=== PATIENT | female | born 1980 | race Caucasian/White ===

== ENCOUNTER 2021-12-23 08:12 | Outpatient (CLI) | payer OTHER, SELFPAY ==
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
--- OUTSIDE RECORDS SUMMARY | 2021-12-23 08:40 | XMS_ITS | Encounter Summary ---
:[address] [facility] Address [address] [place] [address] Care Team Providers Name Role Phone Oscar Laughlin M.D. Primary Care Provider [phone] Reason for Referral Specialty Diagnoses / Procedures Referred By Contact Refer red To Contact Oscar Laughlin M.D. [facility] Region [address] [place] [address] Referral ID Status Reason Start Date Expiration Date Visits Requ ested Visits Authorized Encounter Details Date Type Department Care Team Description 12/02/[address] [facility] [address] [place], [place] [phone] (Wo rk) Social History Tobacco Use Types Packs/Day Years Used Date Smoking Tobacco: Never Smokeless Tobacco: Never Alcohol Use Standard Drinks/Week Comments Yes 0 [...] or relatives? How often do you attend yazidism or More than 4 times per year 07/29/2020 spiritism services? Do you belong to any clubs or Yes 07/29/2020 organizations such as yazidism groups, unions, fraternal or athletic groups, or [...] place to sleep or slept in a halfway (including now)? Education Answer Date Recorded What is the highest level of school Master's degree (e.g., M A, MS, 03/11/2020 you have completed or the highest Fabio, MEd, HOTEL RECEPTIONIST, ELICIA) degree you have received? Sex Assigned at Date Recorded Female 04/27/2017 8:11 AM VP CLIENT SERVICES documented as of this encounter Plan of Treatment Scheduled Referrals Name Type Priority Associated Order Schedule Diagnoses Covid immunization Outpatient Referral Routine Ex pected: office visit 12/02/2021 Immuno/Booster (Approximate) , Expires: 12/02/2022 documented as of this encounter Visit Diagnoses Not on filedocumented in this encounter Additional Health Concerns Assessment Noted Time PHQ-9 Depression Total Score: 7 04/12/2020 10:38 AM CS T documented as of this encounter Care Teams Truck Mechanic Apprentice Relationship Specialty Start Date End Date Oscar Laughlin M.D. PCP - General 08/10/[address] [address] documented as of this encounter
--- OUTSIDE RECORDS SUMMARY | 2021-12-23 08:40 | XMS_ITS | Encounter Summary ---
:1980 Author Organization [facility] Address [address] [place] [address] Care Team Providers Name Role Phone Oscar Laughlin M.D. Primary Care Provider [phone] Reason for Referral Outpatient (Routine) - Authorized Specialty Diagnoses / Procedures Referred By Contact Refer red To Contact Diagnoses Screening Mammogram Breast Cancer Oscar Laughlin M.D. [facility] Region Procedures BI Breast Screening Bilateral with Tomosynthesis [address] [place] [address] Referral ID Status Reason Start Date Expiration Date Visits V isits Requested Authorized [id number] Authorized 08/02/2021 08/02/2022 1 1 Outpatient (Routine) - Authorized Specialty Diagnoses / Procedures Referred By Contact Refer red To Contact Oscar Laughlin M.D. [facility] Region [address] [place] [address] Referral ID Status Reason Start Date Expiration Date Visits V isits Requested Authorized [id number] Authorized 08/02/2021 08/02/2022 1 1 Encounter Details Date Type Department Care Team Description 08/02/2021 Orders Only [facility] SEMN PCP [facility] [address], Fernando Granados M.D. Screening Mammogram Breast Cancer [address] [place] [address] Social History Tobacco Use Types Packs/Day Years [...] or relatives? How often do you attend religion or More than 4 times per year 07/29/2020 mu-ism services? Do you belong to any clubs or Yes 07/29/2020 organizations such as religion groups, unions, fraternal or athletic groups, or [...] place to sleep or slept in a assisted (including now)? Education Answer Date Recorded What is the highest level of school Master's degree (e.g., M A, MS, 03/11/2020 you have completed or the highest Fabio, MEd, GASOLINE DRAGLINE OPERATOR, ELICIA) degree you have received? Sex Assigned at Date Recorded Female 04/27/2017 8:11 AM GUARD DRIVER documented as of this encounter Plan of Treatment Scheduled Orders Name Type Priority Associated Order Schedule Diagnoses Lipid Panel Lab Routine Screening Lipid Expected: 08/16/2021, Expires: 01/29/2022 BI Breast Screening Imaging RAD - Routine (most Screening Mamm ogram Expected: Bilateral with inpatients and all Breast Cancer 2021, Tomosynthesis outpatients) Expires: 01/29/2022 Scheduled Referrals Name Type Priority Associated Diagnoses Order S oleg Primary Care nurse Outpatient Referral Routine Ex pected: visit (clinic) - 08/16/2021, [facility] Region; Expires: BP check; BP check 2 only (BANQUET MANAGER) documented as of this encounter Visit Diagnoses Diagnosis Screening Lipid Screening Mammogram Breast Cancer documented in this encounter Additional Health Concerns Assessment Noted Time PHQ-9 Depression Total Score: 7 04/12/2020 10:38 AM CS T documented as of this encounter Care Teams Wind Science And Planning Relationship Specialty Start Date End Date Oscar Laughlin M.D. PCP - General 08/10/[address] [id number] documented as of this encounter
--- OUTSIDE RECORDS SUMMARY | 2021-12-23 08:40 | XMS_ITS | Encounter Summary ---
:1980 Author Organization [facility] Address [address] [place] [address] Care Team Providers Name Role Phone Oscar Laughlin M.D. Primary Care Provider Reason for Visit Reason Comments Med Refill Encounter Details Date Type Department Care Team Description 03/24/2021 Refill Department of Family Medicine, Nabeel Connor M.D. Med Refill [facility], in [place], [place] [address] [address] [facility] [place] [address] [facility] [phone] Social History Tobacco Use Types Packs/Day Years [...] or relatives? How often do you attend religious or More than 4 times per year 07/29/2020 christianity services? Do you belong to any clubs or Yes 07/29/2020 organizations such as religious groups, unions, fraternal or athletic groups, or [...] minutes do you engage in exercise at is 40 min 07/29/2020 level? Stress Answer [...] level of school Master's degree (e.g., M Alissa, MS, 03/11/2020 you have completed or the highest Fabio, MEd, FUSION OPERATOR, ELICIA) degree you have received? Sex Assigned at Date Recorded Female 04/27/2017 8:11 AM STORE SPECIALIST documented as of this encounter Miscellaneous Notes Telephone Encounter - Nabeel Newby RMickeyN. - 03/24/2021 1:05 PM CST Patient notified. E SPECIALIST documented in this encounter Plan of Treatment Not on filedocumented as of this encounter Visit Diagnoses Not on filedocumented in this encounter Additional Health Concerns Assessment Noted Time PHQ-9 Depression Total Score: 7 04/12/2020 10:38 AM CS T documented as of this encounter Care Teams Taxicab Starter Relationship Specialty Start Date End Date Oscar Laughlin M.D. PCP - General 08/10/16 [address] [place] [address] documented as of this encounter
--- OUTSIDE RECORDS SUMMARY | 2021-12-23 08:41 | XMS_ITS | Encounter Summary ---
:1980 Author Organization [facility] Address [address] [place] [address] Care Team Providers Name Role Phone Oscar Laughlin M.D. Primary Care Provider [phone] Reason for Referral Specialty Diagnoses / Procedures Referred By Contact Refer red To Contact Tung Mancera M.D. [facility] Region [address] [place] [address] Referral ID Status Reason Start Date Expiration Date Visits Requ ested Visits Authorized Encounter Details Date Type Department Care Team Description 05/13/2020 Orders Only [facility] SEMN PCP [facility] [address] M.D. [address] [place], [place] [phone] (Wo rk) Social History Tobacco Use Types [...] or relatives? How often do you attend hinduism or More than 4 times per year 07/29/2020 adventist services? Do you belong to any clubs or Yes 07/29/2020 organizations such as hinduism groups, unions, fraternal or athletic groups, or [...] place to sleep or slept in a fdc (including now)? Education Answer Date Recorded What is the highest level of school Master's degree (e.g., M A, MS, 03/11/2020 you have completed or the highest Fabio, MEd, SPINNING MACHINE OPERATOR, ELICIA) degree you have received? Sex Assigned at Date Recorded Female 04/27/2017 8:11 AM BUSHEL WORKER documented as of this encounter Plan of Treatment Scheduled Referrals Name Type Priority Associated Order Schedule Diagnoses Covid immunization Outpatient Referral Routine Ex pected: office visit Initial 021 (Approximate), Expires: 05/13/2021 documented as of this encounter Visit Diagnoses Not on filedocumented in this encounter Additional Health Concerns Assessment Noted Time PHQ-9 Depression Total Score: 7 04/12/2020 10:38 AM CS T documented as of this encounter Care Teams Supervisor Carbon Electrodes Relationship Specialty Start Date End Date Oscar Laughlin M.D. PCP - General 08/10/[address], [place] [address] documented as of this encounter
--- OUTSIDE RECORDS SUMMARY | 2021-12-23 08:41 | XMS_ITS | Encounter Summary ---
:1980 Author Organization [facility] Address [address] [place] [address] Care Team Providers Name Role Phone Oscar Laughlin M.D. Primary Care Provider [phone] Encounter Details Date Type Department Care Team Description 02/02/2020 Orders Only [facility] SEMN PCP [facility] MNT Pablo Laughlin M.D. [address] [place], [place] [phone] (Wo rk) Social History [...] or relatives? How often do you attend christianity or More than 4 times per year 07/29/2020 christian services? Do you belong to any clubs or Yes 07/29/2020 organizations such as christianity groups, unions, fraternal or athletic groups, or [...] place to sleep or slept in a [facility] (including now)? Sex Assigned at Date Recorded Female 04/27/2017 8:11 AM SALESPERSON HOUSEHOLD APPLIANCES documented as of this encounter Plan of Treatment Not on filedocumented as of this encounter Visit Diagnoses Not on filedocumented in this encounter Care Teams Retirement Plan Counselor Relationship Specialty Start Date End Date Oscar Laughlin M.D. PCP - General 08/10/[address] [phone] documented as of this encounter
--- OUTSIDE RECORDS SUMMARY | 2021-12-23 08:41 | XMS_ITS | Encounter Summary ---
:1980 Author Organization [facility] Address [address] [place] [address] Care Team Providers Name Role Phone Oscar Laughlin M.D. Primary Care Provider [phone] Reason for Visit Reason Comments Skin Problem cyst on upper mid back. Sks that popped up after pregnancies. Outpatient (Routine) - Closed Specialty Diagnoses / Procedures Referred By Contact Refer red To Contact Dermatology Diagnoses Cyst Sebaceous Keratosis Seborrheic Evaristo Ledbetter N, GARAGE LABORER, [facility] C.N.P., D.N.P. [address] [place] [address] Referral ID Status Reason Start Date Expiration Date Visits Requ ested Visits Authorized [id number] Closed 05/02/2018 05/02/2019 1 1 Encounter Details Date Type Department Care Team Description 05/21/2018 Comprehensive Visit Department of Aura Porter Keratos is Seborrheic Inflamed (Primary Dx); Dermatology in [facility], Cyst Sebaceou s; [place], [place] C.N.P., Administrative Encounter No Exam [address] [facility] [place], [place] [address] [phone] [place] [address] Social History Tobacco Use Types Packs/Day Years [...] or relatives? How often do you attend sabianism or More than 4 times per year 07/29/2020 scientologist services? Do you belong to any clubs or Yes 07/29/2020 organizations such as sabianism groups, unions, fraternal or athletic groups, or [...] place to sleep or slept in a skilled nursing (including now)? Sex Assigned at Date Recorded Female 04/27/2017 8:11 AM QUALITY ASSURANCE ANALYST documented as of this encounter Progress Notes Aura Porter, RADHA, C.N.P., M.S.N. - 05/21/2018 1:00 PM CDT SUBJECTIVE CHIEF COMPLAINT / REASON FOR VISIT Skin Problem (cyst on upper mid back. Sks that popped up after pregnancies.). HISTORY OF PRESENT ILLNESS Saniya Sauceda is a 38 y.o. female who presents for evaluation of a cyst on her mid upper back and an irritated seborrheic keratoses on her left lateral back that rubs on her bra. She denies any personal or family his skin cancers and is otherwise in her routine state of health. Per nursing notes: Chief Complaint (Reason for visit):Cyst on upper mid back, has had for awhile. Also, patient has SK's on upper back since pregnancies How long has lesion(s) been present, any symptoms (pain, bleeding, or itching)? : no pain or itching Was patient referred, self referred, or a returning derm patient? : referred by Evaristo Ledbetter Personal or family history of skin cancer or other skin condition? : no Any other skin concerns today? : no The following portions of the patient's history were reviewed and updated as appropriate: allergies,current medications, medical history, social history and surgical history. REVIEW OF SYSTEMS Constitutional, integumentary, and allergic/immunologic review of systems is negative except as otherwise remarked above or below. OBJECTIVE PHYSICAL EXAM General: Well-appearing female in no acute distress. Well groomed and dressed and answers appropriately to questions. Skin: I have examined the back, on the mid upper back there is a 10 mm subcutaneous nodule with a punctum consistent with an epidermal cyst. On the left lateral back there is a brown hyperkeratotic stuck on appearing waxy 14-16 mm papule with mild erythema consistent with an inflamed seborrheic keratosis. ASSESSMENT / PLAN #1 Cyst Sebaceous We discussed treatment options and patient was agreeable to removal of this benign lesion. The risksand benefits of the procedure were discussed, and the patient consented to this procedure. PROCEDURAL PAUSE Risks, benefits, alternatives of procedure and necessity of other healthcare team members involved in procedure were discussed. All questions answered. Before procedure, pause conducted and patient identity, procedure, site, position, special equipment/requirements were verified. PROCEDURE DETAILS Punch removal. LOCATION: Mid upper back Using 1% lidocaine with epinephrine for local anesthesia, a 12 mm punch was obtained from the mid upper back. The specimen was examined and appear to be consistent with an epidermal cyst, the cyst was removed entirely including the cyst wall. The site closed with a bottom layer of 4-0 Vicryl and a toplayer of 4-0 nylon sutures. The skin sutures need to be removed in 10-14 days. Dressing was applied,and wound care instructions were explained. #2 Inflamed Keratosis Seborrheic We discussed treatment options and patient was agreeable to destruction of this benign lesion. The risks, benefits, and alternatives of the procedure were discussed and patient consented to the procedure. The area was cleansed with alcohol prep and numbed using 1% lidocaine with epinephrine. The area was prepped and draped in the usual clean fashion. The area was destroyed with electrodesiccation. Minimal bleeding. Patient tolerated procedure well and post care instructions were provided. Patient will follow up if lesion fails to resolve. PATIENT EDUCATION Ready to learn, no apparent learning barriers were identified; learning preferences include listening. Explained diagnosis and treatment plan; patient expressed understanding of the content. documented in this encounter Plan of Treatment Scheduled Orders Name Type Priority Associated Diagnoses Order S chedule DAXA Suture removal Dermatology Routine Cyst Sebaceou s Expected: 06/03/2018 Keratosis Seborrheic (Approx imate), Inflamed Expires: 05/21/2021 Administrative Encounter No Exam documented as of this encounter Visit Diagnoses Diagnosis Keratosis Seborrheic Inflamed - Primary Cyst Sebaceous Administrative Encounter No Exam documented in this encounter Care Teams Filtration Plant Operator Relationship Specialty Start Date End Date Oscar Laughlin M.D. PCP - General 08/10/[address] [address] documented as of this encounter
--- OUTSIDE RECORDS SUMMARY | 2021-12-23 08:41 | XMS_ITS | Encounter Summary ---
:1980 Author Organization [facility] Address [address] [place] [address] Care Team Providers Name Role Phone Oscar Laughlin M.D. Primary Care Provider [phone] Reason for Visit Appointment Request (Routine) - Closed Specialty Diagnoses / Procedures Referred By Contact Refer red To Contact Family Medicine Referral ID Status Reason Start Date Expiration Date Visits Requ ested Visits Authorized [id number] Closed 12/22/2019 12/21/2020 1 1 Encounter Details Date Type Department Care Team Description 12/29/2019 Immunization [facility] [place], [place] [address] [place] [address] [facility] [phone] Social History Tobacco Use Types Packs/Day Years [...] or relatives? How often do you attend oriental orthodox or More than 4 times per year 07/29/2020 muslim services? Do you belong to any clubs or Yes 07/29/2020 organizations such as oriental orthodox groups, unions, fraternal or athletic groups, or [...] place to sleep or slept in a senior living (including now)? 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 PCP - General 08/10/[address] [address] documented as of this encounter
--- OUTSIDE RECORDS SUMMARY | 2021-12-23 08:41 | XMS_ITS | Encounter Summary ---
:1980 Author Organization [facility] Address [address] [place] [address] Care Team Providers Name Role Phone Oscar Laughlin M.D. Primary Care Provider [phone] Reason for Visit Outpatient (Routine) - Closed Specialty Diagnoses / Procedures Referred By Contact Refer red To Contact Dermatology Diagnoses Lesion Skin Leg Swetha Vázquez, [facility] [address] [place] [address] Referral ID Status Reason Start Date Expiration Date Visits V isits Requested Authorized [id number] Closed Specialty 07/29/2020 07/29/2021 1 1 Services Required Encounter Details Date Type Department Care Team Description 09/06/2020 Comprehensive Visit Department of Aura Porter, Dermato fibroma Dermatology in [facility] C.[place]ad [place], [place] M.S.N. [address] [place] [address] [place], [place] [phone] [address] Social History Tobacco Use Types Packs/Day [...] or relatives? How often do you attend anabaptist or More than 4 times per year 07/29/2020 confucianist services? Do you belong to any clubs or Yes 07/29/2020 organizations such as anabaptist groups, unions, fraternal or athletic groups, or [...] have completed or the highest Fabio, MEd, CHINESE HERBALIST, ELICIA) degree you have received? 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 - 09/06/2020 11:00 AM CDT SUBJECTIVE CHIEF COMPLAINT / REASON FOR VISIT Lesion on leg HISTORY OF PRESENT ILLNESS Saniya Sauceda is a 40 y.o. female who presents for evaluation of a lesion on her right coker that has been present for many years but seems to be enlarging. She reports that she it occasionally catches it while shaving and it becomes traumatized. Per nursing notes: Chief Complaint (Reason for visit): check lesion R coker How long has lesion(s) been present, any symptoms (pain, bleeding, or itching)? : present x years; denies itch, bleed or pain; has enlarged Was patient referred, self referred, or a returning derm patient? : referral Personal or family history of skin cancer or other skin condition? : no personal or family hx of sk cancer Any other skin concerns today? : no The following portions of the patient's history were reviewed and updated as appropriate: allergies,current medications, medical history and social history. REVIEW OF SYSTEMS Constitutional, integumentary, and allergic/immunologic review of systems is negative except as otherwise remarked above or below. OBJECTIVE PHYSICAL EXAM General: Well-appearing female in no acute distress. Well groomed and dressed and answers appropriately to questions. Skin: I have examined the right lower leg, on the right coker there is a 8 mm scar-like firm papule consistent with dermatofibroma. ASSESSMENT / PLAN #1 Dermatofibroma, irritated We explained the potential diagnosis and recommended that we obtain a biopsy. The risks and benefitsof the procedure were discussed, and the patient consented to this procedure. PROCEDURE DETAILS Shave removal. LOCATION: Right coker The lesion was marked with a surgical pen and confirmed with the patient. The area was prepped and draped in the usual clean fashion. A procedural pause was completed. The lesion was anesthetized with 1% lidocaine. The lesion was removed by shave technique, including 1 mm of clinically normal, uninvolved surrounding skin. Hemostasis was well controlled with aluminum chloride and confirmed. Estimated blood loss: Minimal. Complications: None. Wound dressing applied, care instructions explained. Biopsyresults and any further recommendations will be communicated to the patient. Patient given pamphlet [id number]. PATIENT EDUCATION Ready to learn, no apparent learning barriers were identified; learning preferences include listening. Explained diagnosis and treatment plan; patient expressed understanding of the content. This note represents shared documentation between the assisting nurse and the encounter provider. The content has been reviewed and edited as needed by the provider. documented in this encounter Plan of Treatment Not on filedocumented as of this encounter Procedures Procedure Name Priority Date/Time Associated Diagnosis Comme nts DERMATOPATHOLOGY Routine 09/06/2020 11:18 Dermatofibroma Resul ts for this CONSULT AM CDT procedure are i n the results section. documented in this encounter Results Dermatopathology Consult (09/06/2020 11:18 AM CDT) Component Value Ref Test Analysis Performed At [facility] gist Range Method Time Signature 09/10/2020 [facility] 10:58 AM CDT Participated in Charli Grossman 09/10/2020 [facility] the Interpretation Italia Blackwood, 10:58 AM D.OMickey-Patholog CDT y Fellow Report Devan Shah 09/10/2020 [facility] electronically Zeb Mendoza 10:58 AM signed by CDT Gross Description: Received in formalin labeled with the patient's name, 09/10/2020 [facility] medical record number, and right coker is a 1.2 x 1.0 x 10:58 AM 0.1 cm contreras skin shave biopsy. ??Centrally located and CDT contiguous with the skin surface is a 0.6 x 0.5 cm pale contreras-white, slightly raised lesion. ??The specimen is serially sectioned and submitted entirely in cassette A1. Grossed by ABDOULAYE Interpetation FINAL DIAGNOSIS 09/10/2020 [facility] A. ??DermPath Consult Wet Tissue; Right coker, Skin shave 10:58 AM biopsy: ??Dermatofibroma, involving biopsy border CDT Specimen Anatomical Collection Method Collection Time Receive d Time (Source) Location / / Volume Laterality Tissue 09/06/2020 11:18 09/07/2020 9:05 AM CDT AM CDT Narrative This result has an attachment that is no t available. Miranda Sol APRNNAnisa, M.S.N. LAB PATH DERM ORDERABL ES Performing Organization Address City/State/ZIP Code Phon e Number [facility] - [address] [place], [place] [address] [place] [address] [facility] [address] documented in this encounter Visit Diagnoses Diagnosis Dermatofibroma documented in this encounter Additional Health Concerns Assessment Noted Time PHQ-9 Depression Total Score: 7 04/12/2020 10:38 AM CS T documented as of this encounter Care Teams Sales Representative Girls' Apparel Relationship Specialty Start Date End Date Oscar Laughlin M.D. PCP - General 08/10/[address] [place] [address] documented as of this encounter
--- OUTSIDE RECORDS SUMMARY | 2021-12-23 08:41 | XMS_ITS | Encounter Summary ---
:1980 Author Organization [facility] Address [address] [place] [address] Care Team Providers Name Role Phone Oscar Laughlin M.D. Primary Care Provider [phone] Reason for Visit Reason Comments Med Refill Encounter Details Date Type Department Care Team Description 03/12/2020 Refill Department of [facility] Tejal Laughlin M.D. Med Refill Medicine, [facility], [address] [place] [address] [place] [address] [facility] [phone] Social History Tobacco Use Types Packs/Day Years [...] or relatives? How often do you attend anabaptism or More than 4 times per year 07/29/2020 bahai services? Do you belong to any clubs or Yes 07/29/2020 organizations such as anabaptism groups, unions, fraternal or athletic groups, or [...] have completed or the highest Fabio, MEd, INVESTIGATIVE SHOPPER, ELICIA) degree you have received? 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 Pharmacy Communication-change requested Provider: Evarisot Ledbetter Medication: Bupropion XL Strength: 150 mg Frequency: Take one tablet by mouth every morning for 14 days, then two tablets by mouth every morning Pharmacy: [facility] Comment: NTEGRATOR OPERATOR documented in this encounter Plan of Treatment Not on filedocumented as of this encounter Visit Diagnoses Not on filedocumented in this encounter Additional Health Concerns Assessment Noted Time PHQ-9 Depression Total Score: 14 03/12/2020 7:59 AM CS T documented as of this encounter Care Teams Direct Support Worker Relationship Specialty Start Date End Date Oscar Laughlin M.D. PCP - General 08/10/[address] [place] [address] documented as of this encounter
--- OUTSIDE RECORDS SUMMARY | 2021-12-23 08:41 | XMS_ITS | Encounter Summary ---
:1980 Author Organization [facility] Address [address] [place] [address] Care Team Providers Name Role Phone Oscar Laughlin M.D. Primary Care Provider [phone] Reason for Visit Reason Comments Nurse Visit [facility] for [facility] BP check today. Outpatient (Routine) - Closed Specialty Diagnoses / Procedures Referred By Contact Refer red To Contact Family Medicine Diagnoses Elevated Blood Pressure Evaristo Ledbetter [facility] RADHA, C.N.P., D.N.P. [address] [place] [address] Referral ID Status Reason Start Date Expiration Date Visits Requ ested Visits Authorized [id number] Closed 05/02/2018 05/02/2019 1 1 Encounter Details Date Type Department Care Team Description 05/17/2018 Nurse Only Department of Family Keven Ledbetter APRN, C.N.P., D.N.P. [address] [place] [address] Nurse Visit (Patient is Medicine, Sun Harley, RMaria Del Carmen [address] [place] [address] here in the [facility], in [place], for her BP check [place] today.) [address] [place] [address] Social History Tobacco Use Types Packs/Day Years [...] or relatives? How often do you attend yarsanism or More than 4 times per year 07/29/2020 worship services? Do you belong to any clubs or Yes 07/29/2020 organizations such as yarsanism groups, unions, fraternal or athletic groups, or [...] place to sleep or slept in a custodial (including now)? 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 - 05/17/2018 11:00 AM CDT S [facility] checked. B Patient denies symptoms today. A Last on 05/02 BP was 154/94 p 80. Today 05/17 BP is 148/93 p 65, 134/83 p 67, 139/91 p 68. All were taken today with the electronic BP machine 5 min apart R Please contact the patient with any further information or follow up regarding the blood pressure,or medication(s). documented in this encounter Plan of Treatment Not on filedocumented as of this encounter Visit Diagnoses Diagnosis Elevated Blood Pressure documented in this encounter Care Teams Cut Order Hand Relationship Specialty Start Date End Date Oscar Laughlin M.D. PCP - General 08/10/[address] [address] documented as of this encounter
--- OUTSIDE RECORDS SUMMARY | 2021-12-23 08:41 | XMS_ITS | Encounter Summary ---
:1980 Author Organization [facility] Address [address] [place] [address] Care Team Providers Name Role Phone Oscar Laughlin M.D. Primary Care Provider [phone] Encounter Details Date Type Department Care Team Description 02/01/2021 Orders Only [facility] Pablo Laughlin M.D. [address] [place], [place] [address] (Wo rk) Social History [...] or relatives? How often do you attend amish or More than 4 times per year 07/29/2020 buddhist services? Do you belong to any clubs or Yes 07/29/2020 organizations such as amish groups, unions, fraternal or athletic groups, or [...] place to sleep or slept in a retirement (including now)? Education Answer Date Recorded What is the highest level of school Master's degree (e.g., M Alissa, MS, 03/11/2020 you have completed or the highest Fabio, MEd, TRANSFERRER, ELICIA) degree you have received? Sex Assigned at Date Recorded Female 04/27/2017 8:11 AM AUTHORIZER documented as of this encounter Plan of Treatment Not on filedocumented as of this encounter Visit Diagnoses Not on filedocumented in this encounter Additional Health Concerns Assessment Noted Time PHQ-9 Depression Total Score: 7 04/12/2020 10:38 AM CS T documented as of this encounter Care Teams Center Medical Specialist Relationship Specialty Start Date End Date Oscar Laughlin M.D. PCP - General 08/10/[address] [address] documented as of this encounter
--- OUTSIDE RECORDS SUMMARY | 2021-12-23 08:41 | XMS_ITS | Encounter Summary ---
:1980 Author Organization [facility] Address [address] [place] [address] Care Team Providers Name Role Phone Oscar Laughlin M.D. Primary Care Provider [phone] Reason for Referral Outpatient (Routine) - Closed Specialty Diagnoses / Procedures Referred By Contact Refer red To Contact Diagnoses Screening Mammogram Breast Cancer [facility]. [facility] [place] [facility] Procedures BI Breast Screening Bilateral with Tomosynthesis [address] [place] [address] Referral ID Status Reason Start Date Expiration Date Visits Requ ested Visits Authorized [id number] Closed 07/20/2020 07/20/2021 1 1 Reason for Visit Outpatient (Routine) - Closed Specialty Diagnoses / Procedures Referred By Contact Refer red To Contact Diagnoses Screening Mammogram Breast Cancer [facility]aughlin [facility].D. [facility] [place] [facility] Procedures BI Breast Screening Bilateral with Tomosynthesis [address] [place] [phone] Referral ID Status Reason Start Date Expiration Date Visits Requ ested Visits Authorized [id number] Closed 07/20/2020 07/20/2021 1 1 Encounter Details Date Type Department Care Team Description 07/23/2020 Hospital Encounter Department of Oscar Laughlin Mammogram Radiology marleny Hernandez M.D. Breast Cancer [place], [place] [address] [place] [id number] Social History Tobacco Use Types Packs/Day Years [...] More than 4 times per year 07/29/2020 jain services? Do you belong to any clubs [...] slept in a senior living (including now)? Education Answer Date Recorded What is the highest level of school Master's degree (e.g., M A, MS, 03/11/2020 you have completed or the highest Fabio, MEd, APRON TRIMMER, ELICIA) degree you have received? 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 hydrOXYzine (ATARAX) 25 Take 1 tablet (25 mg 30 tablet 2 12/28/2020 mg tablet total) by mouth at bedtime as needed (anxiety/insomnia). documented as of this encounter Plan of Treatment Not on filedocumented as of this encounter Procedures Procedure Name Priority Date/Time Associated Comments Diagnosis BI BREAST SCREENING RAD - Routine 07/23/2020 10:35 Screening Res ults for BILATERAL WITH (most inpatients AM CDT Mammogram Breast this procedure TOMOSYNTHESIS and all Cancer are in the outpatients) results section. documented in this encounter Results BI Breast Screening Bilateral with Tomosynthesis (07/23/2020 10:35 AM CDT) Anatomical Region Laterality Modality Breast, Breast Imaging RST LOS, Breast Imaging ARZ LOS, [place] Bilateral Mammography Imaging FLA LOS Specimen (Source) Anatomical Collection Method Collection Time Re ceived Time Location / / Volume Laterality 07/23/2020 4:48 PM CDT Impressions 07/23/2020 4:49 PM CDT Negative. RECOMMENDATION: ??Annual Screening Mammo gram Annual screening mammogram. ASSESSMENT: ??BI-RADS: 1: Negative. Narrative 07/23/2020 4:49 PM CDT EXAM: ??BI BREAST SCREENING BILATERAL WITH TOMOSYNTHESIS Current study was evaluated with a NowForceu OATSystems Aided Detection (CAD) system. INDICATION: ??Screening mammogram. COMPARISON: ??None, this is a baseline s creening exam. DENSITY: ??c. The breast(s) are heteroge neously dense, which may obscure small masses. FINDINGS: ??No mammographic findings of malignancy. Procedure Note Rolan Toribio M.D. - 07/23/2020Formatt ing of this note might be different from the original. EXAM: BI BREAST SCREENING BILATERAL WITH TOMOSYNTHESIS Current study was evaluated with a NowForceu OATSystems Aided Detection (CAD) system. INDICATION: Screening mammogram. COMPARISON: None, this is a baseline scr eening exam. DENSITY: c. The breast(s) are heterogene ously dense, which may obscure small masses. FINDINGS: No mammographic findings of ma lignancy. IMPRESSION: Negative. RECOMMENDATION: Annual Screening Mammogr am Annual screening mammogram. ASSESSMENT: BI-RADS: 1: Negative. Oscar Laughlin M.D. IMG BI PROCEDURES documented in this encounter Visit Diagnoses Diagnosis Screening Mammogram Breast Cancer documented in this encounter Additional Health Concerns Assessment Noted Time PHQ-9 Depression Total Score: 7 04/12/2020 10:38 AM CS T documented as of this encounter Care Teams Bow Maker Custom Relationship Specialty Start Date End Date Oscar Laughlin M.D. PCP - General 08/10/[address] [address] documented as of this encounter
--- OUTSIDE RECORDS SUMMARY | 2021-12-23 08:41 | XMS_ITS | Encounter Summary ---
:1980 Author Organization [facility] Address [address] [place] [address] Care Team Providers Name Role Phone Oscar Laughlin M.D. Primary Care Provider Reason for Visit Reason Comments Pre-op Exam Tumnatalie castrejon and breast life a [facility] with Dr. Omar Armijo Appointment Request (Routine) - Closed Specialty Diagnoses / Procedures Referred By Contact Refer red To Contact Family Medicine Referral ID Status Reason Start Date Expiration Date Visits Requ ested Visits Authorized [id number] Closed 10/02/2019 10/01/2020 1 1 Encounter Details Date Type Department Care Team Description 10/16/2019 Office Visit Department of Family Nae Andrews Preo perative Exam (Primary Dx); MedicineBud P.A.-C. [facility], in [place] [address] [place], [place] [address] [address] [place], [place] [phone] (Work) [phone] Social History Tobacco Use Types Packs/Day Years [...] or relatives? How often do you attend episcopalian or More than 4 times per year 07/29/2020 tenriism services? Do you belong to any clubs or Yes 07/29/2020 organizations such as episcopalian groups, unions, fraternal or athletic groups, or [...] or slept in a fdc (including now)? 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 - 10/16/2019 8:00 AM CDT No aspirin containing products 7 days (09/14) prior to surgery. No ibuprofen use 24hrs before surgery Flu vaccine this fall. Lifestyle modifications for BP management Modification Approx SBP reduction range Weight loss 1 mmHg/1kg (2.2lbs) weight loss DASH diet eating plan: Dietary pattern is high in vegetables, fruits, low-fat dairy products, whole grains, poultry, fish, and nuts and low in sweets, sugar-sweetened beverages, and red meats 8-14 mmHg Dietary sodium reduction <2.3g of sodium/day 2-8 mmHg Sufficient potassium 4-5 mmHg Physical activity 3-4 sessions moderate-intensity aerobic exercise lasting approx. 40 minutes 4-9 mmHg Moderate alcohol consumption <1 drink per day (females) <2 drinks per day (males) 2-4 mmHg documented in this encounter Progress Notes Nae Andrews P.A.-C. - 10/16/2019 8:00 AM CDT FAMILY MEDICINE PREOPERATIVE EXAM: Proposed surgery date: 10/23/2019. Surgeon: Dr. Omar Armijo. Proposed surgery: Tummy tuck and breast left. Location: [facility]. HISTORY OF PRESENT ILLNESS Saniya Sauceda is a pleasant 39 y.o. female who presents to the clinic today for preoperative anesthetic medical exam for the above-mentioned procedure. She states she is feeling well and has no complaints at this time. SYSTEMS REVIEW Constitutional: Negative for fever. Respiratory: Negative for dyspnea. Cardiovascular: Negative for chest pain, pressure or tightness and rapid or fluttering heart beat. Gastrointestinal: Negative for constipation, diarrhea, nausea and vomiting. Hematologic: Negative for bruises or bleeds easily. Neurological: Negative for seizures. Psychiatric/Behavioral: Negative for snores loudly. The following portions of the patient's history were reviewed and updated as appropriate: allergies,current medications, medical history, social history, surgical history and problem list. Allergies Allergen Reactions ??? Amoxicillin Rash No current outpatient medications on file. VITAL SIGNS BP (!) 140/92 (BP Location: Right arm, Patient Position: Sitting, Cuff Size: Regular) Pulse 72 Temp 36.3 ??C (Temporal) Wt 78.3 kg BMI 30.21 kg/m?? PHYSICAL EXAMINATION GENERAL: Well-nourished, well-developed 39 y.o. femlae in no apparent distress. Awake, alert, age appropriate. HEENT: Head is normocephalic, atraumatic. Pupils round and reactive bilaterally. EOM's intact. Conjunctiva and sclera are clear. TM's are normal bilaterally. Oropharynx pink and moist, tonsils enlargedbilaterally but without exudate or erythema. Mallampati II. CARDIOVASCULAR: Regular rate and rhythm without murmurs. LUNGS: Clear to auscultation bilaterally with no adventitious sounds ABDOMEN: Bowel sounds present in all quadrants. Soft, non-tender with no palpable organomegaly. SKIN: Warm, pink, and dry. No rashes or lesions NEUROLOGIC: Alert and oriented x 3. Bilateral patellar and Achilles tendon DTRs 2+/4+. Strength and tone normal in upper and lower extremities. LABS: 10/16/2019 08:48 10/16/2019 08:31 Hemoglobin 13.6 Hematocrit 40.2 Erythrocytes 4.40 MCV 91.4 RBC Distrib Width 12.2 Platelet Count 297 White Blood Cell Count 6.3 Neutrophils 3.91 Lymphocytes 1.56 Monocytes 0.64 Eosinophils 0.15 Basophils 0.04 Surgical risk factors: 1. Cardiac: None. 2. Pulmonary: None. 3. Diabetes: None. 4. Obstructive sleep apnea: None. 5. Anesthesia reactions, bleeding or clotting disorders: None. 6. Infection/Immunosuppression: None. 7. GERD: None. 8. Mallampati Class: 2. 9. ASA Class: 1. IMPRESSION/REPORT/PLAN #1 Preoperative Exam - This patient is medically optimized for the above-mentioned procedure. - She is capable of achieving greater than 4 METS without cardiopulmonary symptoms. - Advised no aspirin-containing products 7 days prior to procedure. - CBC and COVID test indicated at this time. - Follow-up as needed. #2 Elevated Blood Pressure -Lifestyle modifications for blood pressure management provided. -Patient should follow up with her PCP after surgery. All questions have been answered and those present are in agreement with this plan. Nae Andrews P.A.-C. documented in this encounter Plan of Treatment Not on filedocumented as of this encounter Results CBC with Differential, Blood (10/16/2019 8:31 AM CDT) P athologist Signature Hemoglobin 13.6 11.6 - 10/16/2019 OWAT 15.0 g/dL 8:44 AM CDT Hematocrit 40.2 35.5 - 10/16/2019 [place] 44.9 % 8:44 AM CDT Erythrocytes 4.40 3.92 - 10/16/2019 [place] 5.13 8:44 AM CDT x10(12)/L MCV 91.4 78.2 - 10/16/2019 [place] 97.9 fL 8:44 AM CDT RBC Distrib Width 12.2 12.2 - 10/16/2019 [place] 16.1 % 8:44 AM CDT Platelet Count 297 157 - 371 10/16/2019 [place] x10(9)/L 8:44 AM CDT Leukocytes 6.3 3.4 - 9.6 10/16/2019 [place] x10(9)/L 8:44 AM CDT Neutrophils 3.91 1.56 - 10/16/2019 OWAT 6.45 8:44 AM CDT x10(9)/L Lymphocytes 1.56 0.95 - 10/16/2019 OWAT 3.07 8:44 AM CDT x10(9)/L Monocytes 0.64 0.26 - 10/16/2019 OWAT 0.81 8:44 AM CDT x10(9)/L Eosinophils 0.15 0.03 - 10/16/2019 OWAT 0.48 8:44 AM CDT x10(9)/L Basophils 0.04 0.01 - 10/16/2019 OWAT 0.08 8:44 AM CDT x10(9)/L Specimen Anatomical Collection Method Collection Time Receive d Time (Source) Location / / Volume Laterality Blood (Blood, 10/16/2019 8:31 AM 10/16/19 8:38 Venous) CDT AM CDT Nae Andrews P.A.-C. LAB BLOOD ADD-ON Performing Organization Address City/State/ZIP Code Phon e Number [facility]- [address] [place] [address] [facility] [place] [address] System in [place] [address] [facility] documented in this encounter Visit Diagnoses Diagnosis Preoperative Exam - Primary Elevated Blood Pressure documented in this encounter Care Teams Record Pressman Relationship Specialty Start Date End Date Oscar Laughlin M.D. PCP - General 08/10/162199 [facility] [place] [id number] documented as of this encounter
--- OUTSIDE RECORDS SUMMARY | 2021-12-23 08:41 | XMS_ITS | Encounter Summary ---
:1980 Author Organization [facility] Address [address] [place] [address] Care Team Providers Name Role Phone Oscar Laughlin M.D. Primary Care Provider [phone] Reason for Visit Reason Comments COVID Inquiry Encounter Details Date Type Department Care Team Description 07/20/2020 Clinical Communication Department of Oscar Laughlin Family MedicineMary M.D. [facility], in [address] [place], [place] [address] [address] [place], [place] [phone] [address] (Work) [phone] Social History Tobacco Use Types Packs/Day Years [...] or relatives? How often do you attend alevism or More than 4 times per year 07/29/2020 gnosticist services? Do you belong to any clubs or Yes 07/29/2020 organizations such as alevism groups, unions, fraternal or athletic groups, or [...] place to sleep or slept in a snf (including now)? Education Answer Date Recorded What is the highest level of school Master's degree (e.g., M A, MS, 03/11/2020 you have completed or the highest Fabio, MEd, SHANK CARRIER, ELICIA) degree you have received? 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 documented as of this encounter Miscellaneous Notes Telephone Encounter - Lora Simmons - 07/20/2020 12:48 PM CDT What is the purpose of the call?: Standard Appointment Process Standard Appointment Process Have you tested positive for COVID-19 in the last 20 days OR do you have a pending COVID-19 test because you had symptoms?: No, neither apply What region is the appointment being requested?: Less than 14 days [place] In the past 14 days are any of the following symptoms new to you and not related to an existing health condition?: No symptoms noted In the past 14 days have you had close contact* with a person who has a LABORATORY CONFIRMED case ofCOVID-19?: No exposure noted, follow appt process (End Screening) Testing Recommendation Endpoint Is testing recommended? : Not recommended to test Plan: Endpoint recommendation: Followed regional [facility] *Reminder if sending patient for testing in [facility] or [facility], route encounter to the correct testing pool. documented in this encounter Plan of Treatment Not on filedocumented as of this encounter Visit Diagnoses Not on filedocumented in this encounter Additional Health Concerns Assessment Noted Time PHQ-9 Depression Total Score: 7 04/12/2020 10:38 AM CS T documented as of this encounter Care Teams Laminating Press Operator Relationship Specialty Start Date End Date Oscar Laughlin M.D. PCP - General 08/10/162199 [place] [phone] documented as of this encounter
--- OUTSIDE RECORDS SUMMARY | 2021-12-23 08:41 | XMS_ITS | Encounter Summary ---
:1980 Author Organization [facility] Address [address] [place] [address] Care Team Providers Name Role Phone Oscar Laughlin M.D. Primary Care Provider [phone] Reason for Visit Reason Comments Med Refill Encounter Details Date Type Department Care Team Description 12/27/2020 Refill Department of Family Medicine, Evaristo Ledbetter APRN, Med Refill [facility], in [place], [facility] [place] [address] [place] [address] [place] [address] [phone] Social History Tobacco Use Types Packs/Day Years [...] More than 4 times per year 07/29/2020 sabianist services? Do you belong to any clubs [...] place to sleep or slept in a intermediate (including now)? Education Answer Date Recorded What is the highest level of school Master's degree (e.g., M A, MS, 03/11/2020 you have completed or the highest Fabio, MEd, SILICA SPRAY MIXER, ELICIA) degree you have received? 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 PCP - General 08/10/[address] [phone] documented as of this encounter
--- OUTSIDE RECORDS SUMMARY | 2021-12-23 08:41 | XMS_ITS | Encounter Summary ---
:1980 Author Organization [facility] Address [address] [place] [address] Care Team Providers Name Role Phone Oscar Laughlin M.D. Primary Care Provider [phone] Reason for Visit Reason Comments Med Refill Encounter Details Date Type Department Care Team Description 05/22/2020 Refill Department of Family Medicine, Evaristo Ledbetter APRN, Med Refill [facility], in [place], [facility] [place] [address] [place] [address] [place] [address] [phone] Social History Tobacco Use Types Packs/Day Years [...] or relatives? How often do you attend jainism or More than 4 times per year 07/29/2020 amish services? Do you belong to any clubs or Yes 07/29/2020 organizations such as jainism groups, unions, fraternal or athletic groups, or [...] place to sleep or slept in a longterm (including now)? Education Answer Date Recorded What is the highest level of school Master's degree (e.g., M A, MS, 03/11/2020 you have completed or the highest Fabio, MEd, NURSING AGENCY MANAGER, ELICIA) degree you have received? 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 PCP - General 08/10/[address] [phone] documented as of this encounter
--- OUTSIDE RECORDS SUMMARY | 2021-12-23 08:41 | XMS_ITS | Encounter Summary ---
:1980 Author Organization [facility] Address [address] [place] [address] Care Team Providers Name Role Phone Oscar Laughlin M.D. Primary Care Provider [phone] Reason for Referral Outpatient (Routine) - Closed Specialty Diagnoses / Procedures Referred By Contact Refer red To Contact Dermatology Diagnoses Lesion Skin Leg Swetha Vázquez, [facility] P.[facility].-C. [address] [place] [address] Referral ID Status Reason Start Date Expiration Date Visits V isits Requested Authorized [id number] Closed Specialty 07/29/2020 07/29/2021 1 1 Services Required Reason for Visit Reason Comments Annual Exam Appointment Request (Routine) - Closed Specialty Diagnoses / Procedures Referred By Contact Refer red To Contact Family Medicine Referral ID Status Reason Start Date Expiration Date Visits Requ ested Visits Authorized [id number] Closed 07/20/2020 07/20/2021 1 1 Encounter Details Date Type Department Care Team Description 07/29/2020 Comprehensive Visit Department of High Megan Vázquez Human Papillomavirus Deoxyribonucleic Acid Test Positive Cervix (Primary Dx); Family MedicineSwetha, Hypertaustin n Essential Primary; [facility], P.A.-C. Lesion Skin Leg in [place], [address] [place], [place] [address] [address] [place], [place] [phone] [address] (Work) [phone] Social History Tobacco Use Types Packs/Day Years [...] or relatives? How often do you attend quaker or More than 4 times per year 07/29/2020 pentecostalism services? Do you belong to any clubs or Yes 07/29/2020 organizations such as quaker groups, unions, fraternal or athletic groups, or [...] or slept in a custodial (including now)? Education Answer Date Recorded What is the highest level of school Master's degree (e.g., M A, MS, 03/11/2020 you have completed or the highest Fabio, MEd, RN CARE TRANSITION, ELICIA) degree you have received? 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 - 07/29/2020 1:30 PM CDT SUBJECTIVE CHIEF COMPLAINT/REASON FOR VISIT Saniya Sauceda is a 40 y.o. female who presents for evaluation for annual well woman exam. HISTORY OF PRESENT ILLNESS Saniya Sauceda is a 40 y.o. female here today for her well woman annual exam with PAP follow up after colposcopy biopsy in 2019. Saniya has no concerns today, except for high blood pressure. She has a history of hypertension and has had blood pressure in the 130-150 systolic range in the past. Today the BP average was 149/90. She does not smoke and exercises regularly, her diet is good, although she can do better. She would like to avoid taking medication. Her mood and anxiety are better with the medication and she is doing therapy. REVIEW OF SYSTEMS General: No unintentional weight loss, no recent fevers, no profound fatigue. EENT: No difficulty swallowing, no mouth sores, no enlarged glands. Pulmonary: No difficulty breathing, no cough. Cardiac: No chest pain or shortness of breath.. Gastrointestinal: no changes in bowel movements Genitourinary: No burning or pain with urination. No new urinary frequency. No urinary incontinence.No changes in vaginal discharge. Skin: No skin rashes or lesions. MEDICAL HISTORY Patient Active Problem List Diagnosis ??? Gestational Hypertension Personal History Not ??? Vasectomy Status ??? Depression Major One Episode Moderate (HCC) ??? Insomnia SURGICAL HISTORY Past Surgical History: Procedure Laterality Date ??? MASTOPEXY ??? THERAPEUTIC 2004 CURRENT MEDICATIONS Current Outpatient Medications: ??? buPROPion XL (WELLBUTRIN XL) 300 mg 24 hr tablet, TAKE 1 TABLET BY MOUTH EVERY DAY IN THE MORNING, Disp: 90 tablet, Rfl: 3 ??? hydrOXYzine (ATARAX) 25 mg tablet, Take 1 tablet (25 mg total) by mouth at bedtime as needed (anxiety/insomnia)., Disp: 30 tablet, Rfl: 2 ??? buPROPion XL (WELLBUTRIN XL) 150 mg 24 hr tablet, Take 1 tablet (150 mg total) by mouth every morning for 14 days., Disp: 14 tablet, Rfl: 0 ALLERGIES/CONTRAINDICATIONS Allergies Allergen Reactions ??? Amoxicillin Rash OBJECTIVE VITAL SIGNS BP (!) 143/100 (BP Location: Right arm, Patient Position: Sitting, Cuff Size: Regular) Pulse 79 Ht 160 cm Wt 78.2 kg BMI 30.55 kg/m?? PHYSICAL EXAMINATION General: Patient is alert and oriented, in no acute distress. Capable of full communication without difficulty. Patient is polite and cooperative, appropriately dressed and with good hygiene. HEENT: Normocephalic, atraumatic. Oropharynx without lesion, pink and moist. Pharynx rises symmetrically, without exudate or erythema. Dentition grossly intact. Neck: Supple. Thyroid not enlarged. No lymphadenopathy. Heart: Regular rate and rhythm. No murmurs, gallops, or rubs noted. No carotid bruits. Lungs: Clear to auscultation bilaterally. No wheezes or crackles. No accessory muscles of respiration noted. Abdomen: Active bowel sounds in all quadrants. Soft, nondistended. Non tender to palpation. Negativefor hepatosplenomegaly or masses, without rebound tenderness or guarding. Squires's negative. Skin: No rashes, lesions, or ecchymoses. No jaundice or pallor. ASSESSMENT / PLAN #1 High Risk Human Papillomavirus Deoxyribonucleic Acid Test Positive Cervix - ThinPrep w/HPV Co-Test Screen #2 Hypertension Essential Primary - Family Medicine office visit (clinic); follow up home blood pressure monitor. Future; Expected date: 08/12/2020 - Blood pressure home monitor and record #3 Lesion Skin Leg - Dermatology - General consult (clinic); Future; Expected date: 07/29/2020 Other orders - HPV with Genotyping, PCR, ThinPrep Saniya is a pleasant 40 year old, with a history of hypertension and POLY 1 cervical with HPV +. A thin prep with cotesting for HPV was obtained. Her blood pressure was high today as well, but she would prefer not to start medication but work on her diet, following a DASH diet and continue to exercise. She will check her blood pressure daily at home and record the numbers. Will follow up for blood pressure check in 2 weeks, at which time we might start her in blood pressure medication. Swetha Vázquez PA-C documented in this encounter Plan of Treatment Scheduled Referrals Name Type Priority Associated Order Schedule Diagnoses Dermatology - General Outpatient Referral Routine Lesion Skin Leg Expected: consult (clinic) 07/29/2020 (Approximate), Expires: 07/30/2023 documented as of this encounter Procedures Procedure Name Priority Date/Time Associated Diagnosis Comme nts THINPREP W/HPV Routine 07/29/2020 2:32 High Risk Human Results for this CO-TEST SCREEN PM CDT Papillomavirus procedure a re in Deoxyribonucleic Acid the re sults Test Positive Cervix section . HPV WITH Routine 07/29/2020 2:31 Results for this GENOTYPING, PCR, PM CDT procedure a re in THINPREP the results section. documented in this encounter Results (ABNORMAL) ThinPrep w/HPV Co-Test Screen (07/29/2020 2:32 PM CDT) Component Value Ref Test Analysis Performed At [facility] Range Method Time Signature (A) 08/09/2020 [facility] 12:35 PM CDT Report Olvin Mota MD 08/09/2020 [facility] electronically 12:35 PM signed by CDT I verify that I have examined all relevant slides/materials for the specimen(s) and rendered or confirmed the diagnosis. (A) Gross Description Received 08/09/2020 [facility] specimen in a 12:35 PM ThinPrep vial. CDT (A) Pap Test Source Cervical/Endoce 08/09/2020 [facility] rvical (A) 12:35 PM CDT Clinical History POLY 1, HPV HR 08/09/2020 [facility] (A) 12:35 PM CDT Menstrual LMP 07/18/2020 08/09/2020 [facility] Status(LMP, PM, (A) 12:35 PM ) CDT Hormone No (A) 08/09/2020 [facility] Therapy/Contracep 12:35 PM tives CDT Interpretation Cervical/Endocervical ??(ThinPrep): 08/09/2020 [facility] 12:35 PM Satisfactory for Evaluation CDT Epithelial Cell Abnormality Atypical squamous cells of undetermined significance High Risk HPV: ??Negative Negative for High Risk HPV by nucleic acid amplification. The following High Risk HPV types were not detected: 16, 18, 31, 33, 35, 39, 45, 51, 52, 56, 58, 59, 66, and 68. (A) Specimen Anatomical Collection Method Collection Time Receive d Time (Source) Location / / Volume Laterality Varies 07/29/2020 2:32 PM 6:30 (Cervix/Endocerv CDT AM CDT ix) Narrative This result has an attachment that is no t available. Swetha Vázquez P.A.-C. LAB PAP PATHDX ORDERABLES Performing Organization Address City/[facility] Phon e Number [facility]- [facility] [place] [id number] [place] [address] [place] [address] HPV with Genotyping, PCR, ThinPrep (07/29/2020 2:31 PM CDT) P athologist Signature HPV with Negative Negative 07/30/2020 [facility] Genotyping, 1:30 PM CDT ThinPrep, PCR Comment: Negative for high risk HPV by nucleic ac id amplification. ??The following high risk HPV types were not detected: 16, 18, 31, 33, 35, 39, 45, 51, 52, 56, 58, 59, 66, and 68 Specimen Anatomical Collection Method Collection Time Receive d Time (Source) Location / / Volume Laterality Varies 07/29/2020 2:31 PM 6:30 CDT AM CDT Swetha Vázquez P.A.-C. LAB MICROBIOLOGY - GENERAL ORDERABLES Performing Organization Address City/[facility] Phon e Number [facility]- [address] [place] [address] LAB [place], [place] [id number] [place] [address] documented in this encounter Visit Diagnoses Diagnosis High Risk Human Papillomavirus Deoxyribo nucleic Acid Test Positive Cervix - Primary Hypertension Essential Primary Lesion Skin Leg documented in this encounter Additional Health Concerns Assessment Noted Time PHQ-9 Depression Total Score: 7 04/12/2020 10:38 AM CS T documented as of this encounter Care Teams Automobile Body Worker Relationship Specialty Start Date End Date Oscar Laughlin M.D. PCP - General 08/10/162199 [place] [address] documented as of this encounter
--- OUTSIDE RECORDS SUMMARY | 2021-12-23 08:41 | XMS_ITS | Encounter Summary ---
:1980 Author Organization [facility] Address [address] [place] [address] Care Team Providers Name Role Phone Oscar Laughlin M.D. 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 [place] [address] [facility] [place] [phone] Social History Tobacco Use Types Packs/Day [...] More than 4 times per year 07/29/2020 shinto services? Do you belong to any clubs [...] place to sleep or slept in a usp (including now)? 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 ? 07/18/2018 ??5:56 PM Colposcopy Date/Time: 07/18/2018 5:52 PM Performed by: MAGGIE BRONSON Authorized by: EVARISTO LEDBETTER Care team members present: ??Martha neil, PRINCIPAL ELECTRICAL ENGINEER and Kandice Dong NURSE MIDWIFE Student Consent: ??Consent obtained: ??Written ??The benefits, risks and alternatives to the procedure and the potential need for sedation or anesthesia as well as the names, roles, and responsibilities of healthcare team memb ers performing significant interventional tasks were discussed with the patient and/or decision maker.: yes ?The benefits, risks and alternatives to the possible need for blood products were discussed with the patient and/or decision maker.: ??Not addressed [place] protocol: ??All relevant documentation and testin g were reviewed and available. All required blood products, implants, devic es and/or special equipment were made available as applicable. The pre-pr ocedure verification was conducted, the correct site was marked i f required, and the procedural time out was conducted prior to performi ng the procedure and confirmed in a procedural pause.: yes ?? Pre-procedure details: ?? Assessment - reas onably exclude based on: ??PREG criteria (Utilizes a vasectomy contracep tion) ??Procedure purpose: ??Diagnostic ??Indications: ??LSIL ??Appropriate hand hygiene, gown, cap, mask, protective eyewear, sterile gloves, skin preparation, sterile drape, and strict aseptic technique were utilized as applicable for the procedure .: yes ?? Procedure details: ??Procedure: colposcopy of cervix with biopsy ?Acetic Acid applied: yes ?Acetic Acid strength: ??3% ??Iodine (Lugol's) solution applied: ye s ?Under colposcopic examination the tra nsition zone seen in entirety: no ?Endocervical curretage specimen obtai addy: no ?Location of biopsies: cervix ?Number of cervical biopsies: ??2 (4:0 0, 8:00) ??Hemostatis with: ??Silver nitrate and direct pressure ??Findings: ??White epithelium ??Transformation zone visualized: ??Com pletely ??Patient's tolerance of procedure: ??P atient tolerated the procedure well with no immediate complications Post-procedure details: ??Procedure completed successfully: yes ?Complications: no apparent complicati ons ?? Evaristo Ledbetter APRN, C.N.P., D.N.P. 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 PCP - General 08/10/16 [address] [place] [address] documented as of this encounter
--- OUTSIDE RECORDS SUMMARY | 2021-12-23 08:41 | XMS_ITS | Encounter Summary ---
:1980 Author Organization [facility] Address [address] [place] [address] Care Team Providers Name Role Phone Oscar Laughlin M.D. Primary Care Provider [phone] Encounter Details Date Type Department Care Team Description 11/02/2020 Orders Only [facility] PCP [facility] MNT Oscar Laughlin Screening Lipid M.D. [address] [place], [place] [phone] (Wo rk) Social History [...] or relatives? How often do you attend scientologist or More than 4 times per year 07/29/2020 restorationism services? Do you belong to any clubs or Yes 07/29/2020 organizations such as scientologist groups, unions, fraternal or athletic groups, or [...] have completed or the highest Fabio, MEd, CASH PROCESSING SPECIALIST, ELICIA) degree you have received? 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 PCP - General 08/10/[address] [place] [phone] documented as of this encounter
--- OUTSIDE RECORDS SUMMARY | 2021-12-23 08:41 | XMS_ITS | Encounter Summary ---
:1980 Author Organization [facility] Address [address] [place] [address] Care Team Providers Name Role Phone Oscar Laughlin M.D. Primary Care Provider [phone] Encounter Details Date Type Department Care Team Description 04/28/2020 Orders Only [facility] PCP TH Oscar Laughlin, Sc reening Mammogram [facility] [address] [place] [address] (Wo rk) Social History Tobacco Use Types [...] or relatives? How often do you attend hoahaoism or More than 4 times per year 07/29/2020 hoahaoism services? Do you belong to any clubs or Yes 07/29/2020 organizations such as hoahaoism groups, unions, fraternal or athletic groups, or [...] place to sleep or slept in a correction (including now)? Education Answer Date Recorded What is the highest level of school Master's degree (e.g., M Alissa, MS, 03/11/2020 you have completed or the highest Fabio, MEd, SUPERINTENDENT OIL FIELD DRILLING, ELICIA) degree you have received? 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 PCP - General 08/[address] [place] [phone] documented as of this encounter
--- OUTSIDE RECORDS SUMMARY | 2021-12-23 08:41 | XMS_ITS | Encounter Summary ---
:1980 Author Organization [facility] Address [address] [place] [address] Care Team Providers Name Role Phone Oscar Laughlin M.D. Primary Care Provider Reason for Visit Reason Comments Med Refill Encounter Details Date Type Department Care Team Description 04/18/2020 Refill Department of Family Medicine, Evaristo Ledbetter APRN, Med Refill [facility], in [place], C. N.P., D.N.P. [place] [address] [place] [address] [place] [address] [phone] Social History Tobacco Use Types Packs/Day Years [...] or relatives? How often do you attend baptist or More than 4 times per year 07/29/2020 cheondoism services? Do you belong to any clubs or Yes 07/29/2020 organizations such as baptist groups, unions, fraternal or athletic groups, or [...] to sleep or slept in a senior care (including now)? Education Answer Date Recorded What is the highest level of school Master's degree (e.g., M Alissa, MS, 03/11/2020 you have completed or the highest Fabio, MEd, TURBO GENERATOR OILER, ELICIA) degree you have received? 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 PCP - General 08/10/[address], [place] [address] documented as of this encounter
--- OUTSIDE RECORDS SUMMARY | 2021-12-23 08:41 | XMS_ITS | Encounter Summary ---
:1980 Author Organization [facility] Address [address] [place] [address] Care Team Providers Name Role Phone Oscar Laughlin M.D. Primary Care Provider [phone] Reason for Visit Reason Comments Sore Throat Symptoms began Sunday Headache Appointment Request (Routine) - Closed Specialty Diagnoses / Procedures Referred By Contact Refer red To Contact Family Medicine Referral ID Status Reason Start Date Expiration Date Visits Requ ested Visits Authorized [id number] Closed 08/08/2020 08/08/2021 1 1 Encounter Details Date Type Department Care Team Description 08/09/2020 Office Visit Department of Family Saul Hardy Ph aryngitis Streptococcal (Primary Dx); Medicine, Bud Chandler P.A.-C., P .A. [facility], in [facility] [address] [place], [place] [address] [id number] [place], [place] [phone] (Work) [phone] Social History Tobacco Use Types Packs/Day Years [...] or relatives? How often do you attend scientology or More than 4 times per year 07/29/2020 sabianism services? 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 - 08/09/2020 4:30 PM CDT Images from the original note were not included. Patient Education Patient Education Strep Throat (Streptococcal Sore Throat) Definition -- Infection and inflammation of the pharynx by streptococcal bacteria. Strep throat is contagious. One out of 4 family members usually catches it within 2 to 7 days after exposure. It is most common in children. Infection can be present in individuals with no symptoms, but who can still spr ead the germs (carrier state). Frequent signs and symptoms: ?? Rapid onset of throat pain ?? Throat pain that is worse when swallowing ?? Appetite loss ?? Headache ?? Fever ?? General ill feeling ?? Ear pain when swallowing (sometimes) ?? Tender, swollen glands in the neck ?? Bright red tonsils that may have specks of pus Cause -- Streptococcal bacteria. It is spread by [id number] contact via drops of saliva or nasal secretions. Risk increases with: ?? Recent strep infection in the household ?? Smoking ?? Fatigue ?? Cold, wet weather ?? Crowded living conditions ?? Day care center or school Preventive measures -- Avoid contact with infected people. Expected outcome -- Usually curable in 10 to 12 days with antibiotic treatment. Symptoms are usuallybetter in 2 to 3 days of treatment. Possible complications: ?? Ear infection ?? Sinusitis ?? Rheumatic fever ?? Glomerulonephritis (kidney complications) General measures: ?? Diagnostic tests may include laboratory studies, such as a throat culture and blood count. A throat culture is the most accurate way to diagnose a strep throat infection. ?? For adults, or children old enough to gargle, prepare a soothing tea gargle. Double the usual strength of tea, and gargle warm or cold as often as it feels good. ?? Use a cool-mist, ultrasonic humidifier to provide moisture. This relieves the dry, tight feeling in the throat. Clean humidifier daily. ?? Use warm soaks to relieve pain in swollen glands. ?? Isolation techniques are unnecessary. Medication: ?? Penicillin or another antibiotic to take orally or by injection. Finish the complete prescription, even if symptoms subside (helps prevent any complications or recurrence). ?? Non-prescription pain medicine, such as acetaminophen if needed. Activity -- After treatment, resume normal activity as symptoms improve. Children may return to school 24 hours after beginning antibiotics if they are feeling better by then. Diet -- A liquid diet may be necessary while the throat is sore. Drink as many fluids as possible, including milk shakes, soups, teas, carbonated drinks and iced coffee. Any type and amount of solid food is acceptable as long as it can be swallowed without too much pain. Notify our office if -- You or a family member has symptoms of a strep throat or the following occurduring treatment: ?? Temperature is normal for 1 or 2 days, then fever develops. ?? New symptoms appear, such as nausea, vomiting, earache, cough, swollen glands, skin rash, severe headache, nasal drainage or shortness of breath. ?? Joints become red or painful. ?? Dark urine, rash, chest pain or fatigue (may occur up to 3 to 4 weeks later). This material is for your education and information only. This content does not replace medical advice, diagnosis or treatment. New medical research may change this information. If you have questions about a medical condition, always talk with your health care provider. ? 2015 [facility] [employer] ([facility]). All rights reserved. [id number] Sore Throat Care Sore Throat Sore throats are common. Read this material to help understand what causes a sore throat and what you can do to care for it so you feel better. Causes of a sore throat Viral infection Most sore throats are caused by a viral infection (virus). Viral infections include: ?? Cold (sneezing; runny nose; cough; hoarseness; itchy, teary, or red eyes). ?? Influenza (flu). ?? Croup (harsh, barking cough). ?? Mononucleosis (mono). A sore throat caused by a viral infection does not need to be tested or treated with antibiotic medication. Antibiotic medications have no effect on viral infections. Antibiotic medications only help bacterial infections. A sore throat caused by a viral infection gets better on its own with at-home care, usually within 5to 10 days. See ???Sore Throat Care?? for things you can do to help feel better as your sore throatcaused by a virus runs its course. Bacterial infection Less than 30 percent of sore throats are caused by a bacterial infection (bacteria). ???Strep throat?? is an infection caused by the bacteria Streptococcus pyogenes, also known as Group A Streptococcus. Group A Streptococcus is the most common bacteria to cause a sore throat. However, only 20 to 30 percent of children who are 3 to 15 years old have strep as the cause of their sore throat. See ???Test and treatment for a strep throat infection.?? Temporary swelling and redness of the tonsils, called tonsillitis, can happen with either a viral orbacterial throat infection. Important to know Some people have the misconception that every sore throat needs to be tested and treated right away.You are not endangering your health or your child???s health if you do not have a test right away. While it is important to treat a strep throat infection to help prevent rare, but serious complications such as acute rheumatic fever (a disease that affects the heart) or complex infections, treatmentcan wait 7 days after symptoms begin without risk of complications. If you or your child has a sore throat, consider waiting at least 48 hours before calling your health care provider for an appointment. You may find that your sore throat gets better by doing the at-home care suggestions on page 3. Other causes of a sore throat ?? Allergies. Having seasonal allergies or allergies to pet dander, molds, dust and pollen can causea sore throat. It can be made worse by postnasal drip, which can irritate and inflame the throat. ?? Dryness. Dry indoor air can make your throat feel rough and scratchy, especially when you first wake up. Breathing through your mouth -- often because of a stuffy nose -- also can cause a dry, sore throat. ?? Irritants. Smoking, secondhand smoke, household chemicals, and outdoor air pollution can cause ongoing throat irritation and sore throat. Chewing tobacco, drinking alcohol and eating spicy foods also can irritate your throat. ?? Chronic or frequent sinus infections. Drainage from the nose can irritate the throat or spread infection. Clearing your throat often also can cause a sore throat. ?? Throat muscle strain. Yelling at a sporting event, trying to talk to someone in a noisy environment, or talking for long periods without rest can result in a sore throat and hoarseness. ?? Gastroesophageal reflux disease (GERD). GERD is a digestive system disorder in which stomach acidor other stomach contents back up into the esophagus. Along with a sore throat, GERD can cause hoarseness and the sensation of a lump in your throat. ?? An abscess or epiglottitis. An abscess (infected area in the throat) or epiglottitis (the small cartilage ???lid?? that covers the windpipe swells) can cause a sore throat. Both causes can block the airway, which is a medical emergency. Your health care team can determine what further evaluation, testing, and treatment is needed if your sore throat is not caused by a viral or bacterial infection. Sore Throat Care At-home care If you or your child has a sore throat, try the following to help it feel better. ?? Take a pain reliever as needed. Follow product instructions. ? Acetaminophen (Tylenol???, generic acetaminophen) ? Ibuprofen (Advil???, Motrin IB???, generic ibuprofen) ? Naproxen (Aleve???, generic naproxen) ?? Get plenty of sleep and rest your voice. ?? Drink plenty of fluids to keep your throat lubricated and moist to ease swallowing and to preventdehydration. ?? Drink beverages and eat foods that are soothing and soft. Limit or avoid spicy foods or acidic foods such as citrus fruits and orange juice if they irritate your throat. ?? Do not smoke or let anyone smoke around you or your child. ?? Avoid cleaning products, paint fumes and smoke that irritate your throat. ?? Gargle with saltwater several times a day to help relieve throat pain. Mix 1/4 teaspoon (1.4 grams) of table salt in 8 ounces (237 milliliters) of warm water. Gargle the solution and then spit it out. ?? Humidify the air in your home. Use a cool-mist humidifier or vaporizer to add moisture to the air. Clean it daily because bacteria and molds can grow in some humidifiers. Or sit for several minutes in a steamy bathroom. ?? Suck on hard candy or lozenges. Because these are a choking hazard, children 4 years old and younger should not use them. ?? Use saline nasal spray to keep mucous membranes moist. Although a number of alternative treatments are commonly used to treat sore throat, evidence is limited about what works and what does not. Check with your health care provider before using any herbal remedies, as they can interact with prescription medications and may not be safe for children, women and people with certain health conditions. Avoid close contact with people until your symptoms end and wash your hands often to prevent spreading your sore throat to others. Test and treatment for a strep throat infection Your health care provider will determine if a test for strep throat is needed. He or she may: ?? Ask about your symptoms. ?? Take your temperature. ?? Look at your throat and tonsils, and likely your ears and nasal passages. ?? Gently feel your neck to check for swollen glands (enlarged lymph nodes). ?? Listen to your breathing. Most often, a strep throat test is not needed. If a test is needed, your health care provider rubs asterile swab over your tonsils and the back of your throat to get a sample of secretions to be tested for bacterial infection in your throat. It is not painful but it may cause brief gagging. If the strep throat test is negative, you likely have a viral infection and do not need to follow-upfurther. If the test shows or confirms that you have a strep throat infection, your health care provider willlikely prescribe an antibiotic medication to treat the infection and prevent complications. It is important to take all of the medication exactly as instructed by your health care provider or pharmacist to destroy the bacteria. If you do not, the infection could get worse or come back, you could have other complications, and the infection could spread to others. Once you have taken an antibiotic for at least 24 hours, have no fever and feel better, you may return to work, school or daycare. Please note: If you have been around someone who has strep throat but you do not have symptoms, you probably do not need to be tested. A note about antibiotic medication It is important to take an antibiotic medication only when it is needed. Taking an antibiotic when it is not needed can be harmful and may lead to side effects such as diarrhea, rash, nausea and stomach pain. More severe side effects may rarely happen, including life-threatening allergic reactions, kidney toxicity and severe skin reactions. Taking unnecessary antibiotics can lead to antibiotic resistance. This means an antibiotic may not help with future bacterial infections. Common antibiotics cannot kill infections caused by resistant germs. When to Contact Your Health Care Provider Get emergency care right away if you have or your child has: ?? Chest pain. ?? Difficulty breathing. ?? Shortness of breath. Contact your health care provider if you have or your child has a sore throat that is severe, lasts longer than one week, recurs several times, or if you have any of the following along with a sore throat: ?? Difficulty swallowing anything, including saliva. Young children tend to drool. ?? Trouble talking or opening your mouth. ?? A temperature lasting longer than 48 hours. Or a temperature recurs over several days. If your child is younger than three months old and has a temperature, call your child???s richard care provider right away. ?? Symptoms such as joint pain, body aches, headache, earache, rash, sore jaw, nausea or vomiting. ?? White patches or pus on your tonsils or the back of your throat. ?? Sore, swollen lymph nodes (glands) in your neck, or a lump in your neck. ?? Hoarseness lasting more than two weeks. ?? Blood in saliva or phlegm. ?? Symptoms of dehydration (dry, sticky mouth; thirst; decreased urination or fewer wet diapers; fewor no tears when crying; sleepiness or tiredness; muscle weakness; headache; dizziness or lightheadedness). If you or your child is diagnosed with strep throat, contact your health care provider if: ?? You do not feel better or continue to have a temperature after taking the antibiotic for 48 hours. ?? You continue to have a sore throat, temperature, pain or swelling in the joints, shortness of breath or a rash after treatment is finished, even as long as three weeks after the infection. If you have questions or concerns about your sore throat or medication, contact your health care provider. Preventing Infections The germs that cause viral and bacterial infections are contagious. To help prevent spreading infection, follow these tips and teach children to do the same: ?? Wash your hands thoroughly and often, especially after using the toilet, before eating, and aftersneezing or coughing. ?? Use an alcohol-based hand contact lens cutter if washing your hands with soap and water is not possible. ?? Cough or sneeze into a tissue and throw it away. If necessary, cough or sneeze into your arm. ?? Do not share food, drinking glasses, eating utensils, and other personal items. ?? Do not touch public phones or drinking fountains with your mouth. ?? Regularly clean phones, TV remotes and computer keyboards with sanitizing cleanser. When you travel, clean phones and remotes in your hotel room. ?? If you smoke, quit. Smoking increases the likelihood of infections. Talk with your health care provider if you need help quitting. ?? Avoid close contact with people who are sick. ?? Stay indoors as much as possible on high-pollution days. ?? Wear a filtering mask when cleaning to avoid inhaling dust or airborne particles from cleaning products. ?? Throw away your toothbrush and use a new one after starting an antibiotic. Keep in mind that you are more likely to get an infection if you have lowered immunity. Common causes of lowered immunity include stress, fatigue, poor diet, diabetes, treatment with steroids or chemotherapy drugs, and HIV. This material is for your education and information only. This content does not replace medical advice, diagnosis or treatment. New medical research may change this information. If you have questions about a medical condition, always talk with your health care provider. ? 2013 [employer] ([facility]). All rights reserved. [id number] Patient Education Your Blood Pressure Name: Your blood pressure is higher than it should be. Today???s blood pressure reading was / . Blood pressure readings ?? A blood pressure that stays over 130/80 should be thought of as high blood pressure. ?? An ideal blood pressure is less than or equal to 120/80. ?? Talk to your health care provider about treatment to prevent: ? Stroke ? Heart attacks ? Kidney failure ? Other problems ?? Many things can cause high blood pressure. They can include: ? Stress ? Pain ? Illness ? Lack of activity ? Eating too much salt ? Being overweight ?? Because your reading is higher than it should be today, check your blood pressure once a week forthe next month. ?? Check your blood pressure at different times of the day. ?? Let your health care team know the results by recording the numbers. You may check your blood pressure: ? At home ? At a drug store ? At your health care provider ?? Record the numbers in this chart: Date Blood Pressure Numbers Taken at: (H) home, (DS) drug store (C) clinic ?? When you have four blood pressure numbers written in the chart, do one of the following: ? Call your health care provider with the numbers. ? Bring the record to your health care provider. ? Mail the record to your health care provider. ?? If you have any questions or concerns, talk to your health care provider. This material is for your education and information only. This content does not replace medical advice, diagnosis or treatment. New medical research may change this information. If you have questions about a medical condition, always talk with your health care provider. ? 2012 [employer] ([employer]). All rights reserved. [id number] documented in this encounter Progress Notes Saul Hardy P.A.-C., P.A. - 08/09/2020 4:30 PM CDT SUBJECTIVE CHIEF COMPLAINT / REASON FOR VISIT Saniya Sauceda is a 40 y.o. female who presents for evaluation of Sore Throat (Symptoms began Sunday) and Headache. HISTORY OF PRESENT ILLNESS Mildly ill. 4-year-old female accompanied by her insulin presenting clinic today with concerns for sore throat and slight headache. The sore throat has gotten worse since Sunday or over the last 2 days. Did have a tactile fever yesterday. Denies any chills. No earache or chest pain or shortness of breath or coughing. No abdominal pain, nausea, vomiting diarrhea. History positive for strep. Daughterdid have nasal congestion last week but no exposure to strep or COVID. No recent illnesses. Treatment at home with Excedrin. REVIEW OF SYSTEMS All other systems reviewed and are negative. OBJECTIVE PHYSICAL EXAM Vitals and nursing note reviewed. Constitutional General: She is not in acute distress. Appearance: Normal appearance. She is not ill-appearing. HENT Head: Normocephalic and atraumatic. Right Ear: Tympanic membrane, ear canal and external ear normal. Left Ear: Tympanic membrane, ear canal and external ear normal. Nose: Nose normal. Mouth/Throat: Pharynx: Oropharyngeal exudate (Thick) and posterior oropharyngeal erythema present. Comments: 3+ tonsils bilateral Eyes General: No scleral icterus. Conjunctiva/sclera: Conjunctivae normal. Pupils: Pupils are equal, round, and reactive to light. Cardiovascular Rate and Rhythm: Normal rate and regular rhythm. Heart sounds: Normal heart sounds. No murmur heard. No friction rub. No gallop. Pulmonary Effort: Pulmonary effort is normal. Breath sounds: Normal breath sounds. No wheezing, rhonchi or rales. Musculoskeletal Cervical back: Normal range of motion and neck supple. Lymphadenopathy Cervical: Cervical adenopathy ( large tender anterior bilateral) present. Skin General: Skin is warm and dry. Neurological Mental Status: She is alert. Diagnostics Results for orders placed or performed in visit on 08/09/20 Streptococcus Group A, Molecular Detection, PCR, Throat Specimen: Throat; Varies Result Value Ref Range Group A Strep PCR, Throat Positive (A) Negative ASSESSMENT / PLAN #1 Pharyngitis Streptococcal Discussed positive strep test. Will treat with Keflex as she has tolerated this in the past and doeshave an amoxicillin allergy. Did discussed proper use possible side effects. Symptomatic care for strep throat with fluids, Chloraseptic spray/lozenges, ice cubes/popsicles, salt water gargles. Recommend changing toothbrush. Did discussed benefits of hand hygiene, contact precautions, respiratory etiquette, mask wearing, social distancing. Sudden or significant changes call 911 or go to the emergencydepartment. Lack of improvement follow-up primary care provider as needed. #2 Elevated Blood Pressure Discussed concerns regarding high blood pressure. Patient did have elevated blood pressure at last appointment and has had high blood pressures in the meantime. She does have a follow-up scheduled today with primary care provider however canceled due to the new development of sore throat. Did discuss workup and possibly beginning antihypertensive however the patient would like to treat her current illness and tried lifestyle modifications including diet and exercise and continue monitoring blood pressure and follow-up with primary care provider if they remain elevated even after illnesses resolved she has been made aware of red flags including but not limited to, chest pain, shortness of breath, dizziness, lightheadedness, change in vision, logic, thinking, speech and if these present call 911 orgo to emergency department. Otherwise follow-up for any continue blood pressures greater than 140/90with primary care provider. Questions were answered. She voiced understanding agrees this plan. Greater than 21 minutes of time spent [id number] and not [id number] coordinating care and counseling as indicated above. Saul Hardy PA-C documented in this encounter Plan of Treatment Not on filedocumented as of this encounter Procedures Procedure Name Priority Date/Time Associated Diagnosis Comme nts GROUP A STREP PCR, Routine 08/09/2020 4:21 PM Pharyngitis Res ults for this THROAT CDT Streptococcal procedure are in the results section. documented in this encounter Results (ABNORMAL) Streptococcus Group A, Molecular Detection, PCR, Throat (08/09/2020 4:21 PM CDT) [facility] Method Time Signature Group A Strep Positive (A) Negative 08/09/2020 [facility] PCR, Throat 4:48 PM CDT Specimen Anatomical Collection Method Collection Time Receive d Time (Source) Location / / Volume Laterality Varies (Throat) 08/09/2020 4:21 PM 2020 4:26 CDT PM CDT Saul Hardy P.A.-C. [facility] MICROBIOLOGY - [facility]ERAZ ORDERABLES Performing Organization Address City/State/ZIP Code Phon e Number [facility] [address] [place] [address] [facility] [address] System in [place] [address] documented in this encounter Visit Diagnoses Diagnosis Pharyngitis Streptococcal - Primary Elevated Blood Pressure documented in this encounter Additional Health Concerns Assessment Noted Time PHQ-9 Depression Total Score: 7 04/12/2020 10:38 AM CS T documented as of this encounter Care Teams Box Chipper Relationship Specialty Start Date End Date Oscar Laughlin M.D. PCP - General 08/10/162199 [place] [address] documented as of this encounter
--- OUTSIDE RECORDS SUMMARY | 2021-12-23 08:41 | XMS_ITS | Encounter Summary ---
:1980 Author Organization [facility] Address [address] [place] [address] Care Team Providers Name Role Phone Oscar Laughlin M.D. Primary Care Provider [phone] Reason for Visit Reason Comments Follow-up med check Outpatient (Routine) - Closed Specialty Diagnoses / Procedures Referred By Contact Refer red To Contact Video Medicine Diagnoses Depression Major One Episode Moderate (HCC) Evaristo Ledbetter APRN, [facility] C.N.P., D.N.P. [address] [place] [address] Referral ID Status Reason Start Date Expiration Date Visits Requ ested Visits Authorized [id number] Closed 03/12/2020 03/12/2021 1 1 Encounter Details Date Type Department Care Team Description 04/12/2020 Telemedicine Department of [facility] Evaristo Ledbetter ession Major One Medicine, Bud Ayala APRN, C.N.P., Episo de Moderate (HCC) Clinic, in [facility] [address] [place] [address] Social History Tobacco Use Types Packs/Day [...] More than 4 times per year 07/29/2020 zoroastrianism services? Do you belong to any clubs [...] place to sleep or slept in a group home (including now)? Education Answer Date Recorded What is the highest level of school Master's degree (e.g., M A, MS, 03/11/2020 you have completed or the highest Fabio, MEd, CONTAMINATED LAND CONSULTANT, ELICIA) degree you have received? Sex Assigned at Date Recorded Female 04/27/2017 8:11 AM SCIENTIFIC RESEARCH MANAGER documented as of this encounter Progress Notes Evaristo Ledbetter, RADHA, C.N.P., D.N.P. - 04/12/2020 10:30 AM CST CHIEF COMPLAINT / REASON FOR VISIT Saniya Sauceda is a 40 y.o. female who presents for evaluation of Follow-up (med check). SUBJECTIVE HISTORY OF PRESENT ILLNESS Saniya Sauceda is a 40 y.o. female who is seen via video technology for depression follow up. She'snow up to 300 mg of Wellbutrin and has been on that dose for 2 weeks, and was on 150 mg for the two weeks prior to that. She's not noticed much of a change overall, although PHQ-9 scores are actually improved quite noticeably. She still has a tendency to overreact in certain situations that are stressful when typically that wouldn't have been as much of a problem for her. She otherwise is tolerating the medication without significant problems. She has used the hydroxyzine about 2 times per week. Shedoes get some benefit from that and it isn't causing significant drowsiness. REVIEW OF SYSTEMS The pertinent review of systems is negative other than what is listed in the history of present illness. PAST MEDICAL/SURGICAL HISTORY Patient Active Problem List Diagnosis ??? Gestational Hypertension Personal History Not ??? Vasectomy Status ??? Depression Major One Episode Moderate (HCC) ??? Insomnia Past Surgical History: Procedure Laterality Date ??? THERAPEUTIC 2004 MEDICATIONS Current Outpatient Medications Medication Sig ??? buPROPion XL (WELLBUTRIN XL) 300 mg 24 hr tablet Take 1 tablet (300 mg total) by mouth every morning. ??? hydrOXYzine (ATARAX) 25 mg tablet Take 1 tablet (25 mg total) by mouth at bedtime as needed (anxiety/insomnia). File only. ??? buPROPion XL (WELLBUTRIN XL) 150 mg 24 hr tablet Take 1 tablet (150 mg total) by mouth every morning for 14 days. ALLERGIES Allergies Allergen Reactions ??? Amoxicillin Rash OBJECTIVE VITAL SIGNS There were no vitals taken for this visit. PHYSICAL EXAM Constitutional: She is oriented to person, place, and time. She appears well- developed and well-nourished. In no acute distress. Head: Normocephalic and atraumatic. Ears: Hearing normal. Pulmonary: Effort normal. Normal respiratory rate and rhythm. Neurological: She is alert and oriented to person, place, and time. Skin: No pallor or jaundice. Psychiatric: She has a slightly flat affect. Her speech is normal and behavior is normal. Cognition and memory are normal. ASSESSMENT / PLAN ASSESSMENT/PLAN #1 Depression Major One Episode Moderate (HCC) - Video anyplace visit - Video anyplace visit; Future; Expected date: 05/27/2020 Other orders - hydrOXYzine (ATARAX) 25 mg tablet; Take 1 tablet (25 mg total) by mouth at bedtime as needed (anxiety/insomnia). File only., Starting 04/12/2020, Normal Continue Wellbutrin XL 300 mg daily for at least another 6 weeks and then she will follow up with handyround this time for a re-evaluation. She was encouraged to use hydroxyzine more freely if she is getting benefit from that as that medication is not typically addictive like the benzo class. For any serious thoughts about suicide, self harm, or homicide, we have previously discussed that she should call 911 or present to the local ED. Visit was conducted via real-time audio/video technology by Evaristo Ledbetter DNP, RADHA, ACETONE BUTTON PASTER at [facility] to the patient in patient's home. This Video Visit was performed during the Covid-19 emergency when many states had issued [id number] and social distancing orders. Total visit time was 15 minutes. NTIFIC RESEARCH MANAGER documented in this encounter Plan of Treatment Not on filedocumented as of this encounter Visit Diagnoses Diagnosis Depression Major One Episode Moderate (H CC) documented in this encounter Additional Health Concerns Assessment Noted Time PHQ-9 Depression Total Score: 7 04/12/2020 10:38 AM REAL T documented as of this encounter Care Teams Improvement Manager Relationship Specialty Start Date End Date Oscar Laughlin M.D. PCP - General 08/10/16 [address] [place] [address] documented as of this encounter
--- OUTSIDE RECORDS SUMMARY | 2021-12-23 08:41 | XMS_ITS | Encounter Summary ---
:1980 Author Organization [facility] Address [address] [place] [address] Care Team Providers Name Role Phone Oscar Laughlin M.D. Primary Care Provider [phone] Encounter Details Date Type Department Care Team Description 10/16/2019 Hospital Encounter Department of Nae Andrews, Preop erative Exam Laboratory Medicine P.A.-C. in [place] [address] [place], [place] [address] [facility] [address] [place], [place] [phone] [address] (Work) [phone] Social History Tobacco Use Types Packs/Day Years [...] or relatives? How often do you attend rastafari or More than 4 times per year 07/29/2020 pentecostal services? Do you belong to any clubs or Yes 07/29/2020 organizations such as rastafari groups, unions, fraternal or athletic groups, or [...] place to sleep or slept in a prison (including now)? 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 documented in this encounter Results CBC with Differential, Blood [...] Organization Address City/State/ZIP Code Phon e Number [facility]- [address] [place] [address] [place] [address] System in [place] [address] documented in this encounter Visit Diagnoses Diagnosis Preoperative Exam documented in this encounter Care Teams Fusing Line Inspector Relationship Specialty Start Date End Date Oscar Laughlin M.D. PCP - General 08/10/[address] [place] [address] documented as of this encounter
--- OUTSIDE RECORDS SUMMARY | 2021-12-23 08:41 | XMS_ITS | Encounter Summary ---
:1980 Author Organization [facility] Address [address] [place] [address] Care Team Providers Name Role Phone Oscar Laughlin M.D. Primary Care Provider [phone] Encounter Details Date Type Department Care Team Description 06/03/2018 Procedure visit Department of German, Aura, LEYDA N, C.N.P., M.S.N. [address] [place] [address] Cyst Sebaceous; Dermatology in Spencer Cabral, L.P.NMickey Keratosis Seborrheic Inflamed; [place], [place] Administrative Encounter No Exam [address] [place] [address] Social History Tobacco Use Types [...] More than 4 times per year 07/29/2020 anabaptist services? Do you belong to any clubs [...] place to sleep or slept in a nursing home (including now)? Sex Assigned at Date Recorded Female 04/27/2017 8:11 AM LABEL PINKER documented as of this encounter Procedure Notes Spencer Cabral L.P.N. - 06/03/2018 11:15 AM CDTAssociated Order(s): SUTURE REMOVAL Post-Procedure Diagnose(s): Administrative Encounter No Exam Suture Removal Date/Time: 06/03/2018 11:28 AM Performed by: SPENCER CABRAL Authorized by: AURA WHITFIELD Pre-procedure details: Indicaton: scheduled suture removal Location: Trunk Trunk location: Back Procedure details: Wound appearance: Good wound healing Number of sutures removed: 4 Post-procedure details: Procedure completed successfully: yes Post-removal: No dressing applied Comments: Patient had no concerns. documented in this encounter Plan of Treatment Not on filedocumented as of this encounter Procedures Procedure Name Priority Date/Time Associated Diagnosis Comme nts SUTURE REMOVAL Routine 06/03/2018 11:15 AM Administrative Enco unter Results for this CDT No Exam procedure are i n the results section. documented in this encounter Results SUTURE REMOVAL (06/03/2018 11:15 AM CDT) Narrative [facility] - 06/03/2018 11:15 AM CDT Spencer Cabral L.P.N. ? 06/03/2018 11:30 AM Suture Removal Date/Time: 06/03/2018 11:28 AM Performed by: SPENCER CABRAL Authorized by: AURA WHITFIELD Pre-procedure details: ??Indicaton: scheduled suture removal ?Location: ??Trunk ??Trunk location: ??Back Procedure details: ??Wound appearance: ??Good wound healin g ??Number of sutures removed: ??4 Post-procedure details: ??Procedure completed successfully: yes ?Post-removal: ??No dressing applied Comments: ?? Patient had no concerns. Aura Whitfield APRN C.N.P., M.S.N. PROCEDURE/MINOR SURGIC AL ORDERABLES Performing Organization Address City/State/ZIP Code Phon e Number [facility] MM[facility] NA documented in this encounter Visit Diagnoses Diagnosis Cyst Sebaceous Keratosis Seborrheic Inflamed Administrative Encounter No Exam documented in this encounter Care Teams Coater Carbon Paper Relationship Specialty Start Date End Date Oscar Laughlin M.D. PCP - General 08/10/[address] [address] documented as of this encounter
--- OUTSIDE RECORDS SUMMARY | 2021-12-23 08:41 | XMS_ITS | Encounter Summary ---
:1980 Author Organization [facility] Address [address] [place] [address] Care Team Providers Name Role Phone Oscar Laughlin M.D. Primary Care Provider [phone] Encounter Details Date Type Department Care Team Description 09/06/2020 Ancillary Procedure Department of Dermatology Social History Tobacco Use Types Packs/Day Years [...] or relatives? How often do you attend temple or More than 4 times per year 07/29/2020 mandaeism services? Do you belong to any clubs or Yes 07/29/2020 organizations such as temple groups, unions, fraternal or athletic groups, or [...] place to sleep or slept in a long term (including now)? Education Answer Date Recorded What is the highest level of school Master's degree (e.g., M A, MS, 03/11/2020 you have completed or the highest Fabio, MEd, OSCILLOGRAPH TECHNICIAN, ELICIA) degree you have received? Sex Assigned at Date Recorded Female 04/27/2017 8:11 AM WELDER SHIELDED METAL ARC documented as of this encounter Plan of Treatment Not on filedocumented as of this encounter Procedures Procedure Name Priority Date/Time Associated Comments Diagnosis DERMATOLOGY IMAGE Routine 09/06/2020 11:10 Result s for this EXAM AM CDT procedure are i n the results section. documented in this encounter Results Leg right 528a-Dermatology Image Exam (09/06/2020 11:10 AM CDT) Specimen (Source) Anatomical Collection Method Collection Time Re ceived Time Location / / Volume Laterality 09/06/2020 11:08 AM CDT Narrative [facility] - 09/06/2020 11:10 AM CDT This order has been created and auto-finalized to support the import of images acquired without order. The clini greer documentation to support these images can be found on the encounter lauro t produced images. Provider Not In System IMG NON RAD IMAGING PROCEDUR ES Performing Organization Address City/State/ZIP Code Phon e Number [facility] NA documented in this encounter Visit Diagnoses Not on filedocumented in this encounter Additional Health Concerns Assessment Noted Time PHQ-9 Depression Total Score: 7 04/12/2020 10:38 AM CS T documented as of this encounter Care Teams Plaster Mold Maker Relationship Specialty Start Date End Date Oscar Laughlin M.D. PCP - General 08/10/16 [address] [place] [address] documented as of this encounter
--- OUTSIDE RECORDS SUMMARY | 2021-12-23 08:41 | XMS_ITS | Encounter Summary ---
:1980 Author Organization [facility] Address [address] [place] [address] Care Team Providers Name Role Phone Oscar Laughlin M.D. Primary Care Provider [phone] Reason for Referral Outpatient (Routine) - Closed Specialty Diagnoses / Procedures Referred By Contact Refer red To Contact Video Medicine Diagnoses Depression Major One Episode Moderate (HCC) Evaristo Ledbetter APRN, [facility] C.N.P., D.N.P. [address] [place] [address] Referral ID Status Reason Start Date Expiration Date Visits Requ ested Visits Authorized [id number] Closed 03/12/2020 03/12/2021 1 1 TED RADIOLOGY TECHNICIAN Reason for Visit Appointment Request (Routine) - Closed Specialty Diagnoses / Procedures Referred By Contact Refer red To Contact Family Medicine Referral ID Status Reason Start Date Expiration Date Visits Requ ested Visits Authorized [id number] Closed 03/04/2020 03/04/2021 1 1 Encounter Details Date Type Department Care Team Description 03/12/2020 Telemedicine Department of [facility] Evaristo Ledbetter Major One Episode Moderate (HCC) (Primary Dx); Medicine, Bud Ayala APRN, C.N.PMickey, [facility] [address] [place] [phone] Social History Tobacco Use Types Packs/Day Years [...] or relatives? How often do you attend sikh or More than 4 times per year 07/29/2020 yazidism services? Do you belong to any clubs or Yes 07/29/2020 organizations such as sikh groups, unions, fraternal or athletic groups, or [...] have completed or the highest Fabio, MEd, WIRE MESH KNITTER, ELICIA) degree you have received? Sex Assigned at Date Recorded Female 04/27/2017 8:11 AM LIMITED RADIOLOGY TECHNICIAN documented as of this encounter Patient Instructions Patient InstructionsRomEvaristo hurst APRN, C.N.P., D.N.P. - 03/12/2020 8:00 AM CST For your depression and/or anxiety, I recommend treatment with Wellbutrin 1 tablet daily for the first 2 weeks, then 2 tablets daily thereafter. This is a controller medication and does not provide rapid relief of symptoms, which is important to be aware of. Any time we are starting or adjusting a dose of these medications, you may feel a little worse before you feel better. After about week 3 you should start feeling the positive effects of the medication, and by week 6-8 the medication will have reached full effectiveness at that dose. If the medication causes you to feel nauseated, take it with food. If the medication makes you tired, take it at bedtime unless instructed otherwise. I recommend a follow up in about 4 weeks. For any serious thoughts about suicide, self harm, or homicide, you should call 911 or present to the local ED. The following is a list of mental health providers in the area. In general, you do not need a referral to see a counselor. If you are considering counseling I recommend calling right away to get an appointment lined up as soon as possible because it can take a few months to be seen. [facility] [phone] [facility] [phone] [facility] [phone] HANNAH Francis [phone] TED RADIOLOGY TECHNICIAN documented in this encounter Progress Notes Evaristo Ledbetter APRN, C.N.Neha., D.N.P. - 03/12/2020 8:00 AM CST CHIEF COMPLAINT / REASON FOR VISIT Saniya Sauceda is a 40 y.o. female who presents for evaluation of mood concerns. SUBJECTIVE HISTORY OF PRESENT ILLNESS Saniya Sauceda is a 40 y.o. female who is seen via video technology for concerns about her mood andjust not feeling like herself. This has been going on several months, since even before the start ofthe pandemeic, but it seems to have worsened then. 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 She finds less interest in doing her usual things and is having some trouble staying asleep. Her appetite is more or less the same. She was doing counseling this summer but says that didn't necessarily end very well. She is open to that again but is here today to discuss possibly starting some medication for mood. She doesn't note significant anxiety. She has had some fleeting thoughts about and dying but does not have a suicide plan or intent to hurt herself. She has never had problems with her mood before and doesn't have family history of depression or anxiety or other mental illness. REVIEW OF SYSTEMS The pertinent review of systems is negative other than what is listed in the history of present illness. PAST MEDICAL/SURGICAL HISTORY Patient Active Problem List Diagnosis ??? Gestational Hypertension Personal History Not ??? Vasectomy Status Past Surgical History: Procedure Laterality Date ??? THERAPEUTIC 2004 MEDICATIONS No current medications. ALLERGIES Allergies Allergen Reactions ??? Amoxicillin Rash [...] jaundice. Psychiatric: She has a slightly flat mood. Her speech is normal and behavior is normal. Cognition and memory are normal. ASSESSMENT / PLAN ASSESSMENT/PLAN #1 Depression Major One Episode Moderate (HCC) - Video anyplace visit; Future; Expected date: 04/12/2020 #2 Insomnia Other orders - buPROPion XL (WELLBUTRIN XL) 150 mg 24 hr tablet; Multiple Dosages:Starting Sun03/12/2020, Last dose on Sun03/25/2020, THEN Starting Sun03/26/2020, Last dose on Sun03/25/2021Take 1 tablet (150 mg total) by mouth every morning for 14 days, THEN 2 tablets (300 mg total) every morning., Normal - hydrOXYzine (ATARAX) 25 mg tablet; Take 1 tablet (25 mg total) by mouth at bedtime as needed (anxiety/insomnia)., Starting 03/12/2020, Normal We discussed the risks and benefits of starting antidepressant mediation, and I have elected to start Wellbutrin XL 150 mg daily for the first two weeks, then 300 mg daily thereafter. I think this willhave a more favorable side effect profile for her. She has no history of seizures or a seizure disorder. We discussed how to start taking this medication. Additionally, I recommend therapy be used as an adjunct to medication. A specific referral for counseling is not needed and the patient can simply call to schedule with a local mental health professional. We discussed common side effects of antidepressants, including the fact that some people feel worse before they feel better and that it takes upto 6 to 8 weeks for the medication to reach full effect. For suicidal or homicidal thoughts, she should present to the ED or emergency personnel should be notified. We discussed returning for a follow-up visit in 4 weeks, or sooner if concerns arise. We discussed the importance of taking the medication daily. The patient is in agreement with this plan and has no other questions or concerns at this time. For anxiety or insomnia, she was given a prescription for hydroxyzine to use on occasion. Instructednot to rely on this medication regularly for sleep. Visit was conducted via real-time audio/video technology by Evaristo Ledbetter DNP, APRN, RADIO FREQUENCY TECHNICIAN at [facility] to the patient in patient's home. This Video Visit was performed during the [facility]-19 emergency when many states had issued [id number] and social distancing orders. TED RADIOLOGY TECHNICIAN documented in this encounter Plan of Treatment Scheduled Referrals Name Type Priority Associated Diagnoses Order S chedule Video anyplace Outpatient Referral Routine Depression Major On e Expected: visit Episode Moderate 04/12/2020 (HCC) (Approximate), Expires: 03/12/2023 documented as of this encounter Visit Diagnoses Diagnosis Depression Major One Episode Moderate (H CC) - Primary Insomnia documented in this encounter Additional Health Concerns Assessment Noted Time PHQ-9 Depression Total Score: 14 03/12/2020 7:59 AM CS T documented as of this encounter Care Teams Brim Stretcher Relationship Specialty Start Date End Date Oscar Laughlin M.D. PCP - General 08/10/16 [address] [address] documented as of this encounter
--- OUTSIDE RECORDS SUMMARY | 2021-12-23 08:41 | XMS_ITS | Encounter Summary ---
:1980 Author Organization [facility] Address [address] [place] [address] Care Team Providers Name Role Phone Oscar Laughlin M.D. Primary Care Provider [phone] Encounter Details Date Type Department Care Team Description 02/10/2019 Orders Only [facility] Pablo Laughlin M.D. [address] [place], [place] [address] (Wo rk) Social History [...] or relatives? How often do you attend faith or More than 4 times per year 07/29/2020 yarsani services? Do you belong to any clubs or Yes 07/29/2020 organizations such as faith groups, unions, fraternal or athletic groups, or [...] Date Recorded Female 04/27/2017 8:11 AM SECURITY SYSTEMS ADMINISTRATOR documented as of this encounter Plan of Treatment Not on filedocumented as of this encounter Visit Diagnoses Not on filedocumented in this encounter Care Teams Private Duty Aide Relationship Specialty Start Date End Date Oscar Laughlin M.D. PCP - General 08/10/[address] [address] documented as of this encounter
--- OUTSIDE RECORDS SUMMARY | 2021-12-23 08:41 | XMS_ITS | Encounter Summary ---
:1980 Author Organization [facility] Address [address] [place] [address] Care Team Providers Name Role Phone Oscar Laughlin M.D. Primary Care Provider [phone] Reason for Visit Reason Comments Med Refill Encounter Details Date Type Department Care Team Description 04/03/2020 Refill Department of Family Medicine, Evaristo Ledbetter APRN, Med Refill [facility], in [place], C. N.P., D.N.P. [place] [address] [place] [address] [place] [address] [phone] Social History Tobacco Use Types Packs/Day Years [...] or relatives? How often do you attend orthodox or More than 4 times per year 07/29/2020 quaker services? Do you belong to any clubs or Yes 07/29/2020 organizations such as orthodox groups, unions, fraternal or athletic groups, [...] have completed or the highest Fabio, MEd, GIS DEVELOPER, ELICIA) degree you have received? Sex Assigned at Date Recorded Female 04/27/2017 8:11 AM FUNERAL SALES MANAGER documented as of this encounter Plan of Treatment Not on filedocumented as of this encounter Visit Diagnoses Not on filedocumented in this encounter Additional Health Concerns Assessment Noted Time PHQ-9 Depression Total Score: 14 03/12/2020 7:59 AM CS T documented as of this encounter Care Teams Watch Train Inspector Relationship Specialty Start Date End Date Oscar Laughlin M.D. PCP - General 08/10/[address] [address] documented as of this encounter
--- OUTSIDE RECORDS SUMMARY | 2021-12-23 08:41 | XMS_ITS | Encounter Summary ---
:1980 Author Organization [facility] Address [address] [place] [address] Care Team Providers Name Role Phone Oscar Laughlin M.D. Primary Care Provider [phone] Reason for Visit Appointment Request (Routine) - Closed Specialty Diagnoses / Procedures Referred By Contact Refer red To Contact Family Medicine Referral ID Status Reason Start Date Expiration Date Visits Requ ested Visits Authorized [id number] Closed 01/07/2021 01/07/2022 1 1 Encounter Details Date Type Department Care Team Description 01/07/2021 Immunization Department of Family Medicine, [address] [address] Social History Tobacco Use Types Packs/Day Years [...] or relatives? How often do you attend restorationism or More than 4 times per year 07/29/2020 congregational services? Do you belong to any clubs or Yes 07/29/2020 organizations such as restorationism groups, unions, fraternal or athletic groups, or [...] highest level of school Master's degree (e.g., Kelly Maxwell, MS, 03/11/2020 you have completed or the highest Fabio, MEd, FOREST PATROLMAN, ELICIA) degree you have received? 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 PCP - General 08/10/162199 [address] [address] documented as of this encounter
--- OUTSIDE RECORDS SUMMARY | 2021-12-23 08:41 | XMS_ITS | Encounter Summary ---
:1980 Author Organization [facility] Address [address] [place] [address] Care Team Providers Name Role Phone Oscar Laughlin M.D. 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 [address] [place] [address] Social History Tobacco Use Types [...] or relatives? How often do you attend tenriism or More than 4 times per year 07/29/2020 catholic services? Do you belong to any clubs or Yes 07/29/2020 organizations such as tenriism groups, unions, fraternal or athletic groups, or [...] at Date Recorded Female 04/27/2017 8:11 AM MAIL READER documented as of this encounter Last Filed Vital Signs Vital Sign Reading Time Taken Comments Blood Pressure 140/88 07/18/2018 1:22 PM CDT Pulse - - Temperature - - Respiratory Rate - - Oxygen Saturation - - Inhaled Oxygen Concentration - - Weight 73.9 kg (162 lb 14.7 oz) 07/18/2018 1:22 PM CDT Height - - Body Mass Index 28.51 05/02/2018 10:48 AM MAIL READER documented in this encounter Progress Notes Maggie Bronson APRN, C.N.P., M.S.N. - 07/18/2018 1:30 PM CDT CHIEF COMPLAINT/REASON FOR VISIT Saniya Sauceda is a 38 y.o. female who was noted to have a LGSIL Pap test. HPV testing positive forhigh-risk HPV. Negative sixteen 1845 subtypes. Past Pap smear history shows an ASCUS Pap with positive high risk HPV in 2014. Colposcopy at that time showed POLY 1 findings. She is a non smoker. She has consented to colposcopy today. Last menstrual period 06/27/2018. MEDICAL HISTORY Past Medical History: Diagnosis Date ??? Atypical Squamous Cells Undetermined Significance Cervix 01/06/2016 ??? High Risk Human Papillomavirus Deoxyribonucleic Acid Test Positive Cervix 01/06/2016 ??? Hypertension Essential Benign 01/06/2016 Hypertension (HTN) Essential Benign ??? Hypertension NOS 2015 GYNECOLOGICAL HISTORY: G 3 P 2011 . Using vasectomy contraception. She is in a monogamous relationship. VITAL SIGNS BP 140/88 (BP Location: Left arm, Patient Position: Sitting, Cuff Size: Regular) Wt 73.9 kg LMP 06/27/2018 (Exact Date) BMI 28.51 kg/m?? PHYSICAL EXAMINATION Please see procedure note for details. ASSESSMENT/PLAN #1 Colposcopy was performed today for a LGSIL Pap test with positive HPV testing. Colposcopy impression: Likely low-grade disease at 4:00 and 8:00. Patient will be informed of her biopsy results withinthe next 3 to 4 days. Will plan further follow-up based on her results. Post colposcopy instructionswere reviewed with the patient and a copy of instructions were provided for her today. She was givenHPV and abnormal Pap smear information. Questions answered. documented in this encounter Procedure Notes Maggie Bronson APRN, C.N.P., M.S.N. - 07/18/2018 1:30 PM CDTAssociated Order(s): COLPOSCOPY Pre-Procedure Diagnose(s): Neoplasia Cervical Squamous Low Grade Intraepithelial; High Risk Human Papillomavirus Deoxyribonucleic Acid Test Positive Cervix Post-Procedure Diagnose(s): Neoplasia Cervical Squamous Low Grade Intraepithelial; High Risk Human Papillomavirus Deoxyribonucleic Acid Test Positive Cervix Images from the original note were not included. Colposcopy Date/Time: 07/18/2018 5:52 PM Performed by: MAGGIE BRONSON Authorized by: EVARISTO LEDBETTER Care team members present: Martha Chan LPN and Kandice Dong NP Student Consent: Consent obtained: Written The benefits, risks and alternatives to the procedure and the potential need for sedation or anesthesia as well as the names, roles, and responsibilities of healthcare team members performing significant interventional tasks were discussed with the patient and/or decision maker.: yes The benefits, risks and alternatives to the possible need for blood products were discussed with the patient and/or decision maker.: Not addressed [place] protocol: All relevant documentation and testing were reviewed and available. All required blood products, implants, devices and/or special equipment were made available as applicable. The pre-procedure verification was conducted, the correct site was marked if required, and the procedural time out was conducted prior to performing the procedure and confirmed in a procedural pause.: yes Pre-procedure details: Assessment - reasonably exclude based on: PREG criteria (Utilizes a vasectomy contraception) Procedure purpose: Diagnostic Indications: LSIL Appropriate hand hygiene, gown, cap, mask, protective eyewear, sterile gloves, skin preparation, sterile drape, and strict aseptic technique were utilized as applicable for the procedure.: yes Procedure details: Procedure: colposcopy of cervix with biopsy Acetic Acid applied: yes Acetic Acid strength: 3% Iodine (Lugol's) solution applied: yes Under colposcopic examination the transition zone seen in entirety: no Endocervical curretage specimen obtained: no Location of biopsies: cervix Number of cervical biopsies: 2 (4:00, 8:00) Hemostatis with: Silver nitrate and direct pressure Findings: White epithelium Transformation zone visualized: Completely Patient's tolerance of procedure: Patient tolerated the procedure well with no immediate complications Post-procedure details: Procedure completed successfully: yes Complications: no apparent complications documented in this encounter Plan of Treatment Not on filedocumented as of this encounter Procedures Procedure Name Priority Date/Time Associated Diagnosis Comme nts SURGICAL PATHOLOGY Routine 07/18/2018 2:33 Neoplasia Cervical Results for this PM CDT Squamous Low Grade procedure are in Intraepitheliel the results High Risk Human section. Papillomavirus Deoxyribonucleic Acid Test Positive Cervix [place] COLPOSCOPY Routine 07/18/2018 1:30 Neoplasia Cervical Resul ts for this CERVIX W BX PM CDT Squamous Low Grade procedure are in Intraepitheliel the results High Risk Human section. Papillomavirus Deoxyribonucleic Acid Test Positive Cervix documented in this encounter Results Surgical Pathology (07/18/2018 2:33 PM CDT) Component Value Ref Test Analysis Performed Pathologis t Range Method Time At Signature Report Gabby Clemens MD 07/23/2018 [facility] [place] electronically Seen in consultation with: Olvin Mota M.D. 2:42 PM HEALTH [facility] by [facility] 07/23/2018 [facility] 2:42 PM HEALTH CDT SYSTEM- [facility] Specimen Received A. Cervical biopsy, 4 o'clock [facility] B. Cervical biopsy, 8 o'clock 2:42 PM HEALTH CDT SYSTEM- [facility] Clinical History Low grade squamous intraepithelial cervical neopla silvia, 07/23/2018 [facility] positive HPV 2:42 PM HEALTH CDT SYSTEM- [facility] Gross Description A: ??Submitted as cervix 4 o'clock and consist s of contreras white 07/23/2018 [facility] tissues aggregating to 0.7 cm. ESB, A. 2 :42 PM HEALTH B: ??Submitted as cervix 8 o'clock and consists of contreras white CDT SYSTEM- tissues aggregating to 0.8 cm. ESB, B. ?? mpg/nm [facility] Microscopic Controls reviewed; 07/23/2018 [facility] Description results 2:42 PM HEALTH acceptable. CDT SYSTEM- [facility] Interpretation A. Cervix, 4 o'clock, biopsy: Low grade squamous 07/23/2018 [facility] intraepithelial lesion (POLY I / mild squamous dysplasia). 2:42 PM HEALTH B. Cervix, 8 o'clock, biopsy: Low grade squamous CDT SYSTEM- intraepithelial lesion (POLY I / mild squamous dysplasia). [facility] See comment. COMMENT : The cervical biopsy taken at 8 o'clock shows marked koilocytotic change. Mitotic activity is noted; however, sectioning is quite tangential and difficult to orient as to the level of epidermis in which the mitoses occur. A p16 immunostain shows no definitive block-like positivity, and is therefore not supportive of a high grade staining pattern. Specimen Anatomical Collection Method Collection Time Receive d Time (Source) Location / / Volume Laterality Varies 07/18/2018 2:33 PM 9 8:03 CDT AM CDT Narrative This result has an attachment that is no t available. Maggie Bronson APRN C.N.P., M.S.N. LAB SURG PATH ORDERA BLES Performing Organization Address City/State/ZIP Code Phon e Number [facility] [address] [place] [address] LAB [place] COLPOSCOPY CERVIX W BX (07/18/2018 1:30 PM CDT) Narrative [facility] - 07/18/2018 1:30 PM CDT Maggie M, SECONDARY EDUCATION PROFESSOR, C.N.P., M.S.N. ? 07/18/2018 ??5:56 PM Colposcopy Date/Time: 07/18/2018 5:52 PM Performed by: MAGGIE BRONSON Authorized by: EVARISTO LEDBETTER Care team members present: ??Martha neil LPN and Kandice Dong HOUSING RELOCATION Student Consent: ??Consent obtained: ??Written ??The benefits, [...] the patient and/or decision maker.: ??Not addressed [place] protocol: ??All relevant documentation and testin g [...] Cervix documented in this encounter Care Teams Casino Enforcement Agent Relationship Specialty Start Date End Date Oscar Laughlin M.D. PCP - General 08/10/162199 [place] [address] documented as of this encounter
--- OUTSIDE RECORDS SUMMARY | 2021-12-23 08:41 | XMS_ITS | Encounter Summary ---
:1980 Author Organization [facility] Address [address] [place] [address] Care Team Providers Name Role Phone Oscar Laughlin M.D. Primary Care Provider [phone] Reason for Referral Specialty Diagnoses / Procedures Referred By Contact Refer red To Contact [facility] [address] [place] [address] Referral ID Status Reason Start Date Expiration Date Visits Requ ested Visits Authorized Encounter Details Date Type Department Care Team Description 05/20/2020 Immunization Department of [facility] er For COVID-19 Medicine, [facility] Vaccine Immunization [facility], in [facility] (Prim katelyn Dx) [address] [address] Social History Tobacco Use Types Packs/Day [...] have completed or the highest Fabio, MEd, NUTRITION FACULTY MEMBER, ELICIA) degree you have received? 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 documented as of this encounter Plan of Treatment Scheduled Referrals Name Type Priority Associated Diagnoses Order S chedule Covid immunization Outpatient Referral Routine Encounter For E xpected: office visit COVID-19 Vaccine 06/17/2020, Subsequent; 28 days Immunization Expires: 05/21/2023 documented as of this encounter Visit Diagnoses Diagnosis Encounter For COVID-19 Vaccine Immunizat ion - Primary documented in this encounter Additional Health Concerns Assessment Noted Time PHQ-9 Depression Total Score: 7 04/12/2020 10:38 AM CS T documented as of this encounter Care Teams Swager Operator Relationship Specialty Start Date End Date Oscar Laughlin M.D. PCP - General 08/10/16 [address], [place] [address] documented as of this encounter
--- OUTSIDE RECORDS SUMMARY | 2021-12-23 08:41 | XMS_ITS | Encounter Summary ---
:1980 Author Organization [facility] Address [address] [place] [address] Care Team Providers Name Role Phone Oscar Laughlin M.D. Primary Care Provider [phone] Encounter Details Date Type Department Care Team Description 06/21/2020 Immunization Department of [facility] Lexx Lira For COVID-19 Medicine, Steve Mendoza M.D. Vaccine Immunization Building, in [address] [place] [address] [address] [facility] [address] [place], [place] [phone] [address] (Work) [phone] Social History Tobacco Use Types Packs/Day Years [...] More than 4 times per year 07/29/2020 sikhism services? Do you belong to any clubs [...] place to sleep or slept in a chcf (including now)? Education Answer Date Recorded What is the highest level of school Master's degree (e.g., Kelly Maxwell, MS, 03/11/2020 you have completed or the highest Fabio, MEd, DIVISION TRAFFIC SUPERINTENDENT, ELICIA) degree you have received? 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 PCP - General 08/10/16 [address] [place] [address] documented as of this encounter
--- OUTSIDE RECORDS SUMMARY | 2021-12-23 08:41 | XMS_ITS | Encounter Summary ---
:1980 Author Organization [facility] Address [address] [place] [address] Care Team Providers Name Role Phone Oscar Laughlin M.D. Primary Care Provider [phone] Encounter Details Date Type Department Care Team Description 10/20/2019 Hospital Encounter Department of Nae Andrews, Preop erative Exam Laboratory Medicine P.A.-C. in [place] [id number] [facility] [place], [place] [address] [facility] [address] [place], [place] [phone] [address] (Work) [phone] Social History Tobacco Use Types Packs/Day Years [...] or relatives? How often do you attend protestant or More than 4 times per year 07/29/2020 anglican services? Do you belong to any clubs or Yes 07/29/2020 organizations such as protestant groups, unions, fraternal or athletic groups, or [...] or slept in a alf (including now)? 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 documented in this encounter Results SARS Coronavirus-2, PCR (10/21/2019 1:59 PM CDT) [facility] gist Method Time Signature SARS Nasopharynx 10/22/2019 [facility] Coronavirus-2 12:14 AM CDT Source SARS Undetected Undetected 10/22/2019 [facility] Coronavirus-2 12:14 AM CDT , PCR Comment: SARS-CoV-2 RNA absent. This result does not rule out COVID-19 in the patient, as the sensitivity of the test depends o n the timing of the specimen collection and quality of the specimen. Result should be correlated with patient's history and clinical presentat ion. ----ADDITIONAL INFORMATION---- This test was developed and its performa nce characteristics determined by [facility] in a manner co nsistent with CLIA requirements. Independent review by the U.S. Food and Drug Administration is pending. Visit the CDC website: https://www.cdc.gov/coronavirus/ ?? for the most recent guidelines on Padilla virus testing. Fact Sheet for Healthcare Providers: (https://www.[employer].Bahoui/it-mmfil es/ Provider_Fact_Sheet_for_[facility]_COVI D-19.pdf) Fact Sheet for Patients: (https://www.[facility] hospitalJ[facility] Medias.com/it-mmfil es/ Patient_Fact_Sheet_for_COVID-19.pdf) Specimen Anatomical Collection Method Collection Time Receive d Time (Source) Location / / Volume Laterality Varies 10/21/2019 1:59 PM 0 1:59 CDT PM CDT Nae Andrews P.A.-C. LAB MICROBIOLOGY - GENERAL O SIMÓN Performing Organization Address City/State/[facility] Code Phon e Number [facility] - [address] [place], [place] [address] [facility] [place] [address] Laboratories-[facility] [address] documented in this encounter Visit Diagnoses Diagnosis Preoperative Exam documented in this encounter Additional Health Concerns Infection Onset Date Last Indicated Resolved Time COVID19 Pending 10/20/2019 10/20/2019 10/21/2019 6:36 AM CDT documented as of this encounter Care Teams Transcribing Operators Supervisor Relationship Specialty Start Date End Date Oscar Laughlin M.D. PCP - General 08/10/162199 [address] [address] documented as of this encounter
--- OUTSIDE RECORDS SUMMARY | 2021-12-23 08:42 | XMS_ITS | Encounter Summary ---
:1980 Author Organization [facility] Address [address] [place] [address] Care Team Providers Name Role Phone Oscar Laughlin M.D. Primary Care Provider [phone] Encounter Details Date Type Department Care Team Description 05/15/2017 E-Visit [facility] Zahida Alvarez, RE: E -Visit Submission: Services in [facility] a RADHA C.N.PMickey, Sore Throat [address] [facility] [place] [address] Social History Tobacco Use Types Packs/Day Years [...] or relatives? How often do you attend confucianism or More than 4 times per year 07/29/2020 restorationism services? Do you belong to any clubs or Yes 07/29/2020 organizations such as confucianism groups, unions, fraternal or athletic groups, or [...] place to sleep or slept in a penitentiary (including now)? 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 PCP - General 08/10/[address] [phone] documented as of this encounter
--- OUTSIDE RECORDS SUMMARY | 2021-12-23 08:42 | XMS_ITS | Encounter Summary ---
:1980 Author Organization [facility] Address [address] [place] [address] Care Team Providers Name Role Phone Unavailable Primary Care Provider Unavailable Encounter Details Date Type Department Care Team Description 05/26/2016 Hospital Encounter HX NO MAPPING Geraldine Allan M.D. [address] [place], [place] [address] (Wo rk) Social History Tobacco Use Types Packs/Day Years Used Date Smoking Tobacco: Never Alcohol Habits Answer Date Recorded How often [...] or relatives? How often do you attend anglican or More than 4 times per year 07/29/2020 evangelical services? 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 mg tablet documented as of this encounter Miscellaneous Notes Miscellaneous - Conversion, Historical Provider Ser - 05/26/2016 11:59 PM CDT Coding Summary-Paper Based CODING DATE: 06/06/2016 FINAL [facility] STATUS: * Discharged to Home or Self Care PAYOR: Commercial Insurance ADMIT DX: REASON FOR VISIT DX: FINAL DX: PRINCIPAL: Z11.3 Encounter for screening for infections with a predominantly sexual mode of transmission SECONDARY: PROCEDURES DOCTOR NAME DATE NOTE: The code number assigned matches the documented diagnosis and / or procedure in the patient's chart. However, the narrative phrase printed from the coding software may appear abbreviated, or result in slightly different terminology. Coded By: MICHAEL TREVIZO Date Saved: 06/06/2016 02:03 pm Source: [employer] [facility] dooubCHART Document Id: [id number] documented in this encounter Plan of Treatment Not on filedocumented as of this encounter Visit Diagnoses Not on filedocumented in this encounter
--- OUTSIDE RECORDS SUMMARY | 2021-12-23 08:42 | XMS_ITS | Encounter Summary ---
:1980 Author Organization [facility] Address [address] [place] [address] Care Team Providers Name Role Phone Oscar Laughlin M.D. Primary Care Provider [phone] Reason for Referral Outpatient (Routine) - Closed Specialty Diagnoses / Procedures Referred By Contact Refer red To Contact Family Medicine Diagnoses Elevated Blood Pressure Evaristo Ledbetter [facility], C.N.P., D.N.P. [address] [phone] Referral ID Status Reason Start Date Expiration Date Visits Requ ested Visits Authorized [id number] Closed 05/02/2018 05/02/2019 1 1 utpatient (Routine) - Closed Specialty Diagnoses / Procedures Referred By Contact Refer red To Contact Dermatology Diagnoses Cyst Sebaceous Keratosis Seborrheic Evaristo Ledbetter APRN, [facility] C.N.P., D.N.P. [address] [place] [address] Referral ID Status Reason Start Date Expiration Date Visits Requ ested Visits Authorized [id number] Closed 05/02/2018 05/02/2019 1 1 [employer] Reason for Visit Reason Comments Annual Exam Appointment Request (Routine) - Closed Specialty Diagnoses / Procedures Referred By Contact Refer red To Contact Family Medicine Referral ID Status Reason Start Date Expiration Date Visits Requ ested Visits Authorized [id number] Closed 04/04/2018 04/04/2019 1 Encounter Details Date Type Department Care Team Description 05/02/2018 Comprehensive Visit Department of [facility], General Medical Examination Adult (Primary Dx); Medicine, [place] Evaristo N, 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 Cyst Sebaceous; [place] [address] Keratosis Seborrheic; [address] [place] [phone] Social History Tobacco Use [...] More than 4 times per year 07/29/2020 orthodox services? Do you belong to any clubs [...] slept in a group home (including now)? Sex Assigned at Date Recorded Female 04/27/2017 8:11 AM [employer] documented as of this encounter Last Filed Vital Signs Vital Sign Reading Time Taken Comments Blood Pressure 154/94 05/02/2018 12:03 PM [employer] Pulse 80 05/02/2018 12:03 PM [employer] Temperature 36.9 ??C (98.4 ??F) 05/02/2018 10:48 AM [employer] Respiratory Rate 16 05/02/2018 10:48 AM [employer] Oxygen Saturation - - Inhaled Oxygen Concentration - - Weight 75.2 kg (165 lb 12.6 oz) 05/02/2018 10:48 AM [employer] Height 161 cm (5' 3.39) 05/02/2018 10:48 AM [employer] Body Mass Index 29.01 05/02/2018 10:48 AM [employer] documented in this encounter Patient Instructions Patient InstructionsEvaristo Ledbetter APRN, C.N.P., D.N.P. - 05/02/2018 11:00 AM CST Check blood pressure outside of the clinic on several occasions. Bring in those readings in 2-4 weeks and schedule a nurse visit for a BP recheck. Goal BP is under 130/80. If it is elevated persistently above this, we should probably start blood pressure medication at this point. Pap today. If normal and no new sex partners, we can probably safely defer this for 5 years from now. Schedule appt with derm if you'd like the cyst excised or if you want the back moles treated. [employer] documented in this encounter H&P Notes Evaristo Ledbetter APRN, C.N.P., D.N.P. - 05/02/2018 11:00 AM CST CHIEF COMPLAINT / REASON FOR VISIT Saniya Sauceda is a 38 y.o. female who presents for evaluation of Annual Exam. HISTORY OF PRESENT ILLNESS Saniya Sauceda is a 38 y.o. female who is here for her annual exam. She doesn't necessarilyhave concerns today. Saniya's blood pressure is elevated today and has been upon her two most recent visits. She denies any chest pain, vision changes, frequent headaches, swelling in extremities. She does have a family history of hypertension in her mother. When she's checked it outside of the clinic it is typically lower. She does have some life stress right now as well. Saniya did have problems with gestational hypertension at her last in 2014. Saniya is with 2 children. She tries to stay active when she can and eats fairly healthy. Sheahs no concerns about her vision, hearing, or dentition. She remains a nonsmoker and rarely drinks alcohol. REVIEW OF SYSTEMS Answers for HPI/ROS submitted by the patient on 05/02/2018 No general issues: Yes No eye issues: Yes No ENT issues: Yes No heart issues: Yes No respiratory issues: Yes No GI issues: Yes No muscle/bone issues: Yes No skin issues: Yes No neurologic issues: Yes No mental health issues: Yes No blood/lymph issues: Yes No urinary/reproductive issues: Yes PAST MEDICAL/SURGICAL HISTORY Patient Active Problem List Diagnosis ??? Gestational Hypertension Personal History Not ??? Vasectomy Status Past Surgical History: Procedure Laterality Date ??? THERAPEUTIC 2004 FAMILY HISTORY Family History Problem Relation Age of Onset ??? Hypertension Mother ??? Heart attack Grandfather ??? Breast cancer Grandmother ??? Deep vein thrombosis Aunt SOCIAL HISTORY Social History Social History ??? Marital status: Spouse name: N/A ??? Number of children: N/A ??? Years of education: N/A Social History Main Topics ??? Smoking status: Never Smoker ??? Smokeless tobacco: Never Used ??? Alcohol use Yes 1 Glasses of wine per week ??? Drug use: No ??? Sexual activity: Yes Partners: Male control/ protection: Vasectomy Other Topics Concern ??? None Social History Narrative ??? None MEDICATIONS No current outpatient prescriptions on file. ALLERGIES Allergies Allergen Reactions ??? Amoxicillin Rash VITAL SIGNS Vitals: 05/02/18 1048 05/02/18 1203 BP: (!) 156/96 (!) 154/94 Patient Position: Sitting Sitting Pulse: 75 80 Temp: 36.9 ??C Resp: 16 Height: 161 cm Weight: 75.2 kg TempSrc: Oral PHYSICAL EXAM GENERAL: Patient is alert and oriented, in no acute distress. Capable of full communication without difficulty. Patient is polite and cooperative. Appropriately dressed and normal hygiene. HEENT: Normocephalic, atraumatic. Pupils are equal, round and reactive to light. Auditory canals patent, tympanic membranes are pearly montoya with visualization of bony structures. Oropharynx without lesion. Pharynx rises symmetrically without exudate. Dentition grossly intact. NECK: No lymphadenopathy, no thyromegaly. HEART: Regular rate and rhythm. No murmurs, gallops or rubs noted. No S3, No S4. LUNGS: Regular rate and rhythm of respirations. Clear to auscultation bilaterally. No wheezes or crackles. No accessory muscles of respiration noted. BREASTS: Soft breast tissue without predominant mass or nodularity. No nipple discharge. Nipples everted bilaterally. No axillary or supraclavicular adenopathy. ABDOMEN: Nontender to palpation. No hepatosplenomegaly. No mass. Normal bowel sounds in all 4 quadrants. PELVIS: Normal external genitalia. Normal vaginal discharge. Mucosa moist and well rugated. Pap smear is taken by thin-prep technology. Bimanual exam shows no adnexal fullness. No cervical motion tenderness. Anus appears normal. EXTREMITIES: No neurovascular compromise. No cyanosis, clubbing or edema. No abnormal limb length. NEURO: Cranial nerves II through XII are grossly intact. SKIN: Several lesions consistent with seborrheic keratoses on her back. She does have a sebaecous cyst that is not inflamed or erythematous on her upper back. A full head to toe skin exam was not performed today. MENTAL: Affect is normal. Speech is clear and coherent. Thought process is appropriate. Good eye contact. DIAGNOSIS/PLAN #1 General Medical Examination Adult #2 Pap Smear Examination - ThinPrep w/HPV Co-Test Screen - Chlamydia / Gonorrhoeae Amplified RNA #3 Cyst Sebaceous #4 Keratosis Seborrheic #5 Elevated Blood Pressure - Family Medicine nurse visit (clinic); Future; Expected date: 05/02/2018 Other orders - Dermatology - Surgery consult (clinic); Future; Expected date: 05/02/2018 - HPV with Genotyping, PCR, ThinPrep Routine Health Maintenance. Colon cancer screening due at age 50. Mammogram due at age 40. Pap test done today with co-testing, results pending. She did have an ASCUS pap with positive HPV [id number] with negative cotesting in 2015. Fasting blood glucose not indicated at this time. Lipid profile is not indicated at this time. TDaP immunization is current Influenza immunization is current. Blood pressure is again elevated. She has a repeat BP check scheduled on May 17 and if that is above 130/80, I will likely recommend treatment with an antihypertensive. Saniya would like to have the sebaceous cyst excised and I have consulted dermatology for this. She also should have a full skin evaluation, but reassurance was provided that the larger lesions on her back appear benign seborrheic keratoses. I recommend preventative health care measures including healthy diet, exercise, 100% seatbelt use, dental visits every 6 months, annual eye exams, breast self awareness, safe sun exposure, and home safety. She will follow up in one year for annual exam, sooner if concerns arise. documented in this encounter Plan of Treatment Scheduled Referrals Name Type Priority Associated Order Schedule Diagnoses Dermatology - Surgery Outpatient Referral Routine Cyst S ebaceous Expected: consult (clinic) Keratosis 05/02/2018 Seborrheic (Approximate), Expires: 05/02/2021 Family Medicine nurse Outpatient Referral Routine Elevated Blo od Expected: visit (clinic) Pressure 05/02/2018 (Approximate), Expires: 05/02/2021 documented as of this encounter Procedures Procedure Name Priority Date/Time Associated Diagnosis Comme nts THINPREP W/HPV Routine 05/02/2018 12:03 PM Pap Smear Result s for this CO-TEST SCREEN [employer] Examination procedure are in the results section. HPV WITH Routine 05/02/2018 12:03 PM Results for this GENOTYPING, PCR, [employer] procedure a re in THINPREP the results section. CHLAMYDIA/GONORRHOE Routine 05/02/2018 12:03 PM Pap Smear R esults for this AE AMPLIFIED RNA [employer] Examination procedure a re in the results section. documented in this encounter Results (ABNORMAL) HPV with Genotyping, PCR, ThinPrep (05/02/2018 12:03 PM [employer]) [facility] Method Time Signature HPV with Positive (A) Negative 05/06/2018 [facility] Genotyping, 8:19 PM CDT HEALTH ThinPrep, PCR SYSTEM- [facility] Comment: Positive for high risk HPV by nucleic ac id amplification. Positive for one or more of the following high risk types: 16, 18, 31, 33, 35, 39, 45, 51, 52, 56, 58, 59, 66, and 68. See genotyping result. HPV High Risk type Negative Negative 05/06/2018 8:19 PM CD T [facility] 16, PCR SYSTEM- [facility] HPV High Risk type Negative Negative 05/06/2018 8:19 PM CD T [facility] 18/45, PCR [facility]- [facility] Specimen Anatomical Collection Method Collection Time Receive d Time (Source) Location / / Volume Laterality Varies 05/02/2018 12:03 05/03/2018 8:21 PM [employer] AM [employer] Evaristo Ledbetter APRN, C.N.P., D.N.P. LAB MICROBIOLOGY - GENERAL ORDERABLES Performing Organization Address City/State/ZIP Code Phon e Number [facility] [address] [place] [address] LAB Chlamydia / Gonorrhoeae Amplified RNA (05/02/2018 12:03 PM [employer]) [facility] Method Time Signature Source Thin Prep 05/03/2018 [facility] Vial, 2:59 PM [employer] HEALTH Cervix/Endoc SYSTEM- ervix [facility] Chlamydia Negative Negative 05/03/2018 [facility] trachomatis 2:59 PM [employer] HEALTH amplified RNA [facility]- [facility] Comment: ----ADDITIONAL INFORMATION---- This report is intended for use in clini greer monitoring and management of patients. It is not in tended for use in medical-legal applications. Source Thin Prep Vial, 05/03/2018 2:59 [facility] KAREN Cervix/Endocervix PM [employer] [facility] Neisseria Negative Negative 05/03/2018 2:59 [facility] gonorrhoeae PM [employer] HEALTH [facility] Comment: ----ADDITIONAL INFORMATION---- This report is intended for use in clini greer monitoring and management of patients. It is not in tended for use in medical-legal applications. Specimen Anatomical Collection Method Collection Time Receive d Time (Source) Location / / Volume Laterality Varies 05/02/2018 12:03 05/02/2018 7:09 (Cervix/Endocerv PM [employer] PM [employer] ix) Evaristo Ayala Anatoly GARCIA C.N.P., D.N.P. LAB MICROBIOLOGY - GENERAL ORDERABLES Performing Organization Address City/State/ZIP Code Phon e Number [facility] [address] [place] [address] LAB (ABNORMAL) ThinPrep w/HPV Co-Test Screen (05/02/2018 12:03 PM [employer]) Component Value Ref Test Analysis Performed Pathologis t Range Method Time At Signature (A) 05/07/2018 [facility] 10:47 AM Conversion Logic CDT SYSTEM[facility] Report Misa Sams MD 05/07/2018 [facility] electronically I verify that I have examined all relevant slides/ma terials 10:47 AM HEALTH signed by for the specimen(s) and rendered or confirmed the diagnosi s. CDT SYSTEM- (A) [facility] Gross Description Received specimen 05/07/2018 [facility] in a ThinPrep 10:47 AM HEALTH vial. (A) CDT [facility] Pap Test Source Cervical/Endocervi 05/07/2018 [facility] greer (A) 10:47 AM Conversion Logic CDT SYSTEM- [facility] Clinical History history of hpv (A) 05/07/2018 [facility] 10:47 AM Conversion Logic CDT [facility] Menstrual lmp unknown (A) 05/07/2018 [facility] Status(LMP, PM, 10:47 AM HEALTH ) CDT [facility] Hormone None/Not known (A) 05/07/2018 [facility] Therapy/Contracep 10:47 AM HEALTH tives CDT SYSTEM- [facility] Interpretation Cervical/Endocervical ??(ThinPrep): 05/07/2018 [facility] Satisfactory for Evaluation 10:47 AM HE ALTH Epithelial Cell Abnormality CDT SY STEM- Low grade squamous intraepithelial lesion [facility] High Risk HPV Testing results are POSITIVE. CYTOLOGY HPV with Genotyping, PCR ThinPrep: HPV High Risk Type 16, PCR: NEGATIVE HPV High Risk Type 18/45, PCR: NEGATIVE Other High Risk HPV types include: 31, 33, 35, 39, 51, 52, 56, 58, 59, 66, 68 Additional testing performed at [facility], [address] [place] [address]. (A) Specimen Anatomical Collection Method Collection Time Receive d Time (Source) Location / / Volume Laterality Varies 05/02/2018 12:03 05/03/2018 8:21 (Cervix/Endocerv PM [employer] AM [employer] ix) Narrative This result has an attachment that is no t available. Karen Ballesteros APRN.N.P., D.N.P. LAB PAP PATHDX O RDERABLES Performing Organization Address City/State/[place] [address] CYTOLOGY documented in this encounter Visit Diagnoses Diagnosis General Medical Examination Adult - Prim katelyn Pap Smear Examination Cyst Sebaceous Keratosis Seborrheic Elevated Blood Pressure documented in this encounter Care Teams Vet Tech Relationship Specialty Start Date End Date Oscar Laughlin M.D. PCP - General 08/10/16 [address] [place] [phone] documented as of this encounter
--- OUTSIDE RECORDS SUMMARY | 2021-12-23 08:42 | XMS_ITS | Encounter Summary ---
:1980 Author Organization [facility] Address [address] [place] [address] Care Team Providers Name Role Phone Oscar Laughlin M.D. Primary Care Provider [phone] Encounter Details Date Type Department Care Team Description 06/02/2017 [facility], 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 - 06/02/2017 2:07 PM CDT Patient made aware and verbalized understanding. Telephone Encounter - Brandie Zaldivar R.N. - 06/02/2017 12:27 PM CDT Attempted to call the patient back x 5. The call is answered but no one speaks, and then the call isdisconnected. Will try back. Telephone Encounter - Brandie Zaldivar R.N. - 06/02/2017 7:59 AM CDT Patient was provided aftercare instructions. documented in this encounter Plan of Treatment Not on filedocumented as of this encounter Visit Diagnoses Not on filedocumented in this encounter Care Teams Door Repairman Relationship Specialty Start Date End Date Oscar Laughlin M.D. PCP - General 08/10/16 [address], [place] [phone] documented as of this encounter
--- OUTSIDE RECORDS SUMMARY | 2021-12-23 08:42 | XMS_ITS | Encounter Summary ---
:1980 Author Organization [facility] Address [address] [place] [address] Care Team Providers Name Role Phone Unavailable Primary Care Provider Unavailable Encounter Details Date Type Department Care Team Description 05/26/2016 Hospital Encounter HX [facility] Tae Allan M.D. [address] [place] [address] (Wo rk) Social History Tobacco [...] or relatives? How often do you attend judaism or More than 4 times per year 07/29/2020 congregation services? Do you belong to any clubs or Yes 07/29/2020 organizations such as judaism groups, unions, fraternal or athletic groups, or [...] or slept in a correction (including now)? 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 documented as of this encounter Last Filed Vital Signs Vital Sign Reading Time Taken Comments Blood Pressure 136/88 05/26/2016 1:18 PM CDT Pulse 72 05/26/2016 1:18 PM CDT Temperature - - Respiratory Rate - - Oxygen Saturation - - Inhaled Oxygen Concentration - - Weight 85.2 kg (187 lb 13.3 oz) 05/26/2016 1:18 PM CDT Height 161 cm (5' 3.39) 05/26/2016 1:18 PM CDT Body Mass Index 32.87 05/26/2016 1:18 PM CDT documented in this encounter Medications at Time of Discharge Medication Sig Dispensed Refills Start Date End Date lisinopril Take 1 tablet by 0 01/06/2016 05/02/19 18 (for_PRINIVIL,ZESTRIL) 10 mouth daily. mg tablet documented as of this encounter Progress Notes Tae Allan M.D. - 05/26/2016 1:11 PM CDT [id number] Date is service is 05/26/2016. CHIEF COMPLAINT/REASON FOR VISIT Screening for venereal disease. HISTORY OF PRESENT ILLNESS This is a 36-year-old female who comes in today for STD testing. She does not have any specific concerns or questions today. She has been doing well. She has had unprotected intercourse but has been asymptomatic. She would just like to have her STD screening done. She has not had this done in a few years. She denies any changes in her vaginal discharge. She denies any pain or discomfort in the abdominal area or any cramping. No vaginal discharge. No pain or discomfort with urination. No changes in her urinary habits. She has never been treated for a sexually transmitted infections previously. She has not had reports from any partners for any sexually transmitted infections. No nauseousness, vomiting, no urinary changes or symptoms. No fevers, chills, or sweats. Medications and allergies are reviewed and reconciled with the EMR on 05/26/2016 with no changes. SYSTEMS REVIEW She denies any headaches, vision changes, hearing changes. No chest pain, shortness of breath, abdominal pain, nausea, vomiting, diarrhea, constipation. VITAL SIGNS Per EMR today. PHYSICAL EXAMINATION GENERAL: Alert and oriented x3. Appears in no acute distress. HEENT: Pupils equally round and reactive to light and accommodation. Extraocular movements are intact. Fundi examined, appeared normal. Tympanic membranes are clear bilaterally. Oropharynx is free fromerythema or exudate. NECK: Supple. No lymphadenopathy. No thyromegaly. Nontender. CARDIOVASCULAR: Heart is regular rate and rhythm without any murmurs, rubs, or gallops. RESPIRATORY: Lungs clear to auscultation bilaterally. GASTROINTESTINAL: Abdomen is soft, nontender, nondistended. Bowel sounds present in all quadrants. IMPRESSION/REPORT/PLAN Sexually transmitted disease screening. Will get gonorrhea, chlamydia, syphilis, and human immunodeficiency virus testing done today. We will follow up with the patient with results. She will contact us if any other symptoms. Tae Allan M.D./giselle Electronically Signed By: TAE ALLAN MD On: 06/21/2016 06:01 PM Source: [facility] MHSDOLBEYNONRADSYS Document Id: [id number] documented in this encounter Miscellaneous Notes Miscellaneous - Tae Allan M.D. - 05/31/2016 12:51 PM CDT From: TAE ALLAN MD To: SANIYA MCCOLLUM Sent: 05/31/2016 12:51:57 CDT HIV and syphilis tests are both negative. Results: Date Result Name Value Ref Range 05/26/2016 13:49 HIV 1/2 Ab and Ag [facility] Negative (Negative - ) 05/26/2016 13:49 Syphilis IgG Antibody Negative (Negative - ) Source: [facility] POWERCHART Document Id: [id number] Electronically signed by Conversion, [facility] Marketing Technology Specialist [id number] at 08/08/2016 1:43 AM CDT Miscellaneous - Tae Allan M.D. - 05/29/2016 3:13 PM CDT From: TAE ALLAN MD To: SANIYA MCCOLLUM Sent: 05/29/2016 15:13:10 CDT Gonorrhea and chlamydia are negative Source: [facility] Web and RankCHART Document Id: [id number] Electronically signed by Conversion, [facility] Marketing Technology Specialist [id number] at 08/08/2016 1:43 AM CDT Miscellaneous - Perry Nogueira L.P.N. - 05/26/2016 1:18 PM CDT Adult Hide Dropper Intake/History Adult Hide Dropper Intake/History Entered On: 05/26/2016 13:19 CDT Performed On: 05/26/2016 13:18 CDT by PERRY CROWLEY LPN Intake Chief Complaint : STD check: -no symptoms Peripheral Pulse Rate : 72 /min Systolic Blood Pressure : 136 mmHg Diastolic Blood Pressure : 88 mmHg NIBP Mean : 104 mmHg BP Location : Right upper extremity Blood Pressure Cuff Size : Large Height : 161 cm(Converted to: 5 ft 3 inch(es), 63 inch(es)) Actual Weight : 85.2 kg(Converted to: 187 lb 13 oz) Weight Source : Standing scale Dosing Weight Clinic : 85.2 kg Clinic BSA : 1.95 Body Mass Index : 32.87 kg/m2 PERRY CROWLEY LPN - 05/26/2016 13:18 CDT General Info Languages : Georgian Is Patient Female and 13-50 no hysterectomy : No PERRY CROWLEY LPN - 05/26/2016 13:18 CDT Subjective Pain Symptoms : No PERRY CROWLEY LPN - 05/26/2016 13:18 CDT Dependent Habits Exposure to Tobacco Smoke : Other: Never Smoking Status : Never smoker Tobacco 2A : No Tobacco Use/Currently Using : No Tobacco Use/Last 30 Days : No Tobacco Use/Last 12 months : No PERRY CROWLEY LPN - 05/26/2016 13:18 CDT Source: [facility] POWERCHART Document Id: [id number] CDT!27 documented in this encounter Plan of Treatment Not on filedocumented as of this encounter Procedures Procedure Name Priority Date/Time Associated Comments Diagnosis CHLAMYDIA/GONORRHOEAE Routine 05/26/2016 1:56 PM Results for this AMPLIFIED RNA CDT procedure are in the results section. CHLAMYDIA TRACHOMATIS Routine 05/26/2016 1:56 PM Results for this AMPLIFIED RNA CDT procedure are in the results section. HIV-1/-2 AG AND AB Routine 05/26/2016 1:49 PM Res ults for this SCREEN CDT procedure are i n the results section. SYPHILIS IGG AB, S Routine 05/26/2016 1:49 PM Res ults for this CDT procedure are i n the results section. documented in this encounter Results Chlamydia / gonorrhoeae Amplified RNA (05/26/2016 1:56 PM CDT) Component Value Ref Test Analysis Performed At [facility] Method Time Signature HX GC by Nucleic POWERCHART Acid Amplification HXFinal Negative for POWERCHART Neisseria gonorrhea by RNA amplification . HXFinal Reference: POWERCHART Negative HXFinal If you POWERCHART submitted a female urine sample, please note it is a Laboratory Developed Test. Specimen (Source) Anatomical Collection Method Collection Time Re ceived Time Location / / Volume Laterality Urine 05/26/2016 1:56 PM CDT Tae Allan M.D. LAB MICROBIOLOGY - GENERAL O RDERABLES Performing Organization Address City/State/ZIP Code Phon e Number POWERCHART Chlamydia trachomatis Amplified RNA (05/26/2016 1:56 PM CDT) Component Value Ref Test Analysis Performed At [facility] Method Time Signature HXChlamydia by POWERCHART Nucleic Acid Amplification HXFinal Negative for POWERCHART Chlamydia trachomatis by RNA amplification. HXFinal Reference: POWERCHART Negative HXFinal If you POWERCHART submitted a female urine sample, please note it is a Laboratory Developed Test. Specimen (Source) Anatomical Collection Method Collection Time Re ceived Time Location / / Volume Laterality Urine 05/26/2016 1:56 PM CDT Tae Allan M.D. LAB MICROBIOLOGY - GENERAL O RDERABLES Performing Organization Address City/State/ZIP Code Phon e Number POWERCHART HIV-1/-2 Ag and Ab Screen (05/26/2016 1:49 PM CDT) P athologist Signature HIV-1/-2 Negative Negative POWERCHART Antibody Comment: Negative result does not rule out HIV in fection. If acute HIV infection is suspected in a hi gh-risk individual, submit plasma specimen for H IV-1 RNA quantification test (HIVDQ) and/or HIV-2 DNA/RNA test (FHV2Q). Test Performed by: [place] [address] Specimen (Source) Anatomical Collection Method Collection Time Re ceived Time Location / / Volume Laterality Blood 05/26/2016 1:49 PM CDT Tae Allan M.D. LAB MICROBIOLOGY - BLOOD ORD ERAFREDERICK Performing Organization Address [facility] Phon e Number POWERCHART Syphilis IgG Ab (05/26/2016 1:49 PM CDT) P athologist Signature Syphilis IgG Negative Negative POWERCHART Ab, S Comment: Reference Value: Negative Specimen (Source) Anatomical Collection Method Collection Time Re ceived Time Location / / Volume Laterality Blood 05/26/2016 1:49 PM CDT Tae Allan M.D. LAB MICROBIOLOGY - BLOOD ORD ERAFREDERICK Performing Organization Address City/[facility]/ZIP Code Phon e Number POWERCHART documented in this encounter Visit Diagnoses Not on filedocumented in this encounter
--- OUTSIDE RECORDS SUMMARY | 2021-12-23 08:42 | XMS_ITS | Encounter Summary ---
:[address] [facility] Address [address] [place] [address] Care Team Providers Name Role Phone Oscar Laughlin M.D. Primary Care Provider [phone] Encounter Details Date Type Department Care Team Description 01/29/2017 Orders Only Department of Family Oscar Laughlin, Hypertension Essential Medicine, [facility] ([facility] Dx[facility], in [facility] [address] [place], [place] [address] [address] [place], [place] [phone] (Wo rk) [address] [phone] Social History Tobacco Use Types Packs/Day Years [...] or relatives? How often do you attend bahai or More than 4 times per year 07/29/2020 latter-day services? Do you belong to any clubs or Yes 07/29/2020 organizations such as bahai groups, unions, fraternal or athletic groups, or [...] or slept in a chcf (including now)? 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 PCP - General 08/10/[address] [address] documented as of this encounter
--- OUTSIDE RECORDS SUMMARY | 2021-12-23 08:42 | XMS_ITS | Encounter Summary ---
:1980 Author Organization [facility] Address [address] [place] [address] Care Team Providers Name Role Phone Oscar Laughlin M.D. Primary Care Provider [phone] Reason for Visit Reason Comments Med Refill Encounter Details Date Type Department Care Team Description 06/16/2017 Refill Department of [facility] Tejal Laughlin M.D. Med Refill Medicine, [facility], [address] [place] [address] [place] [address] [phone] Social History Tobacco Use Types Packs/Day Years [...] More than 4 times per year 07/29/2020 roman catholic services? 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 Confirmation receipt from pharmacy at 12:10 pm. documented in this encounter Plan of Treatment Not on filedocumented as of this encounter Visit Diagnoses Not on filedocumented in this encounter Care Teams Top Carrier Relationship Specialty Start Date End Date Oscar Laughlin M.D. PCP - General 08/10/[address] [address] documented as of this encounter
--- OUTSIDE RECORDS SUMMARY | 2021-12-23 08:42 | XMS_ITS | Encounter Summary ---
:1980 Author Organization [facility] Address [address] [place] [address] Care Team Providers Name Role Phone Oscar Laughlin M.D. Primary Care Provider [phone] Encounter Details Date Type Department Care Team Description 06/02/2017 Nurse Triage Department of [facility], [place] Simons R.N. Medicine, [facility], in [address] [place], [place] [address] [place] [address] [place] [address] [phone] (work) [phone] Social History Tobacco Use Types Packs/Day Years [...] More than 4 times per year 07/29/2020 latter day services? Do you belong to any clubs [...] or slept in a halfway (including now)? 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 PCP - General 08/10/16 [address] [place] [address] documented as of this encounter
--- OUTSIDE RECORDS SUMMARY | 2021-12-23 08:42 | XMS_ITS | Encounter Summary ---
:1980 Author Organization [facility] Address [address] [place] [address] Care Team Providers Name Role Phone Oscar Laughlin M.D. Primary Care Provider [phone] Encounter Details Date Type Department Care Team Description 12/21/2016 Hospital Encounter HX [facility] Odessa Hamilton M.D. [address] [place] [address] (Wo rk) Social History Tobacco [...] or relatives? How often do you attend mandaeism or More than 4 times per year 07/29/2020 buddhism services? Do you belong to any clubs or Yes 07/29/2020 organizations such as mandaeism groups, unions, fraternal or athletic groups, or [...] place to sleep or slept in a jail (including now)? 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 mg tablet documented as of this encounter Miscellaneous Notes Miscellaneous - Leah Gordon, C.M.A. - 12/21/2016 10:57 AM CDT [facility] Eligibility [facility] Eligibility Entered On: 12/21/2016 10:58 CDT Performed On: 12/21/2016 10:57 CDT by LEAH GORDON [facility] Eligibility Provided [facility] eligibility information : Yes LEAH GORDON CMA - 12/21/2016 10:57 CDT Source: [facility] POWERCHART Document Id: [id number] CDT!3 documented in this encounter Plan of Treatment Not on filedocumented as of this encounter Visit Diagnoses Not on filedocumented in this encounter Care Teams Flight Test Supervisor Relationship Specialty Start Date End Date Oscar Laughlin M.D. PCP - General 08/10/16 [address] [place] [address] documented as of this encounter
--- OUTSIDE RECORDS SUMMARY | 2021-12-23 08:42 | XMS_ITS | Encounter Summary ---
:1980 Author Organization [facility] Address [address] [place] [address] Care Team Providers Name Role Phone Oscar Laughlin M.D. Primary Care Provider [phone] Reason for Visit Reason Comments Female Problem frequency, urgency, dysuria Encounter Details Date Type Department Care Team Description 11/02/2017 Office Visit Urgent Care in [facility], Infection Uri nary Tract (Primary Dx); [place], [place] Aiyana Chicas APRN, Elevated Blood Pressure [address] M.S.N. [place], [place] [address] [facility] [id number] [place], [place] [phone] (Wo rk) Social History Tobacco Use Types [...] More than 4 times per year 07/29/2020 mormon services? 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 female that presents with dysuria over the past couple of days. No flank pain or hematuria. Denies any recent fevers, chills, headache, neck pain, chest pain, shortness of breath, abdominal pain, nausea, vomiting, or diarrhea. Current Outpatient Prescriptions: ??? APRI 0.15-0.03 mg per tablet, Take 1 tablet by mouth once daily., Disp: 84 tablet, Rfl: 4 ??? nitrofurantoin monohydrate (MACROBID) 100 mg capsule, Take 1 capsule (100 mg total) by mouth every 12 (twelve) hours for 7 days., Disp: 14 capsule, Rfl: 0 Allergies Allergen Reactions ??? Amoxicillin Rash SYSTEMS REVIEW Negative except for pertinent positives in HPI PAST MEDICAL/SURGICAL HISTORY See EMR history and procedures. SOCIAL HISTORY Reviewed. No changes. FAMILY HISTORY Reviewed. No changes. Vitals: 11/02/17 1303 BP: (!) 165/95 Pulse: 68 Temp: 36.5 ??C GENERAL: Well appearing adult. No distress. HEENT: Ears: Bilateral TMs and canals without erythema edema or exudate. Positive light reflex bilaterally. No pain over bilateral tragi. Nose: Bilateral nasal turbinates 2+, pink and moist. Mouth/throat: Oropharynx without injection, erythema, edema or exudate. Tongue moist. NECK: Supple. Trachea midline. No lymphadenopathy. CARDIAC: Regular rate and rhythm. Normal S1, S2. No murmurs, rubs, or clicks. LUNGS: Lungs clear without wheezing, rhonchi, or rales. ABDOMEN: Soft. No tenderness on palpation. Normoactive bowel sounds. No CVA tenderness.. DIAGNOSTICS Recent Results (from the past 24 hour(s)) Urinalysis with Microscopic if Indicated Collection Time: 11/02/17 12:34 PM Result Value Source Midstream Clarity Clear Color Yellow Blood Negative Nitrite Negative Leukocyte Esterase Moderate (A) Protein Negative Glucose Negative Ketone Negative Bilirubin Negative pH 7.0 Specific Palmer 1.020 Urobilinogen 1.0 Microscopic Automated Collection Time: 11/02/17 12:34 PM Result Value White Blood Cells 31-40 (A) Red Blood Cells Occ-2 Hyaline Casts 1-3 Squamous Cells Occ-3 Bacteria Present (A) Urine culture pending IMPRESSION/PLAN 1. Urinary tract infection-Macrobid prescribed for infection. Education regarding urinary tract infections and home care discussed. Strongly encouraged an adequate amount of fluids daily, always wipe front to back after using the restroom. Education regarding medications, side effects provided to patient. Strongly encouraged patient to follow up with primary care provider if symptoms persist after treatment. If symptoms worsen over the next 2 to 3 days such as high fever, chills, abdominal pain, nausea, vomiting, diarrhea, flank pain, hematuria, go to emergency room. The patient verbalized good understanding of these instructions. 2. Elevated blood pressure-she has had repeated high blood pressures when coming to clinic. She saidshe may have white coat syndrome. She does take her blood pressure when she is out at [facility] and other places and it has never elevated. It is usually in the 120s over 80s. She does see her PCP annually for wellness exams. We discussed symptoms of high blood pressure and encouraged her to be seen sooner if she has a symptoms. If symptoms become emergent such the worst headache of her life, numbnessor tingling, weakness, chest pain or shortness of breath call 911. She verbalized understanding and agreed to plan of care. This note has been written using fluency direct voice recognition dictation. Typographical errors may occur. For any concerns regarding accuracy or clarification of this note, please contact the author. documented in this encounter Plan of Treatment Not on filedocumented as of this encounter Procedures Procedure Name Priority Date/Time Associated Comments Diagnosis URINALYSIS WITH STAT 11/02/2017 12:34 Infection Urinary Res ults for this MICROSCOPIC IF PM CDT Tract procedure are in INDICATED, U the results section. MICROSCOPIC AUTOMATED STAT 11/02/2017 12:34 Re sults for this PM CDT procedure are i n the results section. BACTERIAL CULTURE, STAT 11/02/2017 12:34 Infection Urinary Results for this AEROBIC + SUSC, URINE PM CDT Tract proced ure are in the results section. documented in this encounter Results (ABNORMAL) Bacterial Culture, Aerobic + Susc, Urine (11/02/2017 12:34 PM CDT) [facility] Method Time Signature Bacterial ESCHERICHIA COLI 11/04/2017 [facility] Culture, >100,000 cfu/mL 9:12 AM CDT HEALTH Aerobic, (A) SYSTEM- Urine [place] [facility] Specimen Anatomical Collection Method Collection Time Receive d Time (Source) Location / / Volume Laterality Urine (Urine, 11/02/2017 12:34 11/02/2017 Midstream) PM CDT 11:55 PM CDT Comment: Specimen Source Site: Urine Organism Antibiotic Method Susceptibility Escherichia coli Ampicillin SUSCEPTIBILITY, >=32 mcg/mL: Re sistant JULES (MCG/ML) Escherichia coli Ampicillin + Sulbactam SUSCEPTIBILITY, >=32 mcg /mL: Resistant JULES (MCG/ML) Escherichia coli Piperacillin + Tazobactam SUSCEPTIBILITY, <=4 m cg/mL: Susceptible JULES (MCG/ML) Escherichia coli Cefazolin SUSCEPTIBILITY, <=4 mcg/mL: Jania ceptible JULES (MCG/ML) Escherichia coli Ceftazidime SUSCEPTIBILITY, <=1 mcg/mL: Jania ceptible JULES (MCG/ML) Escherichia coli Ceftriaxone SUSCEPTIBILITY, <=1 mcg/mL: Jania ceptible JULES (MCG/ML) Escherichia coli Cefepime SUSCEPTIBILITY, <=1 mcg/mL: Jania ceptible JULES (MCG/ML) Escherichia coli Aztreonam SUSCEPTIBILITY, <=1 mcg/mL: Jania ceptible JULES (MCG/ML) Escherichia coli Ertapenem SUSCEPTIBILITY, <=0.5 mcg/mL: JULES (MCG/ML) Susceptible Escherichia coli Meropenem SUSCEPTIBILITY, <=0.25 mcg/mL: JULES (MCG/ML) Susceptible Escherichia coli Gentamicin SUSCEPTIBILITY, <=1 mcg/mL: Jania ceptible JULES (MCG/ML) Escherichia coli Tobramycin SUSCEPTIBILITY, <=1 mcg/mL: Jania ceptible JULES (MCG/ML) Escherichia coli Levofloxacin SUSCEPTIBILITY, 1 mcg/mL: Susce ptible JULES (MCG/ML) Escherichia coli Nitrofurantoin SUSCEPTIBILITY, <=16 mcg/mL: Dodd sceptible JULES (MCG/ML) Escherichia coli Trimethoprim + SUSCEPTIBILITY, >=320 mcg/mL: R esistant Sulfamethoxazole JULES (MCG/ML) Aiyana Thacker APRN, C.N.P., M.S.N. LAB MICROB IOLOGY - GENERAL ORDERABLES Performing Organization Address City/State/[facility] Code Phon e Number [address] [id number] LAB (ABNORMAL) Microscopic Automated (11/02/2017 12:34 PM CDT) Analysis Performed At Patho logist Time Signature White Blood 31-40 (A) /hpf 11/02/2017 [facility] Cells 12:47 PM CDT [facility] [place] [facility] Comment: ----REFERENCE VALUE---- Males: 0-3 Females: 0-10 Unknown: 0-10 Red Blood Cells Occ-2 0 - 2 /hpf 11/02/2017 12:[address] [facility] CDT SYSTEM- [place] [facility] Hyaline Casts 1-3 /lpf 11/02/2017 12:47 PM [facility] CDT [facility]- [place] [facility] Squamous Cells Occ-3 /hpf 11/02/2017 12:47 PM [facility] CDT [facility]- [place] [facility] Bacteria Present (A) None Seen 11/02/2017 12:47 PM [facility] [place] [facility] Specimen Anatomical Collection Method Collection Time Receive d Time (Source) Location / / Volume Laterality Urine 11/02/2017 12:34 11/02/2017 PM CDT 12:41 PM CDT Aiyana Thacker APRN C.N.P., M.S.N. LAB URINE ORDERABLES Performing Organization Address City/State/ZIP Code Phon e Number [facility] [place] [address] [place] [address] LAB (ABNORMAL) Urinalysis with Microscopic if Indicated (11/02/2017 12:34 PM CDT) athologist Signature Source Midstream 11/02/2017 [facility] 12:47 PM [facility] [place] [facility] Clarity Clear Clear 11/02/2017 [facility] 12:47 PM [facility] [place] [facility] Color Yellow 11/02/2017 [facility] 12:47 PM [facility] [place] [facility] Comment: ----REFERENCE VALUE---- Colorless Yellow Miri Blood Negative Negative 11/02/2017 12:47 PM [facility] [place] [facility] Nitrite Negative Negative 11/02/2017 12:47 PM [facility] [place] [facility] Leukocyte Esterase Moderate (A) Negative 11/02/2017 12:[address] [facility] [place] [facility] Protein Negative mg/dL 11/02/2017 12:47 PM [facility] [place] [facility] Comment: ----REFERENCE VALUE---- Negative Trace Glucose Negative Negative mg/dL 11/02/2017 12:[address] [facility] [place] [facility] Ketone Negative Negative mg/dL 11/02/2017 12:[address] [facility] [place] [facility] Bilirubin Negative Negative 11/02/2017 12:47 PM [facility] [place] [facility] pH 7.0 5.0 - 8.0 11/02/2017 12:47 PM [facility] [place] [facility] Specific Palmer 1.020 1.001 - 1.035 11/02/2017 12:[address] [facility] [place] [facility] Urobilinogen 1.0 0.2 - 1.0 11/02/2017 12:47 PM [facility] [place] [facility] Specimen Anatomical Collection Method Collection Time Receive d Time (Source) Location / / Volume Laterality Urine (Urine, 11/02/2017 12:34 11/02/2017 [place]) PM CDT 12:41 PM CDT Aiyana Thacker APRN, C.N.P., M.S.N. LAB URINE ORDERABLES Performing Organization Address City/State/ZIP Code Phon e Number [facility] [address] [place] [id number] LAB documented in this encounter Visit Diagnoses Diagnosis Infection Urinary Tract - Primary Elevated Blood Pressure documented in this encounter Care Teams Pick Remover Relationship Specialty Start Date End Date Oscar Laughlin M.D. PCP - General 08/10/162199 [address] [phone] documented as of this encounter
--- OUTSIDE RECORDS SUMMARY | 2021-12-23 08:42 | XMS_ITS | Encounter Summary ---
:1980 Author Organization [facility] Address [address] [place] [address] Care Team Providers Name Role Phone Unavailable Primary Care Provider Unavailable Encounter Details Date Type Department Care Team Description 07/17/2016 Hospital Encounter HX [facility] Matt Hugo, U[facility]ENTCAR P.A.-C. [address] , [address] [id number] (Wo rk) Social History Tobacco Use Types [...] or relatives? How often do you attend holiness or More than 4 times per year 07/29/2020 oriental orthodox services? Do you belong to any clubs or Yes 07/29/2020 organizations such as holiness groups, unions, fraternal or athletic groups, or [...] place to sleep or slept in a fpc (including now)? 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 Last Filed Vital Signs Vital Sign Reading Time Taken Comments Blood Pressure 162/108 07/17/2016 7:17 PM CDT Pulse 77 07/17/2016 7:17 PM CDT Temperature - - Respiratory Rate 16 07/17/2016 7:17 PM CDT Oxygen Saturation - - Inhaled Oxygen Concentration - - Weight 84.1 kg (185 lb 6.5 oz) 07/17/2016 7:17 PM CDT Height 161 cm (5' 3.39) 07/17/2016 7:17 PM CDT Body Mass Index 32.44 07/17/2016 7:17 PM CDT documented in this encounter Medications at Time of Discharge Medication Sig Dispensed Refills Start Date End Date lisinopril Take 1 tablet by 0 01/06/2016 05/02/19 18 (for_PRINIVIL,ZESTRIL) 10 mouth daily. mg tablet documented as of this encounter Progress Notes Matt Jiang P.A.-C. - 07/17/2016 6:58 PM CDT [id number] CHIEF COMPLAINT/REASON FOR VISIT Left mattery pink eye. HISTORY OF PRESENT ILLNESS This is a 36-year-old female who has had left mattery and pink eye that started this morning. No fevers. No cough, runny nose. I do note her blood pressure is elevated at 162/108. Patient reports she has not been taking her blood pressure medication that has been prescribed her. She says her blood pressure usually not this high. She denies any headaches or vomiting. No vision changes. No pain in the eye. VITAL SIGNS Temperature 36.9, heart rate 77, respiratory rate 16. PHYSICAL EXAMINATION GENERAL: Alert and oriented x3, no distress. EYES: Left eye: Conjunctiva injected. No ciliary flush. Right eye: Mild injection of the conjunctiva, watery drainage, no mattering. ALLERGIES Amoxicillin. IMPRESSION/REPORT/PLAN 1. Bilateral viral conjunctivitis, left greater than right. Patient does have viral conjunctivitis, left eye is worse than the right eye, but I do see that it is starting to appear in the right eye as well. Discussed avoiding makeup, not wearing contacts. Keep your eyelashes clean. Should resolve in the next 3 to 7 days. 2. High blood pressure. I recommend she follow up with her primary doctor and discuss taking her prescribed blood pressure medication. Matt Jiang P.A.-C./giselle Electronically Signed By: MATT JIANG PA-C On: 07/19/2016 12:08 PM Source: [facility] MHSDOLBEYNONRADSYS Document Id: [id number] documented in this encounter Miscellaneous Notes Miscellaneous - Matt Jiang P.A.-C. - 07/17/2016 7:31 PM CDT Ambulatory Patient Summary [facility] [address] [place] [id number] Visit Information Name: MCCOLLUMSHMUEL EnamoradoZOE BROWN [facility] Number: [id number] Current Date: 07/17/2016 19:31:10 Physicians Attending Provider: MATT JIANG PA-C Primary Care Provider: ИРИНА GREGORY MD SANYIA MCCOLLUM STEPHANIE has been given the following list of follow-up instructions, medication list, and patient education materials: Follow-up Instructions Your Medications Here is a list of your medications. It is important to take your medications as directed. Use a pillbox or chart to help remind you to take your medications. Please let your doctor or nurse know if you have problems taking your medications. Medication/Strength How to Take Indications/Special Instructions/Comments/Notes for Patient Medication Changes/Routing desogestrel-ethinyl estradiol (Desogen 0.15 mg-0.03 mg oral tablet) 1 Tablet(s), Oral, once a day control *lisinopril (lisinopril 10 mg oral tablet) 1 Tablet(s), Oral, once a day High Blood Pressure. Take in morning. * You have let us know that you are not taking this medication as listed. Please talk with your primary care provider or the health care provider who prescribed the medication as soon as possible. Stop Taking the Following Medications: Medication list as of 07-17-16 19:31 Attention: If you have any medications at home that are not on this list, DO NOT take them until youcontact your provider for clarification. Give a copy of your medication list to your primary care provider. Update your medication list any time medications or doses are changed and carry your medication list at all times in case of emergency. Electronically Signed By: MATT JIANG PA-C Signed On:17-JUL-2016 19:31:02 Your Allergies & Intolerances Substance Reaction Symptoms Category Comments amoxicillin Rash Drug Your Problem List Problem Status Onset Comments High Risk HPV DNA Test Positive Cervix Active General Medical Exam Adult (GME) Active Atypical Squamous Cells Undeterm Significance (ASCUS) Cervix Active Gestational Hypertension (HTN) Pers Hx Not Preg Active Hypertension (HTN) Essential Benign Active Vasectomy Status Active 01/06/16 had vasectomy High Risk Medication Active Your Upcoming Appointments Date Time Location Provider No Appointments found Attention: Contact your local Clinic if further appointment detail needed. Consider Using Patient Online Services Patient Online Services is a secure online and Mobile application that lets you: ?? View lab and test results ?? View portions of your medical record including clinical notes, immunizations and discharge summaries ?? Request an appointment or medication refill ?? Review your appointment schedule ?? Send secure messages to your care team Its easy to create an account if you dont have one. Go to [email or web address] and click on Create Your Account. Then, follow the directions to complete the online form. Youll be asked for your [facility] number which you can find at the top of this document. Your Goals/Additional instructions: Source: [facility] POWERCHART Document Id: [id number] Miscellaneous - Matt Jiang P.A.-C. - 07/17/2016 7:31 PM CDT Ambulatory Discharge Medication List [facility] [address] [facility] [place] [id number] Visit Information Name: SANIYA MCCOLLUM [facility] Number: [id number] Current Date: 07/17/2016 19:31:07 Attending Provider: MATT JIANG PA-C Primary Care Provider: ИРИНА GREGORY MD SANIYA MCCOLLUM has been given the following list of medications: Your Medications It is important to take your medications as directed. Use a pill box or chart to help remind you to take your medications. Please let your doctor or nurse know if you have problems taking your medications. Medication/Strength How to Take Indications/Special Instructions/Comments/Notes for Patient Medication Changes/Routing desogestrel-ethinyl estradiol (Desogen 0.15 mg-0.03 mg oral tablet) 1 Tablet(s), Oral, once a day control *lisinopril (lisinopril 10 mg oral tablet) 1 Tablet(s), Oral, once a day High Blood Pressure. Take in morning. * You have let us know that you are not taking this medication as listed. Please talk with your primary care provider or the health care provider who prescribed the medication as soon as possible. Stop Taking the Following Medications: Medication list as of 07-17-16 19:31 Attention: If you have any medications at home that are not on this list, DO NOT take them until youcontact your provider for clarification. Give a copy of your medication list to your primary care provider. Update your medication list any time medications or doses are changed and carry your medication list at all times in case of emergency. Electronically Signed By: MATT JIANG PA-C Signed On:17-JUL-2016 19:31:02 Additional Information: Source: [facility] POWERCHART Document Id: [id number] Miscellaneous - Junito Fonseca L.P.NMickey - 07/17/2016 7:17 PM CDT Adult Learning Services Coordinator Intake/History Adult Learning Services Coordinator Intake/History Entered On: 07/17/2016 19:18 CDT Performed On: 07/17/2016 19:17 CDT by JUNITO FONSECA LPN Intake Chief Complaint : Pt has left mattery and pink eye Onset of Symptoms : x this am Temperature Oral : 36.9 DegC(Converted to: 98.4 DegF) Peripheral Pulse Rate : 77 /min Respiratory Rate : 16 /min Systolic Blood Pressure : 162 mmHg (>HHI) Diastolic Blood Pressure : 108 mmHg (>HHI) NIBP Mean : 126 mmHg BP Location : Right upper extremity Blood Pressure Cuff Size : Regular Height : 161 cm(Converted to: 5 ft 3 inch(es), 63 inch(es)) Actual Weight : 84.1 kg(Converted to: 185 lb 7 oz) Dosing Weight Clinic : 84.1 kg Clinic BSA : 1.94 Body Mass Index : 32.44 kg/m2 JUNITO FONSECA LPN - 07/17/2016 19:17 CDT General Info Information Given By : Patient Preferred Communication Mode : Verbal Languages : Romanian Is Patient Female and 13-50 no hysterectomy : No JUNITO FONSECA LPN - 07/17/2016 19:17 CDT Subjective Pain Symptoms : JUNITO Weir LPN - 07/17/2016 19:17 CDT Dependent Habits Exposure to Tobacco Smoke : Other: Never Smoking Status : Never smoker Tobacco 2A : No Tobacco Use/Currently Using : No Tobacco Use/Last 30 Days : No Tobacco Use/Last 12 months : No JUNITO FONSECA LPN - 07/17/2016 19:17 CDT Source: [employer] Document Id: [id number] CDT!31 documented in this encounter Plan of Treatment Not on filedocumented as of this encounter Visit Diagnoses Not on filedocumented in this encounter
--- OUTSIDE RECORDS SUMMARY | 2021-12-23 08:42 | XMS_ITS | Encounter Summary ---
:1980 Author Organization [facility] Address [address] [place] [address] Care Team Providers Name Role Phone Oscar Laughlin M.D. Primary Care Provider Reason for Visit Reason Comments Annual Exam Encounter Details Date Type Department Care Team Description 05/01/2017 Comprehensive Visit Department of [place], General Medical Examination Adult (Primary Dx); Family Medicine, Evairsto Ayala APRN, Faith lazaroe Contraceptive Oral Pill [facility], in [facility] [place], [place] [address] [place] [id number] Social History Tobacco Use [...] or relatives? How often do you attend uatsdin or More than 4 times per year 07/29/2020 methodist services? Do you belong to any clubs or Yes 07/29/2020 organizations such as uatsdin groups, unions, fraternal or athletic groups, or [...] place to sleep or slept in a [facility]p (including now)? Sex Assigned at Date Recorded Female 04/27/2017 8:11 AM TELEPHONE SURVEYOR documented as of this encounter Last Filed Vital Signs Vital Sign Reading Time Taken Comments Blood Pressure 122/80 05/01/2017 11:51 AM TELEPHONE SURVEYOR Pulse 66 05/01/2017 11:43 AM TELEPHONE SURVEYOR Temperature 36.6 ??C (97.9 ??F) 05/01/2017 11:43 AM TELEPHONE SURVEYOR Respiratory Rate 18 05/01/2017 11:43 AM TELEPHONE SURVEYOR Oxygen Saturation - - Inhaled Oxygen Concentration - - Weight 69.4 kg (153 lb) 05/01/2017 11:43 AM TELEPHONE SURVEYOR Height 162 cm (5' 3.78) 05/01/2017 11:43 AM TELEPHONE SURVEYOR Body Mass Index 26.44 05/01/2017 11:43 AM TELEPHONE SURVEYOR documented in this encounter H&P Notes Evaristo Ledbetter APRN, C.N.P., D.N.P. - 05/01/2017 11:45 AM CST CHIEF COMPLAINT / REASON FOR VISIT Saniya Sauceda is a 37 y.o. female who presents for evaluation of Annual Exam. HISTORY OF PRESENT ILLNESS Saniya is a delightful 37 year old female here for a physical which is required for her health insurance which he carries. She would like me to look at a few spots on her back, but otherwise doesn't have concerns today. Saniya tells me that she's lost about 30 pounds the last few months with increased exercise and attention to diet. She was told she had hypertension, but never took the lisinopril that was prescribed because she wanted to work on lifestyle change first. Her blood pressure is within normal range today. Saniya did have a normal pap with positive HPV testing in September 2014. She underwent colposcopy and had a subsequent negative pap and HPV testing in 2016. She believes she was told to follow up for repeat pap in 3 years. Saniya is with two children. 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 She is a nonsmoker. REVIEW OF SYSTEMS Answers for HPI/ROS submitted by the patient on 04/27/2017 No general issues: Yes No eye issues: Yes No ENT issues: Yes No heart issues: Yes No respiratory issues: Yes No GI issues: Yes No muscle/bone issues: Yes Skin rash: Yes Change in mole or skin spot: Yes No neurologic issues: Yes No mental health issues: Yes No blood/lymph issues: Yes No urinary/reproductive issues: Yes PAST MEDICAL/SURGICAL HISTORY Patient Active Problem List Diagnosis ??? Gestational Hypertension Personal History Not ??? Vasectomy Status Past Surgical History: Procedure Laterality Date ??? THERAPEUTIC 2005 FAMILY HISTORY Family History Problem Relation Age [...] Sexual activity: Yes Partners: Male control/ protection: Pill Other Topics Concern ??? None Social History Narrative ??? None MEDICATIONS Current Outpatient Prescriptions Medication Sig Dispense Refill ??? APRI 0.15-0.03 mg per tablet Take 1 tablet by mouth once daily. 84 tablet 4 No current facility-administered medications for this visit. ALLERGIES Allergies Allergen Reactions ??? Amoxicillin Rash VITAL SIGNS BP 122/80 Pulse 66 Temp 36.6 ??C (Oral) Resp 18 Ht 162 cm Wt 69.4 kg LMP 04/25/2017 (Exact Date) ? No BMI 26.44 kg/m?? PHYSICAL EXAM GENERAL: Patient is alert and oriented, in no acute distress. Capable of full communication without difficulty. Patient is polite and cooperative. Appropriately dressed and normal hygiene. HEENT: Normocephalic, atraumatic. Extraocular movements are intact, pupils are equal, round and reactive to light. Auditory canals patent, tympanic membranes are pearly montoya with visualization of bonystructures. Nasal turbinates are not swollen or erythematous. Oropharynx without lesion. Pharynx rises symmetrically without exudate. Dentition grossly intact. NECK: No palpable lymph nodes, no thyromegaly. HEART: Regular rate and rhythm. No murmurs, gallops or rubs noted. LUNGS: Clear to auscultation bilaterally. No wheeze. No accessory muscles of respiration noted. BREASTS: Soft breast tissue without predominant mass or nodularity. No nipple discharge. Nipples everted bilaterally. No axillary or supraclavicular adenopathy. ABDOMEN: Nontender to palpation. No hepatosplenomegaly. No mass. Normal bowel sounds in all 4 quadrants. PELVIS: Deferred. Due for pap in 2019. EXTREMITIES: No neurovascular compromise. No cyanosis, clubbing or edema. No abnormal limb length. NEURO: Cranial nerves II through XII are grossly intact. SKIN: Dry skin noted on left upper buttock. She does have a follicular cyst on the mid upper back which is healing. Several seborrheic keratoses and brito angiomas. No concerning nevi on the trunk. Afull head to toe skin exam was not performed today. DIAGNOSIS/PLAN #1 General Medical Examination Adult #2 Surveillance Contraceptive Oral Pill Routine Health Maintenance. Colon cancer screening due at age 50. Mammogram due at age 40. Pap test due in the fall of 2019, which is a 3 year recall. If this next pap in 2019 is normal she can go back to 5 year screening intervals. Fasting blood glucose not indicated. Lipid profile not indicated. TDaP immunization current. Influenza immunization current. I recommend preventative health care measures including healthy diet, exercise, 100% seatbelt use, dental visits every 6 months, annual eye exams, breast self awareness, safe sun exposure, and home safety. She will follow up in one year for annual exam, sooner if concerns arise. Saniya was given a refill of her oral contraceptive which she takes to lighten and regulate her menstrual cycles. This has been working well for her and she has no concerns. PHONE SURVEYOR documented in this encounter Plan of Treatment Not on filedocumented as of this encounter Visit Diagnoses Diagnosis General Medical Examination Adult - Prim katelyn Surveillance Contraceptive Oral Pill documented in this encounter Care Teams Operative Supervisor Relationship Specialty Start Date End Date Oscar Laughlin M.D. PCP - General 08/10/[address] [address] documented as of this encounter
--- OUTSIDE RECORDS SUMMARY | 2021-12-23 08:42 | XMS_ITS | Encounter Summary ---
:1980 Author Organization [facility] Address [address] [place] [address] Care Team Providers Name Role Phone Oscar Laughlin M.D. 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 PCP - General 08/10/[address] [address] documented as of this encounter
--- OUTSIDE RECORDS SUMMARY | 2021-12-23 08:42 | XMS_ITS | Encounter Summary ---
:1980 Author Organization [facility] Address [address] [place] [address] Care Team Providers Name Role Phone Oscar Laughlin M.D. Primary Care Provider [phone] Reason for Visit Reason Comments Sore Throat began about 2 days ago Nasal Congestion Generalized Body Aches Encounter Details Date Type Department Care Team Description 05/17/2017 Office Visit Urgent Care in [facility] Pharyngiti s Acute (Primary Dx); Maribel Farrell M.D. Pharyngitis Streptococcal [address] [place] [address] Social History Tobacco Use Types [...] or relatives? How often do you attend druze or More than 4 times per year 07/29/2020 mosque services? Do you belong to any clubs or Yes 07/29/2020 organizations such as druze groups, unions, fraternal or athletic groups, or [...] at Date Recorded Female 04/27/2017 8:11 AM CHANNEL PARTNERS documented as of this encounter Last Filed Vital Signs Vital Sign Reading Time Taken Comments Blood Pressure 170/90 05/17/2017 1:43 PM CDT Pulse 94 05/17/2017 1:43 PM CDT Temperature 36.8 ??C (98.2 ??F) 05/17/2017 1:43 PM CDT Respiratory Rate - - Oxygen Saturation - - Inhaled Oxygen Concentration - - Weight - - Height - - Body Mass Index - - documented in this encounter Progress Notes Brent Mendez M.D. - 05/17/2017 1:45 PM CDT CHIEF COMPLAINT / REASON FOR VISIT Saniya Sauceda is a 37 y.o. female who presents for evaluation of Sore Throat (began about 2 days ago); Nasal Congestion; and Generalized Body Aches. HISTORY OF PRESENT ILLNESS This pleasant 37-year-old female presents with onset over the past 2 days of sore throat, nasal congestion, and an element of myalgia. She has not been aware of any fever and actually feels a bit better today. There has been no cough. No other acute symptomatic concerns are voiced. SYSTEM REVIEW No other current acute HEENT or cardio respiratory positive when I called her her attention her blood pressure elevation which warrants recheck. She needed to leave before we had an opportunity to recheck her blood pressure and therefore I have called her to advise this upon quieting of her illness. MEDICATIONS As per EMR. ALLERGIES Allergies as of 05/17/2017 - Reviewed 05/17/2017 Allergen Reaction Noted ??? Amoxicillin Rash 08/11/2011 VITALS SIGNS BP (!) 170/90 Pulse 94 Temp 36.8 ??C LMP 04/25/2017 (Exact Date) PHYSICAL EXAM General: Mildly ill-appearing female in no acute distress. HEENT: TMs are clear. Nose is mildly congested. Nasopharynx is slightly inflamed. The patient does have large but not huge tonsils. She is well aware of this. Neck with slight sub mandibular adenopathy. Cardiovascular: Regular. Lungs: Clear. IMPRESSION/REPORT/PLAN Pharyngitis Streptococcal DIAGNOSTIC: Rapid strep screen is positive. THERAPEUTIC: Patient has had a rash with amoxicillin the past but she indicates that she has tolerated the cephalosporin class previously. Therefore will employ a cephalexin as per EMR. Otherwise symptomatic care. PATIENT EDUCATION: Reviewed the above. Follow-up as advised and p.r.n. lack of steady and complete clinical quieting. Brent Mendez M.D. documented in this encounter Plan of Treatment Not on filedocumented as of this encounter Procedures Procedure Name Priority Date/Time Associated Diagnosis Comme nts RAPID STREP A STAT 05/17/2017 2:11 PM Pharyngitis Acute Res ults for this SCREEN CDT procedure are i n the results section. documented in this encounter Results (ABNORMAL) Rapid Strep A Screen Throat (05/17/2017 2:11 PM CDT) [facility] Method Time Signature Rapid Strep A Positive (A) Negative 05/17/2017 [facility] Screen 2:27 PM CDT [facility] Specimen Anatomical Collection Method Collection Time Receive d Time (Source) Location / / Volume Laterality Varies (Throat) 05/17/2017 2:11 PM 2017 2:15 CDT PM CDT Brent Mendez M.D. LAB MICROBIOLOGY - GENERAL O RDERABLES Performing Organization Address City/State/ZIP Code Phon e Number [facility] [address] [place] [address] LAB documented in this encounter Visit Diagnoses Diagnosis Pharyngitis Acute - Primary Pharyngitis Streptococcal documented in this encounter Care Teams Miller Wood Flour Relationship Specialty Start Date End Date Oscar Laughlin M.D. PCP - General 08/10/[address] [place] [address] documented as of this encounter
--- OUTSIDE RECORDS SUMMARY | 2021-12-23 08:42 | XMS_ITS | Encounter Summary ---
:1980 Author Organization [facility] Address [address] [place] [address] Care Team Providers Name Role Phone Oscar Laughlin M.D. Primary Care Provider [phone] Encounter Details Date Type Department Care Team Description 11/12/2017 Immunization Department of Pediatric[facility] C[facility] [address] [place] [address] [address] [place] [address] Social History Tobacco Use Types Packs/Day Years [...] or relatives? How often do you attend gnosticism or More than 4 times per year 07/29/2020 anabaptist services? Do you belong to any clubs or Yes 07/29/2020 organizations such as gnosticism groups, unions, fraternal or athletic groups, or [...] place to sleep or slept in a detention (including now)? 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 PCP - General 08/10/[address] [address] documented as of this encounter
--- OUTSIDE RECORDS SUMMARY | 2021-12-23 08:43 | XMS_ITS | Encounter Summary ---
:1980 Author Organization [facility] Address [address] [place] [address] Care Team Providers Name Role Phone Unavailable Primary Care Provider Unavailable Encounter Details Date Type Department Care Team Description 01/07/2016 Hospital Encounter HX [facility] Zahida Laughlin M.D. [address] [place], [place] [phone] (Wo rk) Social History Tobacco Use Types Packs/Day Years Used Date Smoking Tobacco: Never Assessed Alcohol Habits Answer Date Recorded How often [...] at Date Recorded Female 04/27/2017 8:11 AM OENOLOGIST documented as of this encounter Last Filed Vital Signs Vital Sign Reading Time Taken Comments Blood Pressure - - Pulse - - Temperature - - Respiratory Rate - - Oxygen Saturation - - Inhaled Oxygen Concentration - - Weight - - Height 161 cm (5' 3.39) 01/07/2016 9:24 AM OENOLOGIST Body Mass Index - - documented in this encounter Medications at Time of Discharge Medication Sig Dispensed Refills Start Date End Date lisinopril Take 1 tablet by 0 01/06/2016 05/02/19 18 (for_PRINIVIL,ZESTRIL) 10 mouth daily. mg tablet documented as of this encounter Miscellaneous Notes Miscellaneous - Maria Guadalupe Dooley R.N. - 02/01/2016 3:45 PM CST RE: Document Contains Addenda Addendum by ИРИНА LAUGHLIN MD on February 02, 2016 17:55:34 OENOLOGIST From: ИРИНА LAUGHLIN MD To: SANIYA MCCOLLUM Sent: 02/02/2016 17:55:34 OENOLOGIST Subject: FW: Appt on Sunday- update on B/P readings Saniya, Optimally we'd like to see your numbers under 130 and under 80 on a regular basis, but at least under 140 and under 90. I'd recommend taking the medication to at least get it into that optimal range for now, so we are not increasing your risks for strokes and heart attacks. Then, you can work on increasing exercise and working on diet (low carb lifestyle). As weight comes down and exercise increases,we should see your BP start to drop as well. Once it's getting nice and low we could taper off the med to see if the lifestyle changes will keep it down without meds. You could certainly reschedule Sunday's visit for 3 months and then and we could see how things are going at that time. In the meantime, once you start the medication, I'd like you to make a nurse-only visit for blood pressure check in the shot clinic for about a week or two after starting the med. What are your thoughts? Ирина Laughlin MD Addendum by MARIA GUADALUPE DOOLEY RN on February 01, 2016 15:49:10 OENOLOGIST From: MARIA GUADALUPE DOOLEY RN ([facility] Nurse Line) To: ИРИНА LAUGHLIN MD; Sent: 02/01/2016 15:49:10 OENOLOGIST ! Subject: Appt on Sunday- update on B/P readings Dr. Laughlin- I attached your last progess note regarding starting the lisinopril. From: SANIYA MCCOLLUM To: [facility] Nurse Line Sent: 02/01/2016 3:32:25 PM ([facility]-06:00) Central Time ([place] & [place]) Subject: RE: Hi Dr. Laughlin, I know I have my check up scheduled for this Sunday, but I have not started taking the blood pressure medication yet. I felt like I wanted to keeping checking my blood pressure and try to get it down on my own. Here are the results I have gotten since seeing you last: 117/87 on 01/08 123/93 on 01/12 126/91 on 01/23 I know the bottom number is not ideal but the numbers are better. Since I have not taken any of the medication, do you still want me to come in for the appointment? What would you recommend? Thank you, Saniya Mccollum From: ИРИНА LAUGHLIN MD To: SANIYA MCCOLLUM Sent: 01/15/2016 16:10:14 OENOLOGIST Saniya, Your blood chemistries are essentially normal (no worrisome levels). Your glucose (blood sugar) is normal, which means you do not have diabetes. Your creatinine (measure of kidney function) is normal. Your cholesterol looks good. Optimally with the diagnosis of High Blood Pressure, we'll want to tryand get that LDL (bad cholesterol) under 70. Working on decreasing sugars/starches and processed foods can be helpful, as well as getting 10-15 min brisk walking after each meal. I'd like to have you make a nurse-only visit (call to schedule) for rechecking your blood pressure this week. It was still 130/100 when you were here last, so I want to make sure that's coming down toa safer level. Our goal would be to get you under 130 on top and under 80 on the bottom. Ирина Laughlin MD Results: Date Result Name Value Ref Range 01/07/2016 09:44 Sodium Lvl 142 mmol/L (135 - 145) 01/07/2016 09:44 Potassium Lvl 4.8 mmol/L (3.6 - 5.2) 01/07/2016 09:44 Chloride 104 mmol/L (98 - 107) 01/07/2016 09:44 CO2 28 mmol/L (22 - 29) 01/07/2016 09:44 AGAP 10 mmol/L (7 - 15) 01/07/2016 09:44 Glucose Fasting 89 mg/dL (70 - 99) 01/07/2016 09:44 Creatinine 0.80 mg/dL (0.60 - 1.10) 01/07/2016 09:44 EGFR (MDRD) >60 mL/min/1.73m2 (>=60 - ) 01/07/2016 09:44 EGFR (MDRD) >60 mL/min/1.73m2 (>=60 - ) 01/07/2016 09:44 BUN 12 mg/dL (6 - 21) 01/07/2016 09:44 Calcium Lvl 9.3 mg/dL (8.0 - 10.3) 01/07/2016 09:44 Cholesterol 164 mg/dL ( - <=199) 01/07/2016 09:44 Trig 63 mg/dL ( - <=149) 01/07/2016 09:44 HDL 56 mg/dL (>=50 - ) 01/07/2016 09:44 LDL Calculated 95 mg/dL ( - <=129) 01/07/2016 09:44 Chol/HDL Ratio 2.93 01/07/2016 09:44 LDL/HDL 2 [facility] POWERCHART Document Id: [id number] Electronically signed by Conversion, [facility] Outdoor Studies Professor [id number] at 07/23/2016 7:27 AM CDT Miscellaneous - Ирина Laughlin M.D. - 01/15/2016 4:10 PM CST From: ИРИНА LAUGHLIN MD To: MCCOLLUM, SANIYA BROWN Sent: 01/15/2016 16:10:14 OENOLOGIST Saniya, Your blood chemistries are essentially normal (no worrisome levels). Your glucose (blood sugar) is normal, which means you do not have diabetes. Your creatinine (measure of kidney function) is normal. Your cholesterol looks good. Optimally with the diagnosis of High Blood Pressure, we'll want to try and get that LDL (bad cholesterol) under 70. Working on decreasing sugars/starches and processed foods can be helpful, as well as getting 10-15 min brisk walking after each meal. I'd like to have you make a nurse-only visit (call to schedule) for rechecking your blood pressure this week. It was still 130/100 when you were here last, so I want to make sure that's coming down to a safer level. Our goal would be to get you under 130 on top and under 80 on the bottom. Ирина Laughlin MD Results: Date Result Name Value Ref Range 01/07/2016 09:44 Sodium Lvl 142 mmol/L (135 - 145) 01/07/2016 09:44 Potassium Lvl 4.8 mmol/L (3.6 - 5.2) 01/07/2016 09:44 Chloride 104 mmol/L (98 - 107) 01/07/2016 09:44 CO2 28 mmol/L (22 - 29) 01/07/2016 09:44 AGAP 10 mmol/L (7 - 15) 01/07/2016 09:44 Glucose Fasting 89 mg/dL (70 - 99) 01/07/2016 09:44 Creatinine 0.80 mg/dL (0.60 - 1.10) 01/07/2016 09:44 EGFR (MDRD) >60 mL/min/1.73m2 (>=60 - ) 01/07/2016 09:44 EGFR (MDRD) >60 mL/min/1.73m2 (>=60 - ) 01/07/2016 09:44 BUN 12 mg/dL (6 - 21) 01/07/2016 09:44 Calcium Lvl 9.3 mg/dL (8.0 - 10.3) 01/07/2016 09:44 Cholesterol 164 mg/dL ( - <=199) 01/07/2016 09:44 Trig 63 mg/dL ( - <=149) 01/07/2016 09:44 HDL 56 mg/dL (>=50 - ) 01/07/2016 09:44 LDL Calculated 95 mg/dL ( - <=129) 01/07/2016 09:44 Chol/HDL Ratio 2.93 01/07/2016 09:44 LDL/HDL 2 Source: [facility] POWERCHART Document Id: [id number] Electronically signed by Conversion, [facility] Outdoor Studies Professor [id number] at 07/23/2016 7:27 AM CDT documented in this encounter Plan of Treatment Not on filedocumented as of this encounter Procedures Procedure Name Priority Date/Time Associated Diagnosis Comme nts LIPID PANEL, S Routine 01/07/2016 9:44 AM Results for this OENOLOGIST procedure are i n the results section. BASIC METABOLIC Routine 01/07/2016 9:44 AM Result s for this PANEL, S/P OENOLOGIST procedure are i n the results section. documented in this encounter Results Lipid Panel (01/07/2016 9:44 AM OENOLOGIST) P athologist Signature Calculated LDL 95 <=129 MGDL POWERCHART Comment: 2014 National Lipid Association recommen dations for LDL-C in adults ages 18 and up: Desirable <100 mg/dL Above desirable 100-129 mg/dL Borderline high 130-159 mg/dL High 160-189 mg/dL Very High 190 mg/dL 2014 National Lipid Association recommen dations for LDL-C in children ages 2 to 17. Acceptable <110 mg/dL Borderline High 110-129mg/dL High 130 mg/dL LDL-C >190mg/dL: The markedly elevated LDL level is suggestive of a genetic condition such as familial hypercholesterolemia(FH) or familial defective apolipoprotein B-100 (FDB). Molecular genetic t esting for FH and FDB [facility]: FH/ADH Genetic Reflex [place] el (test ADHP). Acquired (non-genetic) causes of markedly increased LDL cholesterol include cholestatic liver disease due to the presence of LpX. If a genetic form of hypercholesterolemia is suspected, family studies including biochemical testing fo r lipids (total cholesterol,triglycerides, LDL cholesterol and HDL cholesterol) are recommended. ??Please contact the laboratory at or the on-line test catalog at [facility] for information about how to order these eligio ts or to speak with a genetic counselor. Further interpretation would require clinical information. Total Cholesterol/HDL Ratio 2.93 PO WERCHART Cholesterol, Total 164 <=199 MGDL POWERCHART Comment: 2014 National Lipid Association recommen dations for Total Cholesterol in adults ages 18 and up: Desirable <200 mg/dL Borderline high 200-239 mg/dL High 240 mg/dL 2014 National Lipid Association recommen dations for Total Cholesterol in children ages 2 to 17. Acceptable <170 mg/dL Borderline High 170-199 mg/dL High 200 mg/dL HX HDL 56 >=50 MGDL POWERCHART Comment: 2014 National Lipid Association recommen dations for HDL-C in adults ages 18 and up: Low <40 mg/dL (Men) Low <50 mg/dL (Women) 2014 National Lipid Association recommen dations for HDL-C in children ages 2 to 17. Low <40 mg/dL Borderline Low 40-45 mg/dL Acceptable >45 mg/dL Triglycerides 63 <=149 MGDL POWERCHART Comment: 2014 National Lipid Association recommen dations for Triglycerides in adults ages 18 and up: Normal <150 mg/dL Borderline High 150-199 mg/dL High 200-499 mg/dL Very High 500 mg/dL 2014 National Lipid Association recommen dations for Triglycerides in children ages 2 to 9. Acceptable <75 mg/dL Borderline High 75-99 mg/dL High 100 mg/dL 2014 National Lipid Association recommen dations for Triglycerides in children ages 10 to 17. Acceptable <90 mg/dL Borderline High 90-129 mg/dL High 130 mg/dL Trigs >400mg/dL: Triglycerides >400 mg/ dL. Calculated LDL cholesterol is not valid. Non-HDL cholesterol may be used for risk assessment when triglycerides are >400mg/dL. HXLDL/HDL 2 POWERCHART Specimen (Source) Anatomical Collection Method Collection Time Re ceived Time Location / / Volume Laterality Blood 01/07/2016 9:44 AM OENOLOGIST Ирина Laughlin M.D. LAB BLOOD ADD-ON Performing Organization Address City/State/ZIP Code Phon e Number POWERCHART BMP (Basic Metabolic Panel) (01/07/2016 9:44 AM OENOLOGIST) P athologist Signature Sodium, S 142 135 - 145 POWERCHART [facility] Potassium, S 4.8 3.6 - 5.2 POWERCHART [facility] Chloride, S 104 98 - 107 POWERCHART [facility] CO2 Total 28 22 - 29 POWERCHART [facility] Glucose, 89 70 - 99 POWERCHART Fasting, S MGDL BUN (Blood Urea 12 6 - 21 POWERCHART Nitrogen), S MGDL Creatinine 0.80 0.60 - POWERCHART 1.10 MGDL Calcium, Total, 9.3 8.0 - 10.3 POWERCHART S MGDL Anion Gap 10 7 - 15 POWERCHART [facility] HXeGFR (MDRD) >60 >=60 POWERCHART [id number] eGFR >60 >=60 POWERCHART Black/ [id number] Stateless Specimen (Source) Anatomical Collection Method Collection Time Re ceived Time Location / / Volume Laterality Blood 01/07/2016 9:44 AM OENOLOGIST Ирина Laughlin M.D. LAB BLOOD ADD-ON Performing Organization Address City/State/ZIP Code Phon e Number POWERCHART documented in this encounter Visit Diagnoses Not on filedocumented in this encounter
--- OUTSIDE RECORDS SUMMARY | 2021-12-23 08:43 | XMS_ITS | Encounter Summary ---
:1980 Author Organization [facility] Address [address] [place] [address] Care Team Providers Name Role Phone Unavailable Primary Care Provider Unavailable Encounter Details Date Type Department Care Team Description 08/17/2014 Hospital Encounter HX [facility] Zahida Laughlin M.D. [address] [place] [phone] (Wo rk) Social History Tobacco [...] or relatives? How often do you attend mu-ism or More than 4 times per year 07/29/2020 gnosticism services? Do you belong to any clubs or Yes 07/29/2020 organizations such as mu-ism groups, unions, fraternal or athletic groups, or [...] place to sleep or slept in a fci (including now)? 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 - 08/17/2014 11:17 AM CDT [id number] CHIEF COMPLAINT/REASON FOR VISIT OB check. HISTORY OF PRESENT ILLNESS Saniya is a 34-year old female 2, para 1 at 38-1/7 weeks estimated gestational age presentingfor care. She has been doing well. The baby has been active. Patient denies any pain, cramping, bleeding, or loss of fluid. She describes that her swelling has been a little worse today and that she had a hard time getting her ring on this morning. Saniya has no other concerns at this time. For the subjective and objective findings, please see the ACOG flow sheet/EMR summary filled out in full and available in the chart for review. VITAL SIGNS HEIGHT: 160 cm. WEIGHT: 100.9 kg. BMI: 39.41 kg/m2. PULSE: 72 /min. SYSTOLIC: 146 mmHg. Recheck: 138 mmHg. DIASTOLIC: 84 mmHg. Recheck: 76 mmHg. PHYSICAL EXAMINATION GENERAL: Well appearing and in no acute distress. ABDOMEN: heart tones were picked up at 130s bpm. NST was reactive today. Bishops score of 3. PELVIS: 1cm, 50%, posterior. Medium consistency and high. DIAGNOSTICS 08/14/2014: CBC: Hgb: L 10.5 g/dL. Hct: L 33.0 %. WBC: H 12.3 x10(9)/L. RBC: L 3.87 x10(12)/L. MCV: 85.3 fL. RDW: 13.8 %. Platelet: 302 x10(9)/L. Neutro Absolute: H 9.56 10(9)/L. Lymph Absolute: 1.56 x10(9)/L. Ida Absolute: H 1.02 x10(9)/L. Eos Absolute: 0.11 x10(9)/L. Baso Absolute: 0.03 x10(9)/L. Chemistry Panel: Creatinine: 0.6 mg/dL. EGFR (MDRD): >60 mL/mi. EGFR : >60 mL/mi. AST: 12 unit/L. ALT: 8 unit/L. IMPRESSION/REPORT/PLAN 1. A 34-year-old female, 2, para 1, at 38-1/7 weeks estimated gestational age. LMP 11/23/2013. [place] 08/30/2014. A+ blood type. The baby is a boy and they plan on naming him Jeffery Will. 2. Gestational hypertension without signs of preeclampsia or severe features. Her blood pressures have been in the 130s to 140s over 80s to 90. No headaches, blurry vision, abdominal pain. Some mild tomoderate swelling of hands and feet. Prior spot urine protein was trace. 24-hour urine protein is ordered today. 08/14/2014 she underwent a U/S EFW, BPP, and weight/JOSSIE. [NST was 2/2. BPP was 8/8.Total of 10. JOSSIE was 18.7] NST was repeated today and was reactive. BPP will be repeated tomorrow. Bishops score of 3, currently, so her cervix is unripe. Since her BPs have generally been borderline HTN and no severe features nor features of preeclampsia, will keep her on modified bedrest and plan ind uction at 39 wks (or earlier if cervix becomes more favorable or if BPs start to elevate above the 140/90 range). She is aware to present immediately to the ER if preeclampsia/HELLP symptoms develop. 3. Discussed labor instructions. All questions were answered. 4. Group B Strep performed on 07/31/14. Results were negative. 5. Follow up on 08/20 with me. A BPP will be performed tomorrow and results called to Dr. Steffen Wilkerson in my absence. This document serves as a record of services personally performed by Dr. Ирина Laughlin. It was created on their behalf by Yvonne Cooper, a trained medical review specialist. The creation of this record is based on the scribe's personal observations and the provider's statements to them. This document has been checked and approved by the attending provider. Ирина Laughlin M.D./ cc: [place] [address] Electronically Signed By: ИРИНА LAUGHLIN MD On: 12/06/2014 01:49 AM Source: [facility] MHSDOLBEYNONRADSYS Document Id: [id number] documented in this encounter Miscellaneous Notes Miscellaneous - Peter Pena L.P.N. - 08/17/2014 11:36 AM CDT Ambulatory Vitals Height Weight Ambulatory Vitals Height Weight Entered On: 08/17/2014 11:37 CDT Performed On: 08/17/2014 11:36 CDT by PETER PENA LPN Vitals/Ht/Wt Systolic Blood Pressure : 138 mmHg Diastolic Blood Pressure : 76 mmHg NIBP Mean : 97 mmHg BP Location : Right upper extremity Blood Pressure Cuff Size : Large Height : 160 cm(Converted to: 5 ft 3 inch(es), 63 inch(es)) PETER PENA LPN - 08/17/2014 11:36 CDT Source: [facility] POWERCHART Document Id: [id number] CDT!8 Miscellaneous - Peter Pena L.P.N. - 08/17/2014 11:33 AM CDT Adult Train Starter Intake/History Adult Train Starter Intake/History Entered On: 08/17/2014 11:35 CDT Performed On: 08/17/2014 11:33 CDT by PETER PENA LPN Intake Chief Complaint : follow up LMP Date : 11-23-2013 Peripheral Pulse Rate : 72 /min Heart Rhythm : Regular Systolic Blood Pressure : 146 mmHg (HI) Diastolic Blood Pressure : 84 mmHg NIBP Mean : 105 mmHg BP Location : Right upper extremity Blood Pressure Cuff Size : Large Height : 160 cm(Converted to: 5 ft 3 inch(es), 63 inch(es)) Actual Weight : 100.9 kg(Converted to: 222 lb 7 oz) Weight Source : Standing scale Dosing Weight Clinic : 100.9 kg Clinic BSA : 2.12 Body Mass Index : 39.41 kg/m2 PETER PENA LPN - 08/17/2014 11:33 CDT General Info Information Given By : Patient Preferred Communication Mode : Verbal Languages : Luxembourger Is Patient Female and 13-50 no hysterectomy : No PETER PENA LPN - 08/17/2014 11:33 CDT Subjective Pain Symptoms : No PETER PENA LPN - 08/17/2014 11:33 CDT Dependent Habits Tobacco Use/Currently Using : No Exposure to Tobacco Smoke : Other: Never Smoking Status : Never smoker PETER PENA LPN - 08/17/2014 11:33 CDT Tobacco Use Grid Other Tobacco Frequency : never PETER PENA LPN - 08/17/2014 11:33 CDT Source: [facility] POWERCHART Document Id: [id number] CDT!31 documented in this encounter Plan of Treatment Not on filedocumented as of this encounter Visit Diagnoses Not on filedocumented in this encounter
--- OUTSIDE RECORDS SUMMARY | 2021-12-23 08:43 | XMS_ITS | Encounter Summary ---
:1980 Author Organization [facility] Address [address] [place] [address] Care Team Providers Name Role Phone Unavailable Primary Care Provider Unavailable Encounter Details Date Type Department Care Team Description 08/18/2014 Hospital Encounter HX [facility] Jonas Cameron M.D. [address] [place], [place] [phone] (Wo rk) Social History [...] or relatives? How often do you attend adventist or More than 4 times per year 07/29/2020 methodist services? Do you belong to any clubs or Yes 07/29/2020 organizations such as adventist groups, unions, fraternal or athletic groups, or [...] slept in a long term (including now)? 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 documented in this encounter Results US Biophysical Profile w/o Nonstress (08/18/2014 8:11 AM CDT) Anatomical Region Laterality Modality Ultrasound Specimen (Source) Anatomical Collection Method Collection Time Re ceived Time Location / / Volume Laterality 08/18/2014 8:11 AM CDT Addenda Addendum by Provider, Zeb Castañeda 08/18/2014 8:11 AM CDT RAD^^^OW US Biophysical Profile w o Nonstress 08/18/2014 08:11:13 Impressions 08/18/2014 8:38 AM CDT 1. Biophysical profile score of 8 out of 8, which is interpreted as reassuring. 2. Normal cord Doppler study. [facility] in [place] GROUND SYSTEMS ENGINEER Dept. [phone] Narrative 08/18/2014 8:38 AM CDT EXAM: US Biophysical Profile w/o Nonstre ss INDICATION: Maternal HTN COMPARISON: August 14, 2014 REFERRING PHYSICIAN: Dr. Laughlin RIG OPERATOR: Jessy. : 2 ?? PARA: 1 LMP: November 23, 2013 ? [place] by LMP : August 30, 2014 CERVICAL LENGTH: Not well visualized on today's exam ADNEXA: ??Normal PLACENTAL LOCATION: Anterior POSITION: Vertex STOMACH: Normal BLADDER: Normal HEART: Normal S/D RATIO: Normal readings of 2.38, 2.23 , 2.29, and 2.62. No evidence of absent or reversed diastolic flow. HEART RATE: 134 beats per minute. A score of 0 or 2 is given for the follo wing biophysical variables: BREATHING MOVEMENTS: 2 GROSS BODY MOVEMENTS: 2 TONE: 2 QUALITATIVE JOSSIE: 2 Amniotic fluid index (JOSSIE) is 17.0 cm. Procedure Note Jaspreet Haines M.D. / Provider, Reggie butterfield M.D. - 07/05/2016 EXAM: US Biophysical Profile w/o Nonstre ss INDICATION: Maternal HTN COMPARISON: August 14, 2014 REFERRING PHYSICIAN: Dr. Laughlin RIG OPERATOR: Jessy. : 2 PARA: 1 LMP: November 23, 2013 [place] by LMP: August 30, 2014 CERVICAL LENGTH: Not well visualized on today's exam ADNEXA: Normal PLACENTAL LOCATION: Anterior POSITION: Vertex STOMACH: Normal BLADDER: Normal HEART: Normal S/D RATIO: Normal readings of 2.38, 2.23 , 2.29, and 2.62. No evidence of absent or reversed diastolic flow. HEART RATE: 134 beats per minute. A score of 0 or 2 is given for the follo wing biophysical variables: BREATHING MOVEMENTS: 2 GROSS BODY MOVEMENTS: 2 TONE: 2 QUALITATIVE JOSSIE: 2 Amniotic fluid index (JOSSIE) is 17.0 cm. IMPRESSION: 1. Biophysical profile score of 8 out of 8, which is interpreted as reassuring. 2. Normal cord Doppler study. [facility] in [place] GROUND SYSTEMS ENGINEER Dept. [phone] Jessy Nichols R.V.T., CharlyMMickeySMickey IMG OB US PROCEDURE S documented in this encounter Visit Diagnoses Not on filedocumented in this encounter
--- OUTSIDE RECORDS SUMMARY | 2021-12-23 08:43 | XMS_ITS | Encounter Summary ---
:1980 Author Organization [facility] Address [address] [place] [address] Care Team Providers Name Role Phone Unavailable Primary Care Provider Unavailable Encounter Details Date Type Department Care Team Description 06/21/2015 Hospital Encounter HX NO MAPPING Kolby Pacheco P.A.-C. [address] [place], [place] [phone] (Wo rk) Social History [...] or relatives? How often do you attend synagogue or More than 4 times per year 07/29/2020 evangelical services? 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 However, the narrative phrase printed from the coding software may appear abbreviated, or result in slightly different terminology. Coded By: MICHAEL TREVIZO Date Saved: 06/30/2015 02:17 pm [facility] Document Id: [id number] documented in this encounter Plan of Treatment Not on filedocumented as of this encounter Visit Diagnoses Not on filedocumented in this encounter
--- OUTSIDE RECORDS SUMMARY | 2021-12-23 08:43 | XMS_ITS | Encounter Summary ---
:1980 Author Organization [facility] Address [address] [place] [address] Care Team Providers Name Role Phone Unavailable Primary Care Provider Unavailable Encounter Details Date Type Department Care Team Description 08/23/2014 Hospital Encounter HX NO MAPPING Jose Laughlin M.D. [address] [place], [place] [phone] (Wo rk) Social History [...] More than 4 times per year 07/29/2020 uatsdin services? 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
--- OUTSIDE RECORDS SUMMARY | 2021-12-23 08:43 | XMS_ITS | Encounter Summary ---
:1980 Author Organization [facility] Address [address] [place] [address] Care Team Providers Name Role Phone Unavailable Primary Care Provider Unavailable Encounter Details Date Type Department Care Team Description 06/21/2015 Hospital Encounter [facility] Kolby Huizar P.AMickey Bentley. 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 HISTORY OF PRESENT ILLNESS Patient states that she has been symptomatic for the past 2+ weeks. She is also reporting headaches,congestion, watery eyes which just started couple of days ago as well. She denies any nausea, vomiting. She has been slightly fatigued. VITAL SIGNS Per nursing notes. MEDICATIONS Per nursing notes. ALLERGIES Per nursing notes. PHYSICAL EXAMINATION GENERAL: This pleasant 35-year-old female, in no appreciable distress, alert and awake, responds appropriately to auditory and visual stimuli. Per patient record she is breast feeding. LUNGS: Examined. Right lung is clear. Left lung in the base appears to have some mild rales. No wheezes. No rhonchi I could appreciate. HEART: Regular rate and rhythm. ENT: Sinuses do also appear to be tender to pressure and percussion on the right side in the frontaland maxillary region. Mild posterior pharyngeal erythema. Uvula is midline. Slightly enlarged and tender anterior cervical nodes also on the right side. IMPRESSION/REPORT/PLAN 1. Acute sinusitis. 2. Bronchitis versus early pneumonia. PLAN: We covered the patient today with Zithromax. Recommended fluids, rest, Tylenol for discomfort.I did encourage the patient to do pumping and dumping during the new medication administration. I did suggest that she is to follow up with the primary care provider in the next couple days if there isno progressive improvement. She is comfortable with this plan. Tony Godoy Electronically Signed By: KOLBY HUIZAR V PAC On: 06/23/2015 08:07 AM Source: [facility] MHSDOLBEYNONRADSYS Document Id: [id number] documented in this encounter Procedure Notes Nara Chase L.PMickeyNMickey - 06/21/2015 1:27 PM CDT Rapid Strep A Screen POC Rapid Strep A Screen POC Entered On: 06/21/2015 13:28 CDT Performed On: 06/21/2015 13:27 CDT by NARA CHASE LPN Rapid Strep A Screen POC Rapid Strep A Screen POC : Negative Internal Positive QC : Pass Internal Negative QC : Pass NARA CHASE LPN - 06/21/2015 13:27 CDT Source: [facility] POWERCHART Document Id: [id number] CDT!5 documented in this encounter Miscellaneous Notes Miscellaneous - Kolby Huizar - 06/21/2015 2:32 PM CDT Ambulatory Patient Summary [facility] [address] [place], [place] [id number] Visit Information Name: SANIYA MCCOLLUM [facility] Number: [id number] Current Date: 06/21/2015 14:32:38 Physicians Attending Provider: UNKNOWN1, PROVIDER Primary Care Provider: ИРИНА GREGORY MD SANIYA [...] Take Indications/Special Instructions/Comments/Notes for Patient Medication Changes/Routing azithromycin (Azithromycin 5 Day Dose Pack 250 mg oral tablet) 2 tablets on day 1, then 1 tablet on days 2-5, Oral, as directed x 5 day(s) New Routed to [address] [address] *desogestrel-ethinyl estradiol (Desogen 0.15 mg-0.03 mg oral tablet) 1 Tablet(s), Oral, once a day This replaces Alesse. * You have let us know that you are not taking this medication as listed. Please talk with your primary care provider or the health care provider who prescribed the medication as soon as possible. Stop Taking the Following Medications: Medication list as of 06-21-15 14:32 Attention: If you have any medications at home that are not on this list, DO NOT take them until youcontact your provider for clarification. Give a copy of your medication list to your primary care provider. Update your medication list any time medications or doses are changed and carry your medication list at all times in case of emergency. Electronically Signed By: KOLBY HUIZAR Signed On:21-JUN-2015 14:32:31 Your Allergies & Intolerances Substance Reaction Symptoms Category Comments amoxicillin Rash Drug Your Problem List Problem Status Onset Comments No Chronic Problems Active Your Upcoming Appointments Date Time Location [...] if you dont have one. Go to [email or web address] and click on Create Your Account. Then, follow the directions to complete the online form. Youll be asked for your [facility] number which you can find at the top of this document. Your Goals/Additional instructions: Source: [facility] POWERCHART Document Id: [id number] Miscellaneous - Kolby Huizar - 06/21/2015 2:32 PM CDT Ambulatory Discharge Medication List [facility] [address] [place], [place] [phone] Visit Information Name: SANIYA MCCOLLUM [facility] Number: [id number] Visit Date: 06/21/2015 14:32:37 Attending Provider: UNKNOWN1, PROVIDER Primary Care Provider: ИРИНА GREGORY MD SHMUEL MCCOLLUMZOE BROWN has been given the following list of medications: Your Medications It is important to take your medications as directed. Use a pill box or chart to help remind you to take your medications. Please let your doctor or nurse know if you have problems taking your medications. Medication/Strength How to Take Indications/Special Instructions/Comments/Notes for Patient Medication Changes/Routing azithromycin (Azithromycin 5 Day Dose Pack 250 mg oral tablet) 2 tablets on day 1, then 1 tablet on days 2-5, Oral, as directed x 5 day(s) New Routed to [facility] [address] [place], [place] [id number] *desogestrel-ethinyl estradiol (Desogen 0.15 mg-0.03 mg oral tablet) 1 Tablet(s), Oral, once a day This replaces Alesse. * You have let us know that you are not taking this medication as listed. Please talk with your primary care provider or the health care provider who prescribed the medication as soon as possible. Stop Taking the Following Medications: Medication list as of 06-21-15 14:32 Attention: If you have any medications at home that are not on this list, DO NOT take them until youcontact your provider for clarification. Give a copy of your medication list to your primary care provider. Update your medication list any time medications or doses are changed and carry your medication list at all times in case of emergency. Electronically Signed By: KOLBY HUIZAR V PAC Signed On:21-JUN-2015 14:32:31 Additional Information: Source: 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 Intake/History Entered On: 06/21/2015 13:18 CDT Performed On: 06/21/2015 13:14 CDT by NARA CHASE LPN Intake Chief Complaint : congestion, watery eyes, tender around eyes, cough for 2+weeks, S/T, headache, hadflu shot Temperature Oral : 37.4 DegC(Converted to: 99.3 DegF) (HI) Peripheral Pulse Rate : 80 /min Respiratory Rate : 14 /min Heart Rhythm : Regular Systolic Blood Pressure : 130 mmHg Diastolic Blood Pressure : 96 mmHg (>HHI) NIBP Mean : 107 mmHg BP Location : Right upper extremity Blood Pressure Cuff Size : Large Height : 160 cm(Converted to: 5 ft 3 inch(es), 63 inch(es)) Actual Weight : 80.9 kg(Converted to: 178 lb 6 oz) Weight Source : Standing scale Dosing Weight Clinic : 80.9 kg Clinic BSA : 1.9 Body Mass Index : 31.6 kg/m2 NARA CHASE [facility] - 06/21/2015 13:14 CDT General Info Information Given By : Patient Languages : Puerto Rican Is Patient Female and 13-50 no hysterectomy : Yes Status : Patient denies Are you ? : Yes NARA CHASE [facility] - 06/21/2015 13:14 CDT Subjective Pain Symptoms : Yes NARA CHASE [facility] - 06/21/2015 13:14 CDT Pain Scale Pain Scale Verbal 0-10 : Open NARA CHASE [facility] - 06/21/2015 13:14 CDT Pain Pain Assessment Grid Pain 1 Location : Head Laterality : Bilateral Intensity : 5 NARA CHASE LPN - 06/21/2015 13:14 CDT Dependent Habits Exposure to Tobacco Smoke : Other: Never Smoking Status : Never smoker Tobacco 2A : No Tobacco Use/Currently Using : No Tobacco Use/Last 30 Days : No Tobacco Use/Last 12 months : No NARA CHASE LPN - 06/21/2015 13:14 CDT Source: [facility] POWERCHART Document Id: [id number] CDT!41 documented in this encounter Plan of Treatment Not on filedocumented as of this encounter Procedures Procedure Name Priority Date/Time Associated Diagnosis Comme nts RAPID STREP A Routine 06/21/2015 3:54 PM Results for this SCREEN CDT procedure are i n the results section. documented in this encounter Results Rapid Strep A Screen (06/21/2015 3:54 PM CDT) [facility] Method Time Signature HXRapid Strep POWERCHART Confirmation HXPre Negative for POWERCHART Group A Strep by culture. HXFinal Negative for POWERCHART Group A Strep by culture. Specimen (Source) Anatomical Collection Method Collection Time Re ceived Time Location / / Volume Laterality Throat 06/21/2015 3:54 PM CDT Historical Provider LAB MICROBIOLOGY - GENERAL O RDERABLES Performing Organization Address City/State/ZIP Code Phon e Number POWERCHART documented in this encounter Visit Diagnoses Not on filedocumented in this encounter
--- OUTSIDE RECORDS SUMMARY | 2021-12-23 08:43 | XMS_ITS | Encounter Summary ---
:[address] [facility] Address [address] [place] [address] Care Team Providers Name Role Phone Unavailable Primary Care Provider Unavailable Encounter Details Date Type Department Care Team Description 05/26/2016 Hospital Encounter HX [facility] Kwesi Bravo M.D. 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 mg tablet documented as of this encounter Miscellaneous Notes Miscellaneous - Conversion, Historical Provider Ser - 05/26/2016 11:59 PM CDT Coding Summary-Paper Based CODING DATE: 06/09/2016 FINAL [facility] STATUS: * Discharged to Home or Self [...] result in slightly different terminology. Coded By: JAMESON SANDOVAL Date Saved: 06/09/2016 06:03 am Source: [facility] true[x] Media Document Id: [id number] documented in this encounter Plan of Treatment Not on filedocumented as of this encounter Visit Diagnoses Not on filedocumented in this encounter
--- OUTSIDE RECORDS SUMMARY | 2021-12-23 08:43 | XMS_ITS | Encounter Summary ---
:1980 Author Organization [facility] Address [address] [place] [address] Care Team Providers Name Role Phone Unavailable Primary Care Provider Unavailable Encounter Details Date Type Department Care Team Description 08/20/2014 Hospital Encounter HX [facility] Zahida Laughlin M.D. [address] [place] [address] (Wo rk) Social History Tobacco [...] More than 4 times per year 07/29/2020 moravian services? 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 - 08/20/2014 1:16 PM CDT [id number] CHIEF COMPLAINT/REASON FOR VISIT OB check. HISTORY OF PRESENT ILLNESS Saniya is a 34-year old female 2, para 1 at 38-4/7 weeks estimated gestational age presentingfor care. She has been doing well. The baby has been active. Patient denies any pain, bleeding, or loss of fluid. Patient denies headache, blurred vision, and severe abdominal pain. She statesthat she has had some mild cramping. Patient states that the swelling is about the same as it has been; she says that she still cant get her ring on yet. Saniya has no other concerns at this time. For the subjective and objective findings, please see the ACOG flow sheet/EMR summary filled out in full and available in the chart for review. VITAL SIGNS HEIGHT: 160 cm WEIGHT: 100.8 kg PULSE: 120 /min SYSTOLIC: 132 mmHg DIASTOLIC: 80 mmHg PHYSICAL EXAMINATION GENERAL: Well appearing and in no acute distress. ABDOMEN: heart tones were picked up at 130s bpm. Uterus measures 40 cm. PELVIS: IMPRESSION/REPORT/PLAN 1. A 33-year-old white female, 2, para 1, at 38-4/7 weeks estimated gestational age,doing well. LMP 11/23/2013. [place] 08/30/2014. A positive blood type. The baby is a boy plan on naming him Jeffery Will. 2. Discussed labor precautions. All questions were answered. 3. Mole. Near the right armpit 8mm round irregularly shaped fevering colors of contreras and pink slightlyraised with a slight scale 4. Group B Strep preformed today (07/31/14). Results were negative. 5. Pain left calf with erythema. Ordered US venous Doppler lower left extremity. 6. Anemia. Ordered a CBC. 7. Follow up in 1 week or sooner as needed. This document serves as a record of services personally performed by Dr. Ирина Laughlin. It was created on their behalf by Linda Cortez, a trained medical director/head team physician. The creation of this record is based on the scribe's personal observations and the provider's statements to them. This document has been checked and approved by the attending provider. Ирина Laughlin M.D./josette cc: [place] [address] Electronically Signed By: ИРИНА LAUGHLIN MD On: 12/06/2014 01:48 AM Source: [facility] MHSDOLBEYNONRADSYS Document Id: [id number] documented in this encounter Miscellaneous Notes Telephone Encounter - Conversion, Historical Provider Ser - 08/26/2014 8:57 AM CDT *Phone Message Document Contains Addenda Addendum by CATHI GARIBAY on 26 August 2014 11:49:33 CDT Schedule Monitor notified to call patient and help schedule appt From: JOSEP BRADEN ([address] Metal Pattern Maker) To: MARCOS Laughlin Nurse; Sent: 08/26/2014 08:57:37 CDT Subject: *Phone Message Caller is: ( ) Patient ( ) Mother ( ) Father ( ) Spouse ( ) Daughter ( ) Son ( ) Pharmacy ( ) Other: Physician: Patient MRN #: Reason for Call: Message: s patient calling to speak to nurse b calling needing a 7-10 day f/u for BP ck no openings a r call her back at [phone] after 1:00 Advice/Action: Source used: ( ) Verbalizes understanding of instructions ( ) Instructed to call back if symptoms worsen or do not resolve ( ) Refused to see provider ( ) Appointment Scheduled ( ) OK to leave message on voice mail ( ) Patient told to expect return call: ( ) today ( ) tomorrow ( ) next work day ( ) Patient's email ( ) Patient told physician out of office, will call upon return call on ( ) ( ) Patient told physician out of office, routed to other physician ( ) Other ( ) Call back telephone number ( ) Call back cell phone number ( ) Source: [facility] Beeline Document Id: [id number] Miscellaneous - Osmany Cortes, L.P.N. 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 Director Intake/History Entered On: 08/20/2014 13:27 CDT Performed On: 08/20/2014 13:26 CDT by OSMANY CORTES Intake Chief Complaint : visit Peripheral Pulse Rate : 120 /min (HI) Systolic Blood Pressure : 132 mmHg Diastolic Blood Pressure : 80 mmHg NIBP Mean : 97 mmHg BP Location : Right upper extremity Blood Pressure Cuff Size : Large Height : 160 cm(Converted to: 5 ft 3 inch(es), 63 inch(es)) Actual Weight : 100.8 kg(Converted to: 222 lb 4 oz) Weight Source : Standing scale Dosing Weight Clinic : 100.8 kg Clinic BSA : 2.12 Body Mass Index : 39.38 kg/m2 OSMANY CORTES - 08/20/2014 13:26 CDT General Info Information Given By : Patient Preferred Communication Mode : Verbal Languages : Croatian Is Patient Female and 13-50 no hysterectomy : No OSMANY CORTES - 08/20/2014 13:26 CDT Subjective Pain Symptoms : No OSMANY CORTES - 08/20/2014 13:26 CDT Dependent Habits Tobacco Use/Currently Using : No Exposure to Tobacco Smoke : Other: Never Smoking Status : Never smoker OSMANY CORTES - 08/20/2014 13:26 CDT Tobacco Use Grid Other Tobacco Frequency : never OSMANY CORTES - 08/20/2014 13:26 CDT Source: [facility] Beeline Document Id: [id number] CDT!29 documented in this encounter Plan of Treatment Not on filedocumented as of this encounter Visit Diagnoses Not on filedocumented in this encounter
--- OUTSIDE RECORDS SUMMARY | 2021-12-23 08:43 | XMS_ITS | Encounter Summary ---
:1980 Author Organization [facility] Address [address] [place] [address] Care Team Providers Name Role Phone Unavailable Primary Care Provider Unavailable Encounter Details Date Type Department Care Team Description 01/06/2016 Hospital Encounter HX NO MAPPING Jose Laughlin M.D. [address] [place], [place] [phone] (Wo rk) Social History [...] or relatives? How often do you attend zoroastrian or More than 4 times per year 07/29/2020 taoism services? 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 mg tablet documented as of this encounter Miscellaneous Notes Miscellaneous - Conversion, Historical Provider Ser - 01/06/2016 11:59 PM DISPATCHER BUS AND [employer]OLLEY Coding Summary-Paper Based CODING DATE: 01/24/2016 FINAL [facility] STATUS: * Discharged to Home or Self Care PAYOR: Commercial Insurance ADMIT DX: REASON FOR VISIT DX: FINAL DX: PRINCIPAL: Z12.4 Encounter for screening for malignant neoplasm of cervix SECONDARY: Z11.51 Encounter for screening for human papillomavirus (HPV) PROCEDURES DOCTOR NAME DATE NOTE: The code number assigned matches the documented diagnosis and / or procedure in the patient's chart. However, the narrative phrase printed from the coding software may appear abbreviated, or result in slightly different terminology. Coded By: DESTINEE GARZA Date Saved: 01/24/2016 09:04 pm [facility] Document Id: [id number] documented in this encounter Plan of Treatment Not on filedocumented as of this encounter Visit Diagnoses Not on filedocumented in this encounter
--- OUTSIDE RECORDS SUMMARY | 2021-12-23 08:43 | XMS_ITS | Encounter Summary ---
:1980 Author Organization [facility] Address [address] [place] [address] Care Team Providers Name Role Phone Unavailable Primary Care Provider Unavailable Encounter Details Date Type Department Care Team Description 07/31/2014 Hospital Encounter HX [facility] Zahida Hoffmann M.D. [address] [place] [address] (Wo rk) Social History Tobacco [...] or relatives? How often do you attend voodoo or More than 4 times per year 07/29/2020 scientology services? 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 documented in this encounter Results US Lower Extremity Veins Left (07/31/2014 2:09 PM CDT) Anatomical Region Laterality Modality Lower Extremity Left Ultrasound Specimen (Source) Anatomical Collection Method Collection Time Re ceived Time Location / / Volume Laterality 07/31/2014 2:09 PM CDT Addenda Addendum by ProviderGarry M.D. o n 07/31/2014 2:09 PM CDT RAD^^^OW US Venous Doppler Lower Ext Left 07/31/2014 14:09:46 Impressions 07/31/2014 2:36 PM CDT 1. ??Negative for deep venous thrombosis . Narrative 07/31/2014 2:36 PM CDT EXAM: US Venous Doppler Lower Ext Left INDICATION: ; Left lower leg swe lling/redness/pain; R/O DVT AGE: 34 years-old COMPARISON: None. FINDINGS: Negative for deep venous throm bosis of left lower extremity. No popliteal cyst. Procedure Note Geovani Lopes M.D. / ProviderGarry M.D. - 07/05/2016 EXAM: US Venous Doppler Lower Ext Left INDICATION: ; Left lower leg swe lling/redness/pain; R/O DVT AGE: 34 years-old COMPARISON: None. FINDINGS: Negative for deep venous throm bosis of left lower extremity. No popliteal cyst. IMPRESSION: 1. Negative for deep venous thrombosis. Historical Provider IMG US PROCEDURES documented in this encounter Visit Diagnoses Not on filedocumented in this encounter
--- OUTSIDE RECORDS SUMMARY | 2021-12-23 08:43 | XMS_ITS | Encounter Summary ---
:1980 Author Organization [facility] Address [address] [place] [address] Care Team Providers Name Role Phone Unavailable Primary Care Provider Unavailable Encounter Details Date Type Department Care Team Description 07/31/2014 Hospital Encounter HX [facility] Zahida Laughlin M.D. [address] [place] [address] (Wo rk) Social History Tobacco [...] or relatives? How often do you attend lutheran or More than 4 times per year 07/29/2020 alevism services? Do you belong to any clubs or Yes 07/29/2020 organizations such as lutheran groups, unions, fraternal or athletic groups, or [...] or slept in a assisted (including now)? Sex Assigned at Date Recorded Female 04/27/2017 8:11 AM WOUND CARE RN documented as of this encounter Last Filed Vital Signs Vital Sign Reading Time Taken Comments Blood Pressure 120/72 07/31/2014 11:40 AM CDT Pulse 80 07/31/2014 11:40 AM CDT Temperature - - Respiratory Rate 18 07/31/2014 11:40 AM CDT Oxygen Saturation - - Inhaled Oxygen Concentration - - Weight 99.2 kg (218 lb 11.1 oz) 07/31/2014 11:40 AM CDT Height 160 cm (5' 2.99) 07/31/2014 11:40 AM CDT Body Mass Index 38.75 07/31/2014 11:40 AM CDT documented in this encounter Progress Notes Oscar Laughlin M.D. - 07/31/2014 11:30 AM CDT [id number] CHIEF COMPLAINT/REASON FOR VISIT OB check. HISTORY OF PRESENT ILLNESS Saniya is a 34-year old female 2, para 1 at 35-5/7 weeks estimated gestational age presentingfor care. She has been doing well. The baby has been active. Patient denies any pain, cramping, bleeding, or loss of fluid. Patient states that in the last couple weeks she has noticed swelling in her hands and feet. Patient states that for the last couple days she has been having pain in herleft lower leg. Saniya states that it is very tender and throbbing. For the subjective and objective findings, please see the ACOG flow sheet/EMR summary filled out in full and available in the chart for review. VITAL SIGNS HEIGHT: 160 cm WEIGHT: 99.2 kg TEMP: 36.8 DegC PULSE: 80 /min RESP RATE: 18 /min SYSTOLIC: 120 mmHg DIASTOLIC: 72 mmHg FAMILY HISTORY Paternal Aunt that in her mid-60s for a blood clot after knee surgery. PHYSICAL EXAMINATION GENERAL: Well appearing and in no acute distress. ABDOMEN: heart tones were picked up at 150s bpm. Uterus measures 37 cm. PELVIS: closed/ 50/ high IMPRESSION/REPORT/PLAN 1. A 33-year-old white female, 2, para 1, at 35-5/7 weeks estimated gestational age,doing well. LMP 11/23/2013. [place] 08/30/2014. A positive blood type. The baby is a boy plan on naming him Jeffery Solis. 2. Discussed labor precautions. All questions were answered. 3. Mole. Near the right armpit 8mm round irregularly shaped fevering colors of contreras and pink slightlyraised with a slight scale 4. Group B Strep preformed today(07/31/14). 5. Pain left calf with erythema. Ordered US venous Doppler lower left extremity. 6. Follow up in 1 week or sooner as needed. This document serves as a record of services personally performed by Dr. Oscar Laughlin. It was created on their behalf by Linda Cortez, a trained medical records assistant. The creation of this record is based on the scribe's personal observations and the provider's statements to them. This document has been checked and approved by the attending provider. Oscar Laughlin M.D./josette cc: Labor [place] [address] Electronically Signed By: OSCAR LAUGHLIN MD On: 12/06/2014 02:23 AM Source: [facility] [id number] Document Id: [id number] documented in this encounter Miscellaneous Notes Telephone Encounter - Issac Maciel RAnat. - 10/02/2014 12:36 PM CDT FW: FW: 6 week check Document Contains Addenda Addendum by OSMANY CORTES on 02 October 2014 12:40:22 CDT noted/ and appointment confirmed From: ISSAC MACIEL RN ( Nurse Line) To: Family [facility] 1 Nurse; Sent: 10/02/2014 12:36:15 CDT Subject: FW: FW: 6 week check From: SANIYA MCCOLLUM To: [facility] ( Nurse Line) Sent: 10/02/2014 11:40 a.m. CDT Subject: RE: FW: 6 week check Thank you for your message. It has been successfully sent to the appropriate care team. Yes, that should work. Thank you so much! Saniya Addendum by OSCAR LAUGHLIN MD on 01 October 2014 18:03:45 CDT From: OSCAR LAUGHLIN MD To: SANIYA MCCOLLUM Sent: 10/01/2014 18:03:45 CDT Subject: FW: 6 week check Saniya, Sorry for the inconvenience... I will be out of town next week, but I can certainly work you in the following Sunday. I have a slot I can use on Thursday 10/12 at 3:45. Well need 30 minutes since were also repeating your pap, so hopefully that time will work for you too. Ill have them put you in that slot for now so it doesnt get used. Let me know if that will work. Hope you are doing well! Oscar Laughlin MD Addendum by PETER BHATIA LPN on 01 October 2014 09:36:01 CDT From: PETER BHATIA LPN ([facility] 1 Nurse) To: OSCAR LAUGHLIN MD; Sent: 10/01/2014 09:36:01 CDT Subject: FW: 6 week check Please advise From: JULIA CAPPS SRN ( Nurse Line) To: Family [facility] 1 Nurse; Sent: 10/01/2014 09:32:52 CDT Subject: FW: 6 week check From: SANIYA MCCOLLUM To: [facility] ( Nurse Line) Sent: 10/01/2014 08:30 a.m. CDT Subject: RE: 6 week check Thank you for your message. It has been successfully sent to the appropriate care team. Hi Dr. Laughlin, I received a note in the mail telling me my 6 Week check up was canceled since you were going to be out of office. It directed me to call and make a new appt. but they told me youre booked out until end of Oct. I feel like I need this check up to be cleared to go back to work [employer]. Is there any way you could squeeze me in next week or the week after? Thank you! Saniya Sohail From: OSCAR LAUGHLIN MD To: SANIYA MCCOLLUM Sent: 08/06/2014 09:37:39 CDT Saniya, Your group B strep screen was negative. You wont need antibiotics in labor. Oscar Laughlin MD Source: [facility] POWERCHART Document Id: [id number] Telephone Encounter - Issac Maciel RMaria Del Carmen - 10/02/2014 12:35 PM CDT FW: FW: 6 week check Document Contains Addenda Addendum by TASHA ESTES on 05 October 2014 09:06:04 CDT From: TASHA ESTES ([facility] Laughlin Nurse) To: OSCAR LAUGHLIN MD; Sent: 10/05/2014 09:06:04 CDT Subject: FW: FW: 6 week check OK to wait FYI only From: ISSAC MACIEL RN ( Nurse Line) To: [facility] Laughlin Nurse; Sent: 10/02/2014 12:35:50 CDT Subject: FW: FW: 6 week check From: SANIYA MCCOLLUM To: [facility] ( Nurse Line) Sent: 10/02/2014 11:40 a.m. CDT Subject: RE: FW: 6 week check Thank you for your message. It has been successfully sent to the appropriate care team. Yes, that should work. Thank you so much! Saniya Addendum by OSCAR LAUGHLIN MD on 01 October 2014 18:03:45 CDT From: OSCAR LAUGHLIN MD To: SANIYA MCCOLLUM Sent: 10/01/2014 18:03:45 CDT Subject: FW: 6 week check Saniya, Sorry for the inconvenience... I will be out of town next week, but I can certainly work you in the following Sunday. I have a slot I can use on Thursday 10/12 at 3:45. Well need 30 minutes since were also repeating your pap, so hopefully that time will work for you too. Ill have them put you in that slot for now so it doesnt get used. Let me know if that will work. Hope you are doing well! Oscar Laughlin MD Addendum by PETER BHATIA LPN on 01 October 2014 09:36:01 CDT From: PETER BHATIA LPN ([facility] 1 Nurse) To: OSCAR LAUGHLIN MD; Sent: 10/01/2014 09:36:01 CDT Subject: FW: 6 week check Please advise From: JULIA CAPPS ( Nurse Line) To: Family [facility] 1 Nurse; Sent: 10/01/2014 09:32:52 CDT Subject: FW: 6 week check From: SANIYA MCCOLLUM To: [facility] ( Nurse Line) Sent: 10/01/2014 08:30 a.m. CDT Subject: RE: 6 week check Thank you for your message. It has been successfully sent to the appropriate care team. Hi Dr. Laughlin, I received a note in the mail telling me my 6 Week check up was canceled since you were going to be out of office. It directed me to call and make a new appt. but they told me youre booked out until end of Oct. I feel like I need this check up to be cleared to go back to work [employer]. Is there any way you could squeeze me in next week or the week after? Thank you! Saniya Mccollum From: OSCAR LAUGHLIN MD To: SANIYA MCCOLLUM Sent: 08/06/2014 09:37:39 CDT Saniya, Your group B strep screen was negative. You wont need antibiotics in labor. Oscar Laughlin MD Source: [facility] POWERCHART Document Id: [id number] Telephone Encounter - Julia Capps R.N. - 10/01/2014 9:32 AM CDT FW: 6 week check Document Contains Addenda Addendum by OSCAR LAUGHLIN MD on 01 October 2014 18:03:45 CDT From: OSCAR LAUGHLIN MD To: SANIYA MCCOLLUM Sent: 10/01/2014 18:03:45 CDT Subject: FW: 6 week check Saniya Sorry for the inconvenience... I will be out of town next week, but I can certainly work you in the following Sunday. I have a slot I can use on Thursday 10/12 at 3:45. We'll need 30 minutes since we're also repeating your pap, so hopefully that time will work for you too. I'll have them put you in that slot for now so it doesn't get used. Let me know if that will work. Hope you are doing well! Oscar Laughlin MD Addendum by PETER BHATIA LPN on 01 October 2014 09:36:01 CDT From: PETER BHATIA HELP DESK ANALYST ([facility] 1 Nurse) To: OSCAR LAUGHLIN MD; Sent: 10/01/2014 09:36:01 CDT Subject: FW: 6 week check Please advise From: JULIA CAPPS SRN ( Nurse Line) To: Family [facility] 1 Nurse; Sent: 10/01/2014 09:32:52 CDT Subject: FW: 6 week check From: SANIYA MCCOLLUM To: [facility] ( Nurse Line) Sent: 10/01/2014 08:30 a.m. CDT Subject: RE: 6 week check Thank you for your message. It has been successfully sent to the appropriate care team. Hi Dr. Laughlin, I received a note in the mail telling me my 6 Week check up was canceled since you were going to be out of office. It directed me to call and make a new appt. but they told me youre booked out until end of Oct. 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 Is there any way you could squeeze me in next week or the week after? Thank you! Saniya Mccollum From: OSCAR LAUGHLIN MD To: SANIYA MCCOLLUM Sent: 08/06/2014 09:37:39 CDT Saniya, Your group B strep screen was negative. You wont need antibiotics in labor. Oscar Laughlin MD Source: [facility] POWERCHART Document Id: [id number] Miscellaneous - Oscar Laughlin M.D. - 08/06/2014 9:37 AM CDT From: OSCAR LAUGHLIN MD To: SANIYA MCCOLLUM STEPHANIE Sent: 08/06/2014 09:37:39 CDT Saniya, Your group B strep screen was negative. You won't need antibiotics in labor. Oscar Laughlin MD Source: [facility] POWERCHART Document Id: [id number] Osmel - Oscar Laughlin M.D. - 07/31/2014 12:00 PM CDT Ambulatory Discharge Medication List [address] [id number] Visit Information Name: MCCOLLUM SANIYAZOE BROWN [facility] Number: [id number] Visit Date: 07/31/2014 12:00:05 Attending Provider: OSCAR LAUGHLIN MD Primary Care Provider: OSCAR LAUGHLIN MD MCCOLLUM, SANIYA BROWN has been given the following list of medications: Your Medications It is important to take your medications as directed. Use a pill box or chart to help remind you to take your medications. Please let your doctor or nurse know if you have problems taking your medications. Medication/Strength How to Take Indications/Special Instructions/Comments/Notes for Patient Medication Changes/Routing ondansetron (Zofran ODT 4 mg oral tablet, disintegrating) 1 Tablet(s), Oral, every 8 hours as neededfor Nausea Stop Taking the Following Medications: Medication list as of 07-31-14 12:00 Attention: If you have any medications at home that are not on this list, DO NOT take them until youcontact your provider for clarification. Give a copy of your medication list to your primary care provider. Update your medication list any time medications or doses are changed and carry your medication list at all times in case of emergency. Electronically Signed By: OSCAR LAUGHLIN MD Signed On:31-JUL-2014 12:00:04 Additional Information: Source: [facility] POWERCHART Document Id: [id number] Miscellaneous - Oscar Laughlin M.D. - 07/31/2014 12:00 PM CDT Ambulatory Patient Summary [address] [id number] Visit Information Name: SANIYA MCCOLLUM [facility] Number: [id number] Current Date: 07/31/2014 12:00:06 Physicians Attending Provider: OSCAR LAUGHLIN MD Primary Care Provider: OSCAR LAUGHLIN MD SANIYA MCCOLLUM has been given the [...] Take Indications/Special Instructions/Comments/Notes for Patient Medication Changes/Routing ondansetron (Zofran ODT 4 mg oral tablet, disintegrating) 1 Tablet(s), Oral, every 8 hours as neededfor Nausea Stop Taking the Following Medications: Medication list as of 07-31-14 12:00 Attention: If you have any medications at home that are not on this list, DO NOT take them until youcontact your provider for clarification. Give a copy of your medication list to your primary care provider. Update your medication list any time medications or doses are changed and carry your medication list at all times in case of emergency. Electronically Signed By: OSCAR LAUGHLIN MD Signed On:31-JUL-2014 12:00:04 Your Allergies & Intolerances Substance Reaction Symptoms Category Comments amoxicillin Rash Drug Your Problem List Problem Status Onset Comments Active 11/23/2013 Exam Active Your Upcoming Appointments Date Time Location Provider 08/06/2014 11:15 Oscar Mclain MD 08/13/2014 16:00 Oscar Mclain MD 08/20/2014 13:15 Oscar Mclain MD 08/26/2014 13:15 Oscar Mclain MD 09/03/2014 13:15 Oscar Mclain MD Attention: Contact your local Clinic if further appointment detail needed. Your Goals/Additional instructions: Source: [facility] Good4UCHART Document Id: [id number] Miscellaneous - Tasha Estes L.P.N. - 07/31/2014 11:40 AM CDT Adult Control Operator Flow Coat Intake/History Adult Control Operator Flow Coat Intake/History Entered On: 07/31/2014 11:42 CDT Performed On: 07/31/2014 11:40 CDT by TASHA ESTES Intake Chief Complaint : 35 5/7 week OB check Temperature Oral : 36.8 DegC(Converted to: 98.2 DegF) Peripheral Pulse Rate : 80 /min Respiratory Rate : 18 /min Systolic Blood Pressure : 120 mmHg Diastolic Blood Pressure : 72 mmHg NIBP Mean : 88 mmHg Height : 160 cm(Converted to: 5 ft 3 inch(es), 63 inch(es)) Actual Weight : 99.2 kg(Converted to: 218 lb 11 oz) Dosing Weight Clinic : 99.2 kg Clinic BSA : 2.1 Body Mass Index : 38.75 kg/m2 TASHA ESTES - 07/31/2014 11:40 CDT General Info Information Given By : Patient Preferred Communication Mode : Verbal Languages : Egyptian Is Patient Female and 13-50 no hysterectomy : Yes Status : Confirmed positive Are you ? : No TASHA ESTES - 07/31/2014 11:40 CDT Subjective Pain Symptoms : No TASHA ESTES - 07/31/2014 11:40 CDT Dependent Habits Tobacco Use/Currently Using : No Exposure to Tobacco Smoke : Other: Never Smoking Status : Never smoker TASHA ESTES - 07/31/2014 11:40 CDT Tobacco Use Grid Other Tobacco Frequency : never TASHA ESTES - 07/31/2014 11:40 CDT Source: [facility] Good4UCHART Document Id: [id number] CDT!30 documented in this encounter Plan of Treatment Not on filedocumented as of this encounter Procedures Procedure Name Priority Date/Time Associated Diagnosis Comme nts HXSTREP GROUP B BY Routine 07/31/2014 3:39 PM Res ults for this PCR CDT procedure are i n the results section. documented in this encounter Results HXSTREP GROUP B BY PCR (07/31/2014 3:39 PM CDT) [facility] gist Method Time Signature HXStrep Group POWERCHART B by PCR HXFinal Negative for POWERCHART Group B Strep by PCR. Specimen (Source) Anatomical Collection Method Collection Time Re ceived Time Location / / Volume Laterality Vaginal/Rectum 07/31/2014 3:39 PM CDT Oscar Laughlin M.D. LAB HISTORICAL ORDERS Performing Organization Address City/State/ZIP Code Phon e Number POWERCHART documented in this encounter Visit Diagnoses Not on filedocumented in this encounter
--- OUTSIDE RECORDS SUMMARY | 2021-12-23 08:43 | XMS_ITS | Encounter Summary ---
:1980 Author Organization [facility] Address [address] [place] [address] Care Team Providers Name Role Phone Unavailable Primary Care Provider Unavailable Encounter Details Date Type Department Care Team Description 09/03/2014 Hospital Encounter HX [facility] FAMILY[facility]A Zahida Laughlin M.D. [address] [place] [address] (Wo rk) Social History Tobacco [...] or relatives? How often do you attend yarsani or More than 4 times per year 07/29/2020 oriental orthodox services? 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 - 09/03/2014 9:22 AM CDT [id number] CHIEF COMPLAINT/REASON FOR VISIT Blood pressure check HISTORY OF PRESENT ILLNESS Saniya is a 34 year old female who presents to the clinic today for a blood pressure check. Patient states she is doing well. REVIEW OF SYSTEMS Was reviewed and negative except as mentioned above in the HPI. MEDICATIONS Reviewed and updated in the EMR dated 09/03/14. ALLERGIES Reviewed and updated in the EMR dated 09/03/14. PAST MEDICAL/SURGICAL HISTORY Non-contributory for todays visit. FAMILY/SOCIAL HISTORY Non-contributory for todays visit. VITAL SIGNS HEIGHT: 160 cm WEIGHT: 93 kg BMI: 36.33 kg/m2 TEMP: 36.9 DegC PULSE: 72 /min SYSTOLIC: 120 mmHg DIASTOLIC: 84 mmHg PHYSICAL EXAMINATION GENERAL: Well appearing and in no acute distress. HEAD: Normocephalic, atraumatic. Neck without rigidity or masses. EXTREMITIES: No clubbing, cyanosis, or edema. MENTAL: Patient is alert and oriented x3. Does not appear depressed or anxious. Mood is good with appropriate affect. Speech and thought content and pattern are within normal limits. Does not appear lynn delusional. No other psyche problems are noted. SKIN: Normal color. No lesions or rash. Moist mucous membranes. Good skin turgor. Brisk capillary refill. IMPRESSION/REPORT/PLAN 1. Blood pressure. Patients blood pressure was 120/84 today which looks fantastic. This document serves as a record of services personally performed by Dr. Oscar Laughlin. It was created on their behalf by Linda Cortez, a trained medical office asst. The creation of this record is based on the scribe's personal observations and the provider's statements to them. This document has been checked and approved by the attending provider. Oscar Laughlin M.D./josette Electronically Signed By: OSCAR LAUGHLIN MD On: 12/06/2014 01:46 AM Source: [facility] MHSDOLBEYNONRADSYS Document Id: [id number] documented in this encounter Miscellaneous Notes Telephone Encounter - Conversion, Historical Provider Ser - 09/29/2014 1:12 PM CDT *Phone Message Document Contains Addenda Addendum by OSCAR LAUGHLIN MD on 02 October 2014 13:02:04 CDT From: OSCRA LAUGHLIN MD To: [place] [address] Nurse; Sent: 10/02/2014 13:02:04 CDT Subject: RE: *Phone Message This note was sent back to me this morning by Karen. Mazin ANDERSON, I offered an appt at 3:45 on Thursday 10/12 for 30 min and she replied that would work, and has been placed in schedule. This is taken care of. - Oscar Addendum by PETER BHATIA LPN on 02 October 2014 09:17:48 CDT From: PETER BHATIA LPN (MARCOS Laughlin Nurse) To: OSCAR LAUGHLIN MD; Sent: 10/02/2014 09:17:48 CDT Subject: FW: *Phone Message Please advise Addendum by OSMANY CORTES on 29 September 2014 14:09:58 CDT From: OSMANY CORTES ([facility] 1 Nurse) To: MARCOS Laughlin Nurse; Sent: 09/29/2014 14:09:58 CDT Subject: FW: *Phone Message Addendum by OSMANY CORTES on 29 September 2014 14:09:50 CDT patient state she was scheduled to see Dr. Laughlin on 10/09/2014 however she received call stating shewill not be in on that day and was told there is no openings until 11/20/2014/ patient wants to get in sooner / informed patie nt I would send this message to her and have her review and get back to her From: JOSEP BRADEN ([facility] 1 Nurse) To: [facility] 1 Nurse; Sent: 09/29/2014 13:12:18 CDT Subject: *Phone Message Caller is: ( x ) Patient ( ) Mother ( ) Father ( ) Spouse ( ) Daughter ( ) Son ( ) Pharmacy ( ) Other: Physician: margaret Patient MRN #: Reason for Call: Message: s patient calling to speak to nurse b calling regarding her appt. that was cancelled due to being out a wants to only see Dr. Laughlin no opening until 11-20 r call her back at [phone] Advice/Action: Source used: ( ) Verbalizes understanding [...] back cell phone number ( ) Source: [facility] POWERCHART Document Id: [id number] Miscellaneous - Osmany Cortes L.PMickeyNMickey - 09/03/2014 9:30 AM CDT Adult Consulting Services Project Manager Intake/History Adult Consulting Services Project Manager Intake/History Entered On: 09/03/2014 9:33 CDT Performed On: 09/03/2014 9:30 CDT by OSMANY CORTES Intake Chief Complaint : recheck blood pressure Temperature Oral : 36.9 DegC(Converted to: 98.4 DegF) Peripheral Pulse Rate : 72 /min Systolic Blood Pressure : 120 mmHg Diastolic Blood Pressure : 84 mmHg NIBP Mean : 96 mmHg Height : 160 cm(Converted to: 5 ft 3 inch(es), 63 inch(es)) Actual Weight : 93 kg(Converted to: 205 lb 0 oz) Weight Source : Standing scale Dosing Weight Clinic : 93 kg Clinic BSA : 2.03 Body Mass Index : 36.33 kg/m2 OSMANY CORTES - 09/03/2014 9:30 CDT General Info Information Given By : Patient Preferred Communication Mode : Verbal Languages : Lithuanian Is Patient Female and 13-50 no hysterectomy : No OSMANY CORTES - 09/03/2014 9:30 CDT Subjective Pain Symptoms : No OSMANY CORTES - 09/03/2014 9:30 CDT Dependent Habits Tobacco Use/Currently Using : No Exposure to Tobacco Smoke : Other: Never Smoking Status : Never smoker OSMANY CORTES - 09/03/2014 9:30 CDT Tobacco Use Grid Other Tobacco Frequency : never OSMANY CORTES - 09/03/2014 9:30 CDT [facility] Document Id: [id number] CDT!28 documented in this encounter Plan of Treatment Not on filedocumented as of this encounter Visit Diagnoses Not on filedocumented in this encounter
--- OUTSIDE RECORDS SUMMARY | 2021-12-23 08:43 | XMS_ITS | Encounter Summary ---
:1980 Author Organization [facility] Address [address] [place] [address] Care Team Providers Name Role Phone Unavailable Primary Care Provider Unavailable Encounter Details Date Type Department Care Team Description 07/31/2014 Hospital Encounter HX NO MAPPING Jose Laughlin M.D. [address] [place], [place] [address] (Wo rk) Social History [...] or relatives? How often do you attend samaritan or More than 4 times per year 07/29/2020 evangelical services? 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 However, the narrative phrase printed from the coding software may appear abbreviated, or result in slightly different terminology. Coded By: DESTINEE GARZA Date Saved: 08/06/2014 09:58 pm Source: [facility] POWERCHART Document Id: [id number] documented in this encounter Plan of Treatment Not on filedocumented as of this encounter Visit Diagnoses Not on filedocumented in this encounter
--- OUTSIDE RECORDS SUMMARY | 2021-12-23 08:43 | XMS_ITS | Encounter Summary ---
:1980 Author Organization [facility] Address [address] [place] [address] Care Team Providers Name Role Phone Unavailable Primary Care Provider Unavailable Encounter Details Date Type Department Care Team Description 11/12/2014 Hospital Encounter HX [facility] Maggie Hartmann A PRN, C.N.P., M.S.N. Social History Tobacco Use Types Packs/Day Years [...] place to sleep or slept in a residential (including now)? 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 - 11/12/2014 8:49 AM CDT [id number] CHIEF COMPLAINT/REASON FOR VISIT Saniya is a 34-year-old female who presents for colposcopy following on ASCUS Pap test with positive HPV findings on 10/12/2014. She was referred by Dr. Laughlin. She has no previous abnormal Pap smears; however, she reports having had a positive HPV test in the past. She was seen for a 6-week visit on 10/12, and was currently at 10 weeks . She has no complaints of pelvic pain, vaginal discharge or unusual vaginal bleeding. We discussed the current options for evaluation and management of her Pap smear findings including the indication for colposcopy. She wishes to proceed with colposcopy. PAST MEDICAL/SURGICAL HISTORY No changes. Noncontributory. MEDICATIONS Alesse control pills. ALLERGIES Amoxicillin. VITAL SIGNS Blood pressure 116/80. PHYSICAL EXAMINATION During this procedure the universal protocol was utilized. The patient's identity was confirmed by no less than 2 patient identifiers, correct site was verified and marked as applicable, and a final pause was completed. After safe site verification was performed and consent form was signed, this 34-year-old female was placed in the dorsal lithotomy position. The lower genital tract was visualized with the colposcope under low power magnification with a bright light. The cervix was then examined under low power, high power, and with green light filter. The entire squamocolumnar junction was seen andidentified in its entirety. Acetic acid was applied to the upper vagina and cervix in the usual fashion. Areas of white epithelium were noted: 7 o'clock to 4 o'clock, with the nabothian cyst being present at 6 o'clock as well. Biopsies were taken at 6 o'clock and 4 o'clock. She did have some mosaicismfindings at 4 o'clock. Sent for pathology review. No local anesthetic was used for the biopsy. Pressure with a cotton tip swab and silver nitrate were used for hemostasis. IMPRESSION/REPORT/PLAN Abnormal Papanicolaou showing ASCUS Pap smear with positive HPV findings. Adequate colposcopy based on complete visualization of the transformation zone. 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 Post colposcopy instructions reviewed with patient. She will be contacted with her biopsy results within the next 3 to 5 days. Further evaluation or follow up based on her biopsy results. Silverio HuffNAnisa/giselle Electronically Signed By: MAGGIE BRONSON NP On: 11/17/2014 10:51 AM Modified by and Electronically Signed by: MAGGIE BRONSON NP On: 11/17/2014 10:49 AM Source: [facility] MHSDOLBEYNONRADSYS Document Id: [id number] documented in this encounter Miscellaneous Notes Miscellaneous - Erica Johnson L.PMickeyNMickey - 11/17/2014 8:19 AM CDT Pap and HPV test due in 1 year Document Contains Addenda Addendum by OSCAR LAUGHLIN MD on October 28, 2015 17:50:37 CDT Noted. Will perform. 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 - 11/16/2014 5:27 PM CDT Results Notification Document Contains Addenda Addendum by ERICA JOHNSON LPN on 17 November 2014 08:21:17 CDT Reminder placed. From: MAGGIE BRONSON PHYSICIAN OFFICE SPECIALIST To: MARCOS Bronson Nurse; Sent: 11/16/2014 17:27:35 CDT ! Show up: 11/16/2014 17:27:35 CDT Subject: Results Notification Actions: Note to Nurse Reminder Comments: portal message sent. Add to recall list for Pap and HPV testing in 1 year. Results: Date Result Type Result Name 11/13/2014 13:35 Document - DOC Pathology-Surg Path Source: AlertMe Document Id: [id number] Miscellaneous - Maggie Bronson, M.S.N. - 11/16/2014 5:24 PM CDT From: MAGGIE BRONSON NP To: SANIYA MCCOLLUM Sent: 11/16/2014 17:24:59 CDT Good Afternoon Saniya, Your biopsy results returned showing some Mild changes in the cells (POLY 1 like we talked about). I recommend that you follow up in 1 year for a repeat pap and HPV testing as we discussed at the time of your visit. We will add you to our recall list to help you remember when it is time to return. Please let me know if you have any questions or concerns about these results or your follow up. Maggie Ramos APRN, CFNP Source: [facility] POWERCHART Document Id: [id number] Miscellaneous - Maggie Bronson, M.S.N. - 11/12/2014 9:56 AM CDT Ambulatory Patient Summary [facility] [address] [place], [place] [id number] Visit Information Name: SHMUEL MCCOLLUMZOE BROWN [facility] Number: [id number] Current Date: 11/12/2014 09:56:17 Physicians Attending Provider: MAGGIE BRONSON PHYSICIAN OFFICE SPECIALIST Primary Care Provider: OSCAR LAUGHLIN MD HSMUEL MCCOLLUMZOE BROWN has been given the following [...] Take Indications/Special Instructions/Comments/Notes for Patient Medication Changes/Routing levonorgestrel-ethinyl estradiol (Alesse 100 mcg-20 mcg oral tablet) 1 Tablet(s), Oral, once a day Stop Taking the Following Medications: Medication list as of 11-12-14 09:56 Attention: If you have any medications at home that are not on this list, DO NOT take them until youcontact your provider for clarification. Give a copy of your medication list to your primary care provider. Update your medication list any time medications or doses are changed and carry your medication list at all times in case of emergency. Electronically Signed By: MAGGIE BRONSON NP Signed On:12-NOV-2014 09:56:05 Your Allergies & Intolerances Substance Reaction Symptoms Category Comments amoxicillin Rash Drug Your Problem List Problem Status Onset Comments No Chronic Problems Active Your Upcoming Appointments Date Time Location Provider 12/10/2014 10:15 [facility] Oscar Laughlin MD Attention: Contact your local Clinic if [...] if you dont have one. Go to [email or web address] and click on Create Your Account. Then, follow the directions to complete the online form. Youll be asked for your [facility] number which you can find at the top of this document. Your Goals/Additional instructions: Source: [facility] POWERCHART Document Id: [id number] Miscellaneous - Maggie Bronson, M.S.N. - 11/12/2014 9:56 AM CDT Ambulatory Discharge Medication List [facility] [address] [place] [id number] Visit Information Name: CHUN SANIYAZOE BROWN [facility] Number: [id number] Visit Date: 11/12/2014 09:56:16 Attending Provider: MAGGIE BRONSON PA, PHYSICIAN OFFICE SPECIALIST Primary Care Provider: OSCAR LAUGHLIN MD SANIYA [...] Take Indications/Special Instructions/Comments/Notes for Patient Medication Changes/Routing levonorgestrel-ethinyl estradiol (Alesse 100 mcg-20 mcg oral tablet) 1 Tablet(s), Oral, once a day Stop Taking the Following Medications: Medication list as of 11-12-14 09:56 Attention: If you have any medications at home that are not on this list, DO NOT take them until youcontact your provider for clarification. Give a copy of your medication list to your primary care provider. Update your medication list any time medications or doses are changed and carry your medication list at all times in case of emergency. Electronically Signed By: MAGGIE BRONSON PHYSICIAN OFFICE SPECIALIST Signed On:12-NOV-2014 09:56:05 Additional Information: Source: [facility] POWERCHART Document Id: [id number] Miscellaneous - Erica Johnson L.P.N. - 11/12/2014 8:51 AM CDT Adult Superintendent Gas Distribution Intake/History Adult Superintendent Gas Distribution Intake/History Entered On: 11/12/2014 8:54 CDT Performed On: 11/12/2014 8:51 CDT by ERICA JOHNSON LPN Intake Chief Complaint : Colposcopy LMP Date : 10/31/14 Systolic Blood Pressure : 116 mmHg Diastolic Blood Pressure : 80 mmHg NIBP Mean : 92 mmHg BP Location : Left upper extremity Blood Pressure Cuff Size : Large Height : 160 cm(Converted to: 5 ft 3 inch(es), 63 inch(es)) ERICA JOHNSON LPN - 11/12/2014 8:51 CDT General Info Languages : French Is Patient Female and 13-50 no hysterectomy : Yes Status : Patient denies Are you ? : Yes ERICA JOHNSON LPN - 11/12/2014 8:51 CDT Subjective Pain Symptoms : No ERICA JOHNSON LPN - 11/12/2014 8:51 CDT Dependent Habits Tobacco Use/Currently Using : No Exposure to Tobacco Smoke : Other: Never Smoking Status : Never smoker ERICA JOHNSON LPN - 11/12/2014 8:51 CDT Tobacco Use Grid Other Tobacco Frequency : never ERICA JOHNSON LPN - 11/12/2014 8:51 CDT Source: [facility] POWERCHART Document Id: [id number] CDT!24 documented in this encounter Plan of Treatment Not on filedocumented as of this encounter Procedures Procedure Name Priority Date/Time Associated Diagnosis Comme nts SURGICAL PATHOLOGY Routine 11/12/2014 8:04 AM Res ults for this CDT procedure are i n the results section. documented in this encounter Results Pathology Surgical Pathology (11/12/2014 8:04 AM CDT) Specimen (Source) Anatomical Collection Method Collection Time Re ceived Time Location / / Volume Laterality 11/12/2014 8:04 AM CDT Narrative [facility] - 11/13/2014 1:35 PM CDT [facility] in [address] [place] [id number] Patient Name: SANIYA MCCOLLUM Patient ID #: [id number] Collected: 11/12/2014 Address: [facility]/Zip: [address] [place] [id number] Received: Reported: 11/13/2014 11/13/2014 Soc. Sec. #: ?/Age/Sex 1980 (Age: 34) ??F Physician(s): HERIBERTO BRONSON NP Copy To: ? [facility] ??[id number] [address] [facility] [place], ??[place] ??[address] SURGICAL PATHOLOGY REPORT FINAL DIAGNOSIS: A. ??CERVIX, 4 O'CLOCK BIOPSY: --- ACUTE AND CHRONIC CERVICITIS WITH FO TONO ATYPICAL SQUAMOUS METAPLASIA WITH FOCAL NUCLEAR ATYPIA SUG GEST OF BUT NOT DIAGNOSTIC FOR HPV EFFECT. B. 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 [facility]/11/13/2014 ROSA MOTA M.D. Report electronically released. Interpretation by ROSA MOTA M.D. SPECIMEN(S) RECEIVED: 1: A. 4 O'CLOCK CERVIX 2: B. 6 O'CLOCK CERVIX CLINICAL HISTORY: ASCUS WITH POSITIVE HPV GROSS DESCRIPTION: A. Submitted as 4 o'clock cervix is a 0. 2 cm contreras fragment. ESB, one cassette. B. Submitted as 6 o'clock cervix is a 0. 2 cm contreras fragment. ESB, one cassette. ([id number], [id number]) [facility]/11/13/2014 MICROSCOPIC DESCRIPTION: Reviewed by Rosa Mota M.D.; Patholo gist PAP/11/13/2014 Karen White APRN.NEdelmira., M.S.N. LAB SURG PATH ORDERA BLES Performing Organization Address City/State/ZIP Code Phon e Number [facility] documented in this encounter Visit Diagnoses Not on filedocumented in this encounter
--- OUTSIDE RECORDS SUMMARY | 2021-12-23 08:43 | XMS_ITS | Encounter Summary ---
:1980 Author Organization [facility] Address [address] [place] [address] Care Team Providers Name Role Phone Unavailable Primary Care Provider Unavailable Encounter Details Date Type Department Care Team Description 11/12/2014 Hospital Encounter HX NO MAPPING Edwina Jc APRN, C.N.P., M.S.N. Social History Tobacco Use Types [...] or relatives? How often do you attend jain or More than 4 times per year 07/29/2020 worship services? 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 However, the narrative phrase printed from the coding software may appear abbreviated, or result in slightly different terminology. Coded By: MICHAEL TREVIZO Date Saved: 11/23/2014 01:26 pm Source: [facility] POWERCHART Document Id: [id number] documented in this encounter Plan of Treatment Not on filedocumented as of this encounter Visit Diagnoses Not on filedocumented in this encounter
--- OUTSIDE RECORDS SUMMARY | 2021-12-23 08:43 | XMS_ITS | Encounter Summary ---
:1980 Author Organization [facility] Address [address] [place] [address] Care Team Providers Name Role Phone Unavailable Primary Care Provider Unavailable Encounter Details Date Type Department Care Team Description 08/14/2014 Hospital Encounter [facility]X [facility] Zahida Laughlin M.D. [address] [place] [address] (Wo rk) Social History Tobacco [...] More than 4 times per year 07/29/2020 jewish services? 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 - 08/14/2014 11:19 AM CDT [id number] CHIEF COMPLAINT/REASON FOR VISIT OB check. HISTORY OF PRESENT ILLNESS Saniya is a 34-year old female 2, para 1 at 37-5/7 weeks estimated gestational age presentingfor care. She has been doing well. The baby has been active. Patient denies any pain, cramping, bleeding, or loss of fluid. Patient states that she has seemed to be a little lima lately. She describes that her swelling has been about the same as before. Saniya has no other concerns at this time. For the subjective and objective findings, please see the ACOG flow sheet/EMR summary filled out in full and available in the chart for review. VITAL SIGNS HEIGHT: 160 cm. WEIGHT: 99.9 kg. BMI: 39.02 kg/m2. TEMP: 37.4 Deg C. PULSE: 78 /min. RESP RATE: 18 /min. SYSTOLIC: 126 mmHg. Recheck: 136 mmHg. DIASTOLIC: 90 mmHg. Recheck: 94 mmHg. PHYSICAL EXAMINATION GENERAL: Well appearing and in no acute distress. ABDOMEN: heart tones were picked up at 150s bpm. Uterus measures 40-41 cm. PELVIS: she starts these at 36 weeks (you can delete this if the patient is under 36 weeks) DIAGNOSTICS 08/14/2014: CBC: Hgb: L 10.5 g/dL. Hct: L 33.0 %. WBC: H 12.3 x10(9)/L. RBC: L 3.87 x10(12)/L. MCV: 85.3 fL. RDW: 13.8 %. Platelet: 302 x10(9)/L. Neutro Absolute: H 9.56 10(9)/L. Lymph Absolute: 1.56 x10(9)/L. Ogle Absolute: H 1.02 x10(9)/L. Eos Absolute: 0.11 x10(9)/L. Baso Absolute: 0.03 x10(9)/L. Chemistry Panel: Creatinine: 0.6 mg/dL. EGFR (MDRD): >60 mL/mi. EGFR : >60 mL/mi. AST: 12 unit/L. ALT: 8 unit/L. IMPRESSION/REPORT/PLAN 1. A 34-year-old female, 2, para 1, at 37-5/7 weeks estimated gestational age, doingwell. ALT, AST, CBC, Creatinine and Urine dipstick labs are performed today. LMP 11/23/2013. [place] 08/30/2014. A+ blood type. The baby is a boy and they plan on naming him Jeffery Solis. Today she is sentfor a U/S EFW, BPP, and weight/JOSSIE. [NST was 2/2. BPP was 8/8. Total of 10. JOSSIE was 18.7] 2. Discussed labor precautions. All questions were answered. 3. Mole. Near the right armpit 8mm round irregularly shaped fevering colors of contreras and pink slightlyraised with a slight scale 4. Group B Strep preformed (07/31/14). Results were negative. 5. Follow up in 1 week or sooner as needed. This document serves as a record of services personally performed by Dr. Oscar Laughlin. It was created on their behalf by Yvonne Cooper, a trained manager medical writing. The creation of this record is based on the scribe's personal observations and the provider's statements to them. This document has been checked and approved by the attending provider. Oscar Laughlin M.D./rizwan cc: Labor and Delivery [address] [address] Electronically Signed By: OSCAR LAUGHLIN MD On: 12/06/2014 01:49 AM Source: [facility] MHSDOLBEYNONRADSYS Document Id: [id number] documented in this encounter Miscellaneous Notes Miscellaneous - Elva King L.P.NMickey - 08/14/2014 1:22 PM CDT Ambulatory Vitals Height Weight Ambulatory Vitals Height Weight Entered On: 08/14/2014 13:23 CDT Performed On: 08/14/2014 13:22 CDT by ELVA KING Vitals/Ht/Wt Systolic Blood Pressure : 136 mmHg Diastolic Blood Pressure : 82 mmHg NIBP Mean : 100 mmHg Height : 160 cm(Converted to: 5 ft 3 inch(es), 63 inch(es)) ELVA KING - 08/14/2014 13:22 CDT Source: [facility] POWERCHART Document Id: [id number] CDT!6 Miscellaneous - Tasha Estes L.P.N. - 08/14/2014 11:35 AM CDT Adult Gi Asst Intake/History Adult Gi Asst Intake/History Entered On: 08/14/2014 11:41 CDT Performed On: 08/14/2014 11:35 CDT by TASHA ESTES Intake LMP Date : 11-23-2013 TASHA ESTES - 08/14/2014 11:41 CDT Chief Complaint : 37 5/7 week Temperature Oral : 37.4 DegC(Converted to: 99.3 DegF) (HI) Peripheral Pulse Rate : 78 /min Respiratory Rate : 18 /min Systolic Blood Pressure : 126 mmHg Diastolic Blood Pressure : 90 mmHg (HI) NIBP Mean : 102 mmHg Height : 160 cm(Converted to: 5 ft 3 inch(es), 63 inch(es)) Actual Weight : 99.9 kg(Converted to: 220 lb 4 oz) Dosing Weight Clinic : 99.9 kg Clinic BSA : 2.11 Body Mass Index : 39.02 kg/m2 TASHA ESTES - 08/14/2014 11:35 CDT General Info Information Given By : Patient Preferred Communication Mode : Verbal Languages : [place] Is Patient Female and 13-50 no hysterectomy : Yes Status : Confirmed positive Are you ? : No TASHA ESTES - 08/14/2014 11:35 CDT Subjective Pain Symptoms : No TASHA ESTES - 08/14/2014 11:35 CDT Dependent Habits Tobacco Use/Currently Using : No Exposure to Tobacco Smoke : Other: Never Smoking Status : Never smoker TASHA ESTES - 08/14/2014 11:35 CDT Tobacco Use Grid Other Tobacco Frequency : never TASHA ESTES - 08/14/2014 11:35 CDT [facility] Document Id: [id number] CDT!3 documented in this encounter Plan of Treatment Not on filedocumented as of this encounter Procedures Procedure Name Priority Date/Time Associated Comments Diagnosis DIPSTICK, U Routine 08/14/2014 12:20 Results for this PM CDT procedure are i n the results section. AUTOMATED DIFFERENTIAL, Routine 08/14/2014 12:10 Results for this B PM CDT procedure are i n the results section. CBC WITH DIFFERENTIAL, B Routine 08/14/2014 12:10 Results for this PM CDT procedure are i n the results section. ALANINE AMINOTRANSFERASE Routine 08/14/2014 12:10 Results for this (ALT), S/P PM CDT procedure are i n the results section. ASPARTATE Routine 08/14/2014 12:10 Results for this AMINOTRANSFERASE (AST), PM CDT proc edure are in S/P the results section. CREATININE WITH EGFR, Routine 08/14/2014 12:10 Re sults for this S/P PM CDT procedure are i n the results section. documented in this encounter Results (ABNORMAL) Dipstick, Urine (08/14/2014 12:20 PM CDT) [facility] gist Method Time Signature HXUr Color Yellow Colorless POWERCHART Clarity Clear Clear POWERCHART Glucose Negative Negative POWERCHART MGDL HXBILIRUBIN Negative Negative POWERCHART Ketones, QL(U) Negative Negative POWERCHART MGDL Specific >=1.030 (A) POWERCHART [place], POCT, U pH, POCT, Urine 6.0 POWERCHART Protein, Ur, Trace Negative POWERCHART Dip MGDL Urobilinogen 0.2 0.2 MGDL POWERCHART HXNITRITE Negative Negative POWERCHART HXBLOOD Negative Negative POWERCHART Leukocyte Trace (A) Negative POWERCHART Esterase Specimen (Source) Anatomical Collection Method Collection Time Re ceived Time Location / / Volume Laterality Urine, First 08/14/2014 12:20 Voided PM CDT Oscar Laughlin M.D. LAB URINE ORDERABLES Performing Organization Address City/[facility]/ZIP Code Phon e Number POWERCHART (ABNORMAL) Automated Differential (08/14/2014 12:10 PM CDT) [facility] CANDDi Method Time Signature Absolute 9.56 (H) 1.70 - POWERCHART Neutrophils 7.00 109L Lymphocytes 1.56 0.90 - POWERCHART 2.90 X109L Monocytes 1.02 (H) 0.30 - POWERCHART 0.90 X109L Eosinophils 0.11 0.05 - POWERCHART 0.50 X109L Absolute 0.03 0.00 - POWERCHART Basophil 0.30 X109L Specimen Anatomical Collection Method Collection Time Receive d Time (Source) Location / / Volume Laterality Blood 08/14/2014 12:10 08/14/2014 PM CDT 12:10 PM CDT Oscar Laughlin M.D. LAB BLOOD ADD-ON Performing Organization Address City/State/ZIP Code Phon e Number POWERCHART (ABNORMAL) CBC with Differential (08/14/2014 12:10 PM CDT) Analysis Performed At Patho logist Time Signature Leukocytes 12.3 (H) 3.4 - 10.5 POWERCHART X109L Erythrocytes 3.87 (L) 3.90 - POWERCHART 5.03 G0002Z Hemoglobin 10.5 (L) 12.0 - POWERCHART 15.5 GDL Hematocrit 33.0 (L) 34.9 - POWERCHART 44.5 MCV 85.3 82.0 - POWERCHART 98.0 FL HX RDW 13.8 11.9 - POWERCHART 15.5 Platelet Count 302 150 - 450 POWERCHART X109L Specimen (Source) Anatomical Collection Method Collection Time Re ceived Time Location / / Volume Laterality Blood 08/14/2014 12:10 PM CDT Oscar Laughlin M.D. LAB BLOOD ADD-ON Performing Organization Address City/State/ZIP Code Phon e Number POWERCHART AST (Aspartate Aminotransferase) (08/14/2014 12:10 PM CDT) [facility] gist Method Time Signature Aspartate 12 8 - 43 POWERCHART Aminotransferase UNITL (AST), S Specimen (Source) Anatomical Collection Method Collection Time Re ceived Time Location / / Volume Laterality Blood 08/14/2014 12:10 PM CDT Oscar Laughlin M.D. LAB BLOOD ADD-ON Performing Organization Address City/[facility] Code Phon e Number POWERCHART ALT (Alanine Aminotransferase) (08/14/2014 12:10 PM CDT) athologist Signature Alanine 8 7 - 45 POWERCHART Amniotransferas UNITL e, LD Specimen (Source) Anatomical Collection Method Collection Time Re ceived Time Location / / Volume Laterality Blood 08/14/2014 12:10 PM CDT Oscar Laughlin M.D. LAB BLOOD ADD-ON Performing Organization Address [facility] Code Phon e Number POWERCHART Creatinine with eGFR (08/14/2014 12:10 PM CDT) P athologist Signature Creatinine 0.6 0.6 - 1.1 POWERCHART MGDL HXeGFR (MDRD) >60 >=60 POWERCHART [id number] eGFR >60 >=60 POWERCHART Black/ [id number] Spanish Specimen (Source) Anatomical Collection Method Collection Time Re ceived Time Location / / Volume Laterality Blood 08/14/2014 12:10 PM CDT Oscar Laughlin M.D. LAB BLOOD ADD-ON Performing Organization Address City/[facility]/ZIP Code Phon e Number POWERCHART documented in this encounter Visit Diagnoses Not on filedocumented in this encounter
--- OUTSIDE RECORDS SUMMARY | 2021-12-23 08:43 | XMS_ITS | Encounter Summary ---
:1980 Author Organization [facility] Address [address] [place] [address] Care Team Providers Name Role Phone Unavailable Primary Care Provider Unavailable Encounter Details Date Type Department Care Team Description 01/04/2015 Hospital Encounter [facility]X [facility] Kolby Huizar P.AMickey -Karen. 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 documented as of this encounter Last Filed Vital Signs Vital Sign Reading Time Taken Comments Blood Pressure 130/88 01/04/2015 1:39 PM FIELD TECHNICIAN Pulse 78 01/04/2015 1:39 PM FIELD TECHNICIAN Temperature - - Respiratory Rate 20 01/04/2015 1:39 PM FIELD TECHNICIAN Oxygen Saturation - - Inhaled Oxygen Concentration - - Weight 83.7 kg (184 lb 8.4 oz) 01/04/2015 1:39 PM FIELD TECHNICIAN Height 160 cm (5' 2.99) 01/04/2015 1:39 PM FIELD TECHNICIAN Body Mass Index 32.7 01/04/2015 1:39 PM FIELD TECHNICIAN documented in this encounter Progress Kolby Hylton - 01/04/2015 11:42 AM CST [id number] CHIEF COMPLAINT/REASON FOR VISIT Sinus pain. HISTORY OF PRESENT ILLNESS Patient states that for over a week she has had some sinus congestion, headache and sore throat, cough, purulent nasal drainage. She denied any nausea or vomiting. The patient states that she is . She denied any other specific concerns or problems. Vitals, medications, and allergies per nursing notes. PHYSICAL EXAMINATION GENERAL: This is a pleasant 34-year-old female, in no appreciable distress. Alert, awake, responds appropriately to stimuli. HEENT: Moderate maxillary sinus to percussion bilaterally. Pain is a bit worse on the right side. Eyes and ears normal. There is moderate nasal mucosal edema. Some moderate purulent drainage. Mild posterior pharyngeal erythema. Slightly enlarged and tender anterior cervical nodes bilaterally. LUNGS: Clear. IMPRESSION/REPORT/PLAN Acute sinusitis. PLAN: Treat the patient today with Omnicef. Recommended heat to the sinuses, Tylenol, Motrin. I did discuss that patient was encouraged to pump and dump during the antibiotic treatment. All questions answered. Kolby Huizar P.A.-C/giselle Electronically Signed By: KOLBY HUIZAR V PAC On: 01/06/2015 03:17 PM Source: [facility] MHSDOLBEYNONRADSYS Document Id: [id number] D TECHNICIAN documented in this encounter Miscellaneous Notes Miscellaneous - Kolby Huizar - 01/04/2015 2:38 PM CST Ambulatory Patient Summary [facility] [address] [place], [place] [phone] Visit Information Name: SANIYA MCCOLLUM [facility] Number: [id number] Current Date: 01/04/2015 14:38:19 Physicians Attending Provider: UNKNOWN1, PROVIDER Primary Care Provider: ИРИНА GREGORY MD CHUN SANIYA BROWN has been given the following [...] Take Indications/Special Instructions/Comments/Notes for Patient Medication Changes/Routing cefdinir (Omnicef 300 mg oral capsule) 1 cap, Oral, two times a day x 10 day(s) New Routed to [facility] [address] [place], [place] [id number] *desogestrel-ethinyl estradiol (Desogen 0.15 mg-0.03 mg oral tablet) 1 Tablet(s), Oral, once a day This replaces Alesse. * You have let us know that you are not taking this medication as listed. Please talk with your primary care provider or the health care provider who prescribed the medication as soon as possible. Stop Taking the Following Medications: Medication list as of 01-04-15 14:38 Attention: If you have any medications at [...] emergency. Electronically Signed By: KOLBY HUIZAR Signed On:04-JAN-2015 14:36:25 Your Allergies & Intolerances Substance Reaction Symptoms [...] if you dont have one. Go to [email or web address] and click on Create Your Account. Then, follow the directions to complete the online form. Youll be asked for your [facility] number which you can find at the top of this document. Your Goals/Additional instructions: Source: [facility] POWERCHART Document Id: [id number] D TECHNICIAN Miscellaneous - Kolby Huizar - 01/04/2015 2:38 PM CST Ambulatory Discharge Medication List [facility] [address] [place] [phone] Visit Information Name: SANIYA MCCOLLUM [facility] Number: [id number] Visit Date: 01/04/2015 14:38:18 Attending Provider: UNKNOWN1, PROVIDER Primary Care Provider: ИРИНА GREGORY MD SANIYA MCCOLLUMH has been given the following list of medications: Your Medications It is important to take your medications as directed. Use a pill box or chart to help remind you to take your medications. Please let your doctor or nurse know if you have problems taking your medications. Medication/Strength How to Take Indications/Special Instructions/Comments/Notes for Patient Medication Changes/Routing cefdinir (Omnicef 300 mg oral capsule) 1 cap, Oral, two times a day x 10 day(s) New Routed to [address] [address] *desogestrel-ethinyl estradiol (Desogen 0.15 mg-0.03 mg oral tablet) 1 Tablet(s), Oral, once a day This replaces Alesse. * You have let us know that you are not taking this medication as listed. Please talk with your primary care provider or the health care provider who prescribed the medication as soon as possible. Stop Taking the Following Medications: Medication list as of 01-04-15 14:38 Attention: If you have any medications at [...] Signed By: KOLBY HUIZAR V PAC Signed On:04-JAN-2015 14:36:25 Additional Information: Source: [facility] POWERCHART Document Id: [id number] D TECHNICIAN Miscellaneous - Saniya Duarte L.PMickeyN. - 01/04/2015 1:39 PM CST Adult Supervisor Floor Assembly Intake/History Adult Supervisor Floor Assembly Intake/History Entered On: 01/04/2015 13:41 FIELD TECHNICIAN Performed On: 01/04/2015 13:39 FIELD TECHNICIAN by SANIYA DUARTE LPN Intake Chief Complaint : Sinus pain, teeth feel sore, headache, congestion, drainage, and cough. Onset of Symptoms : Symptoms began a week ago Temperature Oral : 36.9 DegC(Converted to: 98.4 DegF) Peripheral Pulse Rate : 78 /min Respiratory Rate : 20 /min Systolic Blood Pressure : 130 mmHg Diastolic Blood Pressure : 88 mmHg NIBP Mean : 102 mmHg BP Location : Right upper extremity Blood Pressure Cuff Size : Large Height : 160 cm(Converted to: 5 ft 3 inch(es), 63 inch(es)) Actual Weight : 83.7 kg(Converted to: 184 lb 8 oz) Dosing Weight Clinic : 83.7 kg Clinic BSA : 1.93 Body Mass Index : 32.7 kg/m2 SANIYA DUARTE LPN - 01/04/2015 13:39 FIELD TECHNICIAN General Info Information Given By : Patient Preferred Communication Mode : Verbal Languages : Citizen Of [place] Is Patient Female and 13-50 no hysterectomy : Yes Status : Patient denies Are you ? : Yes SANIYA DUARTE LPN - 01/04/2015 13:39 FIELD TECHNICIAN Subjective Pain Symptoms : No SANIYA DUARTE LPN - 01/04/2015 13:39 FIELD TECHNICIAN Dependent Habits Tobacco Use/Currently Using : No Exposure to Tobacco Smoke : Other: Never Smoking Status : Never smoker SANIYA DUARTE LPN - 01/04/2015 13:39 FIELD TECHNICIAN Tobacco Use Grid Other Tobacco Frequency : never SANIYA DUARTE LPN - 01/04/2015 13:39 FIELD TECHNICIAN Source: [facility] POWERCHART Document Id: [id number] FIELD TECHNICIAN!33 D TECHNICIAN documented in this encounter Plan of Treatment Not on filedocumented as of this encounter Visit Diagnoses Not on filedocumented in this encounter
--- OUTSIDE RECORDS SUMMARY | 2021-12-23 08:43 | XMS_ITS | Encounter Summary ---
:1980 Author Organization [facility] Address [address] [place] [address] Care Team Providers Name Role Phone Unavailable Primary Care Provider Unavailable Encounter Details Date Type Department Care Team Description 08/06/2014 Hospital Encounter HX [facility] Zahida Laughlin M.D. [address] [place] [address] (Wo rk) Social History Tobacco [...] or relatives? How often do you attend spiritism or More than 4 times per year 07/29/2020 mu-ism services? 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 - 08/06/2014 11:28 AM CDT [id number] CHIEF COMPLAINT/REASON FOR VISIT OB check. HISTORY OF PRESENT ILLNESS Saniya is a 34-year old female 2, para 1 at 36-4/7 weeks estimated gestational age presentingfor care. She has been doing well. The baby has been active. Patient denies any pain, cramping, bleeding, or loss of fluid. Patient states that in the last couple weeks she has noticed swelling in her hands and feet. Patient states that she would like Dr. Laughlin to check out her throat and ears. She states that they have been sore for about the last week. Saniya has no other concerns at this time. For the subjective and objective findings, please see the ACOG flow sheet/EMR summary filled out in full and available in the chart for review. VITAL SIGNS HEIGHT: 160 cm WEIGHT: 98.2 kg 38.36 kg/m2 TEMP: 36.9 DegC PULSE: 86 /min RESP RATE: 18 /min SYSTOLIC: 102 mmHg DIASTOLIC: 78 mmHg PHYSICAL EXAMINATION GENERAL: Well appearing and in no acute distress. ABDOMEN: heart tones were picked up at 150s bpm. Uterus measures 38-39 cm. PELVIS: she starts these at 36 weeks (you can delete this if the patient is under 36 weeks) IMPRESSION/REPORT/PLAN 1. A 33-year-old white female, 2, para 1, at 36-4/7 weeks estimated gestational age,doing well. LMP 11/23/2013. [...] their behalf by Linda Cortez, a trained biomedical field service engineer. The creation of this record is based on the scribe's personal observations and the provider's statements to them. This document has been checked and approved by the attending provider. Ирина Laughlin M.D./josette cc: Labor and Delivery [place] [id number] Electronically Signed By: ИРИНА LAUGHLIN MD On: 12/06/2014 01:51 AM Source: [facility] MHSDOLBEYNONRADSYS Document Id: [id number] documented in this encounter Miscellaneous Notes Miscellaneous - Ирина Laughlin M.D. - 08/06/2014 6:19 PM CDT From: ИРИНА LAUGHLIN MD To: SANIYA MCCOLLUM Sent: 08/06/2014 18:19:42 CDT Saniya, Your hemoglobin is still low. Normal is 12 or higher and yours is 10.3. I'd recommend taking over the counter iron to get that up. Take ferrous sulfate 325mg twice a day. This will help your energy andhelp keep you feeling better for after the delivery. Ирина Laughlin MD Results: Date Result Name Ind Value Ref Range 08/06/2014 12:31 Hgb (L) 10.3 g/dL (12.0 - 15.5) 08/06/2014 12:31 Hct (L) 32.7 % (34.9 - 44.5) 08/06/2014 12:31 WBC (H) 12.1 x10(9)/L (3.4 - 10.5) 08/06/2014 12:31 RBC (L) 3.82 x10(12)/L (3.90 - 5.03) 08/06/2014 12:31 MCV 85.6 fL (82.0 - 98.0) 08/06/2014 12:31 RDW 13.8 % (11.9 - 15.5) 08/06/2014 12:31 Platelet 301 x10(9)/L (150 - 450) 08/06/2014 12:31 Neutro Absolute (H) 9.17 10(9)/L (1.70 - 7.00) 08/06/2014 12:31 Lymph Absolute 1.53 x10(9)/L (0.90 - 2.90) 08/06/2014 12:31 [place] Absolute (H) 1.20 x10(9)/L (0.30 - 0.90) 08/06/2014 12:31 Eos Absolute 0.11 x10(9)/L (0.05 - 0.50) 08/06/2014 12:31 Baso Absolute 0.05 x10(9)/L (0.00 - 0.30) Source: [facility] POWERCHART Document Id: [id number] Electronically signed by Conversion, [facility] Professor Of Mechanical Engineering [id number] at 07/24/2016 2:10 PM CDT Miscellaneous - Cathi Estes L.P.N. - 08/06/2014 11:34 AM CDT Adult Outside Sales Associate Intake/History Adult Outside Sales Associate Intake/History Entered On: 08/06/2014 11:37 CDT Performed On: 08/06/2014 11:34 CDT by CAHTI ESTES Intake LMP Date : 11-23-2013 CATHI ESTES - 08/06/2014 11:38 CDT Chief Complaint : 36 4/7 week OB check Temperature Oral : 36.9 DegC(Converted to: 98.4 DegF) Peripheral Pulse Rate : 86 /min Respiratory Rate : 18 /min Systolic Blood Pressure : 102 mmHg Diastolic Blood Pressure : 78 mmHg NIBP Mean : 86 mmHg BP Location : Right upper extremity Blood Pressure Cuff Size : Large Height : 160 cm(Converted to: 5 ft 3 inch(es), 63 inch(es)) Actual Weight : 98.2 kg(Converted to: 216 lb 8 oz) Dosing Weight Clinic : 98.2 kg Clinic BSA : 2.09 Body Mass Index : 38.36 kg/m2 CATHI ESTES - 08/06/2014 11:34 CDT General Info Information Given By : Patient Preferred Communication Mode : Verbal Languages : Bengali Is Patient Female and 13-50 no hysterectomy : Yes Status : Confirmed positive Are you ? : No CATHI ESTES - 08/06/2014 11:34 CDT Subjective Pain Symptoms : No CATHI ESTES - 08/06/2014 11:34 CDT Dependent Habits Tobacco Use/Currently Using : No Exposure to Tobacco Smoke : Other: Never Smoking Status : Never smoker CATHI ESTES - 08/06/2014 11:34 CDT Tobacco Use Grid Other Tobacco Frequency : never CATHI ESTES - 08/06/2014 11:34 CDT Source: [facility] POWERCHART Document Id: [id number] CDT!3 documented in this encounter Plan of Treatment Not on filedocumented as of this encounter Procedures Procedure Name Priority Date/Time Associated Diagnosis Comme nts AUTOMATED Routine 08/06/2014 12:31 PM Results for this DIFFERENTIAL, B CDT procedure ar e in the results section. CBC WITH Routine 08/06/2014 12:31 PM Results for this DIFFERENTIAL, B CDT procedure ar e in the results section. documented in this encounter Results (ABNORMAL) Automated Differential (08/06/2014 12:31 PM CDT) Patholo gist Method Time Signature Absolute 9.17 (H) 1.70 - POWERCHART Neutrophils 7.00 109L Lymphocytes 1.53 0.90 - POWERCHART 2.90 X109L Monocytes 1.20 (H) 0.30 - POWERCHART 0.90 X109L Eosinophils 0.11 0.05 - POWERCHART 0.50 X109L Absolute 0.05 0.00 - POWERCHART Basophil 0.30 X109L Specimen Anatomical Collection Method Collection Time Receive d Time (Source) Location / / Volume Laterality Blood 08/06/2014 12:31 08/06/2014 PM CDT 12:31 PM CDT Ирина Laughlin M.D. LAB BLOOD ADD-ON Performing Organization Address City/State/ZIP Code Phon e Number POWERCHART (ABNORMAL) CBC with Differential (08/06/2014 12:31 PM CDT) Analysis Performed At Patho logist Time Signature Leukocytes 12.1 (H) 3.4 - 10.5 POWERCHART X109L Erythrocytes 3.82 (L) 3.90 - POWERCHART 5.03 [id number] Hemoglobin 10.3 (L) 12.0 - POWERCHART 15.5 GDL Hematocrit 32.7 (L) 34.9 - POWERCHART 44.5 MCV 85.6 82.0 - POWERCHART 98.0 FL HX RDW 13.8 11.9 - POWERCHART 15.5 Platelet Count 301 150 - 450 POWERCHART X109L Specimen (Source) Anatomical Collection Method Collection Time Re ceived Time Location / / Volume Laterality Blood 08/06/2014 12:31 PM CDT Ирина Laughlin M.D. LAB BLOOD ADD-ON Performing Organization Address City/State/ZIP Code Phon e Number POWERCHART documented in this encounter Visit Diagnoses Not on filedocumented in this encounter
--- OUTSIDE RECORDS SUMMARY | 2021-12-23 08:43 | XMS_ITS | Encounter Summary ---
:1980 Author Organization [facility] Address [address] [place] [address] Care Team Providers Name Role Phone Unavailable Primary Care Provider Unavailable Encounter Details Date Type Department Care Team Description 05/05/2016 Hospital Encounter HX [facility] Kolby Pop P.AMickey Bentley. [address] [place] [address] (Wo rk) Social History Tobacco [...] or relatives? How often do you attend mosque or More than 4 times per year 07/29/2020 faith services? Do you belong to any clubs or Yes 07/29/2020 organizations such as mosque groups, unions, fraternal or athletic groups, or [...] at Date Recorded Female 04/27/2017 8:11 AM SOCIAL SERVICES SPECIALIST documented as of this encounter Last Filed Vital Signs Vital Sign Reading Time Taken Comments Blood Pressure 129/90 05/05/2016 11:07 AM SOCIAL SERVICES SPECIALIST Pulse 72 05/05/2016 11:07 AM SOCIAL SERVICES SPECIALIST Temperature - - Respiratory Rate - - Oxygen Saturation - - Inhaled Oxygen Concentration - - Weight - - Height 161 cm (5' 3.39) 05/05/2016 11:07 AM SOCIAL SERVICES SPECIALIST Body Mass Index - - documented in this encounter Medications at Time of Discharge Medication Sig Dispensed Refills Start Date End Date lisinopril Take 1 tablet by 0 01/06/2016 05/02/19 18 (for_PRINIVIL,ZESTRIL) 10 mouth daily. mg tablet documented as of this encounter Nursing Notes Lydia Worthington, CMickeyMMickeyAMickey - 05/05/2016 10:53 AM CST Nurse Only Documentation Nurse Only Documentation Entered On: 05/05/2016 10:54 SOCIAL SERVICES SPECIALIST Performed On: 05/05/2016 10:53 SOCIAL SERVICES SPECIALIST by LYDIA WORTHINGTON CMA Nurse Only Documentation Nurse Only Visit Documentation : [facility] LYDIA WORTHINGTON [facility] - 05/05/2016 10:53 SOCIAL SERVICES SPECIALIST Vitals/Ht/Wt Systolic Blood Pressure : 132 mmHg Diastolic Blood Pressure : 90 mmHg (HI) NIBP Mean : 104 mmHg BP Location : Right upper extremity Blood Pressure Cuff Size : Large Height : 161 cm(Converted to: 5 ft 3 inch(es), 63 inch(es)) LYDIA WORTHINGTON CMA - 05/05/2016 10:53 SOCIAL SERVICES SPECIALIST [facility] Document Id: [id number] SOCIAL SERVICES SPECIALIST!10 AL SERVICES SPECIALIST documented in this encounter Miscellaneous Notes Miscellaneous - Lydia Worthington C.Elvin - 05/05/2016 11:16 AM CST *General Message/BP check Document Contains Addenda Addendum by OSMANY CORTES LPN on May 05, 2016 13:01:34 SOCIAL SERVICES SPECIALIST From: OSMANY CORTES LPN ([facility] 1 Nurse) To: ИРИНА GREGORY MD; Sent: 05/05/2016 13:01:34 SOCIAL SERVICES SPECIALIST Subject: FW: *General Message/BP check From: LYDIA WORTHINGTON CMA ([facility]/Travel Nurse) To: [place] [id number] Nurse; Sent: 05/05/2016 11:16:17 SOCIAL SERVICES SPECIALIST Subject: *General Message/BP check S Patient presents to [facility] for BP check B Patient states she has not started her BP medication, she really does not want to take a pill every day. A 1st BP: 132/90 2nd BP after resting 7 min: 129/90 P: 72 R Patient informed this information would be relayed to his/her PCP. Please contact the patient directly if you have any further comments, questions, or concerns. Thank You, Lydia/[facility] Document Id: [id number] Miscellaneous - Lydia Worthington C.M.A. - 05/05/2016 11:07 AM CST Ambulatory Vitals Height Weight Ambulatory Vitals Height Weight Entered On: 05/05/2016 11:08 SOCIAL SERVICES SPECIALIST Performed On: 05/05/2016 11:07 SOCIAL SERVICES SPECIALIST by LYDIA WORTHINGTON CMA Vitals/Ht/Wt Peripheral Pulse Rate : 72 /min Systolic Blood Pressure : 129 mmHg Diastolic Blood Pressure : 90 mmHg (HI) NIBP Mean : 103 mmHg BP Location : Right upper extremity Blood Pressure Cuff Size : Large Height : 161 cm(Converted to: 5 ft 3 inch(es), 63 inch(es)) LYDIA WORTHINGTON CMA - 05/05/2016 11:07 SOCIAL SERVICES SPECIALIST [facility] Document Id: [id number] SOCIAL SERVICES SPECIALIST!9 AL SERVICES SPECIALIST documented in this encounter Plan of Treatment Not on filedocumented as of this encounter Visit Diagnoses Not on filedocumented in this encounter
--- OUTSIDE RECORDS SUMMARY | 2021-12-23 08:43 | XMS_ITS | Encounter Summary ---
:1980 Author Organization [facility] Address [address] [place] [address] Care Team Providers Name Role Phone Unavailable Primary Care Provider Unavailable Encounter Details Date Type Department Care Team Description 01/01/2015 Hospital Encounter HX [facility] Zahida Laughlin M.D. [address] [place] [address] (Wo rk) Social History Tobacco [...] or relatives? How often do you attend mormon or More than 4 times per year 07/29/2020 quaker services? Do you belong to any clubs or Yes 07/29/2020 organizations such as mormon groups, unions, fraternal or athletic groups, or [...] at Date Recorded Female 04/27/2017 8:11 AM NUTRIENT MANAGEMENT SPECIALIST documented as of this encounter Last Filed Vital Signs Vital Sign Reading Time Taken Comments Blood Pressure - - Pulse - - Temperature - - Respiratory Rate - - Oxygen Saturation - - Inhaled Oxygen Concentration - - Weight - - Height 160 cm (5' 2.99) 01/01/2015 11:18 AM NUTRIENT MANAGEMENT SPECIALIST Body Mass Index - - documented in this encounter Nursing Notes Perry King L.P.N. - 01/01/2015 12:00 PM CST Nurse Only Documentation Nurse Only Documentation Entered On: 01/01/2015 12:00 NUTRIENT MANAGEMENT SPECIALIST Performed On: 01/01/2015 12:00 NUTRIENT MANAGEMENT SPECIALIST by PERRY KING LPN Nurse Only Documentation Nurse Only Visit Documentation : needed flu shot PERRY KING LPN - 01/01/2015 12:00 NUTRIENT MANAGEMENT SPECIALIST Source: [facility] POWERCHART Document Id: [id number] NUTRIENT MANAGEMENT SPECIALIST!3 IENT MANAGEMENT SPECIALIST documented in this encounter Plan of Treatment Not on filedocumented as of this encounter Visit Diagnoses Not on filedocumented in this encounter
--- OUTSIDE RECORDS SUMMARY | 2021-12-23 08:43 | XMS_ITS | Encounter Summary ---
:1980 Author Organization [facility] Address [address] [place] [address] Care Team Providers Name Role Phone Unavailable Primary Care Provider Unavailable Encounter Details Date Type Department Care Team Description 10/12/2014 Hospital Encounter HX [facility] Zahida Laughlin M.D. [address] [place] [address] (Wo rk) Social History Tobacco [...] or relatives? How often do you attend evangelical or More than 4 times per year 07/29/2020 spiritism services? Do you belong to any clubs or Yes 07/29/2020 organizations such as evangelical groups, unions, fraternal or athletic groups, or [...] place to sleep or slept in a long-term (including now)? 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 - 10/12/2014 3:44 PM CDT [id number] CHIEF COMPLAINT/REASON FOR VISIT Post- HISTORY OF PRESENT ILLNESS Saniya is a 34 year old female who presents to the clinic today for post-. Patient states that she is feeling well, that she does have some days where she feels a little down. She denies feeling like she needs any medication at this time. Saniya states that everything at home is going well and baby is also doing fine. She has no concerns at this time. Patient states that she would like to get on control. She had an IUD in the past and she had no problem with that in the past. REVIEW OF SYSTEMS Was reviewed and negative except as mentioned above in the HPI. MEDICATIONS Reviewed and updated in the EMR dated 10/12/14. ALLERGIES Reviewed and updated in the EMR dated 10/12/14. PAST MEDICAL/SURGICAL HISTORY History of Abnormal pap smear. FAMILY/SOCIAL HISTORY Non-contributory for todays visit. VITAL SIGNS HEIGHT: 160 cm WEIGHT: 87.8 kg BMI: 34.3 kg/m2 TEMP: 36.8 DegC PULSE: 66 /min RESP RATE: 18 /min SYSTOLIC: 110 mmHg DIASTOLIC: 74 mmHg PHYSICAL EXAMINATION GENERAL: Well appearing and in no acute distress. HEART: Regular rate and rhythm with normal S1 and S2. No extra heart sounds noted. No murmurs, rubs,or gallops auscultated. No heaves or thrills palpated. LUNGS: Clear to auscultation bilaterally. No wheezes, rubs, or rales noted. Normal effort with no retractions or use of accessory muscles. Able to speak in full sentences. ABDOMEN: Soft, nontender, nondistended with normal active bowel sounds. No hepatosplenomegaly or masses identified. No bruits auscultated. PELVIS: Speculum exam shows normal appearing vaginal mucosa and cervix with no abnormal discharge. Pap smear (cervical smear and ECC) was obtained and results are pending. Bimanual exam revealed no cervical motion tenderness. Uterus was normal size and midline with no masses noted. Adnexa were nontender and nonpalpable bilaterally. GENITALIA: Normal appearing external genitalia, urethra, and glands. No discharge or lesions. EXTREMITIES: No clubbing, cyanosis, or edema. SPINE: No scoliosis noted. No CVA tenderness. No muscle spasm or bony tenderness noted. MENTAL: Patient is alert and oriented x3. Does not appear depressed or anxious. Mood is good with appropriate affect. Speech and thought content and pattern are within normal limits. Denies suicidal orhomicidal ideations. Does not appear SKIN: Normal color. No lesions or rash. Moist mucous membranes. Good skin turgor. Brisk capillary refill. IMPRESSION/REPORT/PLAN 1. Care. Essentially negative post- scale. Patient states that she is doing well, she does have some days were she feels a bit down but she denies thinking she needs any medication forthis. I recommended daily vitamin D supplementation of 2000 intl units in the summer and 5000 intl units from December to April. Patient is agreeable. Pap smear was performed today, with results pending. 2. Contraceptive management. Patient had the Mirena IUD in the past and had no problems with the IUD, she would like to have the IUD placed again. However, we do not recommend having an IUD placed until 3 months after the due to the uterus healing. We discussed the control pill or the Depo shot at this time. Patient would like to use the pill short term until she can have the IUD placed. I ordered Alesse 1 tab daily. I also ordered a follow up in 2 months for Mirena IUD placement. This document serves as a record of services personally performed by Dr. Oscar Laughlin. It was created on their behalf by Linda Cortez, a trained medical office scheduler. The creation of this record is based on the scribe's personal observations and the provider's statements to them. This document has been checked and approved by the attending provider. Oscar Laughlin M.D./josette Electronically Signed By: OSCAR LAUGHLIN MD On: 12/06/2014 01:50 AM Source: [facility] MHSDOLBEYNONRADSYS Document Id: [id number] documented in this encounter Miscellaneous Notes Miscellaneous - Oscar Laughlin M.D. - 10/23/2014 3:27 PM CDT From: OSCAR LAUGHLIN MD To: SHMUEL MCCOLLUMZOE BROWN Sent: 10/23/2014 15:27:34 CDT Saniya, Your pap showed a mild abnormality (ASCUS) and positive High Risk HPV, so I would recommend you havea colposcopy with [facility]OO[facility]. You can call to schedule this. Oscar Laughlin MD Source: [facility] POWERCHART Document Id: [id number] Electronically signed by Obed [facility] Emergency Medical Services Coordinator [id number] at 07/24/2016 2:05 AM CDT Miscellaneous - Oscar Laughlin M.D. - 10/12/2014 4:23 PM CDT Ambulatory Patient Summary [facility] [address] [place] [id number] Visit Information Name: SANIYA MCCOLLUM [facility] Number: [id number] Current Date: 10/12/2014 16:23:55 Physicians Attending Provider: OSCAR LAUGHLIN MD Primary Care Provider: OSCAR LAUGHLIN MD CHUN SANIYA BROWN has been given [...] tablet) 1 Tablet(s), Oral, once a day New Routed to [address] [address] Stop Taking the Following Medications: ondansetron (Zofran ODT 4 mg oral tablet, disintegrating) Medication list as of 10-12-14 16:23 Attention: If you have any medications at [...] Electronically Signed By: OSCAR LAUGHLIN MD Signed On:12-OCT-2014 16:23:53 Your Allergies & Intolerances Substance Reaction Symptoms [...] if you dont have one. Go to [email or web address] and click on Create Your Account. Then, follow the directions to complete the online form. Youll be asked for your [facility] number which you can find at the top of this document. Your Goals/Additional instructions: Source: [facility] POWERCHART Document Id: [id number] Osmel - Oscar Laughlin M.D. - 10/12/2014 4:23 PM CDT Ambulatory Discharge Medication List [facility] [address] [place], [place] [phone] Visit Information Name: SANIYA MCCOLLUM [facility] Number: [id number] Visit Date: 10/12/2014 16:23:54 Attending Provider: OSCAR LAUGHLIN MD Primary Care [...] tablet) 1 Tablet(s), Oral, once a day [facility] [address] [place] [address] Stop Taking the Following Medications: ondansetron (Zofran ODT 4 mg oral tablet, disintegrating) Medication list as of 10-12-14 16:23 Attention: If you have any medications at [...] Electronically Signed By: OSCAR LAUGHLIN MD Signed On:12-OCT-2014 16:23:53 Additional Information: Source: [facility] POWERCHART Document Id: [id number] Osmel - Tasha Estes L.P.N. - 10/12/2014 3:51 PM CDT Adult Golf Ball Molder Intake/History Adult Golf Ball Molder Intake/History Entered On: 10/12/2014 15:54 CDT Performed On: 10/12/2014 15:51 CDT by TASHA ESTES LPN Intake Chief Complaint : pp Temperature Oral : 36.8 DegC(Converted to: 98.2 DegF) Peripheral Pulse Rate : 66 /min Respiratory Rate : 18 /min Systolic Blood Pressure : 110 mmHg Diastolic Blood Pressure : 74 mmHg NIBP Mean : 86 mmHg Height : 160 cm(Converted to: 5 ft 3 inch(es), 63 inch(es)) Actual Weight : 87.8 kg(Converted to: 193 lb 9 oz) Dosing Weight Clinic : 87.8 kg Clinic BSA : 1.98 Body Mass Index : 34.3 kg/m2 TASHA ESTES LPN - 10/12/2014 15:51 CDT General Info Information Given By : Patient Preferred Communication Mode : Verbal Languages : Norwegian Is Patient Female and 13-50 no hysterectomy : Yes Status : Patient denies Are you ? : No TASHA ESTES LPN - 10/12/2014 15:51 CDT Subjective Pain Symptoms : No TASHA ESTES LPN - 10/12/2014 15:51 CDT Dependent Habits Tobacco Use/Currently Using : No Exposure to Tobacco Smoke : Other: Never Smoking Status : Never smoker TASHA ESTES LPN - 10/12/2014 15:51 CDT Tobacco Use Grid Other Tobacco Frequency : never TASHA ESTES LPN - 10/12/2014 15:51 CDT Source: [facility] POWERCHART Document Id: [id number] CDT!30 Miscellaneous - Tasha Estes L.P.N. - 10/12/2014 3:49 PM CDT Adult Golf Ball Molder Intake/History Adult Golf Ball Molder Intake/History Entered On: 10/12/2014 15:50 CDT Performed On: 10/12/2014 15:49 CDT by TASHA ESTES LPN Intake Height : 160 cm(Converted to: 5 ft 3 inch(es), 63 inch(es)) TASHA ESTES DELMA - 10/12/2014 15:49 CDT General Info Information Given By : Patient Preferred Communication Mode : Verbal Languages : Norwegian Is Patient Female and 13-50 no hysterectomy : Yes Status : Patient denies Are you ? : No JENNIFERELIZABETHTASHA Chicas DELMA - 10/12/2014 15:49 CDT Subjective Pain Symptoms : No LANIKIRSTENAMANDA NGUYỄN - 10/12/2014 15:49 CDT Dependent Habits Tobacco Use/Currently Using : No Exposure to Tobacco Smoke : Other: Never Smoking Status : Never smoker TASHA ESTES DELMA - 10/12/2014 15:49 CDT Tobacco Use Grid Other Tobacco Frequency : never LANIKIRSTENAMANDA NGUYỄN - 10/12/2014 15:49 CDT Source: [facility] Neul Document Id: [id number] CDT!19 documented in this encounter Plan of Treatment Not on filedocumented as of this encounter Procedures Procedure Name Priority Date/Time Associated Diagnosis Comme nts PATHOLOGY SCOURING TRAIN OPERATOR CHIEF Routine 10/12/2014 12:00 AM Results for this CYTOLOGY CDT procedure are i n the results section. documented in this encounter Results Pathology SCOURING TRAIN OPERATOR CHIEF Cytology (10/12/2014 12:00 AM CDT) Specimen (Source) Anatomical Location Collection Method / Collectio n Time Received Time / Laterality Volume 10/12/2014 Narrative [facility] - 10/23/2014 9:54 AM CDT [facility] [place] [address] [facility] [address] [place], [place] ??[address] Patient Name: SANIYA MCCOLLUM Patient ID #: [id number] Collected: 10/12/2014 Address: [facility]/State/Zip: [address] [place] [id number] Received: Reported: 10/13/2014 10/22/2014 Soc. Sec. #: ?/Age/Sex 1980 (Age: 34) ??F Physician(s): YASMINE LAUGHLIN MD Copy To: ? [facility] ?? [id number] [address] [facility], ??[place] ??[address] CYTOPATHOLOGY SCOURING TRAIN OPERATOR CHIEF REPORT FINAL CYTOLOGIC DIAGNOSIS Pap Smear - ThinPrep: EPITHELIAL CELL ABNORMALITY ATYPICAL SQUAMOUS CELLS OF UNDETERMINED SIGNIFICANCE ENDOCERVICAL CELLS/COMPONENT PRESENT. CONSIDER REPEAT CYTOLOGY, HPV TESTING, A ND/OR COLPOSCOPY CLINICALLY INDICATED. SATISFACTORY SPECIMEN FOR EVALUATION. ??This specimen required a physician interpretation under CLIA 1987 ?? Electronically Signed Out By [facility]/10/22/2014 MALRYN DIA M.D. AM Joe CENTENO(ASCP) The Pap test is a screening procedure an d, as such, is subject to both false positive and false negative results as evidenced by published data. ??It is not a diagnostic test and results should be inter preted in the context of the patient's h istory and other clinical findings. ??Obtaining per iodic Pap tests may help to minimize the consequences of any false negatives that may occur. Procedures/Addenda: HUMAN PAPILLOMA VIRUS TESTING (HPV) ? Date Ordered: ? 10/23/2014 ? Status: ??Signed Out Date Complete: ? 10/23/2014 ? By: ?? Price CT(ASCP) Date Reported: ? 10/23/2014 INTERPRETATION: Test: Aptima High Risk HPV Result: POSITIVE FOR HIGH RISK HPV Specimen Description: ThinPrep? ?? Pap Test PreservCyt Solution HPV by Emergency Medical Services Coordinator-Mediated Amplificat ion (TMA) for E6/E7 viral messenger RNA (mRNA) is an in-vitro diagnostic test for the detection of 14 high-risk Human Papillomavirus (HPV) types (16, 18, 31, 33, 35, 39, 45, 51, 52, 56, 58, 59, 66, and 68) in cervical specimen. Intended for co-testi ng or reflex testing of ASC-US Pap smears. Interpretation for patients with ASC-US cytology: Low but increased likelihood that underlying high-grade POLY will be detected with colposcopy. Medical literature suggests that progression to high grade disease is possible. Interpretation for patients with NILM cy tology who are over 30 years old: Low likelihood of underlying high-grade POLY; HPV infection may be transient, resolving or persistent. SPECIMEN(S) RECEIVED: Pap Smear - ThinPrep CLINICAL HISTORY: Date of Last PAP: 02/26/2013 Date of Last Menstrual Period: POST- Menstrual History: Post- Hormonal History: No hormonal therapy Other Clinical Conditions: HPV TYPING REQUESTED Oscar Laughlin M.D. LAB PAP COPATH ORDERABLES Performing Organization Address City/State/ZIP Code Phon e Number [facility] documented in this encounter Visit Diagnoses Not on filedocumented in this encounter
--- OUTSIDE RECORDS SUMMARY | 2021-12-23 08:43 | XMS_ITS | Encounter Summary ---
:1980 Author Organization [facility] Address [address] [place] [address] Care Team Providers Name Role Phone Unavailable Primary Care Provider Unavailable Encounter Details Date Type Department Care Team Description 10/12/2014 Hospital Encounter HX NO MAPPING Jose Laughlin M.D. [address] [place], [place] [phone] (Wo rk) Social History [...] More than 4 times per year 07/29/2020 mandaen services? 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 documented as of this encounter Miscellaneous Notes Miscellaneous - Conversion, Historical Provider Ser - 10/12/2014 11:59 PM CDT Coding Summary-Paper Based CODING DATE: 10/26/2014 FINAL [facility] STATUS: * Discharged to Home or Self Care PAYOR: Commercial Insurance ADMIT DX: REASON FOR VISIT DX: FINAL DX: PRINCIPAL: V76.2 Screening for Malignant Neoplasms of the Cervix SECONDARY: 795.01 Papanicolaou Smear of Cervix with Atypical Squamous Cells of Undetermined Significance (ASC-US) 795.05 Cervical High Risk Human Papillomavirus (HPV) DNA Test Positive PROCEDURES DOCTOR NAME DATE NOTE: The code number assigned matches the documented diagnosis and / or procedure in the patient's chart. However, the narrative phrase printed from the coding software may appear abbreviated, or result in slightly different terminology. Coded By: DESTINEE GARZA Date Saved: 10/26/2014 12:45 pm [facility] POWERCHART Document Id: [id number] documented in this encounter Plan of Treatment Not on filedocumented as of this encounter Visit Diagnoses Not on filedocumented in this encounter
--- OUTSIDE RECORDS SUMMARY | 2021-12-23 08:43 | XMS_ITS | Encounter Summary ---
:1980 Author Organization [facility] Address [address] [place] [address] Care Team Providers Name Role Phone Unavailable Primary Care Provider Unavailable Encounter Details Date Type Department Care Team Description 08/19/2014 Hospital Encounter HX [facility] Zahida Laughlin M.D. [address] [place], [place] [phone] (Wo rk) Social History [...] or relatives? How often do you attend nondenominational or More than 4 times per year 07/29/2020 catholic services? 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 PROTEIN, TOTAL, 24 Routine 08/19/2014 2:50 PM Res ults for this HR, U CDT procedure are i n the results section. documented in this encounter Results Urine Volume (08/19/2014 2:50 PM CDT) P athologist Signature Urine Volume 650 ML POWERCHART Collection 24 HR POWERCHART Duration Specimen Anatomical Collection Method Collection Time Receive d Time (Source) Location / / Volume Laterality Urine 08/19/2014 2:50 PM 5 2:50 CDT PM CDT Oscar Laughlin M.D. LAB URINE ORDERABLES Performing Organization Address City/State/ZIP Code Phon e Number POWERCHART Protein, Total, 24 Hour, Urine (08/19/2014 2:50 PM CDT) P athologist Signature Predicted 24 Hr 78 <=102 POWERCHART Protein MG24HR Protein, U 12.0 POWERCHART Specimen (Source) Anatomical Collection Method Collection Time Re ceived Time Location / / Volume Laterality Urine 08/19/2014 2:50 PM CDT Oscar Laughlin M.D. LAB URINE ORDERABLES Performing Organization Address City/State/ZIP Code Phon e Number POWERCHART documented in this encounter Visit Diagnoses Not on filedocumented in this encounter
--- OUTSIDE RECORDS SUMMARY | 2021-12-23 08:43 | XMS_ITS | Encounter Summary ---
:1980 Author Organization [facility] Address [address] [place] [address] Care Team Providers Name Role Phone Unavailable Primary Care Provider Unavailable Encounter Details Date Type Department Care Team Description 08/14/2014 Hospital Encounter HX [facility] Jonas Cameron M.D. [address] [place], [place] [phone] (Wo rk) Social History [...] or relatives? How often do you attend rastafarian or More than 4 times per year 07/29/2020 christian services? 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 documented in this encounter Results US Biophysical Profile w/o Nonstress (08/14/2014 1:39 PM CDT) Anatomical Region Laterality Modality Ultrasound Specimen (Source) Anatomical Collection Method Collection Time Re ceived Time Location / / Volume Laterality 08/14/2014 1:39 PM CDT Addenda Addendum by Provider, Zeb Castañeda 08/14/2014 1:39 PM CDT RAD^^^OW US Biophysical Profile w o Nonstress 08/14/2014 13:39:31 Impressions 08/14/2014 2:13 PM CDT 1. Biophysical profile score of 8 out of 8, which is interpreted as reassuring. 2. Estimated weight of 6 pounds 9 ounces is appropriate for gestational age. [facility] [place] M[employer]ER AND BLENDER Dept. [phone] Narrative 08/14/2014 2:13 PM CDT EXAM: US Biophysical Profile w/o Nonstre ss INDICATION: GDM, BPP, Growth COMPARISON: July 31, 2014 REFERRING PHYSICIAN: Dr. Laughlin RESTAURANT SERVER: Marlene. : 2 ?? PARA: 1 LMP: November 23, 2013 ? [place] by LMP : August 30, 2014 GESTATIONAL AGE: 37 weeks and 5 days. CERVICAL LENGTH: Not well visualized on today's exam ADNEXA: ??Normal PLACENTAL LOCATION: Anterior POSITION: Vertex STOMACH: Normal BLADDER: Normal HEART: Normal S/D RATIO: N/A HEART RATE: 132 beats per minute. A score of 0 or 2 is given for the follo wing biophysical variables: BREATHING MOVEMENTS: 2 GROSS BODY MOVEMENTS: 2 TONE: 2 QUALITATIVE JOSSIE: 2 Amniotic fluid index (JOSSIE) is 18.7 cm. An estimated weight was calculated at 2975 grams, which equates to the 49 percentile of growth. Procedure Note Jaspreet Haines M.D. / Provider, Reggie butterfield M.D. - 07/05/2016 EXAM: US Biophysical Profile w/o Nonstre ss INDICATION: GDM, BPP, Growth COMPARISON: July 31, 2014 REFERRING PHYSICIAN: Dr. Laughlin RESTAURANT SERVER: Marlene. : 2 PARA: 1 LMP: November 23, 2013 [place] by LMP: August 30, 2014 GESTATIONAL AGE: 37 weeks and 5 days. CERVICAL LENGTH: Not well visualized on today's exam ADNEXA: Normal PLACENTAL LOCATION: Anterior POSITION: Vertex STOMACH: Normal BLADDER: Normal HEART: Normal S/D RATIO: N/A HEART RATE: 132 beats per minute. A score of 0 or 2 is given for the follo wing biophysical variables: BREATHING MOVEMENTS: 2 GROSS BODY MOVEMENTS: 2 TONE: 2 QUALITATIVE JOSSIE: 2 Amniotic fluid index (JOSSIE) is 18.7 cm. An estimated weight was calculated at 2975 grams, which equates to the 49 percentile of growth. IMPRESSION: 1. Biophysical profile score of 8 out of 8, which is interpreted as reassuring. 2. Estimated weight of 6 pounds 9 ounces is appropriate for gestational age. [facility] [place] M[employer]ER AND BLENDER Dept. [phone] Marlene Nichols R.V.T., RKeiraMMickeyS. IMG OB US PROCEDUR ES documented in this encounter Visit Diagnoses Not on filedocumented in this encounter
--- OUTSIDE RECORDS SUMMARY | 2021-12-23 08:43 | XMS_ITS | Encounter Summary ---
:1980 Author Organization [facility] Address [address] [place] [address] Care Team Providers Name Role Phone Unavailable Primary Care Provider Unavailable Encounter Details Date Type Department Care Team Description 12/10/2014 Hospital Encounter HX [facility] Zahida Laughlin M.D. [address] [place] [address] (Wo rk) Social History Tobacco [...] or relatives? How often do you attend cheondoism or More than 4 times per year 07/29/2020 congregation services? Do you belong to any clubs or Yes 07/29/2020 organizations such as cheondoism groups, unions, fraternal or athletic groups, or [...] or slept in a snf (including now)? 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 - 12/10/2014 10:10 AM CDT [id number] CHIEF COMPLAINT/REASON FOR VISIT Contraceptive Management; IUD Placement. HISTORY OF PRESENT ILLNESS Saniya is a 34-year-old female who presents to the clinic today for an IUD placement. Patient states that she is feeling well overall and that everything at home is going well with baby also doing well.Saniya would like to get on control. She has had an IUD in the past and she had no problem withthat in the past. She would like to have this placed today. There are no further concerns at this time. REVIEW OF SYSTEMS Please see HPI for pertinent positives, otherwise rest of ROS negative MEDICATIONS Reviewed and updated per EMR dated 12/10/2014. ALLERGIES Amoxicillin. PAST MEDICAL/SURGICAL HISTORY History of Abnormal pap smear. FAMILY/SOCIAL HISTORY Non-contributory for todays visit. VITAL SIGNS HEIGHT: 160 cm. WEIGHT: 84.9 kg. BMI: 33.16 kg/m2. PULSE: 64 /min. RESP RATE: 20 /min. SYSTOLIC: 122 mmHg. DIASTOLIC: 72 mmHg. PHYSICAL EXAMINATION GENERAL: Well appearing and in no acute distress. PELVIS: Speculum exam shows normal appearing vaginal mucosa and cervix with no abnormal discharge. Pap smear (cervical smear and ECC) was obtained and results are pending. Bimanual exam revealed no cervical motion tenderness. Uterus was normal size and midline with no masses noted. Adnexa were nontender and nonpalpable bilaterally. GENITALIA: Normal appearing external genitalia, urethra, and glands. No discharge or lesions. MENTAL: Patient is alert and oriented x3. Does not appear depressed or anxious. Mood is good with appropriate affect. Speech and thought content and pattern are within normal limits. Denies suicidal orhomicidal ideations. Does not appear. SKIN: Normal color. No lesions or rash. Moist mucous membranes. Good skin turgor. Brisk capillary refill. PROCEDURE Name: IUD placement. Consent: Verbal and written from patient. Indication: Contraception. Performed by: Dr. Ирина Laughlin. Notes: Procedure was explained. Risk, benefits, and alternatives identified. Questions were answeredand patient consented to the procedure verbally and in written form. Prepped the area. Sounded the uterus multiple times at various angles and was only able to measure 5cm of depth. We discussed that this does not meet the minimum depth requirements for placement and therefore did not place a Mirena. Comments: Procedure was not performed as above. We discussed other options. She would like to pursuevasectomy with her . Meanwhile she will continue oral contraption. IMPRESSION/REPORT/PLAN 1. Contraceptive management. Prepped the area. Sounded the uterus multiple times at various angles and was only able to measure 5cm of depth. We discussed that this does not meet the minimum depth requirements for placement and therefore did not place a Mirena. We discussed other options. She would like to pursue vasectomy with her . Meanwhile she will continue oral contraption and notes that she was having break through bleeding on Alesse control. Since she had no decrease in breast milk supply, we will change her to regular dose contraceptive Desogen. She will notify me if she notes any decrease in her milk supply. This document serves as a record of services personally performed by Dr. Ирина Laughlin. It was created on their behalf by Yvonne Cooper, a trained director global medical affairs. The creation of this record is based on the scribe's personal observations and the provider's statements to them. This document has been checked and approved by the attending provider. Ирина Laughlin M.D./rizwan Electronically Signed By: ИРИНА LAUGHLIN MD On: 12/28/2014 03:20 PM Source: [facility] [email or web address] Document Id: [id number] VERY LEAD documented in this encounter Miscellaneous Notes Miscellaneous - Ирина Laughlin M.D. - 12/10/2014 11:03 AM CDT Ambulatory Patient Summary [facility] [address] [place], [place] [id number] Visit Information Name: MCCOLLUMSHMUEL EnamoradoZOE BROWN [facility] Number: [id number] Current Date: 12/10/2014 11:03:38 Physicians Attending Provider: ИРИНА LAUGHLIN MD Primary Care Provider: ИРИНА LAUGHLIN MD CHUN SANIYA BROWN has been [...] Take Indications/Special Instructions/Comments/Notes for Patient Medication Changes/Routing *levonorgestrel-ethinyl estradiol (Alesse 100 mcg-20 mcg oral tablet) 1 Tablet(s), Oral, once a day * You have let us know that you are not taking this medication as listed. Please talk with your primary care provider or the health care provider who prescribed the medication as soon as possible. Stop Taking the Following Medications: Medication list as of 12-10-14 11:03 Attention: If you have any medications at home that are not on this list, DO NOT take them until youcontact your provider for clarification. Give a copy of your medication list to your primary care provider. Update your medication list any time medications or doses are changed and carry your medication list at all times in case of emergency. Electronically Signed By: ИРИНА LAUGHLIN MD Signed On:10-DEC-2014 11:03:35 Your Allergies & Intolerances Substance Reaction Symptoms [...] if you dont have one. Go to [email or web address] and click on Create Your Account. Then, follow the directions to complete the online form. Youll be asked for your [facility] number which you can find at the top of this document. Your Goals/Additional instructions: Source: [facility] [employer] Document Id: [id number] Miscellaneous - Ирина Laughlin M.D. - 12/10/2014 11:03 AM CDT Ambulatory Discharge Medication List [address] [phone] Visit Information Name: SANIYA MCCOLLUM STEPHANIE [facility] Number: [id number] Visit Date: 12/10/2014 11:03:37 Attending Provider: ИРИНА LAUGHLIN MD Primary Care Provider: ИРИНА LAUGHLIN MD SHMUEL MCCOLLUMZOE BROWN has been given the following list of medications: Your Medications It is important to take your medications as directed. Use a pill box or chart to help remind you to take your medications. Please let your doctor or nurse know if you have problems taking your medications. Medication/Strength How to Take Indications/Special Instructions/Comments/Notes for Patient Medication Changes/Routing *levonorgestrel-ethinyl estradiol (Alesse 100 mcg-20 mcg oral tablet) 1 Tablet(s), Oral, once a day * You have let us know that you are not taking this medication as listed. Please talk with your primary care provider or the health care provider who prescribed the medication as soon as possible. Stop Taking the Following Medications: Medication list as of 12-10-14 11:03 Attention: If you have any medications at home that are not on this list, DO NOT take them until youcontact your provider for clarification. Give a copy of your medication list to your primary care provider. Update your medication list any time medications or doses are changed and carry your medication list at all times in case of emergency. Electronically Signed By: ИРИНА LAUGHLIN MD Signed On:10-DEC-2014 11:03:35 Additional Information: Source: [facility] POWERCHART Document Id: [id number] Miscellaneous - Perry King L.P.N. 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 Intake/History Entered On: 12/10/2014 10:23 CDT Performed On: 12/10/2014 10:20 CDT by PERRY KING LPN Intake Chief Complaint : IUD placement: -no .9 Peripheral Pulse Rate : 64 /min Respiratory Rate : 20 /min Systolic Blood Pressure : 122 mmHg Diastolic Blood Pressure : 72 mmHg NIBP Mean : 89 mmHg Height : 160 cm(Converted to: 5 ft 3 inch(es), 63 inch(es)) Actual Weight : 84.9 kg(Converted to: 187 lb 3 oz) Weight Source : Standing scale Dosing Weight Clinic : 84.9 kg Clinic BSA : 1.94 Body Mass Index : 33.16 kg/m2 PERRY KING LPN - 12/10/2014 10:20 CDT General Info Information Given By : Patient Languages : Croatian Is Patient Female and 13-50 no hysterectomy : Yes Status : Patient denies Are you ? : Yes PERRY KING LPN - 12/10/2014 10:20 CDT Subjective Pain Symptoms : No PERRY KING LPN - 12/10/2014 10:20 CDT Dependent Habits Tobacco Use/Currently Using : No Exposure to Tobacco Smoke : Other: Never Smoking Status : Never smoker PERRY KING LPN - 12/10/2014 10:20 CDT Tobacco Use Grid Other Tobacco Frequency : never PERRY KING LPN - 12/10/2014 10:20 CDT [facility] Document Id: [id number] CDT!29 documented in this encounter Plan of Treatment Not on filedocumented as of this encounter Visit Diagnoses Not on filedocumented in this encounter
--- OUTSIDE RECORDS SUMMARY | 2021-12-23 08:43 | XMS_ITS | Encounter Summary ---
:1980 Author Organization [facility] Address [address] [place] [address] Care Team Providers Name Role Phone Unavailable Primary Care Provider Unavailable Encounter Details Date Type Department Care Team Description 01/06/2016 Hospital Encounter HX [facility] Zahida Laughlin M.D. [address] [place] [address] (Wo rk) Social History Tobacco [...] or relatives? How often do you attend caodaism or More than 4 times per year 07/29/2020 episcopal services? Do you belong to any clubs or Yes 07/29/2020 organizations such as caodaism groups, unions, fraternal or athletic groups, or [...] at Date Recorded Female 04/27/2017 8:11 AM INTELLIGENCE INTERN documented as of this encounter Last Filed Vital Signs Vital Sign Reading Time Taken Comments Blood Pressure 130/100 01/06/2016 10:29 AM INTELLIGENCE INTERN Pulse 60 01/06/2016 10:26 AM INTELLIGENCE INTERN Temperature - - Respiratory Rate - - Oxygen Saturation - - Inhaled Oxygen Concentration - - Weight 84 kg (185 lb 3 oz) 01/06/2016 10:26 AM INTELLIGENCE INTERN Height 161 cm (5' 3.39) 01/06/2016 10:29 AM INTELLIGENCE INTERN Body Mass Index 32.41 01/06/2016 10:26 AM INTELLIGENCE INTERN documented in this encounter Medications at Time of Discharge Medication Sig Dispensed Refills Start Date End Date lisinopril Take 1 tablet by 0 01/06/2016 05/02/19 18 (for_PRINIVIL,ZESTRIL) 10 mouth daily. mg tablet documented as of this encounter H&P Notes Oscar Laughlin M.D. - 01/06/2016 9:46 AM CST [id number] CHIEF COMPLAINT/REASON FOR VISIT Annual physical. HISTORY OF PRESENT ILLNESS Saniya is a 35-year-old female presenting today for her annual physical. Saniya does have a history ofelevated blood pressure and was having to be induced early with her deliveries because of this. She does have history blood pressure in the clinic today and she states that she does not check this outside of the clinic. She has not had any visual changes or any regular headaches. The patient reports that she does have a headache today. There are no further concerns at this time. REVIEW OF SYSTEMS Please see HPI for pertinent positives and negative, otherwise full remainder of ROS negative. MEDICATIONS Vitamin D3 [id number] IU daily (recommended today). Lisinopril 10 mg 1 tab by mouth daily (prescribed today). ALLERGIES Amoxicillin causes a rash. PAST MEDICAL/SURGICAL HISTORY 1. History of abnormal pap smears, with most recent pap smear 09/2014 with positive HPV, status post colposcopy. This is repeated today. 2. 3, para 2-0-1-2, with 2 vaginal deliveries in 2010 and 2014 with no complications and 1 elective at 6 weeks in 2004. She was induced for gestational hypertension at 39 weeks. 3. Contraception through who is status post vasectomy. 4. No hospitalizations outside of childbirth. PREVENTATIVE SERVICES Lipid panel: she will return for this. Pap smear with positive HPV: 09/2014, this is updated today 01/06/2016. Tetanus booster: 06/15/2014. Influenza: completed for this cycle. SOCIAL HISTORY Tobacco use: none, never smoker. Saniya is to her , Joey. They have two children, Mack and Katie. They live in [place]. 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 She is a lifelong nonsmoker. She has 1-2 alcohol beverages in a month. FAMILY HISTORY Mother with hypertension. Grandmother with breast cancer diagnosed at 85, otherwise no history of any other cancers. No history of bleeding or clotting disorders. Aunt did have a provoked PE following surgery, who passed from this. Grandfather with SD in his 70s. No strokes in the family. No adverse reactions to anesthesia. VITAL SIGNS HEIGHT: 161 cm. WEIGHT: 84 kg. BMI: 32.41 kg/m2. TEMP: 37.3 Deg C. PULSE: 60 /min. SYSTOLIC: 142 mmHg, 130 mmHg. DIASTOLIC: 100 mmHg, 100 mmHg. PHYSICAL EXAMINATION GENERAL: Well appearing and in no acute distress. HEAD: Normocephalic, atraumatic. Neck without rigidity or masses. EYES: PERRL bilaterally. No eyelid swelling or mattering. Conjunctivae and sclerae clear bilaterallywithout injection or icterus. ENT: TMs clear bilaterally. Nares clear bilaterally. Frontal and maxillary sinuses nontender. Oropharynx clear with no erythema, edema, pus, or petechiae. Airway patent. LYMPH NODES: No lymphadenopathy in the neck or supraclavicular region. THYROID: No thyromegaly or palpable nodules. BREASTS: Examination deferred per guidelines advising against screening breast exam in asymptomatic patients. PERIPHERAL VESSELS: No JVD. Upper and lower extremity distal pulses intact and equal globally. HEART: Regular rate and rhythm with normal [...] cervix with no abnormal discharge. Pap smear with high risk HPV was obtained and results are pending. EXTREMITIES: No clubbing, cyanosis, or edema. SPINE: No scoliosis noted. No CVA tenderness. No muscle spasm or bony tenderness noted. JOINTS: No muscle atrophy or fasciculations noted. Full range of motion about all joints is noted. No bony tenderness or joint effusions noted. GAIT: Gait and balance normal. MENTAL: Patient is alert and oriented x3. Does not appear depressed or anxious. Mood is good with appropriate affect. Speech and thought content and pattern are within normal limits. NEURO: Alert and oriented x3. Cranial nerves intact. DTRs 2+ and equal globally. Strength 5+ and equal globally. EOMI with no nystagmus. SKIN: Normal color. No worrisome lesions or rash noted on exposed skin. Moist mucous membranes. Goodskin turgor. Brisk capillary refill. IMPRESSION/REPORT/PLAN 1. Preventive health exam at age 25. Pap smear in 09/2014 was positive for HPV and ASCUS, so this is repeated today. Lipid panel will be obtained this week or early next when patient is able to return fasting. Immunizations are reviewed and are up to date. Mammograms start at age 40. Colonoscopy startsat age 50. We discussed healthy diet, regular exercise, 100% seatbelt use, and no smoking. She will follow-up in one year for her next physical examination. 2. Essential benign hypertension, new diagnosis, in patient with history of gestational hypertension, currently uncontrolled. She will return for a BMP when she is fasting in the next few days. We willstart her on lisinopril 10 mg daily. Discussed potential side effects of this medication. I would like her to check her blood pressure twice a week for a couple of weeks. Discussed that she can do thisat a pharmacy or return to shot clinic to have this checked and she should bring these readings in at her follow up appointment. She will return in 2-3 weeks for a recheck and will repeat labs at this time. Also discussed that if she has significant lifestyle modifications and her blood pressure lowers, we may be able to wean the medication. 3. Personal history of ASCUS pap smear with positive HPV, status post colposcopy. Pap smear with high risk HPV is obtained today and I will inform her of the results when available. This document serves as a record of services personally performed by Dr. Oscar Laughlin. It was created on their behalf by Inna Jennings, a trained medical secretary. The creation of this record is based on the scribe's personal observations and the provider's statements to them. This document has been checked and approved by the attending provider. Oscar Laughlin M.D./oneil Electronically Signed By: OSCAR LAUGHLIN MD On: 01/11/2016 12:23 PM Source: [facility] MHSDOLBEYNONRADSYS Document Id: [id number] LLIGENCE INTERN documented in this encounter Miscellaneous Notes Telephone Encounter - Masha Villa - 08/09/2016 11:58 AM CDT STD testing request Document Contains Addenda Addendum by ASIM SIMMONS CMA on August 09, 2016 12:02:52 CDT From: ASIM SIMMONS CMA ([facility] 1 Nurse) To: OSCAR LAUGHLIN MD; Sent: 08/09/2016 12:02:52 CDT Subject: FW: STD testing request From: MASHA VILLA ( Nurse Line) To: [facility] 1 Nurse; Sent: 08/09/2016 11:58:52 CDT Subject: STD testing request From: SANIYA MCCOLLUM To: Nurse Line Sent: 08/09/2016 10:03:15 AM ([facility]-06:00) Central Time ([place] & [place]) Subject: RE: Frederick Laughlin, I called the clinic to see if I could schedule lab work to do some routine std testing. They told Essie needed to have it ordered through you. Are you able to do that? I don't have any concerns, no symptoms and have been practicing safe sex, I just like to be tested regularly for peace of mind. Thank you very much, Saniya Mccollum From: OSCAR LAUGHLIN MD To: SANIYA MCCOLLUM Sent: 02/18/2016 17:32:27 INTELLIGENCE INTERN Saniya, Your pap smear was normal and the HPV screen was negative. You will only need a pap smear every 5 years (unless we've previously discussed doing these more frequently because of other risk factors). Oscar Laughlin MD Source: [facility] POWERCHART Document Id: [id number] Telephone Encounter - Elva Nogueira L.P.N. - 05/24/2016 2:24 PM CDT FW: request- second request since 05/11/16 Document Contains Addenda Addendum by OSCAR LAUGHLIN MD on May 24, 2016 17:54:56 CDT From: OSCAR LAUGHLIN MD To: SANIYA MCCOLLUM Sent: 05/24/2016 17:54:56 CDT ! Subject: FW: request- second request since 05/11/16 Saniya, Yes, I've sent the Desogen to [facility] for [facility]. Oscar Laughlin MD Addendum by OSCAR LAUGHLIN MD on May 24, 2016 17:53:16 CDT Submitted: Order:desogestrel-ethinyl estradiol (Desogen 0.15 mg-0.03 mg oral tablet) 1 tab(s) PO Daily control Qty: 84 tab(s) Refills: 4 Substitutions Allowed [id number] Signed by OSCAR LAUGHLIN MD 05/24/2016 17:52:07 From: ELVA CROWLEY LPN ( [facility] Nurse) To: OSCAR LAUGHLIN MD; Sent: 05/24/2016 14:24:05 CDT ! Subject: FW: request- second request since 05/11/16 Dr. Laughlin, She would like the Desogen but I was unable to see any control on her active or completed med list to propose to you. She [facility]. From: SANIYA MCCOLLUM To: [facility] Med 1 Nurse Sent: 05/24/2016 1:44:30 PM ([facility]-06:00) Central Time ([place] & [place]) Subject: RE: request- second request since 05/11/16 Let's go with desogen, please. [facility] Thank you! Saniya Addendum by ELVA CROWLEY LPN on May 24, 2016 13:11:45 CDT From: ELVA CROWLEY LPN ([facility] Med 1 Nurse) To: SANIYA MCCOLLUM Sent: 05/24/2016 13:11:45 CDT Subject: RE: request- second request since 05/11/16 Saniya, you have been on both Aleese and Desogen. Desogen was the most recent control with havelisted. Please let us know which you would like filled or if there is a different once you wanted totry. We will get this filled for you as soon as we know which you would like! sorry for the delay. -Elva NGUYỄN Addendum by OSCAR LAUGHLIN MD on May 24, 2016 12:03:08 CDT From: OSCAR LAUGHLIN MD To: [facility] Med 1 Nurse; Sent: 05/24/2016 12:03:08 CDT ! Subject: RE: request- second request since 05/11/16 Please call to find out which one she wants. Previously she had been on Alesse and then changed to Desogen. So Desogen was the last one she was on. If that's what she wants again, please propose it from her completed medication list. If she wants something different let me know. Send to me with red exclamation point (urgent). Addendum by ELVA CROWLEY LPN on May 24, 2016 10:45:23 CDT From: ELVA CROWLEY LPN ( [facility] 1 Nurse) To: OSCAR LAUGHLIN MD; Sent: 05/24/2016 10:45:23 CDT ! Subject: request- second request since 05/11/16 Addendum by ROSA MEZA on May 24, 2016 10:17:54 CDT From: ROSA MEZA ( [facility] 1 Nurse) To: [facility] Med 1 Nurse; Sent: 05/24/2016 10:17:54 CDT Subject: FW: - -Truman patient called back - wondering the status of the control RX - wants call back at [phone] Addendum by FRANCISCO ALEGRIA LPN on May 11, 2016 11:42:30 CDT From: FRANCISCO ALEGRIA LPN ( [facility] 1 Nurse) To: OSCAR LAUGHLIN MD; Sent: 05/11/2016 11:42:30 CDT Subject: FW: Addendum by WILBERT ROSA RN on May 11, 2016 11:28:30 CDT From: WILBERT ROSA RN ( Nurse Line) To: [facility] Med 1 Nurse; Sent: 05/11/2016 11:28:30 CDT Subject: FW: From: SHMUEL MCCOLLUMILY STEPHANIE To: OW Nurse Line Sent: 05/11/2016 11:04:08 AM ([facility]-06:00) Central Time ([place] & [place]) Subject: RE: Jovani Laughlin, I was in last Sunday and got my blood pressure taken. It was 129/80. Are you able to prescribe a control pill for me? Thank you, Saniya Chun From: OSCAR LAUGHLIN MD To: SANIYA MCCOLLUM Sent: 02/18/2016 17:32:27 INTELLIGENCE INTERN Saniya, Your pap smear was normal and the HPV screen was negative. You will only need a pap smear every 5 years (unless we've previously discussed doing these more frequently because of other risk factors). Oscar Laughlin MD Source: [facility] POWERCHART Document Id: [id number] Electronically signed by Obed, [facility] Diesel Maintenance Electrician [id number] at 07/23/2016 7:27 AM CDT Telephone Encounter - Elva Nogueira L.P.N. - 05/24/2016 2:18 PM CDT RE: request- second request since 05/11/16 Document Contains Addenda From: ELVA CROWLEY LPN ( [facility] 1 Nurse) To: SANIYA MCCOLLUM Sent: 05/24/2016 14:18:28 CDT Subject: RE: request- second request since 05/11/16 Yes it will! From: SANIYA MCCOLLUM To: [facility] 1 Nurse Sent: 05/24/2016 1:44:30 PM ([facility]-06:00) Central Time ([place] & [place]) Subject: RE: request- second request since 05/11/16 Let's go with desogen, please. [facility] Thank you! Saniya Addendum by ELVA CROWLEY LPN on May 24, 2016 13:11:45 CDT From: ELVA CROWLEY LPN ( [facility] 1 Nurse) To: SANIYA MCCOLLUM Sent: 05/24/2016 13:11:45 CDT Subject: RE: request- second request since 05/11/16 Saniya, you have been on both Aleese and Desogen. Desogen was the most recent control with havelisted. Please let us know which you would like filled or if there is a different once you wanted totry. We will get this filled for you as soon as we know which you would like! sorry for the delay. -Elva NGUYỄN Addendum by OSCAR LAUGHLIN MD on May 24, 2016 12:03:08 CDT From: OSCAR LAUGHLIN MD To: [facility] Med 1 Nurse; Sent: 05/24/2016 12:03:08 CDT ! Subject: RE: request- second request since 05/11/16 Please call to find out which one she wants. Previously she had been on Alesse and then changed to Desogen. So Desogen was the last one she was on. If that's what she wants again, please propose it from her completed medication list. If she wants something different let me know. Send to me with red exclamation point (urgent). Addendum by ELVA CROWLEY LPN on May 24, 2016 10:45:23 CDT From: ELVA CROWLEY LPN ( [facility] 1 Nurse) To: OSCAR LAUGHLIN MD; Sent: 05/24/2016 10:45:23 CDT ! Subject: request- second request since 05/11/16 Addendum by ROSA MEZA on May 24, 2016 10:17:54 CDT From: ROSA MEZA ( [facility] 1 Nurse) To: [facility] Med 1 Nurse; Sent: 05/24/2016 10:17:54 CDT Subject: FW: - -Laughlin patient called back - wondering the status of the control RX - wants call back at [phone] Addendum by FRANCISCO ALEGRIA LPN on May 11, 2016 11:42:30 CDT From: FRANCISCO ALEGRIA LPN ([facility] Med 1 Nurse) To: OSCAR LAUGHLIN MD; Sent: 05/11/2016 11:42:30 CDT Subject: FW: Addendum by WILBERT ROSA RN on May 11, 2016 11:28:30 CDT From: WILBERT ROSA RN ( Nurse Line) To: [facility] 1 Nurse; Sent: 05/11/2016 11:28:30 CDT Subject: FW: From: SANIYA MCCOLLUM To: Nurse Line Sent: 05/11/2016 11:04:08 AM ([facility]-06:00) Central Time ([place] & [place]) Subject: RE: Jovani Laughlin, I was in last Sunday and got my blood pressure taken. It was 129/80. Are you able to prescribe a control pill for me? Thank you, Saniya Mccollum From: OSCAR LAUGHLIN MD To: SANIYA MCCOLLUM Sent: 02/18/2016 17:32:27 LIGIA Kothari, Your pap smear was normal and the HPV screen was negative. You will only need a pap smear every 5 years (unless we've previously discussed doing these more frequently because of other risk factors). Oscar Laughlin MD Source: [facility] POWERCHART Document Id: [id number] Telephone Encounter - Wilbert Rosa, R.N. - 05/11/2016 11:28 AM CDT RE: Document Contains Addenda Addendum by ELVA CROWLEY LPN on May 24, 2016 13:11:45 CDT From: ELVA CROWLEY LPN ( [facility] 1 Nurse) To: CHUN SANIYA BROWN Sent: 05/24/2016 13:11:45 CDT Subject: RE: BC request- second request since 05/11/16 Saniya, you have been on both Aleese and Desogen. Desogen was the most recent control with havelisted. Please let us know which you would like filled or if there is a different once you wanted totry. We will get this filled for you as soon as we know which you would like! sorry for the delay. -Elva NGUYỄN Addendum by OSCAR LAUGHLIN MD on May 24, 2016 12:03:08 CDT From: OSCAR LAUGHLIN MD To: [facility] 1 Nurse; Sent: 05/24/2016 12:03:08 CDT ! Subject: RE: BC request- second request since 05/11/16 Please call to find out which one she wants. Previously she had been on Alesse and then changed to Desogen. So Desogen was the last one she was on. If that's what she wants again, please propose it from her completed medication list. If she wants something different let me know. Send to me with red exclamation point (urgent). Addendum by ELVA CROWLEY LPN on May 24, 2016 10:45:23 CDT From: ELVA CROWLEY LPN ( [facility] 1 Nurse) To: OSCAR LAUGHLIN MD; Sent: 05/24/2016 10:45:23 CDT ! Subject: BC request- second request since 05/11/16 Addendum by ROSA MEZA on May 24, 2016 10:17:54 CDT From: ROSA MEZA ( Family [facility] 1 Nurse) To: [facility] Med 1 Nurse; Sent: 05/24/2016 10:17:54 CDT Subject: FW: - -Truman patient called back - wondering the status of the control RX - wants call back at [phone] Addendum by FRANCISCO ALEGRIA LPN on May 11, 2016 11:42:30 CDT From: FRANCISCO ALEGRIA LPN ( [facility] 1 Nurse) To: OSCAR LAUGHLIN MD; Sent: 05/11/2016 11:42:30 CDT Subject: FW: Addendum by WILBERT ROSA RN on May 11, 2016 11:28:30 CDT From: WILBERT ROSA RN ( Nurse Line) To: [facility] 1 Nurse; Sent: 05/11/2016 11:28:30 CDT Subject: FW: From: SANIYA MCCOLLUM To: Nurse Line Sent: 05/11/2016 11:04:08 AM ([facility]-06:00) Central Time ([place] & [place]) Subject: RE: Jovani Laughlin, I was in last Sunday and got my blood pressure taken. It was 129/80. Are you able to prescribe a control pill for me? Thank you, Saniya Mccollum From: OSCAR LAUGHLIN MD To: SANIYA MCCOLLUM Sent: 02/18/2016 17:32:27 LIGIA Kothari, Your pap smear was normal and the HPV screen was negative. You will only need a pap smear every 5 years (unless we've previously discussed doing these more frequently because of other risk factors). Oscar Laughlin MD Source: [facility] POWERCHART Document Id: [id number] Telephone Encounter - Sabrina Palacios, R.N. - 04/26/2016 12:45 PM CST RE: Document Contains Addenda Addendum by CHAO DHILLON LPN on April 26, 2016 14:47:59 INTELLIGENCE INTERN From: CHAO DHILLON LPN ( [facility] 1 Nurse) To: OSCAR LAUGHLIN MD; Sent: 04/26/2016 14:47:59 INTELLIGENCE INTERN Subject: FW: Addendum by SABRINA PALACIOS RN on April 26, 2016 12:45:51 INTELLIGENCE INTERN From: SABRINA PALACIOS RN ( Nurse Line) To: Family [facility] 1 Nurse; Sent: 04/26/2016 12:45:51 INTELLIGENCE INTERN Subject: FW: From: SANIYA MCCOLLUM To: Nurse Line Sent: 04/26/2016 11:53:46 AM ([facility]-06:00) Central Time ([place] & [place]) Subject: RE: Hi Dr. Laughlin, I was wondering if you might be able to write me a prescription for control pills without me having to make an appointment? I haven't been on any form of contraceptive since we were not successful in inserting an IUD. Thank you! Saniya Mccollum From: OSCAR LAUGHLIN MD To: SANIYA MCCOLLUM Sent: 02/18/2016 17:32:27 INTELLIGENCE INTERN Saniya, Your pap smear was normal and the HPV screen was negative. You will only need a pap smear every 5 years (unless we've previously discussed doing these more frequently because of other risk factors). Oscar Laughlin MD Source: [facility] POWERCHART Document Id: [id number] Electronically signed by Obed, [facility] Diesel Maintenance Electrician [id number] at 07/23/2016 7:26 AM CDT Miscellaneous - Oscar Laughlin M.D. - 02/18/2016 5:32 PM CST From: OSCAR LAUGHLIN MD To: SHMUEL MCCOLLUMZOE BROWN Sent: 02/18/2016 17:32:27 INTELLIGENCE INTERN Saniya, Your pap smear was normal and the HPV screen was negative. You will only need a pap smear every 5 years (unless we've previously discussed doing these more frequently because of other risk factors). Oscar Laughlin MD Source: [facility] Document Id: [id number] Electronically signed by Conversion, [facility] Diesel Maintenance Electrician [id number] at 07/23/2016 7:26 AM CDT [place] - Oscar Laughlin M.D. 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 Source: [employer] Document Id: [id number] Electronically signed by Conversion, [employer] Diesel Maintenance Electrician [id number] at 07/23/2016 7:26 AM CDT Bridgetcelljose - Oscar Laughlin M.D. - 01/06/2016 11:35 AM CST Ambulatory Discharge Medication List [facility] [address] [place] [address] [id number] Visit Information Name: SANIYA MCCOLLUM [facility] Number: [id number] Current Date: 01/06/2016 11:35:34 Attending Provider: OSCAR LAUGHLIN MD Primary Care Provider: OSCAR LAUGHLIN MD SHMUEL MCCOLLUMILY STEPHANIE has been given the following list of medications: Your Medications It is important to take your medications as directed. Use a pill box or chart to help remind you to take your medications. Please let your doctor or nurse know if you have problems taking your medications. Medication/Strength How to Take Indications/Special Instructions/Comments/Notes for Patient Medication Changes/Routing lisinopril (lisinopril 10 mg oral tablet) 1 Tablet(s), Oral, once a day High Blood Pressure. Take inmorning. New Routed to [address] [address] Stop Taking the Following Medications: desogestrel-ethinyl estradiol (Desogen 0.15 mg-0.03 mg oral tablet) Medication list as of 01-06-16 11:35 Attention: If you have any medications at [...] Electronically Signed By: OSCAR LAUGHLIN MD Signed On:06-JAN-2016 11:35:31 Additional Information: Source: [facility] POWERCHART Document Id: [id number] LLIGENCE INTERN Miscellaneous - Oscar Laughlin M.D. - 01/06/2016 11:35 AM CST Ambulatory Patient Summary [facility] [address] [place] [address] [id number] Visit Information Name: MCCOLLUMSHMUEL EnamoradoZOE BROWN [facility] Number: [id number] Current Date: 01/06/2016 11:35:35 Physicians Attending Provider: OSCAR LAUGHLIN MD Primary Care Provider: OSCAR LAUGHLIN MD MCCOLLUMSHMUELSANIYAZOE BROWN has been given the following list [...] Take Indications/Special Instructions/Comments/Notes for Patient Medication Changes/Routing lisinopril (lisinopril 10 mg oral tablet) 1 Tablet(s), Oral, once a day High Blood Pressure. Take inmorning. [facility] [address] [place] [id number] Stop Taking the Following Medications: desogestrel-ethinyl estradiol (Desogen 0.15 mg-0.03 mg oral tablet) Medication list as of 01-06-16 11:35 Attention: If you have any medications at [...] Electronically Signed By: OSCAR LAUGHLIN MD Signed On:06-JAN-2016 11:35:31 Your Allergies & Intolerances Substance Reaction Symptoms Category Comments amoxicillin Rash Drug Your Problem List Problem Status Onset Comments High Risk HPV DNA Test Positive Cervix Active General Medical Exam Adult (GME) Active Atypical Squamous Cells Undeterm Significance (ASCUS) Cervix Active Gestational Hypertension (HTN) Pers Hx Not Preg Active Hypertension (HTN) Essential Benign Active Your Upcoming Appointments Date Time Location [...] have one. Go to [email or web address] and click on Create Your Account. Then, follow the directions to complete the online form. Youll be asked for your [facility] number which you can find at the top of this document. Your Goals/Additional instructions: Source: [facility] POWERCHART Document Id: [id number] LLIGENCE INTERN Miscellaneous - Alivia Reese L.P.N. - 01/06/2016 10:29 AM CST Ambulatory Vitals Height Weight Ambulatory Vitals Height Weight Entered On: 01/06/2016 10:31 INTELLIGENCE INTERN Performed On: 01/06/2016 10:29 INTELLIGENCE INTERN by ALIVIA REESE LPN Vitals/Ht/Wt Systolic Blood Pressure : 130 mmHg Diastolic Blood Pressure : 100 mmHg (>HHI) NIBP Mean : 110 mmHg BP Location : Right upper extremity Blood Pressure Cuff Size : Regular Height : 161 cm(Converted to: 5 ft 3 inch(es), 63 inch(es)) ALIVIA REESE LPN - 01/06/2016 10:29 INTELLIGENCE INTERN [facility] Document Id: [id number] INTELLIGENCE INTERN!8 LLIGENCE INTERN Miscellaneous - Alivia Reese L.P.N. - 01/06/2016 10:26 AM CST Adult Records Management Engineer Intake/History Adult Records Management Engineer Intake/History Entered On: 01/06/2016 10:29 INTELLIGENCE INTERN Performed On: 01/06/2016 10:26 INTELLIGENCE INTERN by ALIVIA REESE LPN Intake Chief Complaint : Annual physical Temperature Core : 37.3 DegC(Converted to: 99.1 DegF) Peripheral Pulse Rate : 60 /min Heart Rhythm : Regular Systolic Blood Pressure : 142 mmHg (HI) Diastolic Blood Pressure : 100 mmHg (>HHI) NIBP Mean : 114 mmHg BP Location : Right upper extremity Blood Pressure Cuff Size : Regular Height : 161 cm(Converted to: 5 ft 3 inch(es), 63 inch(es)) Actual Weight : 84.0 kg(Converted to: 185 lb 3 oz) Weight Source : Standing scale Dosing Weight Clinic : 84 kg Clinic BSA : 1.94 Body Mass Index : 32.41 kg/m2 ALIVIA REESE LPN - 01/06/2016 10:26 INTELLIGENCE INTERN General Info Information Given By : Patient Languages : Georgian Is Patient Female and 13-50 no hysterectomy : Yes Status : Patient denies Are you ? : No ALIVIA REESE LPN - 01/06/2016 10:26 INTELLIGENCE INTERN Subjective Pain Symptoms : No ALIVIA REESE LPN - 01/06/2016 10:26 INTELLIGENCE INTERN Dependent Habits Exposure to Tobacco Smoke : Other: Never Smoking Status : Never smoker Tobacco 2A : No Tobacco Use/Currently Using : No Tobacco Use/Last 30 Days : No Tobacco Use/Last 12 months : No Alcohol Use : Yes ALIVIA REESE LPN - 01/06/2016 10:26 INTELLIGENCE INTERN Source: [facility] POWERCHART Document Id: [id number] INTELLIGENCE INTERN!33 LLIGENCE INTERN Miscellaneous - Alivia Reese L.P.NMickey - 01/06/2016 10:24 AM CST Health Assessment Health Assessment Entered On: 01/06/2016 10:26 INTELLIGENCE INTERN Performed On: 01/06/2016 10:24 INTELLIGENCE INTERN by ALIVIA REESE LPN Health Assessment Complete Health Assessment Complete or Modified : Annual Health Assessment Annual Health Assessment Completed : Yes ALIVIA REESE LPN - 01/06/2016 10:24 INTELLIGENCE INTERN Nutrition Nutrition Risk Factors by History Adult : None ALIVIA REESE LPN - 01/06/2016 10:24 INTELLIGENCE INTERN Functional Current Daily Living Assistance : None ALIVIA REESE LPN - 01/06/2016 10:24 INTELLIGENCE INTERN Dependent Habits Exposure to Tobacco Smoke : Other: Never Smoking Status : Never smoker Tobacco 2A : No Tobacco Use/Currently Using : No Tobacco Use/Last 30 Days : No Tobacco Use/Last 12 months : No Alcohol Use : Yes ALIVIA REESE LPN - 01/06/2016 10:24 INTELLIGENCE INTERN AUDIT Tool How Often Do You Have A Drink : Monthly or less How Many Drinks in a Day When Drinking : 1 or 2 Six or More Drinks On One Occassion : Never Audit Phase 1 Score : 1 ALIVIA REESE LPN 01/06/2016 10:24 INTELLIGENCE INTERN Psychosocial Domestic Abuse Concerns : None Behavioral Health Screen/Safety Assmt : No Holiness Preference : No qualifying data available. ALIVIA REESE LPN - 01/06/2016 10:24 INTELLIGENCE INTERN Advance Directive Advanced Directives : No Advance Directive Additional Information : No ALIVIA REESE LPN 01/06/2016 10:24 INTELLIGENCE INTERN Educ Needs Learning Style Preference Adult Grid Patient : Verbal explanation Family : None ALIVIA REESE LPN - 01/06/2016 10:24 INTELLIGENCE INTERN Source: [facility] POWERCHART Document Id: [id number] INTELLIGENCE INTERN!32 LLIGENCE INTERN documented in this encounter Plan of Treatment Not on filedocumented as of this encounter Procedures Procedure Name Priority Date/Time Associated Diagnosis Comme nts PATHOLOGY WHEEL INSTALLER Routine 01/06/2016 12:00 AM Results for this CYTOLOGY INTELLIGENCE INTERN procedure are i n the results section. documented in this encounter Results Pathology WHEEL INSTALLER Cytology (01/06/2016 12:00 AM INTELLIGENCE INTERN) Specimen (Source) Anatomical Location Collection Method / Collectio n Time Received Time / Laterality Volume 01/06/2016 Narrative [facility] - 01/18/2016 2:07 PM INTELLIGENCE INTERN [facility] in [address] [place] [address] ??[phone] Patient Name: SANIYA MCCOLLUM Patient ID #: [id number] Collected: 01/06/2016 Address: [facility]/Zip: [address] [place] [address] ??[phone] Received: Reported: 01/07/2016 01/18/2016 Soc. Sec. #: ?/Age/Sex 1980 (Age: 35) ??F Physician(s): YASMINE LAUGHLIN MD Copy To: ? [facility] ?? [id number] [phone] [facility], ??[place] ??[id number] CYTOPATHOLOGY WHEEL INSTALLER REPORT FINAL CYTOLOGIC DIAGNOSIS Pap Smear - ThinPrep with HPV: NEGATIVE FOR INTRAEPITHELIAL LESION OR MALIGNANCY HISTORY OF ABNORMAL CYTOLOGY NOTED. ENDOCERVICAL CELLS/COMPONENT PRESENT. SATISFACTORY SPECIMEN FOR EVALUATION. THIS CASE WAS REVIEWED IN CONSULTATION [facility] DR[facility] ROSA ESPITIA. ??This specimen required a physician interpretation under CLIA 1987 ?? Electronically Signed Out By mpg/01/18/2016 MD ASHLEY BECKFORD(ASCP) The Pap test is a screening procedure [...] that may occur. Procedures/Addenda: HUMAN PAPILLOMA VIRUS ADDENDUM ? Satinder e Ordered: ? 01/07/2016 ? Status: ??Signed Out Date Complete: ? 01/18/2016 ? By : ??RC Price CT(ASCP) Date Reported: ? 01/18/2016 INTERPRETATION: Test: Aptima High Risk HPV Result: NEGATIVE FOR HIGH RISK HPV Specimen Description: ThinPrep? ?? Pap Test PreservCyt Solution HPV by Diesel Maintenance Electrician-Mediated Amplificat ion (TMA) for E6/E7 viral messenger RNA (mRNA) is an in-vitro diagnostic test for the detection of 14 high-risk Human Papillomavirus (HPV) types (16, 18, 31, 33, 35, 39, 45, 51, 52, 56, 58, 59, 66, and 68) in cervical specimen. Intended for co-testi ng or reflex testing of ASC-US Pap smears. Interpretation for patients with ASC-US cytology: Low likelihood of underlying high-grade CIN2-3 or cancer; results are not intended to prevent women from proceeding to colposcopy. Interpretation for patients with NILM cy tology who are over 30 years old: Very low likelihood of underlying high-grade POLY or cancer; results do not preclude future HPV infection or cytologic abnormalities with underlying CIN2-3 or cancer. SPECIMEN(S) RECEIVED: Pap Smear - ThinPrep with HPV CLINICAL HISTORY: Date of Last PAP: 10/12/2014 Date of Last Menstrual Period: 01/01 Hormonal History: No hormonal therapy Other Clinical Conditions: HPV TYPING REQUESTED Oscar Laughlin M.D. LAB PAP COPATH ORDERABLES Performing Organization Address City/State/ZIP Code Phon e Number [facility] documented in this encounter Visit Diagnoses Not on filedocumented in this encounter
--- OUTSIDE RECORDS SUMMARY | 2021-12-23 08:44 | XMS_ITS | Encounter Summary ---
:1980 Author Organization [facility] Address [address] [place] [address] Care Team Providers Name Role Phone Unavailable Primary Care Provider Unavailable Encounter Details Date Type Department Care Team Description 03/31/2012 Hospital Encounter [facility] Reece Lira M.D. 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 - 03/31/2012 4:40 PM CST [id number] CHIEF COMPLAINT / REASON FOR VISIT Sinus congestion and pressure, as well as cough. 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 She herself has been ill now for 2 weeks and has had a low-grade temperature, as well as pressure in her teeth, particularly when she bends forwards. Medications and allergies per EMR. SYSTEMS REVIEW CONSTITUTIONAL: Low-grade fever. She has had warm and cold feelings. EYES: No discharge, blurring or erythema. ENT: Nasal fullness with colored discharge. Pressure in the sinuses and teeth. No ear pain or drainage, except minimally on the right. No sore throat. RESPIRATORY: Cough without dyspnea or wheeze. VITALS SIGNS Per EMR. PHYSICAL EXAM Cooperative, pleasant and alert. No acute distress. Head and neck are normal in contour. NECK: Supple. LYMPHATIC: No preauricular, cervical, supraclavicular or axillary adenopathy. EYES: Bright and well hydrated without discharge. ENT: Nasal passages are erythematous. She has sinus tenderness and a hyponasal voice. Both ears are clear. Canals and pinnae are normal. Pharynx adequately hydrated with no hyperemia or exudate. LUNGS: Clear. IMPRESSION / REPORT / PLAN Sinusitis. RECOMMEND: Zithromax Z-Dany. Adjunctive measures discussed. Nabeel Lira M.D./parrish Electronically Signed By: NABEEL LIRA MD On: 04/02/2012 11:15 AM Source: [facility] MHSDOLBEYNONRADSYS Document Id: [id number] NE ENGINE MECHANIC documented in this encounter Miscellaneous Notes Miscellaneous - Conversion, Historical Provider Ser - 03/31/2012 4:59 PM MARINE ENGINE MECHANIC Adult Land Examiner Intake/History Adult Land Examiner Intake/History Entered On: 03/31/2012 17:03 MARINE ENGINE MECHANIC Performed On: 03/31/2012 16:59 MARINE ENGINE MECHANIC by PETR OAKLEY Intake Chief Complaint : Sinus congestion, headache, was seen 03/27/12 was told it was viral but it is not getting any better Onset of Symptoms : 03/22/12 Temperature Oral : 36.7C(Converted to: 98.1DegF) Peripheral Pulse Rate : 66/min Respiratory Rate : 15/min Systolic Blood Pressure : 126mmHg Diastolic Blood Pressure : 88mmHg NIBP Mean : 101mmHg BP Location : Right upper extremity Blood Pressure Cuff Size : Regular Actual Weight : 79.5kg(Converted to: 175lb 4oz) Weight Source : Standing scale Dosing Weight Clinic : 79.50kg PETR OAKLEY - 03/31/2012 16:59 MARINE ENGINE MECHANIC General Info Information Given By : Patient Preferred Communication Mode : Verbal Languages : Faroese PETR OAKLEY 03/31/2012 16:59 MARINE ENGINE MECHANIC Subjective Pain Symptoms : Yes PETR OAKLEY 03/31/2012 16:59 MARINE ENGINE MECHANIC Pain Pain Assessment Grid Pain 1 Location : Head Laterality : Bilateral PETR OAKLEY 03/31/2012 16:59 MARINE ENGINE MECHANIC Dependent Habits Tobacco Use/Currently Using : No Smoking Status : Never smoker PETR OAKLEY 03/31/2012 16:59 MARINE ENGINE MECHANIC Tobacco Use Grid Other Tobacco Frequency : never PETR OAKLEY 03/31/2012 16:59 MARINE ENGINE MECHANIC Allergy Allergies (Active) amoxicillin Estimated Onset Date: Unspecified ; Reactions: Rash ; Created By: PRISCILLA WHITAKER; Reaction Status: Active ; Category: Drug ; Substance: amoxicillin ; Type: Allergy ; Updated By:PRISCILLA WHITAKER; Reviewed Date: 03/31/2012 16:57 MARINE ENGINE MECHANIC Source: [facility] Splyst Document Id: [id number] documented in this encounter Plan of Treatment Not on filedocumented as of this encounter Visit Diagnoses Not on filedocumented in this encounter
--- OUTSIDE RECORDS SUMMARY | 2021-12-23 08:44 | XMS_ITS | Encounter Summary ---
:1980 Author Organization [facility] Address [address] [place] [address] Care Team Providers Name Role Phone Unavailable Primary Care Provider Unavailable Encounter Details Date Type Department Care Team Description 06/15/2014 Hospital Encounter [facility]X [facility] Zahida Laughlin M.D. 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 - 06/15/2014 11:21 AM CDT [id number] CHIEF COMPLAINT/REASON FOR VISIT OB check. HISTORY OF PRESENT ILLNESS Saniya is a 34-year old female 2, para 1 at 29-1/7 weeks estimated gestational age presentingfor care. She does have some swelling in her ankles in the evenings when she has been on her feet all day. This does go down overnight. Otherwise she has been doing well. The baby has been active. Patient denies any pain, cramping, bleeding, or loss of fluid. For the subjective and objective findings, please see the ACOG flow sheet/EMR summary filled out in full and available in the chart for review. VITAL SIGNS HEIGHT: 160 cm WEIGHT: 95.8 kg BMI: 37.42 kg/m2 TEMP: 36.6 DegC PULSE: 98 /min RESP RATE: 20 /min SYSTOLIC: 130 mmHg DIASTOLIC: 80 mmHg PHYSICAL EXAMINATION GENERAL: Well appearing and in no acute distress. ABDOMEN: heart tones were picked up at 150s bpm. Uterus measures 30 cm. Vertex position per Leopolds. IMPRESSION/REPORT/PLAN 1. A 33-year-old white female, 2, para 1, at 29-1/7 weeks estimated gestational age,doing well. LMP 11/23/2013. [place] 08/30/2014. A positive blood type. The baby is a boy. 2. Discussed labor precautions. All questions were answered. 3. Tdap was updated today. 4. Follow up in 2 weeks or sooner as needed. This document serves as a record of services personally performed by Dr. Oscar Laughlin. It was created on their behalf by Trista Bronson, a trained certified medical assistant. The creation of this record is based on the scribe's personal observations and the provider's statements to them. This document has been checked and approved by the attending provider. Oscar Laughlin M.D./juan cc: Labor and Delivery Electronically Signed By: OSCAR LAUGHLIN MD On: 06/16/2014 09:16 AM Source: [facility] MHSDOLBEYNONRADSYS Document Id: [id number] documented in this encounter Miscellaneous Notes Miscellaneous - Oscar Laughlin M.D. - 06/15/2014 11:59 AM CDT Ambulatory Patient Summary [address] [id number] Visit Information Name: SANIYA MCCOLLUM STEPHANIE [facility] Number: [id number] Current Date: 06/15/2014 11:59:43 Physicians Attending Provider: OSCAR LAUGHLIN MD Primary Care Provider: OSCAR LAUGHLIN MD SHMUEL MCCOLLUMZOE BROWN has been [...] the Following Medications: Medication list as of 06-15-14 11:59 Attention: If you have any medications at [...] Electronically Signed By: OSCAR LAUGHLIN MD Signed On:15-JUN-2014 11:59:25 Your Allergies & Intolerances Substance Reaction Symptoms Category Comments amoxicillin Rash Drug Your Problem List Problem Status Onset Comments Active 11/23/2013 Exam Active Your Upcoming Appointments Date Time Location Provider 06/26/2014 11:15 Oscar Mclain MD 07/10/2014 11:15 Oscar Mclain MD 07/24/2014 11:15 Oscar Mclain MD 08/06/2014 11:15 Oscar Mclain MD Attention: Contact your local Clinic if further appointment detail needed. Your Goals/Additional instructions: Source: [facility] POWERCHART Document Id: [id number] Miscellaneous - Oscar Laughlin M.D. - 06/15/2014 11:59 AM CDT Ambulatory Discharge Medication List [address] [id number] Visit Information Name: SANIYA MCCOLLUM STEPHANIE [facility] Number: [id number] Visit Date: 06/15/2014 11:59:42 Attending Provider: OSCAR LAUGHLIN MD Primary Care [...] the Following Medications: Medication list as of 06-15-14 11:59 Attention: If you have any medications at [...] Electronically Signed By: OSCAR LAUGHLIN MD Signed On:15-JUN-2014 11:59:25 Additional Information: Source: [facility] POWERCHART Document Id: [id number] Miscellaneous - Maura Bhatia, L.P.N. - 06/15/2014 11:30 AM CDT Adult Engineering Administrator Intake/History Adult Engineering Administrator Intake/History Entered On: 06/15/2014 11:34 CDT Performed On: 06/15/2014 11:30 CDT by MAURA BHATIA LPN Intake Chief Complaint : Pre hugh/OB appt LMP Date : 11-23-2013 Temperature Oral : 36.6 DegC(Converted to: 97.9 DegF) Peripheral Pulse Rate : 98 /min Respiratory Rate : 20 /min Heart Rhythm : Regular Systolic Blood Pressure : 130 mmHg Diastolic Blood Pressure : 80 mmHg NIBP Mean : 97 mmHg BP Location : Right upper extremity Blood Pressure Cuff Size : Large Height : 160 cm(Converted to: 5 ft 3 inch(es), 63 inch(es)) Actual Weight : 95.8 kg(Converted to: 211 lb 3 oz) Weight Source : Standing scale Dosing Weight Clinic : 95.8 kg Clinic BSA : 2.06 Body Mass Index : 37.42 kg/m2 MAURA BHATIA LPN - 06/15/2014 11:30 CDT General Info Information Given By : Patient Preferred Communication Mode : Verbal Languages : Bengali Is Patient Female and 13-50 no hysterectomy : No MAURA BHATIA LPN - 06/15/2014 11:30 CDT Subjective Pain Symptoms : No MAURA BHATIA [facility] - 06/15/2014 11:30 CDT Dependent Habits Tobacco Use/Currently Using : No Exposure to Tobacco Smoke : Other: Never Smoking Status : Never smoker MAURA BHATIA [facility] - 06/15/2014 11:30 CDT Tobacco Use Grid Other Tobacco Frequency : never MAURA BHATIA [facility] - 06/15/2014 11:30 CDT ID Screen Travel Within Last 21 Days : No Contact with someone with Ebola : No MAURA BHATIA [facility] 06/15/2014 11:30 CDT Source: [employer] Document Id: [id number] CDT!36 documented in this encounter Plan of Treatment Not on filedocumented as of this encounter Visit Diagnoses Not on filedocumented in this encounter
--- OUTSIDE RECORDS SUMMARY | 2021-12-23 08:44 | XMS_ITS | Encounter Summary ---
:1980 Author Organization [facility] Address [address] [place] [address] Care Team Providers Name Role Phone Unavailable Primary Care Provider Unavailable Encounter Details Date Type Department Care Team Description 11/15/2012 Hospital Encounter [facility]X [facility] Modesto Corona M.D. 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 - 11/15/2012 2:37 PM CDT [id number] The patient complains of a sore throat and body aches. It has been going on just for about a day hoa half. She has not had a cough. No postnasal drainage. She denies any sinus congestion. No allergies. She has had strep in the past and it feels a little like that. She also has a history of tonsillarhypertrophy. She denies any snoring, but her is a deep sleeper. On exam today, ears are clear bilaterally. No sinus tenderness. Tonsils are mildly erythematous, butcertainly hypertrophied, which is baseline for her. Minimal exudate. Rapid strep is negative. No adenopathy in the neck. Lungs are clear. IMPRESSION / REPORT / PLAN 1. Upper respiratory infection, probably viral. 2. Tonsillar hypertrophy with history of same. Recommend, at this point, symptomatic care. I did suggest she consider discussing the possibility ofsleep study with her primary, as she could have some subtle sleep apnea with those enlarged tonsils.We will contact her with her final strep results, but I did send a prescription in since it is the weekend and if this seems to not improve, she can get that filled. Corey Corona M.D./lori Electronically Signed By: COREY CORONA MD On: 11/19/2012 12:15 PM Source: [facility] MHSDOLBEYNONRADSYS Document Id: [id number] documented in this encounter Procedure Notes Conversion, Historical Provider Ser - 11/15/2012 3:03 PM CDT Rapid Strep A Screen POC Rapid Strep A Screen POC Entered On: 11/15/2012 15:03 CDT Performed On: 11/15/2012 15:03 CDT by ROBY DAVEY Rapid Strep A Screen POC Rapid Strep A Screen POC : Negative Internal QC : Pass ROBY DAVEY - 11/15/2012 15:03 CDT Source: [facility] [employer] Document Id: [id number] CDT!4 documented in this encounter Miscellaneous Notes Miscellaneous - Conversion, Historical Provider Ser - 11/15/2012 2:49 PM CDT Adult Internal Medicine Veterinary Technician Intake/History Adult Internal Medicine Veterinary Technician Intake/History Entered On: 11/15/2012 14:53 CDT Performed On: 11/15/2012 14:49 CDT by ROBY DAVEY Intake Chief Complaint : Sore throat, body aches Onset of Symptoms : x 2 days Temperature Oral : 37.1 DegC(Converted to: 98.8 DegF) Peripheral Pulse Rate : 68 /min Respiratory Rate : 20 /min Systolic Blood Pressure : 124 mmHg Diastolic Blood Pressure : 84 mmHg NIBP Mean : 97 mmHg BP Location : Right upper extremity Blood Pressure Cuff Size : Regular Actual Weight : 79.1 kg(Converted to: 174 lb 6 oz) Dosing Weight Clinic : 79.1 kg ROBY DAVEY - 11/15/2012 14:49 CDT General Info Information Given By : Patient Preferred Communication Mode : Verbal Languages : French ROBY DAVEY - 11/15/2012 14:49 CDT Subjective Pain Symptoms : Yes ROBY DAVEY - 11/15/2012 14:49 CDT Pain Pain Assessment Grid Pain 1 Location : Throat ROBY DAVEY - 11/15/2012 14:49 CDT Dependent Habits Tobacco Use/Currently Using : No Smoking Status : Never smoker ROBY DAVEY - 11/15/2012 14:49 CDT Tobacco Use Grid Other Tobacco Frequency : never ROBY DAVEY - 11/15/2012 14:49 CDT Source: [facility] POWERCHART Document Id: [id number] CDT!30 documented in this encounter Plan of Treatment Not on filedocumented as of this encounter Procedures Procedure Name Priority Date/Time Associated Diagnosis Comme nts RAPID STREP A Routine 11/15/2012 4:41 PM Results for this SCREEN CDT procedure are i n the results section. documented in this encounter Results Rapid Strep A Screen (11/15/2012 4:41 PM CDT) [facility] gist Method Time Signature HXRapid Strep POWERCHART Confirmation HXFinal Negative for POWERCHART Group A Strep by culture. Specimen (Source) Anatomical Collection Method Collection Time Re ceived Time Location / / Volume Laterality Throat 11/15/2012 4:41 PM CDT Historical Provider LAB MICROBIOLOGY - GENERAL O RDERABLES Performing Organization Address City/State/ZIP Code Phon e Number POWERCHART documented in this encounter Visit Diagnoses Not on filedocumented in this encounter
--- OUTSIDE RECORDS SUMMARY | 2021-12-23 08:44 | XMS_ITS | Encounter Summary ---
:1980 Author Organization [facility] Address [address] [place] [address] Care Team Providers Name Role Phone Unavailable Primary Care Provider Unavailable Encounter Details Date Type Department Care Team Description 05/27/2014 Hospital Encounter [facility] Zahida Laughlin M.D. [address] [place], [place] [phone] (Wo rk) Social History [...] or relatives? How often do you attend restoration or More than 4 times per year 07/29/2020 oriental orthodox services? 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 - 06/05/2014 6:16 PM CDT From: ИРИНА LAUGHLIN MD To: SANIYA SAUCEDA Sent: 06/05/2014 18:16:37 CDT Saniya, Your 1 hour glucose test was normal... you do not have diabetes of . Your hemoglobin is somewhat low, which is called anemia. This is common in because your body has to produce more blood. This can make you tired. I'd recommend getting some over the counter iron, called ferrous sulfate 325mg and take 1 tab daily (if you can tolerate it). You can also try to increase high iron foods like spinach, red beans, red meats, etc. Ирина Laughlin MD Results: Date Result Name Ind Value Ref Range 05/27/2014 14:24 Glucose 1 Hr OB 90 mg/dL (70 - 139) 05/27/2014 14:24 Hgb (L) 10.5 g/dL (12.0 - 15.5) Source: [facility] POWERCHART Document Id: [id number] documented in this encounter Plan of Treatment Not on filedocumented as of this encounter Procedures Procedure Name Priority Date/Time Associated Comments Diagnosis GLUCOSE, GESTATIONAL Routine 05/27/2014 2:24 PM R esults for this 1HR, S CDT procedure are i n the results section. HEMOGLOBIN, B Routine 05/27/2014 2:24 PM Results for this CDT procedure are i n the results section. documented in this encounter Results (ABNORMAL) Hemoglobin (05/27/2014 2:24 PM CDT) P athologist Signature Hemoglobin 10.5 (L) 12.0 - 15.5 POWERCHART GDL Specimen (Source) Anatomical Collection Method Collection Time Re ceived Time Location / / Volume Laterality Blood 05/27/2014 2:24 PM CDT Ирина Laughlin M.D. LAB BLOOD ADD-ON Performing Organization Address City/State/ZIP Code Phon e Number POWERCHART Glucose, Gestational 1HR (05/27/2014 2:24 PM CDT) P athologist Signature HXGlucose 1 Hr 90 70 - 139 POWERCHART OB MGDL Specimen (Source) Anatomical Collection Method Collection Time Re ceived Time Location / / Volume Laterality Blood 05/27/2014 2:24 PM CDT Ирина Laughlin M.D. LAB BLOOD ADD-ON Performing Organization Address City/State/ZIP Code Phon e Number POWERCHART documented in this encounter Visit Diagnoses Not on filedocumented in this encounter
--- OUTSIDE RECORDS SUMMARY | 2021-12-23 08:44 | XMS_ITS | Encounter Summary ---
:1980 Author Organization [facility] Address [address] [place] [address] Care Team Providers Name Role Phone Unavailable Primary Care Provider Unavailable Encounter Details Date Type Department Care Team Description 04/16/2014 Hospital Encounter [facility] Conrado Kilgore M.D. [address] [place], [place] [address] (Wo rk) Social History Tobacco Use Types [...] or relatives? How often do you attend latter day or More than 4 times per year 07/29/2020 zoroastrianism services? Do you belong to any clubs or Yes 07/29/2020 organizations such as latter day groups, unions, fraternal or athletic groups, or [...] at Date Recorded Female 04/27/2017 8:11 AM ENVELOPE PRESS OPERATOR documented as of this encounter Last Filed Vital Signs Vital Sign Reading Time Taken Comments Blood Pressure 102/78 04/16/2014 2:23 PM ENVELOPE PRESS OPERATOR Pulse - - Temperature - - Respiratory Rate - - Oxygen Saturation - - Inhaled Oxygen Concentration - - Weight 89.7 kg (197 lb 12 oz) 04/16/2014 2:23 PM ENVELOPE PRESS OPERATOR Height 160 cm (5' 2.99) 04/16/2014 2:19 PM ENVELOPE PRESS OPERATOR Body Mass Index 35.04 04/16/2014 2:19 PM ENVELOPE PRESS OPERATOR documented in this encounter Progress Notes Jeff Kilgore M.D. - 04/16/2014 2:18 PM CST [id number] CHIEF COMPLAINT/REASON FOR VISIT care. On review, this patient presents for care. On review, she is about 20+ weeks now along in her . On review of the record, estimated date of confinement is on 08/30. Had recently reassuring ultrasound. Regular patient of Dr. Oscar Laughlin who is out of clinic today due to illness. On review, she has no ongoing concerns. PHYSICAL EXAMINATION She is felt to be consistent with dates today with heart tones in the 130s. IMPRESSION/REPORT/PLAN care, I think she is doing well. Blood pressure is reassuring. PLAN: She is advised to follow up with Dr. Oscar Laughlin in 4 weeks for continued routine prenatalcare. Follow up as needed if there is any other concern that develops in the meantime which we discussed specifically. Jeff Kilgore M.D./giselle Electronically Signed By: JEFF KILGORE MD On: 04/17/2014 09:20 AM Source: [facility] MHSDOLBEYNONRADSYS Document Id: [id number] LOPE PRESS OPERATOR documented in this encounter Miscellaneous Notes Miscellaneous - Yulisa Carmichael L.PMickeyN. - 04/16/2014 2:23 PM CST Adult Coordinator Volunteer Services Intake/History Adult Coordinator Volunteer Services Intake/History Entered On: 04/16/2014 14:25 ENVELOPE PRESS OPERATOR Performed On: 04/16/2014 14:23 ENVELOPE PRESS OPERATOR by YULISA CARMICHAEL Intake Chief Complaint : OB Systolic Blood Pressure : 102 mmHg Diastolic Blood Pressure : 78 mmHg NIBP Mean : 86 mmHg BP Location : Right upper extremity Blood Pressure Cuff Size : Large Actual Weight : 89.7 kg(Converted to: 197 lb 12 oz) Weight Source : Standing scale Dosing Weight Clinic : 89.7 kg YULISA CARMICHAEL - 04/16/2014 14:23 ENVELOPE PRESS OPERATOR General Info Information Given By : Patient Preferred Communication Mode : Verbal Languages : Turkmen Is Patient Female and 13-50 no hysterectomy : No YULISA CARMICHAEL - 04/16/2014 14:23 ENVELOPE PRESS OPERATOR Subjective Pain Symptoms : No YULISA CARMICHAEL - 04/16/2014 14:23 ENVELOPE PRESS OPERATOR Dependent Habits Tobacco Use/Currently Using : No Smoking Status : Never smoker YULISA CARMICHAEL - 04/16/2014 14:23 ENVELOPE PRESS OPERATOR Tobacco Use Grid Other Tobacco Frequency : never YULISA CARMICHAEL - 04/16/2014 14:23 ENVELOPE PRESS OPERATOR ID Screen Travel Within Last 21 Days : No YULISA CARMICHAEL - 04/16/2014 14:23 ENVELOPE PRESS OPERATOR Source: [facility] POWERCHART Document Id: [id number] ENVELOPE PRESS OPERATOR!26 LOPE PRESS OPERATOR documented in this encounter Plan of Treatment Not on filedocumented as of this encounter Visit Diagnoses Not on filedocumented in this encounter
--- OUTSIDE RECORDS SUMMARY | 2021-12-23 08:44 | XMS_ITS | Encounter Summary ---
:1980 Author Organization [facility] Address [address] [place] [address] Care Team Providers Name Role Phone Unavailable Primary Care Provider Unavailable Encounter Details Date Type Department Care Team Description 04/08/2004 Hospital Encounter [facility] Jasmin Dominguez M.D. [address] [place], [place] [address] (Wo rk) Social History Tobacco Use Types [...] More than 4 times per year 07/29/2020 baptism services? Do you belong to any clubs [...] at Date Recorded Female 04/27/2017 8:11 AM CONCESSION MANAGER documented as of this encounter Plan of Treatment Not on filedocumented as of this encounter Visit Diagnoses Not on filedocumented in this encounter
--- OUTSIDE RECORDS SUMMARY | 2021-12-23 08:44 | XMS_ITS | Encounter Summary ---
:1980 Author Organization [facility] Address [address] [place] [address] Care Team Providers Name Role Phone Unavailable Primary Care Provider Unavailable Encounter Details Date Type Department Care Team Description 10/18/2003 Hospital Encounter [facility]RG[facility] Provider, Al david Social History Tobacco Use Types Packs/Day Years [...] place to sleep or slept in a care home (including now)? 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
--- OUTSIDE RECORDS SUMMARY | 2021-12-23 08:44 | XMS_ITS | Encounter Summary ---
:1980 Author Organization [facility] Address [address] [place] [address] Care Team Providers Name Role Phone Unavailable Primary Care Provider Unavailable Encounter Details Date Type Department Care Team Description 04/08/2014 Hospital Encounter [facility] Scott Vo M.D. Social History Tobacco Use Types Packs/Day Years [...] More than 4 times per year 07/29/2020 synagogue services? Do you belong to any clubs [...] at Date Recorded Female 04/27/2017 8:11 AM SPINNING FRAME TENDER documented as of this encounter Last Filed Vital Signs Vital Sign Reading Time Taken Comments Blood Pressure - - Pulse - - Temperature - - Respiratory Rate - - Oxygen Saturation - - Inhaled Oxygen Concentration - - Weight - - Height 160 cm (5' 2.99) 04/08/2014 10:47 AM SPINNING FRAME TENDER Body Mass Index - - documented in this encounter Miscellaneous Notes Miscellaneous - Ирина Laughlin M.D. - 04/10/2014 12:51 PM CST From: ИРИНА LAUGHLIN MD To: SANIYA MCCOLLUM STEPHANIE Sent: 04/10/2014 12:51:58 SPINNING FRAME TENDER Saniya, Your ultrasound was all normal. The baby looks good. Your due date remains the same. Let me know if you have any questions. Have a great weekend and Happy Forrester's Day! Ирина Laughlin MD Source: [facility] POWERCHART Document Id: [id number] Electronically signed by Conversion, [facility] Manager Tax [id number] at 07/23/2016 8:05 PM CDT documented in this encounter Plan of Treatment Not on filedocumented as of this encounter Procedures Procedure Name Priority Date/Time Associated Diagnosis Comme nts US OB GREATER THAN Routine 04/08/2014 11:05 AM Re sults for this 14 WEEKS SPINNING FRAME TENDER procedure are i n the results section. documented in this encounter Results US OB Greater than 14 weeks (04/08/2014 11:05 AM SPINNING FRAME TENDER) Anatomical Region Laterality Modality Ultrasound Specimen (Source) Anatomical Collection Method Collection Time Re ceived Time Location / / Volume Laterality 04/08/2014 11:05 AM SPINNING FRAME TENDER Addenda Addendum by Provider, Zeb Castañeda 04/08/2014 11:05 AM SPINNING FRAME TENDER RAD^^^OW US OB Greater than 14 weeks 04/08/2014 11:05:14 Impressions 04/08/2014 4:40 PM SPINNING FRAME TENDER 1. Viable with ROOSEVELT of 2014 , consistent with prior dates. 2. anatomic survey appears normal, gender is male. In general, it is reasonable to use the sonographically derived ROOSEVELT if it differs from that calculated using the last menstrual period (LMP) by more than seven days in the fir st trimester and by more than 10 days in the second trimester. In the third trimester, a three-week discrepancy between LMP dating and ultra sound dating is allowed before changing ROOSEVELT. No anomalies were detected by chacorta gonzalez's survey. Results shared with the patient were done with a n understanding of the limitations of ultrasound for detection of aneuploidy, as well as congenital heart defects. [facility] in [place] CELL EFFICIENCY SUPERVISOR Dept. [phone] Narrative 04/08/2014 4:40 PM SPINNING FRAME TENDER EXAM: US OB Greater than 14 weeks INDICATION: Survey REFERRING PHYSICIAN: ИРИНА LAUGHLIN PATENT PROSECUTION ATTORNEY: Marlene Ambrosio RDMS. : 2 ?? PARA: 1 LMP: 11/23/2013 ? ROOSEVELT by LMP: 5 ?EGA by LMP: 19 weeks 3 days NUMBER: One ??CHORIONICITY: N/A PRESENTATION: Variable/transverse UTERUS: Visually normal. CERVIX: 5.1 cm PLACENTA: Anterior with no evidence of p lacenta previa nor abruption. ADNEXA: Visually normal, no adnexal mass es detected. AMNIOTIC FLUID INDEX: Appropriate and no rmal for gestational age at 11.3 cm. BIOMETRY GA(BPD): ??4.57 cm consistent with 19 we eks 5 days GA(HC): ??17.8 cm consistent with 20 wee ks 1 day GA(AC): ??15.2 cm consistent with 20 wee ks 2 days GA(FL): ??3.28 cm consistent with 20 wee ks 1 day GA(HL): ??3.25 cm consistent with 21 wee ks 0 days Based on the above, the average ultrasou nd age is 20 weeks and 0 days. See 'Impression' below for ultrasound ca lculation of Estimated Date of Delivery (ROOSEVELT). The estimated weight of 344 grams is equivalent to the 59 percentile of growth. The following anatomic features we re well visualized and appear normal today: SPINE (longitudinal and transverse): Nor mal CEREBELLUM: Normal CISTERNA MAGNA: Normal NUCHAL FOLD: Normal LATERAL VENTRICLES: Normal CHOROID PLEXUS: Normal FOUR CHAMBER HEART: Normal HEART RATE: 143 beats per minute CARDIAC AXIS: Normal RIGHT AND LEFT OUTFLOW TRACTS: Normal ANTERIOR ABDOMINAL WALL: Normal DIAPHRAGM: Normal CORD INSERTION: Normal THREE VESSEL CORD: Normal STOMACH: Normal BLADDER: Normal KIDNEYS: Normal EXTREMITIES (arms and legs): Normal HANDS AND FEET: Normal ORBITS: Normal PROFILE: Normal NOSE AND LIPS: Normal CORD INSERTION AT PLACENTA: Normal Procedure Note Scott Horvath M.D. / Provider, Reggie butterfield M.D. - 07/05/2016 EXAM: US OB Greater than 14 weeks INDICATION: Survey REFERRING PHYSICIAN: ИРИНА LAUGHLIN PATENT PROSECUTION ATTORNEY: Marlene Ambrosio RDMS. : 2 PARA: 1 LMP: 11/23/2013 ROOSEVELT by LMP: 08/30/2014 EGA by LMP: 19 weeks 3 days NUMBER: One CHORIONICITY: N/A PRESENTATION: Variable/transverse UTERUS: Visually normal. CERVIX: 5.1 cm PLACENTA: Anterior with no evidence of p lacenta previa nor abruption. ADNEXA: Visually normal, no adnexal mass es detected. AMNIOTIC FLUID INDEX: Appropriate and no rmal for gestational age at 11.3 cm. BIOMETRY GA(BPD): 4.57 cm consistent with 19 week s 5 days GA(HC): 17.8 cm consistent with 20 weeks 1 day GA(AC): 15.2 cm consistent with 20 weeks 2 days GA(FL): 3.28 cm consistent with 20 weeks 1 day GA(HL): 3.25 cm consistent with 21 weeks 0 days Based on the above, the average ultrasou nd age is 20 weeks and 0 days. See 'Impression' below for ultrasound ca lculation of Estimated Date of Delivery (ROOSEVELT). The estimated weight of 344 grams is equivalent to the 59 percentile of growth. The following anatomic features we re well visualized and appear normal today: SPINE (longitudinal and transverse): Nor mal CEREBELLUM: Normal CISTERNA MAGNA: Normal NUCHAL FOLD: Normal LATERAL VENTRICLES: Normal CHOROID PLEXUS: Normal FOUR CHAMBER HEART: Normal HEART RATE: 143 beats per minute CARDIAC AXIS: Normal RIGHT AND LEFT OUTFLOW TRACTS: Normal ANTERIOR ABDOMINAL WALL: Normal DIAPHRAGM: Normal CORD INSERTION: Normal THREE VESSEL CORD: Normal STOMACH: Normal BLADDER: Normal KIDNEYS: Normal EXTREMITIES (arms and legs): Normal HANDS AND FEET: Normal ORBITS: Normal PROFILE: Normal NOSE AND LIPS: Normal CORD INSERTION AT PLACENTA: Normal IMPRESSION: 1. Viable with ROOSEVELT of 2014 , consistent with prior dates. 2. anatomic survey appears normal, gender is male. In general, it is reasonable to use the sonographically derived ROOSEVELT if it differs from that calculated using the last menstrual period (LMP) by more than seven days in the fir st trimester and by more than 10 days in the second trimester. In the third trimester, a three-week discrepancy between LMP dating and ultra sound dating is allowed before changing ROOSEVELT. No anomalies were detected by chacorta gonzalez's survey. Results shared with the patient were done with a n understanding of the limitations of ultrasound for detection of aneuploidy, as well as congenital heart defects. [facility] in [place] CELL EFFICIENCY SUPERVISOR Dept. [phone] Marlene Nichols R.V.T., RJordanS. IMG OB US PROCEDUR ES documented in this encounter Visit Diagnoses Not on filedocumented in this encounter
--- OUTSIDE RECORDS SUMMARY | 2021-12-23 08:44 | XMS_ITS | Encounter Summary ---
:1980 Author Organization [facility] Address [address] [place] [address] Care Team Providers Name Role Phone Unavailable Primary Care Provider Unavailable Encounter Details Date Type Department Care Team Description 06/26/2014 Hospital Encounter [facility] Zahida Laughlin M.D. [address] [place] [address] (Wo rk) Social History Tobacco [...] many times do you More than three aslhey es a week 07/29/2020 talk on the phone with family, friends, or neighbors? How often do you get together with friends More than three t imes a week 07/29/2020 or relatives? How often do you attend worship or More than 4 times per year 07/29/2020 synagogue services? Do you belong to any clubs or Yes 07/29/2020 organizations such as worship groups, unions, fraternal or athletic groups, or [...] or slept in a retirement (including now)? Sex Assigned at Date Recorded Female 04/27/2017 8:11 AM CLERGY MEMBER documented as of this encounter Last Filed Vital Signs Vital Sign Reading Time Taken Comments Blood Pressure 122/70 06/26/2014 11:28 AM CDT Pulse 88 06/26/2014 11:28 AM CDT Temperature - - Respiratory Rate 20 06/26/2014 11:28 AM CDT Oxygen Saturation - - Inhaled Oxygen Concentration - - Weight 96.3 kg (212 lb 4.9 oz) 06/26/2014 11:28 AM CDT Height 160 cm (5' 2.99) 06/26/2014 11:28 AM CDT Body Mass Index 37.62 06/26/2014 11:28 AM CDT documented in this encounter Progress Notes Ирина Laughlin M.D. - 06/26/2014 11:19 AM CDT [id number] CHIEF COMPLAINT/REASON FOR VISIT OB check. HISTORY OF PRESENT ILLNESS Saniya is a 34-year old female 2, para 1 at 30-5/7 weeks estimated gestational age presentingfor care. She has been doing well. The baby has been active. Patient denies any pain, cramping, bleeding, swelling, or loss of fluid. For the subjective and objective findings, please see the ACOG flow sheet/EMR summary filled out in full and available in the chart for review. VITAL SIGNS HEIGHT: 160 cm WEIGHT: 96.3 kg BMI: 37.62 kg/m2 TEMP: 37.0 DegC PULSE: 88 /min RESP RATE: 20 /min SYSTOLIC: 122 mmHg DIASTOLIC: 70 mmHg PHYSICAL EXAMINATION GENERAL: Well appearing and in no acute distress. ABDOMEN: heart tones were picked up at 140s -150s bpm. Uterus measures 31 cm. Vertex position per Leyi. IMPRESSION/REPORT/PLAN 1. A 33-year-old white female, 2, para 1, at 30-5/7 weeks estimated gestational age,doing well. LMP 11/23/2013. ROOSEVELT 08/30/2014. A positive blood type. The baby is a boy. 2. Discussed labor precautions. All questions were answered. 3. Follow up in 2 weeks or sooner as needed. This document serves as a record of services personally performed by Dr. Ирина Laughlin. It was created on their behalf by Trista Bronson, a trained diagnostic medical sonographer. The creation of this record is based on the scribe's personal observations and the provider's statements to them. This document has been checked and approved by the attending provider. Ирина Laughlin M.D./juan cc: Labor and Delivery Electronically Signed By: ИРИНА LAUGHLIN MD On: 12/06/2014 02:27 AM Source: [facility] MHSDOLBEYNONRADSYS Document Id: [id number] documented in this encounter Miscellaneous Notes Miscellaneous - Ирина Laughlin M.D. - 06/26/2014 11:56 AM CDT Ambulatory Patient Summary [facility] [address] [place] [id number] Visit Information Name: SANIYA MCCOLLUM [facility] Number: [id number] Current Date: 06/26/2014 11:56:51 Physicians Attending Provider: ИРИНА LAUGHLIN MD Primary Care Provider: ИРИНА LAUGHLIN MD SANIYA MCCOLLUM has been given [...] the Following Medications: Medication list as of 06-26-14 11:56 Attention: If you have any medications at [...] Electronically Signed By: ИРИНА LAUGHLIN MD Signed On:26-JUN-2014 11:56:48 Your Allergies & Intolerances Substance Reaction Symptoms Category Comments amoxicillin Rash Drug Your Problem List Problem Status Onset Comments Active 11/23/2013 Exam Active Your Upcoming Appointments Date Time Location Provider 07/10/2014 11:15 Ирина Mclain MD 07/24/2014 11:15 Ирина Mclain MD 08/06/2014 11:15 Ирина Mclain MD Attention: Contact your local Clinic if further appointment detail needed. Your Goals/Additional instructions: Source: [facility] POWERCHART Document Id: [id number] Miscellaneous - Ирина Laughlin M.D. - 06/26/2014 11:56 AM CDT Ambulatory Discharge Medication List [address] [id number] Visit Information Name: MCCOLLUMSANIYA Enamorado STEPHANIE [facility] Number: [id number] Visit Date: 06/26/2014 11:56:50 Attending Provider: ИРИНА LAUGHLIN MD Primary Care [...] the Following Medications: Medication list as of 06-26-14 11:56 Attention: If you have any medications at [...] Electronically Signed By: ИРИНА LAUGHLIN MD Signed On:26-JUN-2014 11:56:48 Additional Information: Source: [facility] POWERCHART Document Id: [id number] Miscellaneous - Blade Lee - 06/26/2014 11:28 AM CDT Adult Log Handler Intake/History Adult Log Handler Intake/History Entered On: 06/26/2014 11:31 CDT Performed On: 06/26/2014 11:28 CDT by BLADE LEE Intake Chief Complaint : OB 30 5/7 weeks LMP Date : 11-23-2013 Temperature Oral : 37.0 DegC(Converted to: 98.6 DegF) Peripheral Pulse Rate : 88 /min Respiratory Rate : 20 /min Heart Rhythm : Regular Systolic Blood Pressure : 122 mmHg Diastolic Blood Pressure : 70 mmHg NIBP Mean : 87 mmHg BP Location : Right upper extremity Blood Pressure Cuff Size : Large Height : 160 cm(Converted to: 5 ft 3 inch(es), 63 inch(es)) Actual Weight : 96.3 kg(Converted to: 212 lb 5 oz) Weight Source : Standing scale Dosing Weight Clinic : 96.3 kg Clinic BSA : 2.07 Body Mass Index : 37.62 kg/m2 BLADE LEE - 06/26/2014 11:28 CDT General Info Information Given By : Patient Languages : Kosovan Is Patient Female and 13-50 no hysterectomy : No BLADE LEE - 06/26/2014 11:28 CDT Subjective Pain Symptoms : No BLADE LEE - 06/26/2014 11:28 CDT Dependent Habits Tobacco Use/Currently Using : No Exposure to Tobacco Smoke : Other: Never Smoking Status : Never smoker BLADE LEE - 06/26/2014 11:28 CDT Tobacco Use Grid Other Tobacco Frequency : never BLADE LEE - 06/26/2014 11:28 CDT ID Screen Travel Within Last 21 Days : No Contact with someone with Ebola : No BLADE LEE - 06/26/2014 11:28 CDT Source: [facility] POWERCHART Document Id: [id number] CDT!35 documented in this encounter Plan of Treatment Not on filedocumented as of this encounter Visit Diagnoses Not on filedocumented in this encounter
--- OUTSIDE RECORDS SUMMARY | 2021-12-23 08:44 | XMS_ITS | Encounter Summary ---
:1980 Author Organization [facility] Address [address] [place] [address] Care Team Providers Name Role Phone Unavailable Primary Care Provider Unavailable Encounter Details Date Type Department Care Team Description 03/27/2012 Hospital Encounter [facility] Kolby Huizar P.AMickey -Karen. [address] [place] [address] (Wo rk) Social History Tobacco [...] or relatives? How often do you attend jewish or More than 4 times per year 07/29/2020 islam services? Do you belong to any clubs or Yes 07/29/2020 organizations such as jewish groups, unions, fraternal or athletic groups, or [...] or slept in a intermediate (including now)? Sex Assigned at Date Recorded Female 04/27/2017 8:11 AM OFFICE AUDITOR documented as of this encounter Last Filed Vital Signs Vital Sign Reading Time Taken Comments Blood Pressure 130/84 03/27/2012 9:39 AM OFFICE AUDITOR Pulse 78 03/27/2012 9:39 AM OFFICE AUDITOR Temperature - - Respiratory Rate 18 03/27/2012 9:39 AM OFFICE AUDITOR Oxygen Saturation - - Inhaled Oxygen Concentration - - Weight 79.2 kg (174 lb 9.7 oz) 03/27/2012 9:39 AM OFFICE AUDITOR Height - - Body Mass Index - - documented in this encounter Progress Notes Kolby Huizar - 03/27/2012 9:12 AM CST [id number] CHIEF COMPLAINT / REASON FOR VISIT Sore throat. HISTORY OF PRESENT ILLNESS Patient states she has had sore throat in the past couple of days. She feels like she is losing her voice. She denied any chills or sweats; denied any nausea or vomiting; denied any specific concerns or problems. Please refer to EMR for vitals, medications, and allergies. PHYSICAL EXAM GENERAL: This pleasant 32-year-old female in no appreciable distress. She is alert and awake and responds appropriately to auditory and visual stimuli. LUNGS: Clear to auscultation. No wheezes, rales, or rhonchi. HEENT: There is some mild posterior pharyngeal cobblestoning and some mild erythema. There is no petechiae. Slightly enlarged, nontender anterior cervical nodes. No posterior cervical lymphadenopathy. Sinuses are nontender. Eyes and ears are normal. Rapid strep is negative. IMPRESSION / REPORT / PLAN Unspecified laryngitis/sore throat, likely viral. PLAN: We are going to treat the patient symptomatically with Tylenol, ibuprofen, salt water gargles,lozenges, cold foods, soft foods. Did recommend followup with primary care provider in the next 4 or5 days if she continues to have her symptoms. We did answer all of their questions, and she is comfortable with this plan for now. Kolby Huizar P.A.-C/tae Electronically Signed By: KOLBY HUIZAR On: 03/29/2012 10:20 AM Source: [facility] MHSDOLBEYNONRADSYS Document Id: [id number] CE AUDITOR documented in this encounter Procedure Notes Saniya Duarte L.P.NMickey - 03/27/2012 9:49 AM CST Rapid Strep A Screen POC Rapid Strep A Screen POC Entered On: 03/27/2012 9:52 OFFICE AUDITOR Performed On: 03/27/2012 9:49 OFFICE AUDITOR by SANIYA DUARTE Rapid Strep A Screen POC Rapid Strep A Screen POC : Negative Internal QC : Pass SANIYA DUARTE - 03/27/2012 9:49 OFFICE AUDITOR Source: [facility] POWERCHART Document Id: [id number] CE AUDITOR documented in this encounter Miscellaneous Notes Miscellaneous - Kolby Huizar - 03/27/2012 2:28 PM CST Ambulatory Patient Summary [address] [id number] Visit Information Name: SANIYA MCCOLLUM [facility] Number: [id number] Current Date: 03/27/2012 14:28:06 Physicians Attending Provider: KOLBY HUIZAR Primary Care Provider: PCP, UNASSIGNED Your Medications Here is a list of your medications. It is important to take your medications as directed. Use a pillbox or chart to help remind you to take your medications. Please let your doctor or nurse know if you have problems taking your medications. Medication/Strength Dose Route Frequency Indications/Special Instructions/Comments No Medications found Attention: If you have any medications at home that are not on this list, DO NOT take them until youcontact your provider for clarification. Your Allergies & Intolerances Substance Reaction Symptoms Category Comments amoxicillin Rash Drug Your Problem List Problem Status Onset Comments No Problems found Your Upcoming Appointments Date Time Location Reason Provider No Appointments found Your Goals/Additional instructions: Source: [facility] Adtrade Document Id: [id number] CE AUDITOR Osmel - Kolby Huizar - 03/27/2012 2:28 PM CST Ambulatory Depart Summary [facility] [address] [place] [address] Visit Information Name: SANIYA MCCOLLUM [facility] Number: [id number] Visit Date: 03/27/2012 14:28:06 Attending Provider: KOLBY HUIZAR Primary Care Provider: PCP, UNASSIGNED SHMUEL MCCOLLUMZOE BROWN has been given the following list of medications: Your Medications It is important to take your medications as directed. Use a pill box or chart to help remind you to take your medications. Please let your doctor or nurse know if you have problems taking your medications. Medication/Strength Dose Route Frequency Indications/Special Instructions/Comments No Medications found Attention: If you have any medications at home that are not on this list, DO NOT take them until youcontact your provider for clarification. Additional Information: Source: [facility] Mom TrustedCHART Document Id: [id number] CE AUDITOR Osmel - Saniya Duarte L.PMickeyNMickey - 03/27/2012 9:39 AM CST Adult Couture Alterations Dressmaker Intake/History Adult Couture Alterations Dressmaker Intake/History Entered On: 03/27/2012 9:41 OFFICE AUDITOR Performed On: 03/27/2012 9:39 OFFICE AUDITOR by SANIYA DUARTE Intake Chief Complaint : Sore throat, losing voice Onset of Symptoms : Symptoms began on Sunday Temperature Oral : 37.0C(Converted to: 98.6DegF) Peripheral Pulse Rate : 78/min Respiratory Rate : 18/min Systolic Blood Pressure : 130mmHg Diastolic Blood Pressure : 84mmHg NIBP Mean : 99mmHg BP Location : Right upper extremity Blood Pressure Cuff Size : Regular Actual Weight : 79.2kg(Converted to: 174lb 10oz) Dosing Weight Clinic : 79.20kg SANIYA DUARTE 03/27/2012 9:39 OFFICE AUDITOR Subjective Pain Symptoms : No SANIYA DUARTE 03/27/2012 9:39 OFFICE AUDITOR Dependent Habits Tobacco Use/Currently Using : No Smoking Status : Unknown if ever smoke SANIYA DUARTE 03/27/2012 9:39 OFFICE AUDITOR Tobacco Use Grid Other Tobacco Frequency : never SANIYA DUARTE 03/27/2012 9:39 OFFICE AUDITOR Allergy Allergies (Active) amoxicillin Estimated Onset Date: Unspecified ; Reactions: Rash ; Created By: PRISCILLA WHITAKER; Reaction Status: Active ; Category: Drug ; Substance: amoxicillin ; Type: Allergy ; Updated By:PRISCILLA WHITAKER; Reviewed Date: 03/27/2012 9:39 OFFICE AUDITOR Source: [facility] POWERCHART Document Id: [id number] CE AUDITOR documented in this encounter Plan of Treatment Not on filedocumented as of this encounter Procedures Procedure Name Priority Date/Time Associated Diagnosis Comme nts RAPID STREP A Routine 03/27/2012 11:12 AM Results for this SCREEN OFFICE AUDITOR procedure are i n the results section. documented in this encounter Results Rapid Strep A Screen (03/27/2012 11:12 AM OFFICE AUDITOR) [facility] gist Method Time Signature HXRapid Strep POWERCHART Confirmation HXFinal Negative for POWERCHART Group A Strep by culture. Specimen (Source) Anatomical Collection Method Collection Time Re ceived Time Location / / Volume Laterality Throat 03/27/2012 11:12 AM OFFICE AUDITOR Kolby Huizar P.A.-C. LAB MICROBIOLOGY - GENERA L ORDERABLES Performing Organization Address City/State/ZIP Code Phon e Number POWERCHART documented in this encounter Visit Diagnoses Not on filedocumented in this encounter
--- OUTSIDE RECORDS SUMMARY | 2021-12-23 08:44 | XMS_ITS | Encounter Summary ---
:1980 Author Organization [facility] Address [address] [place] [address] Care Team Providers Name Role Phone Unavailable Primary Care Provider Unavailable Encounter Details Date Type Department Care Team Description 02/13/2014 Hospital Encounter HX [facility] Jonas Cameron M.D. [address] [place], [place] [address] (Wo rk) Social History [...] More than 4 times per year 07/29/2020 caodaism services? Do you belong to any clubs [...] at Date Recorded Female 04/27/2017 8:11 AM EPILEPSY PHYSICIAN documented as of this encounter Last Filed Vital Signs Vital Sign Reading Time Taken Comments Blood Pressure - - Pulse - - Temperature - - Respiratory Rate - - Oxygen Saturation - - Inhaled Oxygen Concentration - - Weight - - Height 160 cm (5' 2.99) 02/13/2014 10:56 AM EPILEPSY PHYSICIAN Body Mass Index - - documented in this encounter Miscellaneous Notes Miscellaneous - Oscar Laughlin M.D. - 02/17/2014 1:08 AM CST From: OSCAR LAUGHLIN MD To: SANIYA MCCOLLUM Sent: 02/17/2014 01:08:11 EPILEPSY PHYSICIAN Saniya, Your screening test was negative for Down's syndrome as well as Trisomy 18. If you'd like to check for spina bifida, we can draw an AFP test between 16-21 wks. Oscar Laughlin MD Results: Date Result Name Value 02/13/2014 11:43 Calc Age at ROOSEVELT-Mays 34 02/13/2014 11:43 Maternal Wgt1-Mays 180 02/13/2014 11:43 Maternal Wgt2-Mays 82 kg 02/13/2014 11:43 Insulin Diab-Mays None 02/13/2014 11:43 Black Race-Mays non-Black 02/13/2014 11:43 IVF-Mays No 02/13/2014 11:43 Scan Date-Mays 02/13/2014 02/13/2014 11:43 CRL Tg 1-Mays 64 mm 02/13/2014 11:43 CRL Tg 2-Mays na mm 02/13/2014 11:43 Chorions-Mays Unknown 02/13/2014 11:43 GA on [facility] U/S-Mays 12,5 02/13/2014 11:43 NT-Mays See Comment 02/13/2014 11:43 BERNARDINO-A-Mays See Comment 02/13/2014 11:43 THCG-Mays See Comment 02/13/2014 11:43 Down Syn Risk-Mays 1/21,000 02/13/2014 11:43 Down Syn Mat Age-Mays 260 02/13/2014 11:43 Trisomy 18 Risk-Mays < 1/100 02/13/2014 11:43 First Tri Interp-Mays See Comment 02/13/2014 11:43 [facility] 02/13/2014 11:43 First Tri Rec F/u-Mays None. Source: [facility] POWERCHART Document Id: [id number] Electronically signed by Conversion, [facility] Hematology Nurse Educator [id number] at 07/25/2016 4:19 PM CDT documented in this encounter Plan of Treatment Not on filedocumented as of this encounter Procedures Procedure Name Priority Date/Time Associated Comments Diagnosis FIRST TRIMESTER Routine 02/13/2014 11:43 Results for this MATERNAL SCRN, S AM EPILEPSY PHYSICIAN procedure a re in the results section. US NUCHAL FOLD Routine 02/13/2014 11:09 Res ults for this TRANSLUCENCY SCREEN AM EPILEPSY PHYSICIAN procedur e are in the results section. documented in this encounter Results First Trimester Maternal Screen (02/13/2014 11:43 AM EPILEPSY PHYSICIAN) [facility] gist Method Time Signature HXCALC AGE AT 34 POWERCHART ROOSEVELT Maternal Weight 180 POWERCHART Maternal Weight 82 KG POWERCHART Insulin None POWERCHART Dependent Diabetes HXBlack non-Black POWERCHART Race-Mays IVF No POWERCHART Scan Date 02/13/2014 POWERCHART CRL 64 MM POWERCHART CRL Twin na MM POWERCHART Number of Unknown POWERCHART chorions GA on , POWERCHART Collection by U/S Scan NT See Comment POWERCHART Comment: RESULT: 1.04 MoM ( 1.5 mm ) BERNARDINO-A See Comment POWERCHART Comment: RESULT: 1.89 MoM ( 1387 ng/mL ) THCG See Comment POWERCHART Comment: RESULT: 0.68 MoM ( 62.2 IU/mL ) Recalculated Maternal Serum Screen POWERCHART Down syndrome maternal age risk POWERCHART Trisomy 18 Screen Risk Estimate < 1/100 POWERCHART Interpretation See Comment POWERCHART Comment: Screen negative for Down syndrome. The r isk for trisomy 18 is less than 1%. For neural tube risk as sessment, collect specimen between 15,0 and 22,6 (weeks,da ys) and order AFP Single Marker Screen ([facility] Comment Initial testing POWERCHART HXFirst Tri Rec F/u-Mays None. POWER CHART Comment: ADDITIONAL INFORMATIO N This screening provides an estimation of risk, not a diagnosis. Incorrect information may sig nificantly alter results. Risks are adjusted for IVF, donor eggs a nd frozen embryos. In twin pregnancies with a demise, results may be unreliable. Results are not available fo r pregnancies with triplets and higher-order multiples. Results are positive when the risk for D own syndrome equals or exceeds 1 in 230, or when the risk fo r trisomy 18 equals or exceeds 1 in 100. Family history affects risk. If there is a family history of a neural tube defect, chromosome abno rmality, or other inherited condition, consider the option of a genetic consultation. For further information, please contact the maternal screening laboratory at . Test Performed by: [place] [address] Civil Engineering Director: Kelly Mejia Specimen (Source) Anatomical Collection Method Collection Time Re ceived Time Location / / Volume Laterality Blood 02/13/2014 11:43 AM EPILEPSY PHYSICIAN Oscar Laughlin M.D. LAB BLOOD ADD-ON Performing Organization Address City/State/ZIP Code Phon e Number POWERCHART US Nuchal Fold Translucency Screen (02/13/2014 11:09 AM EPILEPSY PHYSICIAN) Anatomical Region Laterality Modality Ultrasound Specimen (Source) Anatomical Collection Method Collection Time Re ceived Time Location / / Volume Laterality 02/13/2014 11:09 AM EPILEPSY PHYSICIAN Addenda Addendum by Provider, Zeb Castañeda 02/13/2014 11:09 AM EPILEPSY PHYSICIAN RAD^^^OW US Nuchal Fold Translucency Screen 02/13/2014 11:09:58 Impressions 02/13/2014 11:26 AM EPILEPSY PHYSICIAN 1. Single Viable Intrauterine with AGA of 11 weeks and 5 days, consistent with menstrual dates gi ving an US ROOSEVELT of August 30, 2014. 2. Single Viable Intrauterine with nuchal translucency measurements noted above. A detailed ris k analysis report will follow which incorporates this report with mate rnal serum data. [facility] in [place] MANAGER INVENTORY MANAGEMENT Dept. [phone] Narrative 02/13/2014 11:26 AM EPILEPSY PHYSICIAN EXAM: US Nuchal Fold Translucency Screen INDICATION: NT Screening/Dates REFERRING PHYSICIAN: Dr. Laughlin INVESTMENT PROFESSIONAL: Jessy Nichols RDMS. COMPARISON: None : 2 ?? PARA: 1 LMP: November 23, 2013 ? [place] by LMP : August 30, 2014 NUMBER: One ??CHORIONICITY: N/A NUCHAL TRANSLUCENCY MEASUREMENT #1: 1.2 mm NUCHAL TRANSLUCENCY MEASUREMENT #2: 1.5 mm NUCHAL TRANSLUCENCY MEASUREMENT #3: 1.3 mm [place] Rump Length: 64.1 mm HEART RATE: 164 beats per minute. Procedure Note Jaspreet Haines M.D. / Provider, Reggie butterfield M.D. - 07/08/2016 EXAM: US Nuchal Fold Translucency Screen INDICATION: NT Screening/Dates REFERRING PHYSICIAN: Dr. Laughlin INVESTMENT PROFESSIONAL: Jessy Nichols RDMS. COMPARISON: None : 2 PARA: 1 LMP: November 23, 2013 [place] by LMP: August 30, 2014 NUMBER: One CHORIONICITY: N/A NUCHAL TRANSLUCENCY MEASUREMENT #1: 1.2 mm NUCHAL TRANSLUCENCY MEASUREMENT #2: 1.5 mm NUCHAL TRANSLUCENCY MEASUREMENT #3: 1.3 mm [place] Rump Length: 64.1 mm HEART RATE: 164 beats per minute. IMPRESSION: 1. Single Viable Intrauterine with AGA of 11 weeks and 5 days, consistent with menstrual dates gi ving an US ROOSEVELT of August 30, 2014. 2. Single Viable Intrauterine with nuchal translucency measurements noted above. A detailed ris k analysis report will follow which incorporates this report with mate rnal serum data. [facility] in [place] MANAGER INVENTORY MANAGEMENT Dept. [phone] Jessy Nichols R.V.T., CharlyMMickeySMickey IMG OB US PROCEDURE S documented in this encounter Visit Diagnoses Not on filedocumented in this encounter
--- OUTSIDE RECORDS SUMMARY | 2021-12-23 08:44 | XMS_ITS | Encounter Summary ---
:1980 Author Organization [facility] Address [address] [place] [address] Care Team Providers Name Role Phone Unavailable Primary Care Provider Unavailable Encounter Details Date Type Department Care Team Description 07/24/2014 Hospital Encounter HX [facility]ILY[facility] Zahida Laughlin M.D. 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 - 07/24/2014 11:23 AM CDT [id number] CHIEF COMPLAINT/REASON FOR VISIT OB check. HISTORY OF PRESENT ILLNESS Saniya is a 34-year old female 2, para 1 at 34-5/7 weeks estimated gestational age presentingfor care. She has been doing well. The baby has been active. Patient denies any pain, cramping, bleeding, or loss of fluid. Patient states that in the last couple weeks she has noticed swelling in her hands and feet. For the subjective and objective findings, please see the ACOG flow sheet/EMR summary filled out in full and available in the chart for review. VITAL SIGNS HEIGHT: 160 cm WEIGHT: 99.7 kg TEMP: 37.0 DegC BMI: 38.95 kg/m2 PULSE: 78 /min RESP RATE: 18 /min SYSTOLIC: 120 mmHg DIASTOLIC: 80 mmHg . PHYSICAL EXAMINATION GENERAL: Well appearing and in no acute distress. ABDOMEN: heart tones were picked up at 140s bpm. Uterus measures 35-36 cm. SKIN: Mole near the right armpit 8mm round irregularly shaped fevering colors of contreras and pink slightly raised with a slight scale IMPRESSION/REPORT/PLAN 1. A 33-year-old white female, 2, para 1, at 34-5/7 weeks estimated gestational age,doing well. LMP 11/23/2013. [place] 08/30/2014. A positive blood type. The baby is a boy plan on naming him Jeffery Solis. 2. Discussed labor precautions. All questions were answered. 3. Mole. Near the right armpit 8mm round irregularly shaped fevering colors of contreras and pink slightlyraised with a slight scale 4. Follow up in 1 weeks or sooner as needed. This document serves as a record of services personally performed by Dr. Ирина Laughlin. It was created on their behalf by Linda Cortez, a trained medical recruiter. The creation of this record is based on the scribe's personal observations and the provider's statements to them. This document has been checked and approved by the attending provider. Ирина Laughlin M.D./josette cc: Labor and Delivery Electronically Signed By: ИРИНА LAUGHLIN MD On: 12/06/2014 02:22 AM Source: [facility] MHSDOLBEYNONRADSYS Document Id: [id number] documented in this encounter Miscellaneous Notes Miscellaneous - Ирина Laughlin M.D. - 07/24/2014 12:05 PM CDT Ambulatory Patient Summary [address] [id number] Visit Information Name: CHUN SANIYA BROWN [facility] Number: [id number] Current Date: 07/24/2014 12:05:33 Physicians Attending Provider: ИРИНА LAUGHLIN MD Primary [...] the Following Medications: Medication list as of 07-24-14 12:05 Attention: If you have any medications at [...] Electronically Signed By: ИРИНА LAUGHLIN MD Signed On:24-JUL-2014 12:05:30 Your Allergies & Intolerances Substance Reaction Symptoms Category Comments amoxicillin Rash Drug Your Problem List Problem Status Onset Comments Active 11/23/2013 Exam Active Your Upcoming Appointments Date Time Location Provider 08/06/2014 11:15 Ирина Mclain MD 08/13/2014 16:00 Ирина Mclain MD 08/20/2014 13:15 Ирина Mclain MD 08/26/2014 13:15 Ирина Mclain MD 09/03/2014 13:15 Ирина Mclain MD Attention: Contact your local Clinic if further appointment detail needed. Your Goals/Additional instructions: Source: [facility] POWERCHART Document Id: [id number] Miscellaneous - Ирина Laughlin M.D. - 07/24/2014 12:05 PM CDT Ambulatory Discharge Medication List [facility] [address] [place], [place] [id number] Visit Information Name: SANIYA MCCOLLUM [facility] Number: [id number] Visit Date: 07/24/2014 12:05:32 Attending Provider: ИРИНА LAUGHLIN MD Primary Care [...] the Following Medications: Medication list as of 07-24-14 12:05 Attention: If you have any medications at [...] Electronically Signed By: ИРИНА LAUGHLIN MD Signed On:24-JUL-2014 12:05:30 Additional Information: Source: [facility] POWERCHART Document Id: [id number] Miscellaneous - Cathi Estes L.P.N. - 07/24/2014 11:42 AM CDT Adult Breeder Service Technician Intake/History Adult Breeder Service Technician Intake/History Entered On: 07/24/2014 11:46 CDT Performed On: 07/24/2014 11:42 CDT by CATHI ESTES Intake Chief Complaint : 34 5/7 week OB check LMP Date : 11-23-2014 Temperature Oral : 37.0 DegC(Converted to: 98.6 DegF) Peripheral Pulse Rate : 78 /min Respiratory Rate : 18 /min Systolic Blood Pressure : 120 mmHg Diastolic Blood Pressure : 80 mmHg NIBP Mean : 93 mmHg Height : 160 cm(Converted to: 5 ft 3 inch(es), 63 inch(es)) Actual Weight : 99.7 kg(Converted to: 219 lb 13 oz) Dosing Weight Clinic : 99.7 kg Clinic BSA : 2.11 Body Mass Index : 38.95 kg/m2 CATHI ESTES - 07/24/2014 11:42 CDT General Info Information Given By : Patient Preferred Communication Mode : Verbal Languages : American Is Patient Female and 13-50 no hysterectomy : Yes Status : Confirmed positive Are you ? : No CATHI SETES - 07/24/2014 11:42 CDT Subjective Pain Symptoms : No CATHI ESTES - 07/24/2014 11:42 CDT Dependent Habits Tobacco Use/Currently Using : No Exposure to Tobacco Smoke : Other: Never Smoking Status : Never smoker CATHI ESTES - 07/24/2014 11:42 CDT Tobacco Use Grid Other Tobacco Frequency : never CATHI ESTES - 07/24/2014 11:42 CDT ID Screen Travel Within Last 21 Days : No Contact with someone with Ebola : No CATHI ESTES - 07/24/2014 11:42 CDT [facility] Document Id: [id number]!34 documented in this encounter Plan of Treatment Not on filedocumented as of this encounter Visit Diagnoses Not on filedocumented in this encounter
--- OUTSIDE RECORDS SUMMARY | 2021-12-23 08:44 | XMS_ITS | Encounter Summary ---
:1980 Author Organization [facility] Address [address] [place] [address] Care Team Providers Name Role Phone Unavailable Primary Care Provider Unavailable Encounter Details Date Type Department Care Team Description 05/15/2014 Hospital Encounter [facility]X [facility] Zahida Laughlin M.D. [address] [place] [address] (Wo rk) Social History Tobacco [...] More than 4 times per year 07/29/2020 rastafarian services? 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 - 05/15/2014 2:01 PM CDT [id number] CHIEF COMPLAINT/REASON FOR VISIT OB check. HISTORY OF PRESENT ILLNESS Saniya is a 34-year old female 2, para 1 at 24-5/7 weeks estimated gestational age presentingfor care. She continues to have nausea regularly, and she is still taking 1 tab of Zofran daily. She states that her nausea is improved by eating small, frequent meals. Saniya states that she has had some lower extremity edema, as well as some swelling in her hands. She denies headaches or vision changes. She stands for quite a few hours at her job, which she feels is contributing to her edema. She also feels as if she may have had some mild Hillman-Bhakta contractions. movement has been good. For the subjective and objective findings, please see the ACOG flow sheet/EMR summary filled out in full and available in the chart for review. VITAL SIGNS. WEIGHT: 92.8 kg. TEMP: 36.9 deg C. PULSE: 88/min. SYSTOLIC: Initial is134 mmHg, repeat is 128 mmHg. DIASTOLIC: Initial is 80 mmHg, repeat is 74 mmHg. PHYSICAL EXAMINATION GENERAL: Well appearing and in no acute distress. ABDOMEN: Nontender. Gravid. Fundal height measures 28 cm. heart tones were picked up at 130s with accelerations to 140s. IMPRESSION/REPORT/PLAN 1. A 33-year-old white female, 2, para 1, at 15-5/7 weeks estimated gestational age,doing well. LMP 11/23/2013. [place] 08/30/2014. A positive blood type. 2. Size greater than dates. Fundus currently measures approximately 3 weeks ahead of patients gestational age by LMP. I reviewed patients anatomy scan from 04/08/2014, and measurements taken at that time are consistent with gestational age. EFW at that time measured consistent with 59th percentile. Patient will return to the clinic in 2 weeks for recheck. If patient continues to measure ahead ofdates, may consider another ultrasound for further evaluation. 3. Hyperemesis gravidarum, well-managed with Zofran. Patient is currently taking this once daily. She will also continue eat small meals as needed for management. 4. Bilateral lower extremity edema. This does improve with rest. Patient denies headaches or vision changes today. Her initial systolic pressure was borderline today, but repeat blood pressure was within normal limits. I will continue to monitor symptoms expectantly. 5. Patient will have OB-50 and hemoglobin check done prior to her routine OB visit in 4 weeks. Theseare ordered today. 6. Follow up in 2 weeks or sooner as needed. This document serves as a record of services personally performed by Dr. Ирина Laughlin. It was created on their behalf by Noemy Contreras, a trained medical consultant. The creation of this record is based on the scribe's personal observations and the provider's statements to them. This document has been checked and approved by the attending provider. Ирина Laughlin M.D./cristel cc: Labor and Delivery Electronically Signed By: ИРИНА LAUGHLIN MD On: 12/06/2014 02:27 AM Source: [facility] MHSDOLBEYNONRADSYS Document Id: [id number] documented in this encounter Miscellaneous Notes Miscellaneous - Ирина Laughlin M.D. - 05/15/2014 2:41 PM CDT Ambulatory Patient Summary [facility] [address] [place] [id number] Visit Information Name: SANIYA MCCOLLUM [facility] Number: [id number] Current Date: 05/15/2014 14:41:30 Physicians Attending Provider: ИРИНА LAUGHLIN MD Primary [...] the Following Medications: Medication list as of 05-15-14 14:41 Attention: If you have any medications at [...] Electronically Signed By: ИРИНА LAUGHLIN MD Signed On:15-MAY-2014 14:28:37 Your Allergies & Intolerances Substance Reaction Symptoms Category Comments amoxicillin Rash Drug Your Problem List Problem Status Onset Comments Active 11/23/2013 Exam Active Your Upcoming Appointments Date Time Location Provider No Appointments found Attention: Contact your local Clinic if further appointment detail needed. Your Goals/Additional instructions: Source: [facility] POWERCHART Document Id: [id number] Miscellaneous - Ирина Laughlin M.D. - 05/15/2014 2:41 PM CDT Ambulatory Discharge Medication List [facility] [address] [place], [place] [phone] Visit Information Name: SANIYA MCCOLLUM [facility] Number: [id number] Visit Date: 05/15/2014 14:41:29 Attending Provider: ИРИНА LAUGHLIN MD Primary Care [...] the Following Medications: Medication list as of 05-15-14 14:41 Attention: If you have any medications at [...] Electronically Signed By: ИРИНА LAUGHLIN MD Signed On:15-MAY-2014 14:28:37 Additional Information: Source: [facility] POWERCHART Document Id: [id number] Miscellaneous - Ирина Laughlin M.D. - 05/15/2014 2:40 PM CDT Ambulatory Vitals Height Weight Ambulatory Vitals Height Weight Entered On: 05/15/2014 14:40 CDT Performed On: 05/15/2014 14:40 CDT by ИРИНА LAUGHLIN MD Vitals/Ht/Wt Systolic Blood Pressure : 128 mmHg Diastolic Blood Pressure : 74 mmHg NIBP Mean : 92 mmHg Height : 160 cm(Converted to: 5 ft 3 inch(es), 63 inch(es)) ИРИНА LAUGHLIN MD - 05/15/2014 14:40 CDT Source: [employer] Document Id: [id number] CDT!6 Miscellaneous - Blade Lee - 05/15/2014 2:08 PM CDT Adult Medical Practice Manager Intake/History Adult Medical Practice Manager Intake/History Entered On: 05/15/2014 14:11 CDT Performed On: 05/15/2014 14:08 CDT by BLADE LEE Intake Chief Complaint : OB check 24 5/7 weeks LMP Date : 11-23-2013 Temperature Oral : 36.9 DegC(Converted to: 98.4 DegF) Peripheral Pulse Rate : 88 /min Heart Rhythm : Regular Systolic Blood Pressure : 134 mmHg Diastolic Blood Pressure : 80 mmHg NIBP Mean : 98 mmHg BP Location : Right upper extremity Blood Pressure Cuff Size : Large Height : 160 cm(Converted to: 5 ft 3 inch(es), 63 inch(es)) Actual Weight : 92.8 kg(Converted to: 204 lb 9 oz) Weight Source : Standing scale Dosing Weight Clinic : 92.8 kg Clinic BSA : 2.03 Body Mass Index : 36.25 kg/m2 BLADE LEE - 05/15/2014 14:08 CDT General Info Information Given By : Patient Languages : Belarusian Is Patient Female and 13-50 no hysterectomy : No BLADE LEE - 05/15/2014 14:08 CDT Subjective Pain Symptoms : No BLADE LEE - 05/15/2014 14:08 CDT Dependent Habits Tobacco Use/Currently Using : No Smoking Status : Never smoker BLADE LEE - 05/15/2014 14:08 CDT Tobacco Use Grid Other Tobacco Frequency : never BLADE LEE - 05/15/2014 14:08 CDT ID Screen Travel Within Last 21 Days : No Contact with someone with Ebola : No BLADE LEE - 05/15/2014 14:08 CDT Source: [employer] Document Id: [id number] CDT!33 documented in this encounter Plan of Treatment Not on filedocumented as of this encounter Visit Diagnoses Not on filedocumented in this encounter
--- OUTSIDE RECORDS SUMMARY | 2021-12-23 08:44 | XMS_ITS | Encounter Summary ---
:1980 Author Organization [facility] Address [address] [place] [address] Care Team Providers Name Role Phone Unavailable Primary Care Provider Unavailable Encounter Details Date Type Department Care Team Description 03/13/2014 Hospital Encounter HX [facility] Zahida Laughlin M.D. [address] [place] [address] (Wo rk) Social History Tobacco [...] More than 4 times per year 07/29/2020 samaritan services? 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 documented as of this encounter Last Filed Vital Signs Vital Sign Reading Time Taken Comments Blood Pressure 118/78 03/13/2014 3:08 PM CUPOLA MELTING SUPERVISOR Pulse 72 03/13/2014 3:08 PM CUPOLA MELTING SUPERVISOR Temperature - - Respiratory Rate 18 03/13/2014 3:08 PM CUPOLA MELTING SUPERVISOR Oxygen Saturation - - Inhaled Oxygen Concentration - - Weight 85.2 kg (187 lb 13.3 oz) 03/13/2014 3:08 PM CUPOLA MELTING SUPERVISOR Height 160 cm (5' 2.99) 03/13/2014 3:08 PM CUPOLA MELTING SUPERVISOR Body Mass Index 33.28 03/13/2014 3:08 PM CUPOLA MELTING SUPERVISOR documented in this encounter Progress Notes Ирина Laughlin M.D. - 03/13/2014 3:02 PM CST [id number] CHIEF COMPLAINT/REASON FOR VISIT OB check. HISTORY OF PRESENT ILLNESS Saniya is a 33-year old female 2, para 1 at 15-5/7 weeks estimated gestational age presentingfor care. Patient continues to have a lot of nausea and vomiting despite the use of Zofran.She is otherwise doing well. She denies any pain, cramping, bleeding, swelling, or loss of fluid. For the subjective and objective findings, please see the ACOG flow sheet/EMR summary filled out in full and available in the chart for review. VITAL SIGNS HEIGHT: 160 cm WEIGHT: 85.2 kg BMI: 33.28 kg/m2 TEMP: 36.6 DegC PULSE: 72 /min RESP RATE: 18 /min SYSTOLIC: 118 mmHg DIASTOLIC: 78 mmHg PHYSICAL EXAMINATION GENERAL: Well appearing and in no acute distress. ABDOMEN: heart tones were picked up at 150s bpm. IMPRESSION/REPORT/PLAN 1. A 33-year-old white female, 2, para 1, at 15-5/7 weeks estimated gestational age,doing well. LMP 11/23/2013. [place] 08/30/2014. A positive blood type. 2. Hyperemesis gravidarum, improved with Zofran but not optimally controlled. Recommended additionalsupportive measures. Follow up as needed. 3. Patient has elected to proceed with AFP screening so we will plan for this next time. 4. Follow up in 4 weeks or sooner as needed. This document serves as a record of services personally performed by Dr. Ирина Laughlin. It was created on their behalf by Trista Bronson, a trained medical assistant secretary. The creation of this record is based on the scribe's personal observations and the provider's statements to them. This document has been checked and approved by the attending provider. Ирина Laughlin M.D./juan cc: Labor and Delivery Electronically Signed By: ИРИНА LAUGHLIN MD On: 03/13/2014 05:37 PM Source: [facility] MHSDOLBEYNONRADSYS Document Id: [id number] LA MELTING SUPERVISOR documented in this encounter Miscellaneous Notes Miscellaneous - Ирина Laughlin M.D. - 03/13/2014 3:33 PM CST Ambulatory Patient Summary [address] [id number] Visit Information Name: SANIYA MCCOLLUM [facility] Number: [id number] Current Date: 03/13/2014 15:33:15 Physicians Attending Provider: ИРИНА LAUGHLIN MD Primary Care Provider: PCP, UNASSIGNED - OW SANIYA MCCOLLUM has been given the following [...] the Following Medications: Medication list as of 03-13-14 15:33 Attention: If you have any medications at [...] Electronically Signed By: ИРИНА LAUGHLIN MD Signed On:13-MAR-2014 15:33:12 Your Allergies & Intolerances Substance Reaction Symptoms Category Comments amoxicillin Rash Drug Your Problem List Problem Status Onset Comments Active 11/23/2013 Exam Active Your Upcoming Appointments Date Time Location Provider No Appointments found Attention: Contact your local Clinic if further appointment detail needed. Your Goals/Additional instructions: Source: [facility] POWERCHART Document Id: [id number] LA MELTING SUPERVISOR Miscellaneous - Ирина Laughlin M.D. - 03/13/2014 3:33 PM CST Ambulatory Discharge Medication List [facility] [address] [place] [id number] Visit Information Name: SANIYA MCCOLLUM STEPHANIE [facility] Number: [id number] Visit Date: 03/13/2014 15:33:14 Attending Provider: ИРИНА LAUGHLIN MD Primary Care Provider: PCP, UNASSIGNED - SANIYA ALCAZAR has been given the following list of [...] the Following Medications: Medication list as of 03-13-14 15:33 Attention: If you have any medications at [...] Electronically Signed By: ИРИНА LAUGHLIN MD Signed On:13-MAR-2014 15:33:12 Additional Information: Source: [facility] POWERCHART Document Id: [id number] LA MELTING SUPERVISOR Miscellaneous - Cathi Estes L.P.N. - 03/13/2014 3:08 PM CST Adult Embosser Operator Intake/History Adult Embosser Operator Intake/History Entered On: 03/13/2014 15:12 CUPOLA MELTING SUPERVISOR Performed On: 03/13/2014 15:08 CUPOLA MELTING SUPERVISOR by CATHI ESTES Intake LMP Date : 11-23-2013 CATHI ESTES - 03/13/2014 15:12 CUPOLA MELTING SUPERVISOR Chief Complaint : 15 5/ week OB check Temperature Oral : 36.6 DegC(Converted to: 97.9 DegF) Peripheral Pulse Rate : 72 /min Respiratory Rate : 18 /min Systolic Blood Pressure : 118 mmHg Diastolic Blood Pressure : 78 mmHg NIBP Mean : 91 mmHg BP Location : Right upper extremity Blood Pressure Cuff Size : Large Height : 160 cm(Converted to: 5 ft 3 inch(es), 63 inch(es)) Actual Weight : 85.2 kg(Converted to: 187 lb 13 oz) Dosing Weight Clinic : 85.2 kg Clinic BSA : 1.95 Body Mass Index : 33.28 kg/m2 CATHI ESTES - 03/13/2014 15:08 CUPOLA MELTING SUPERVISOR General Info Information Given By : Patient Preferred Communication Mode : Verbal Languages : Occitan Is Patient Female and 13-50 no hysterectomy : Yes Status : Confirmed positive Are you ? : No CATHI ESTES - 03/13/2014 15:08 CUPOLA MELTING SUPERVISOR Subjective Pain Symptoms : No CATHI ESTES - 03/13/2014 15:08 CUPOLA MELTING SUPERVISOR Dependent Habits Tobacco Use/Currently Using : No Smoking Status : Never smoker CATHI ESTES - 03/13/2014 15:08 CUPOLA MELTING SUPERVISOR Tobacco Use Grid Other Tobacco Frequency : never CATHI ESTES - 03/13/2014 15:08 CUPOLA MELTING SUPERVISOR ID Screen Travel Within Last 21 Days : No CATHI ESTES - 03/13/2014 15:08 CUPOLA MELTING SUPERVISOR Source: [facility] POWERCHART Document Id: [id number] CUPOLA MELTING SUPERVISOR!3 LA MELTING SUPERVISOR documented in this encounter Plan of Treatment Not on filedocumented as of this encounter Visit Diagnoses Not on filedocumented in this encounter
--- OUTSIDE RECORDS SUMMARY | 2021-12-23 08:44 | XMS_ITS | Encounter Summary ---
:1980 Author Organization [facility] Address [address] [place] [address] Care Team Providers Name Role Phone Unavailable Primary Care Provider Unavailable Encounter Details Date Type Department Care Team Description 09/14/2004 Hospital Encounter HX [facility] Jasmin Dominguez M.D. 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
--- OUTSIDE RECORDS SUMMARY | 2021-12-23 08:44 | XMS_ITS | Encounter Summary ---
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 - 06/05/2014 8:54 AM CDT From: ИРИНА LAUGHLIN MD To: SANIYA MCCOLLUM Sent: 06/05/2014 08:54:35 CDT Saniya, I'm sorry for the delay in getting you these results... I've been out ill for several days. Your ultrasound shows normal growth of the baby and a normal amount of fluid. This is all good news! Have a great weekend, and we'll see you at your next appointment. Ирина Laughlin MD Source: [facility] POWERCHART Document Id: [id number] Electronically signed by Obed [facility] Laundry Machine Operator [id number] at 07/23/2016 2:42 PM CDT documented in this encounter Plan of Treatment Not on filedocumented as of this encounter Procedures Procedure Name Priority Date/Time Associated Diagnosis Comme nts US OB FOLLOW UP OR Routine 05/28/2014 11:06 AM Re sults for this REPEAT CDT procedure are i n the results section. documented in this encounter Results US OB Follow Up or Repeat (05/28/2014 11:06 AM CDT) Anatomical Region Laterality Modality Ultrasound Specimen (Source) Anatomical Collection Method Collection Time Re ceived Time Location / / Volume Laterality 05/28/2014 11:06 AM CDT Addenda Addendum by Provider, Zeb Castañeda 05/28/2014 11:06 AM CDT RAD^^^OW US OB Follow Up or Repeat 05/28/2014 11:06:46 Impressions 05/28/2014 11:01 AM CDT 1. Limited anatomy survey as above . 2. Estimated weight is consistent with the 73 percentile of growth, which is interpreted as appropri ate and normal interval growth. [facility] [place] BATTERY CONTAINER INSPECTOR Dept. [phone] Narrative 05/28/2014 11:01 AM CDT EXAM: US OB Follow Up or Repeat INDICATION: S>D COMPARISON: None. REFERRING PHYSICIAN: Dr. Zahida Diaz PRACTICE MANAGER: Jessy Nichols RDMS. : 2 PARA: 1 LMP: 11/23/2013 [place] by LMP: 08/30/2014 GESTATIONAL AGE: 26 weeks and 4 days. PLACENTAL LOCATION: Anterior UTERUS: Normal CERVICAL LENGTH: 5.8 cm cm. ADNEXA: Normal S/D Ratio: N/A POSITION: Cephalic AMNIOTIC FLUID INDEX: 17.6 cm. STOMACH: Normal KIDNEYS: Normal BLADDER: Normal HEART: Normal HEART RATE: 150 beats per minute. BIOMETRY GA(BPD): 6.98 cm consistent with 28 week s 0 days GA(HC): 25.4 cm consistent with 27 weeks 4 days GA(AC): 23.6 cm consistent with 27 weeks 6 days GA(FL): 4.99 cm consistent with 26 weeks 5 days GA(HL): Not measured Multiple measurements of the biparietal diameter, head circumference, abdominal circumference, and femur lengt h reveal an estimated weight of 1088 grams. This can be roughl y equated to an ultrasound calculation of [place] of 08/24/2014. Procedure Note Scott Horvath M.D. / Provider, Reggie butterfield M.D. - 07/05/2016 EXAM: US OB Follow Up or Repeat INDICATION: S>D COMPARISON: None. REFERRING PHYSICIAN: Dr. Zahida Diaz PRACTICE MANAGER: Jessy Nichols RDMS. : 2 PARA: 1 LMP: 11/23/2013 [place] by LMP: 08/30/2014 GESTATIONAL AGE: 26 weeks and 4 days. PLACENTAL LOCATION: Anterior UTERUS: Normal CERVICAL LENGTH: 5.8 cm cm. ADNEXA: Normal S/D Ratio: N/A POSITION: Cephalic AMNIOTIC FLUID INDEX: 17.6 cm. STOMACH: Normal KIDNEYS: Normal BLADDER: Normal HEART: Normal HEART RATE: 150 beats per minute. BIOMETRY GA(BPD): 6.98 cm consistent with 28 week s 0 days GA(HC): 25.4 cm consistent with 27 weeks 4 days GA(AC): 23.6 cm consistent with 27 weeks 6 days GA(FL): 4.99 cm consistent with 26 weeks 5 days GA(HL): Not measured Multiple measurements of the biparietal diameter, head circumference, abdominal circumference, and femur lengt h reveal an estimated weight of 1088 grams. This can be roughl y equated to an ultrasound calculation of [place] of 08/24/2014. IMPRESSION: 1. Limited anatomy survey as above . 2. Estimated weight is consistent with the 73 percentile of growth, which is interpreted as appropri ate and normal interval growth. [facility] [place] BATTERY CONTAINER INSPECTOR Dept. [phone] Jessy Nichols R.V.T., RLd.M.S. IMG OB US PROCEDURE S documented in this encounter Visit Diagnoses Not on filedocumented in this encounter
--- OUTSIDE RECORDS SUMMARY | 2021-12-23 08:44 | XMS_ITS | Encounter Summary ---
:1980 Author Organization [facility] Address [address] [place] [address] Care Team Providers Name Role Phone Unavailable Primary Care Provider Unavailable Encounter Details Date Type Department Care Team Description 01/16/2014 Hospital Encounter HX [facility] Zahida Laughlin M.D. [address] [place] [address] (Wo rk) Social History Tobacco [...] or relatives? How often do you attend yazidi or More than 4 times per year 07/29/2020 spiritism services? Do you belong to any clubs or Yes 07/29/2020 organizations such as yazidi groups, unions, fraternal or athletic groups, or [...] at Date Recorded Female 04/27/2017 8:11 AM PHOTOLITHOGRAPHIC STRIPPER documented as of this encounter Last Filed Vital Signs Vital Sign Reading Time Taken Comments Blood Pressure 102/64 01/16/2014 3:18 PM PHOTOLITHOGRAPHIC STRIPPER Pulse 76 01/16/2014 3:18 PM PHOTOLITHOGRAPHIC STRIPPER Temperature - - Respiratory Rate 20 01/16/2014 3:18 PM PHOTOLITHOGRAPHIC STRIPPER Oxygen Saturation - - Inhaled Oxygen Concentration - - Weight 81.9 kg (180 lb 8.9 oz) 01/16/2014 3:18 PM PHOTOLITHOGRAPHIC STRIPPER Height 160 cm (5' 2.99) 01/16/2014 3:18 PM PHOTOLITHOGRAPHIC STRIPPER Body Mass Index 31.99 01/16/2014 3:18 PM PHOTOLITHOGRAPHIC STRIPPER documented in this encounter H&P Notes Oscar Laughlin M.D. - 01/16/2014 3:12 PM CST [id number] CHIEF COMPLAINT/REASON FOR VISIT Establish OB care. HISTORY OF PRESENT ILLNESS For the subjective and objective findings, please see the ACOG flow sheet filled out in full and available in the chart for review. IMPRESSION/REPORT/PLAN 1. A 33-year-old white female, 2, para 1, at 7 and 5/7 weeks' estimated gestational age. 2. She has been experiencing nausea, for which she is using Zofran. I also discussed use of vitamin B6 and irma root capsules, as well as [place]. 3. Constipation. Did discuss increasing her fluids. Discussed as needed use of MiraLAX as needed. 4. Flu shot given today. 5. She is A-positive blood type, HIV negative, hepatitis B negative, syphilis negative, rubella immune. 6. Prior induction for elevated blood pressure with possible early preeclampsia, although she never did develop proteinuria. She did have vacuum assist after pushing for 3 hours and the baby was in occiput posterior position. Baby was 5 pounds 8 ounces, born at 38 weeks' gestation, and her name is Katie. 7. History of abnormal Pap with positive human papilloma virus in September of 2013. Plan is to rechecka Pap next year. 8. Father of baby is her , Joey. 9. Last menstrual period was 11/23/2013 and due date 08/30/2014. 10. Follow up in 4 weeks or sooner as needed. Oscar Laughlin M.D./giselle Electronically Signed By: OSCAR LAUGHLIN MD On: 02/17/2014 01:16 AM Source: [facility] MHSDOLBEYNONRADSYS Document Id: [id number] OLITHOGRAPHIC STRIPPER documented in this encounter Miscellaneous Notes Telephone Encounter - Conversion, Historical Provider Ser - 01/27/2014 12:56 PM CST *Phone Message / Truman Document Contains Addenda Addendum by CATHI GARIBAY on 28 January 2014 12:35:17 PHOTOLITHOGRAPHIC STRIPPER Patient informed refill has been called to Pharmacy Addendum by ANTONY RICKS on 27 January 2014 13:29:19 PHOTOLITHOGRAPHIC STRIPPER From: ANTONY RICKS (MARCOS DE LA TORREcombine driver [facility]) To: MARCOS Laughlin Nurse; Sent: 01/27/2014 13:29:19 PHOTOLITHOGRAPHIC STRIPPER Subject: refill zofran Addendum by ANTONY RICKS on 27 January 2014 13:29:05 PHOTOLITHOGRAPHIC STRIPPER S. Pt looking for a refill of Zofran. Is out after today. B.. A.proprsal in EMR. Pt would like this CHANTEL on Sun if possible. R. [facility] - owt Pharm Pleae call pt w/ quest. From: ROSA MEZA ([address] Mixer Operator [employer]) To: MARCOS DE LA TORREcombine driver [facility]; Sent: 01/27/2014 12:56:08 PHOTOLITHOGRAPHIC STRIPPER Subject: *Phone Message / Truman Caller is: ( x) Patient ( ) Mother ( ) Father ( ) Spouse ( ) Daughter ( ) Son ( ) Pharmacy ( ) Other: Physician: Patient MRN #: Reason for Call: Message: s: patient called to talk to nurse (knows that Dr Laughlin is out today) b: she went to pharmacy yesterday to get meds and they only gave her 3 pills - pharmacy faxed refillrequest but have not heard anything back a: wants call back r: [phone] Advice/Action: Source used: ( ) Verbalizes understanding [...] back cell phone number ( ) Source: [facility] Document Id: [id number] Miscellaneous - Conversion, Historical Provider Ser - 01/27/2014 11:21 AM PHOTOLITHOGRAPHIC STRIPPER Med Management Document Contains Addenda Addendum by OSCAR LAUGHLIN MD on 28 January 2014 19:05:52 PHOTOLITHOGRAPHIC STRIPPER Not Approved: Order:ondansetron (Zofran ODT 4 mg oral tablet, disintegrating) 1 tab(s) PO q8hr Qty: 30 tab(s) Refills: 0 Substitutions Allowed PRN Nausea Route To Pharmacy - [id number] Duplicate Request Signed by OSCAR LAUGHLIN MD Addendum by OSCAR LAUGHLIN MD on 28 January 2014 19:05:41 PHOTOLITHOGRAPHIC STRIPPER done From: DENISSE SOMMER [facility] To: OSCAR LAUGHLIN MD; Sent: 01/27/2014 11:21:09 PHOTOLITHOGRAPHIC STRIPPER Subject: Med Management On hold pending signature Order:ondansetron (Zofran ODT 4 mg oral tablet, disintegrating) 1 tab(s) PO q8hr Qty: 30 tab(s) Refills: 0 Substitutions Allowed PRN Nausea Route To Pharmacy - [id number] Caller is: ( ) Patient ( ) Mother ( ) Father ( ) Spouse ( ) Daughter ( ) Son ( ) Pharmacy ( ) Other: Provider:truman [facility] Name of Medications Needing Refill:ondansetron 4mg odt Last Refill Date: 01/21/14 Additional Information: Last / Future Appointment:next appt 02/13/14 Disposition: ( ) Send to Pharmacy ( ) Call to Pharmacy ( ) Patient will bean picker Script ( ) Mail Rx to Patient Source: [facility] Document Id: [id number] Miscellaneous - Oscar Laughlin M.D. - 01/16/2014 4:14 PM CST Ambulatory Patient Summary [facility] [address] [place] [id number] Visit Information Name: SANIYA MCCOLLUM [facility] Number: [id number] Current Date: 01/16/2014 16:14:36 Physicians Attending Provider: OSCAR LAUGHLIN MD Primary Care Provider: PCP, UNASSIGNED [...] the Following Medications: Medication list as of 01-16-14 16:14 Attention: If you have any medications at [...] Electronically Signed By: OSCAR LAUGHLIN MD Signed On:16-JAN-2014 16:09:05 Your Allergies & Intolerances Substance Reaction Symptoms Category Comments amoxicillin Rash Drug Your Problem List Problem Status Onset Comments Active 11/23/2013 Exam Active Your Upcoming Appointments Date Time Location Provider No Appointments found Attention: Contact your local Clinic if further appointment detail needed. Your Goals/Additional instructions: Source: [facility] Document Id: [id number] Miscellaneous - Oscar Laughlin M.D. - 01/16/2014 4:14 PM CST Ambulatory Discharge Medication List [facility] [address] [place], [place] [id number] Visit Information Name: SANIYA MCCOLLUM [facility] Number: [id number] Visit Date: 01/16/2014 16:14:35 Attending Provider: OSCAR LAUGHLIN MD Primary Care Provider: PCP, UNASSIGNED - [facility] SANIYA BROWN has been given the [...] the Following Medications: Medication list as of 01-16-14 16:14 Attention: If you have any medications at [...] Electronically Signed By: OSCAR LAUGHLIN MD Signed On:16-JAN-2014 16:09:05 Additional Information: [email or web address] Document Id: [id number] Miscellaneous - Maura Bhatia L.PMickeyNMickey - 01/16/2014 3:18 PM CST Adult Foam Rubber Fabricator Intake/History Adult Foam Rubber Fabricator Intake/History Entered On: 01/16/2014 15:21 PHOTOLITHOGRAPHIC STRIPPER Performed On: 01/16/2014 15:18 PHOTOLITHOGRAPHIC STRIPPER by MAURA BHATIA LPN Intake Chief Complaint : new ob LMP Date : 11-23-2013 Temperature Oral : 36.6 DegC(Converted to: 97.9 DegF) Peripheral Pulse Rate : 76 /min Respiratory Rate : 20 /min Heart Rhythm : Regular Systolic Blood Pressure : 102 mmHg Diastolic Blood Pressure : 64 mmHg NIBP Mean : 77 mmHg BP Location : Right upper extremity Blood Pressure Cuff Size : Large Height : 160 cm(Converted to: 5 ft 3 inch(es), 63 inch(es)) Actual Weight : 81.9 kg(Converted to: 180 lb 9 oz) Weight Source : Standing scale Dosing Weight Clinic : 81.9 kg Clinic BSA : 1.91 Body Mass Index : 31.99 kg/m2 MAURA BHATIA LPN - 01/16/2014 15:18 PHOTOLITHOGRAPHIC STRIPPER General Info Languages : Danish Is Patient Female and 13-50 no hysterectomy : No MAURA BHATIA LPN - 01/16/2014 15:18 PHOTOLITHOGRAPHIC STRIPPER Subjective Pain Symptoms : No MAURA BHATIA LPN - 01/16/2014 15:18 PHOTOLITHOGRAPHIC STRIPPER Dependent Habits Tobacco Use/Currently Using : No Smoking Status : Never smoker MAURA BHATIA LPN - 01/16/2014 15:18 PHOTOLITHOGRAPHIC STRIPPER Tobacco Use Grid Other Tobacco Frequency : never MAURA BHAITA LPN - 01/16/2014 15:18 PHOTOLITHOGRAPHIC STRIPPER ID Screen Travel Within Last 21 Days : No MAURA BHATIA LPN - 01/16/2014 15:18 PHOTOLITHOGRAPHIC STRIPPER Source: [facility] Document Id: [id number] PHOTOLITHOGRAPHIC STRIPPER!32 OLITHOGRAPHIC STRIPPER Miscellaneous - Maura Bhatia L.P.NMickey - 01/16/2014 3:17 PM CST Health Assessment Health Assessment Entered On: 01/16/2014 15:18 PHOTOLITHOGRAPHIC STRIPPER Performed On: 01/16/2014 15:17 PHOTOLITHOGRAPHIC STRIPPER by MAURA BHATIA LPN Health Assessment Complete Health Assessment Complete or Modified : Annual Health Assessment Annual Health Assessment Completed : Yes MAURA BHATIA LPN - 01/16/2014 15:17 PHOTOLITHOGRAPHIC STRIPPER Nutrition Nutrition Risk Factors by History Adult : None MAURA BHATIA LPN - 01/16/2014 15:17 PHOTOLITHOGRAPHIC STRIPPER Functional Current Daily Living Assistance : None MAURA BHATIA [facility] - 01/16/2014 15:17 PHOTOLITHOGRAPHIC STRIPPER Dependent Habits Tobacco Use/Currently Using : No Smoking Status : Never smoker MAURA BHATIA LPN - 01/16/2014 15:17 PHOTOLITHOGRAPHIC STRIPPER Tobacco Use Grid Other Tobacco Frequency : never MAURA BHATIA [facility] - 01/16/2014 15:17 PHOTOLITHOGRAPHIC STRIPPER Psychosocial Domestic Abuse Concerns : None Quaker Preference : No qualifying data available. MAURA BHATIA LPN - 01/16/2014 15:17 PHOTOLITHOGRAPHIC STRIPPER Advance Directive Advanced Directives : No Advance Directive Additional Information : No MAURA BHATIA LPN - 01/16/2014 15:17 PHOTOLITHOGRAPHIC STRIPPER Educ Needs Learning Style Preference Adult Grid Patient : Printed materials Family : None MAURA BHATIA LPN - 01/16/2014 15:17 PHOTOLITHOGRAPHIC STRIPPER Source: [facility] Document Id: [id number] PHOTOLITHOGRAPHIC STRIPPER!24 OLITHOGRAPHIC STRIPPER documented in this encounter Plan of Treatment Not on filedocumented as of this encounter Visit Diagnoses Not on filedocumented in this encounter
--- OUTSIDE RECORDS SUMMARY | 2021-12-23 08:44 | XMS_ITS | Encounter Summary ---
:1980 Author Organization [facility] Address [address] [place] [address] Care Team Providers Name Role Phone Unavailable Primary Care Provider Unavailable Encounter Details Date Type Department Care Team Description 01/15/2014 Hospital Encounter [facility]X [facility] Shahram Silveira M.D. [address] [place], [place] [phone] (Wo rk) Social History [...] More than 4 times per year 07/29/2020 religion services? Do you belong to any clubs [...] at Date Recorded Female 04/27/2017 8:11 AM PROMOTIONS FIRM ACCOUNTS MANAGER documented as of this encounter Last Filed Vital Signs Vital Sign Reading Time Taken Comments Blood Pressure - - Pulse - - Temperature - - Respiratory Rate - - Oxygen Saturation - - Inhaled Oxygen Concentration - - Weight 81.8 kg (180 lb 5.4 oz) 01/15/2014 1:11 PM PROMOTIONS FIRM ACCOUNTS MANAGER Height 160 cm (5' 2.99) 01/15/2014 1:11 PM PROMOTIONS FIRM ACCOUNTS MANAGER Body Mass Index 31.95 01/15/2014 1:11 PM PROMOTIONS FIRM ACCOUNTS MANAGER documented in this encounter Nursing Notes Ed Nielsen R.N. - 01/15/2014 1:11 PM CST Antepartum Exam, Initial Document Has Been Updated Antepartum Exam, Initial Entered On: 01/15/2014 13:20 PROMOTIONS FIRM ACCOUNTS MANAGER Performed On: 01/15/2014 13:11 PROMOTIONS FIRM ACCOUNTS MANAGER by ED NIELSEN Vitals/Ht/Wt LMP Date : 11/23/13 Pain Symptoms : No Actual Weight : 81.8 kg(Converted to: 180 lb 5 oz, 180.338 lb) Height : 160 cm(Converted to: 5 ft 3 inch(es), 63 inch(es)) Body Mass Index : 31.95 kg/m2 OB Provider : OSCAR LAUGHLIN MD, CATHERINE A - 01/15/2014 13:11 PROMOTIONS FIRM ACCOUNTS MANAGER Obstetrical History History (As Of: 01/15/2014 13:20:57 PROMOTIONS FIRM ACCOUNTS MANAGER) - 2, Para Fullterm - 1, Para - , Abortions - , Para Living - 1 Delivery/Outcome Date: 11/10/2010 Gestation Age At : 38 weeks 0 days ; Full Gestation ; Delivery Method: Vaginal, vacuum assist ; Labor Duration: 4 hrs 0 mins ; Gender: Female ; Weight: 5lb 8oz / 2495gm ; Anesthesia: Epidural ; Delivery Hospital: [facility] ; Labor: No ; Complications: Vacuum delivery ; Outcome: Live ; Child Name: Katie ; Comment: Induction-elevated BP possible pre-eclampsi; cervical ripening, Pitocin Add'l Information Prepreg Amount : 0 Preg Amount : 0 Alcohol Prepreg Amount : rare Alcohol Preg Amount : 0 Recreational Drug Prepreg Amount : 0 Recreational Drug Preg Amount : 0 Caffeine Prepreg Amount : 3/day Caffeine Preg Amount : 0 ED NIELSEN - 01/15/2014 13:11 PROMOTIONS FIRM ACCOUNTS MANAGER Histories Most Recent Hospitalizations Ultra Hospitalization #1 Date : 2010 Reason : childbirth ED NIELSEN - 01/15/2014 13:11 PROMOTIONS FIRM ACCOUNTS MANAGER (As Of : 01/15/2014 13:20:57 PROMOTIONS FIRM ACCOUNTS MANAGER) - Past Medical History Name of Problem: ; Onset Date: 02/17/2010 ; Recorder: NIELSENVUE Alissa; Confirmation: Confirmed ; Classification: Medical ; Code: 851056021 ; Last Updated: 01/15/2014 13:15 PROMOTIONS FIRM ACCOUNTS MANAGER ; LifeCycle Date: Unknown 11/10/2010 ; Life Cycle Status: Resolved ; Vocabulary: SNOMED CT ; Resolved Date: Unknown 11/10/2010 ; Resolved Age: 30 years Abnormal Pap Smear Cervix Name of Problem: Abnormal Pap Smear Cervix ; Recorder: GIA ED Alissa; Confirmation: Confirmed ; Classification: Medical ; Code: 795.00 ; Contributor System: Dinos Rule ; Last Updated: 01/15/2014 13:18 PROMOTIONS FIRM ACCOUNTS MANAGER ; Life Cycle Status: Resolved ; Vocabulary: ICD-9-CM ; Comments: 01/15/2014 13:18 - ED NIELSEN positive HPV Family History (As Of: 01/15/2014 13:20:57 PROMOTIONS FIRM ACCOUNTS MANAGER) Mother: Relation: Mother ; Gender: Female ; Nomenclature: Hypertension ; Value: Positive Grandfather: Relation: Grandfather ; Gender: Male ; Nomenclature: Myocardial infarction ; Value: Positive Grandmother: Relation: Grandmother ; Gender: Female ; Nomenclature: CA - Breast cancer ; Value: Positive Anesth/Transfusion Transfusion Acceptable in Emergency : Yes Spiritism/Other Objections to Blood Transfusions : No ED NIELSEN - 01/15/2014 13:11 PROMOTIONS FIRM ACCOUNTS MANAGER ID Screen Travel Within Last 21 Days : No ED NIELSEN - 01/15/2014 13:11 PROMOTIONS FIRM ACCOUNTS MANAGER Dependent Habits Tobacco Use/Currently Using : No Smoking Status : Never smoker NIELSENVUE Alissa - 01/15/2014 13:11 PROMOTIONS FIRM ACCOUNTS MANAGER Tobacco Use Grid Other Tobacco Frequency : never NIELSENVUMiles Maxwell 01/15/2014 13:11 PROMOTIONS FIRM ACCOUNTS MANAGER Psychosocial Domestic Abuse Concerns : Unable to Screen Marital Status : Years of Marriage : Joey Occupation : [employer] Exercise Type : Aerobics Spiritism Preference : No qualifying data available. ED NIELSEN - 01/15/2014 13:11 PROMOTIONS FIRM ACCOUNTS MANAGER Genetic/Infection Screen Infection History : History of Varicella or Immunized for Varicella ED NIELSEN 01/15/2014 13:11 PROMOTIONS FIRM ACCOUNTS MANAGER Ethnic Background Grid : Self, Baby's father ED NIELSEN 01/15/2014 13:11 PROMOTIONS FIRM ACCOUNTS MANAGER Down's Syndrome : Other relative (Comment: Joey's uncle [ED NIELSEN 01/15/2014 13:11 PROMOTIONS FIRM ACCOUNTS MANAGER] ) Recurrent Loss or Stillbirth : Other relative (Comment: Joey's grandma [ED NIELSEN 01/15/2014 13:11 PROMOTIONS FIRM ACCOUNTS MANAGER] ) ED NIELSEN 01/15/2014 13:11 PROMOTIONS FIRM ACCOUNTS MANAGER Antepartum Note Risk Factors, Antepartum Current Preg : Relative BMI greater than 30 Antepartum Note : State having nausea. Denies concerns. ED NIELSEN 01/15/2014 14:13 PROMOTIONS FIRM ACCOUNTS MANAGER Education Individuals Taught : Patient, Spouse Barriers to Learning : None evident Teaching Method : Explanation, Printed materials Referral Made To : Other: declined dietitian ED NIELSEN - 01/15/2014 14:13 PROMOTIONS FIRM ACCOUNTS MANAGER Alcohol : Verbalizes understanding Anxiety/Depression Symptoms : Verbalizes understanding Childbirth Classes : Verbalizes understanding Domestic Violence : Verbalizes understanding Environmental/Work Hazards : Verbalizes understanding Exercise : Verbalizes understanding Expected Course of Care : Verbalizes understanding HIV Testing : Verbalizes understanding Influenza Vaccine : Verbalizes understanding Medication Use : Verbalizes understanding Nutrition Counseling : Verbalizes understanding Recreational Drugs : Verbalizes understanding Risk Factors Identified : Verbalizes understanding Routine Tests : Verbalizes understanding Seat Belt Use : Verbalizes understanding Sexual Activity : Verbalizes understanding Tobacco Assessment : Verbalizes understanding Toxoplasmosis Precautions : Verbalizes understanding Travel : Verbalizes understanding Ultrasound : Verbalizes understanding ED NIELSEN 01/15/2014 14:13 PROMOTIONS FIRM ACCOUNTS MANAGER Source: [facility] POWERCHART Document Id: [id number] PROMOTIONS FIRM ACCOUNTS MANAGER!30 OTIONS FIRM ACCOUNTS MANAGER documented in this encounter Miscellaneous Notes Miscellaneous - Oscar Laughlin M.D. - 01/16/2014 7:42 PM CST From: OSCAR LAUGHLIN MD To: MCCOLLUMSANIYA Sent: 01/16/2014 19:42:38 PROMOTIONS FIRM ACCOUNTS MANAGER Saniya, It was so nice to meet you and Katie today! Your blood work is below. A+ blood type. Negative for syphilis, HIV, Hepatitis B. The test to see ifyou are immune to Rubella was inconclusive. What this means is that we can't tell from your antibodylevels if you have full immunity to the rubella virus or not. We will want to revaccinate you after the . (We can't do it during because it's a live vaccine). Let me know if you have any questions. We'll see you next month. Have a great Thanksgiving! Oscar Laughlin MD Results: Date Result Name Value Ref Range 01/15/2014 13:41 Grouping and Rh A Positive (Not applicable - ) 01/15/2014 13:41 Antibody Scrn-Jessup Negative (Negative - ) 01/15/2014 13:41 Syphilis IgG-Jess[place] Negative (Negative - ) 01/15/2014 13:41 [facility] 1[facility]2 [facility] (Negative - ) 01/15/2014 13:41 Rubella IgG-Jessup Equivocal 01/15/2014 13:41 Rubella IgG Ab Index-Jessup 0.9 01/15/2014 13:41 Hep Bs Ag Prntl-Jessup Negative (Negative - ) Source: [facility] POWERCHART Document Id: [id number] Electronically signed by Conversion, [facility] Nursing Home Manager [id number] at 07/25/2016 6:33 AM CDT Miscellaneous - Oscar Laughlin M.D. - 01/15/2014 5:56 PM CST Results Notification Document Contains Addenda Addendum by CATHI GARIBAY on 19 January 2014 18:35:24 PROMOTIONS FIRM ACCOUNTS MANAGER Patient informed From: OSCAR LAUGHLIN MD Sent: 01/15/2014 17:56:50 PROMOTIONS FIRM ACCOUNTS MANAGER ! Show up: 01/15/2014 17:56:50 PROMOTIONS FIRM ACCOUNTS MANAGER Subject: Results Notification Actions: Notify patient of results Reminder Comments: Urine and blood counts normal for , except she needs to drink more water. Results: Date Result Name Ind Value Ref Range 01/15/2014 13:55 UA Color OTHER 01/15/2014 13:55 UA Clarity Clear 01/15/2014 13:55 UA Spec Grav (*) >=1.030 01/15/2014 13:55 UA pH 6.0 01/15/2014 13:55 UA Protein Negative mg/dL 01/15/2014 13:55 UA Glucose Negative mg/dL 01/15/2014 13:55 UA Ketones Negative mg/dL 01/15/2014 13:55 UA Bili Negative 01/15/2014 13:55 UA Urobilinogen 1.0 mg/dL 01/15/2014 13:55 UA Blood Negative 01/15/2014 13:55 UA Nitrite Negative 01/15/2014 13:55 UA Leuk Est Negative 01/15/2014 13:41 Hgb 12.0 g/dL (12.0 - 15.5) 01/15/2014 13:41 Hct 36.6 % (34.9 - 44.5) 01/15/2014 13:41 WBC 8.6 x10(9)/L (3.4 - 10.5) 01/15/2014 13:41 RBC 4.03 x10(12)/L (3.90 - 5.03) 01/15/2014 13:41 MCV 90.8 fL (82.0 - 98.0) 01/15/2014 13:41 RDW 12.3 % (11.9 - 15.5) 01/15/2014 13:41 Platelet 297 x10(9)/L (150 - 450) 01/15/2014 13:41 Neutro Absolute 5.83 10(9)/L (1.70 - 7.00) 01/15/2014 13:41 Lymph Absolute 1.74 x10(9)/L (0.90 - 2.90) 01/15/2014 13:41 [place] Absolute (H) 0.92 x10(9)/L (0.30 - 0.90) 01/15/2014 13:41 Eos Absolute 0.09 x10(9)/L (0.05 - 0.50) 01/15/2014 13:41 Baso Absolute 0.02 x10(9)/L (0.00 - 0.30) Source: [facility] POWERCHART Document Id: [id number] Electronically signed by Conversion, [facility] Nursing Home Manager [id number] at 07/25/2016 6:33 AM CDT documented in this encounter Plan of Treatment Not on filedocumented as of this encounter Procedures Procedure Name Priority Date/Time Associated Diagnosis Comme nts URINALYSIS, ROUTINE Routine 01/15/2014 1:55 PM Re sults for this PROMOTIONS FIRM ACCOUNTS MANAGER procedure are i n the results section. BACTERIAL CULTURE, Routine 01/15/2014 1:55 PM Res ults for this AEROBIC, URINE PROMOTIONS FIRM ACCOUNTS MANAGER procedure are in the results section. ABO GROUPING, B Routine 01/15/2014 1:41 PM Result s for this PROMOTIONS FIRM ACCOUNTS MANAGER procedure are i n the results section. PROFILE II Routine 01/15/2014 1:41 PM Re sults for this WITHOUT CBC, PROMOTIONS FIRM ACCOUNTS MANAGER procedure are i n B/SERUM the results section. HIV-1/-2 AG AND AB Routine 01/15/2014 1:41 PM Res ults for this SCREEN PROMOTIONS FIRM ACCOUNTS MANAGER procedure are i n the results section. AUTOMATED Routine 01/15/2014 1:41 PM Results f or this DIFFERENTIAL, B PROMOTIONS FIRM ACCOUNTS MANAGER procedure ar e in the results section. CBC WITH Routine 01/15/2014 1:41 PM Results f or this DIFFERENTIAL, B PROMOTIONS FIRM ACCOUNTS MANAGER procedure ar e in the results section. ANTIBODY SCREEN, B Routine 01/15/2014 1:41 PM Res ults for this PROMOTIONS FIRM ACCOUNTS MANAGER procedure are i n the results section. documented in this encounter Results (ABNORMAL) Urinalysis, Routine (01/15/2014 1:55 PM PROMOTIONS FIRM ACCOUNTS MANAGER) [facility] gist Method Time Signature Source Clean Void POWERCHART Urine HXUr Color OTHER POWERCHART Clarity Clear POWERCHART Glucose Negative MGDL POWERCHART HXBILIRUBIN Negative POWERCHART Ketones, QL(U) Negative MGDL POWERCHART Specific >=1.030 (A) POWERCHART [place], POCT, U pH, POCT, Urine 6.0 POWERCHART Protein, Ur, Dip Negative MGDL POWERCHART Urobilinogen 1.0 MGDL POWERCHART HXNITRITE Negative POWERCHART HXBLOOD Negative POWERCHART Leukocyte Negative POWERCHART Esterase Specimen (Source) Anatomical Collection Method Collection Time Re ceived Time Location / / Volume Laterality Urine 01/15/2014 1:55 PM PROMOTIONS FIRM ACCOUNTS MANAGER Oscar Laughlin M.D. LAB URINE ORDERABLES Performing Organization Address [facility] Phon e Number POWERCHART Bacterial Culture, Aerobic, Urine (01/15/2014 1:55 PM PROMOTIONS FIRM ACCOUNTS MANAGER) [facility] Method Time Signature Bacterial POWERCHART Culture, Aerobic, Urine HXPre <10,000 POWERCHART cfu/mL Mixed alfonso (multiple species present) HXFinal <10,000 POWERCHART cfu/mL Mixed alfonso (multiple species present) HXFinal No further POWERCHART studies done. Specimen (Source) Anatomical Collection Method Collection Time Re ceived Time Location / / Volume Laterality Urine, Clean 01/15/2014 1:55 PM Catch PROMOTIONS FIRM ACCOUNTS MANAGER Oscar Laughlin M.D. LAB MICROBIOLOGY - GENERAL O RDERABLES Performing Organization Address [facility] Phon e Number POWERCHART Antibody Screen (01/15/2014 1:41 PM PROMOTIONS FIRM ACCOUNTS MANAGER) athologist Signature Antibody Negative POWERCHART Screen Comment: Test Performed by: [place] [id number] Lab oratory Director: Vincenzo Kirkland M.D. Specimen (Source) Anatomical Collection Method Collection Time Re ceived Time Location / / Volume Laterality 01/15/2014 1:41 PM PROMOTIONS FIRM ACCOUNTS MANAGER Oscar Laughlin M.D. LAB BLOOD BANK TEST ORDERABL ES Performing Organization Address [facility] Phon e Number POWERCHART Grouping and Rh-Funk FLIP, see #[id number] (01/15/2014 1:41 PM PROMOTIONS FIRM ACCOUNTS MANAGER) [facility] Method Time Signature HX Grouping A Positive POWERCHART and Rh Specimen (Source) Anatomical Collection Method Collection Time Re ceived Time Location / / Volume Laterality 01/15/2014 1:41 PM PROMOTIONS FIRM ACCOUNTS MANAGER Oscar Laughlin M.D. LAB BLOOD BANK TEST ORDERABL ES Performing Organization Address [facility] Code Phon e Number POWERCHART (ABNORMAL) Automated Differential (01/15/2014 1:41 PM PROMOTIONS FIRM ACCOUNTS MANAGER) [facility] Method Time Signature Absolute 5.83 1.70 - POWERCHART Neutrophils 7.00 109L Lymphocytes 1.74 0.90 - POWERCHART 2.90 X109L Monocytes 0.92 (H) 0.30 - POWERCHART 0.90 X109L Eosinophils 0.09 0.05 - POWERCHART 0.50 X109L Absolute 0.02 0.00 - POWERCHART Basophil 0.30 X109L Specimen Anatomical Collection Method Collection Time Receive d Time (Source) Location / / Volume Laterality Blood 01/15/2014 1:41 PM 4 1:41 PROMOTIONS FIRM ACCOUNTS MANAGER PM PROMOTIONS FIRM ACCOUNTS MANAGER Oscar Laughlin M.D. LAB BLOOD ADD-ON Performing Organization Address City/State/ZIP Code Phon e Number POWERCHART CBC with Differential (01/15/2014 1:41 PM PROMOTIONS FIRM ACCOUNTS MANAGER) athologist Signature Leukocytes 8.6 3.4 - 10.5 POWERCHART X109L Erythrocytes 4.03 3.90 - 5.03 POWERCHART [id number] Hemoglobin 12.0 12.0 - 15.5 POWERCHART GDL Hematocrit 36.6 34.9 - 44.5 POWERCHART MCV 90.8 82.0 - 98.0 POWERCHART FL HX RDW 12.3 11.9 - 15.5 POWERCHART Platelet Count 297 150 - 450 POWERCHART X109L Specimen (Source) Anatomical Collection Method Collection Time Re ceived Time Location / / Volume Laterality Blood 01/15/2014 1:41 PM PROMOTIONS FIRM ACCOUNTS MANAGER Oscar Laughlin M.D. LAB BLOOD ADD-ON Performing Organization Address City/[facility] Phon e Number POWERCHART Profile II without CBC/Serum (01/15/2014 1:41 PM PROMOTIONS FIRM ACCOUNTS MANAGER) athologist Signature HBs Antigen, S Negative Negative POWERCHART Comment: Test Performed by: [address] [id number] [employer]: Kelly Mejia HX Rubella IgG-Jess[place] Equivocal POWERCHART Comment: Recommend follow-up testing in 10-14 day s if clinically indicated. REFERENCE VALUE------ Vaccinated: Positive (>=1.0 AI) Unvaccinated: Negative (<=0.7 AI) Rubella IgG Antibody Index 0.9 POW ERCHART Comment: Test Performed by: [facility] [address] [place] [address] [employer]: Kelly Mejia Syphilis IgG Ab, S Negative Negative POWERCHART Comment: No serologic evidence of exposure to syp hilis. Test Performed by: [facility] [address] [place] [address] [employer] Teachers: Kelly Mejia Specimen (Source) Anatomical Collection Method Collection Time Re ceived Time Location / / Volume Laterality Blood 01/15/2014 1:41 PM PROMOTIONS FIRM ACCOUNTS MANAGER Oscar Laughlin M.D. LAB BLOOD NON ADD-ON Performing Organization Address City/[facility] Code Phon e Number POWERCHART HIV-1/-2 Ag and Ab Screen (01/15/2014 1:41 PM PROMOTIONS FIRM ACCOUNTS MANAGER) P athologist Signature HIV-1/-2 Negative Negative POWERCHART Antibody Comment: Negative result does not rule out HIV in fection. If acute HIV infection is suspected in a hi gh-risk individual, submit plasma specimen for H IV-1 RNA quantification test (HIVQU) and/or HIV-2 DNA/RNA test (FHV2Q). Test Performed by: [facility] [address] [place] [address] Private Tutors [employer] Teachers: Kelly Mejia Specimen (Source) Anatomical Collection Method Collection Time Re ceived Time Location / / Volume Laterality Blood 01/15/2014 1:41 PM PROMOTIONS FIRM ACCOUNTS MANAGER Oscar Laughlin M.D. LAB MICROBIOLOGY - BLOOD ORD ERABLES Performing Organization Address City/State/ZIP Code Phon e Number POWERCHART documented in this encounter Visit Diagnoses Not on filedocumented in this encounter
--- OUTSIDE RECORDS SUMMARY | 2021-12-23 08:44 | XMS_ITS | Encounter Summary ---
:1980 Author Organization [facility] Address [address] [place] [address] Care Team Providers Name Role Phone Unavailable Primary Care Provider Unavailable Encounter Details Date Type Department Care Team Description 08/11/2011 Hospital Encounter HX [facility] FAMILYPRA Ronak Mendez M.D. Social History Tobacco Use Types Packs/Day [...] at Date Recorded Female 04/27/2017 8:11 AM SAMPLE MAKER ORIGINAL documented as of this encounter Last Filed Vital Signs Vital Sign Reading Time Taken Comments Blood Pressure 120/78 08/11/2011 4:34 PM CDT Pulse 72 08/11/2011 4:34 PM CDT Temperature - - Respiratory Rate 16 08/11/2011 4:34 PM CDT Oxygen Saturation - - Inhaled Oxygen Concentration - - Weight 76 kg (167 lb 8.8 oz) 08/11/2011 4:34 PM CDT Height - - Body Mass Index - - documented in this encounter Progress Notes Brent Mendez M.D. - 08/11/2011 12:00 AM CDT [id number] CHIEF COMPLAINT/REASON FOR VISIT Recurrent, chronic dermatitis HISTORY OF PRESENT ILLNESS Patient states that she has had a left distal lower extremity rash challenge intermittently for the past 3 years. She cannot think of any definite exposure to account for this. Patient was seen once by a auto parts counter person but no definitive diagnosis was expressed. She recalls being treated with a steroid cream. SYSTEMS REVIEW No cardiorespiratory positives. CURRENT MEDICATIONS None. ALLERGIES Amoxicillin SOCIAL HISTORY The patient is with 1 child. PHYSICAL EXAM Pleasant female in no acute distress. CARDIOVASCULAR: Regular. LUNGS: Clear. SKIN: Indeed over the distal left lower extremity tib/fib region is a maculopapular erythematous dermatitis of nonspecific appearance without evidence of secondary infection with just a hint of excoriation. No scale is perceived; it does not have the appearance of tinea IMPRESSION/REPORT/PLAN Chronic/recurrent dermatitis, etiology uncertain. DIAGNOSTIC: Formal Dermatology consult advised. THERAPEUTIC: Triamcinolone cream 0.1% to the affected area b.i.d. for up to 2 weeks reviewing long-term topical steroid risks. May take Benadryl p.o. p.r.n. PATIENT ED: Reviewed the above. Follow up as advised. Zeb Brooks Electronically Signed By: BRENT MENDEZ MD On: 08/14/2011 06:49 PM Source: [facility] MHSDOLBEYNJUANS Document Id: [id number] documented in this encounter Miscellaneous Notes Miscellaneous - Brent Mendez M.D. - 08/12/2011 10:49 AM CDT Ambulatory Depart Summary [facility] [address] [place] [id number] Visit Information Name: SANIYA MCCOLLUM Visit Date: 08/12/2011 10:49:22 Attending Provider: BRENT MENDEZ MD Primary Care Provider: BRENT MENDEZ MD SHMUEL MCCOLLUMZOE BROWN has been given the following list of medications: Your Medications It is important to take your medications as directed. Use a pill box or chart to help remind you to take your medications. Please let your doctor or nurse know if you have problems taking your medications. Medication/Strength Dose Route Frequency Indications/Special Instructions/Comments triamcinolone topical (triamcinolone 0.1% topical cream) 1 gunner Topical two times a day for 14 Days Attention: If you have any medications at home that are not on this list, DO NOT take them until youcontact your provider for clarification. Additional Information: Source: [facility] POWERCHART Document Id: [id number] Miscellaneous - Brent Mendez M.D. - 08/12/2011 10:49 AM CDT Ambulatory Patient Summary [facility] [address] [place] [id number] Visit Information Name: MCCOLLUM, SANIYA BROWN Current Date: 08/12/2011 10:49:22 Physicians Attending Provider: BRENT MENDEZ MD Primary Care Provider: BRENT MENDEZ MD Your Medications Here is a list of your medications. It is important to take your medications as directed. Use a pillbox or chart to help remind you to take your medications. Please let your doctor or nurse know if you have problems taking your medications. Medication/Strength Dose Route Frequency Indications/Special Instructions/Comments triamcinolone topical (triamcinolone 0.1% topical cream) 1 gunner Topical two times a day for 14 Days Attention: If you have any medications at home that are not on this list, DO NOT take them until youcontact your provider for clarification. Your Allergies & Intolerances Substance Reaction Symptoms Category Comments amoxicillin Rash Drug Your Problem List Problem Status Onset Comments No Problems found Your Upcoming Appointments Date Time Location Reason Provider No Appointments found Your Goals/Additional instructions: Source: [facility] POWERCHART Document Id: [id number] Miscellaneous - Priscilla Whitaker L.P.N. - 08/11/2011 4:34 PM CDT Adult Data Entry Coordinator Intake/History Adult Data Entry Coordinator Intake/History Entered On: 08/11/2011 16:38 CDT Performed On: 08/11/2011 16:34 CDT by PRISCILLA WHITAKER Intake Chief Complaint : Rash on leg off and on for 3 years. Rash came back 5 months ago. C/o itching. Temperature Oral : 37.1C(Converted to: 98.8DegF) Peripheral Pulse Rate : 72/min Respiratory Rate : 16/min Systolic Blood Pressure : 120mmHg Diastolic Blood Pressure : 78mmHg NIBP Mean : 92mmHg Actual Weight : 76kg(Converted to: 167lb 9oz) Dosing Weight Clinic : 76.00kg PRISCILLA WHITAKER - 08/11/2011 16:34 CDT Subjective Pain Symptoms : No PRISCILLA WHITAKER - 08/11/2011 16:34 CDT Dependent Habits Tobacco Use/Currently Using : No Smoking Status : Never smoker PRISCILLA WHITAKER - 08/11/2011 16:34 CDT Tobacco Use Grid Other Tobacco Frequency : never PRISCILLA WHITAKER - 08/11/2011 16:34 CDT Allergy Allergies (Active) amoxicillin Estimated Onset Date: Unspecified ; Reactions: Rash ; Created By: PRISCILLA WHITAKER; Reaction Status: Active ; Category: Drug ; Substance: amoxicillin ; Type: Allergy ; Updated By:PRISCILLA WHITAKER; Reviewed Date: 08/11/2011 16:31 CDT Source: [facility] S[employer] Document Id: [id number] documented in this encounter Plan of Treatment Not on filedocumented as of this encounter Visit Diagnoses Not on filedocumented in this encounter
--- OUTSIDE RECORDS SUMMARY | 2021-12-23 08:44 | XMS_ITS | Encounter Summary ---
:1980 Author Organization [facility] Address [address] [place] [address] Care Team Providers Name Role Phone Unavailable Primary Care Provider Unavailable Encounter Details Date Type Department Care Team Description 10/19/2003 Hospital Encounter [facility] Jasmin Dominguez M.D. [address] [place], [place] [address] (Wo rk) Social History [...] More than 4 times per year 07/29/2020 jew services? Do you belong to any clubs [...] at Date Recorded Female 04/27/2017 8:11 AM MILL FEEDER documented as of this encounter Plan of Treatment Not on filedocumented as of this encounter Visit Diagnoses Not on filedocumented in this encounter
--- OUTSIDE RECORDS SUMMARY | 2021-12-23 08:44 | XMS_ITS | Encounter Summary ---
:1980 Author Organization [facility] Address [address] [place] [address] Care Team Providers Name Role Phone Unavailable Primary Care Provider Unavailable Encounter Details Date Type Department Care Team Description 02/13/2014 Hospital Encounter [facility] Zahida Laughlin M.D. [address] [place] [address] (Wo rk) Social History Tobacco [...] or relatives? How often do you attend moravian or More than 4 times per year 07/29/2020 jainism services? 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 documented as of this encounter Last Filed Vital Signs Vital Sign Reading Time Taken Comments Blood Pressure 110/70 02/13/2014 4:40 PM METAL ROLLING MILL OPERATOR Pulse 76 02/13/2014 4:40 PM METAL ROLLING MILL OPERATOR Temperature - - Respiratory Rate 18 02/13/2014 4:40 PM METAL ROLLING MILL OPERATOR Oxygen Saturation - - Inhaled Oxygen Concentration - - Weight 82.6 kg (182 lb 1.6 oz) 02/13/2014 4:40 PM METAL ROLLING MILL OPERATOR Height 160 cm (5' 2.99) 02/13/2014 4:40 PM METAL ROLLING MILL OPERATOR Body Mass Index 32.27 02/13/2014 4:40 PM METAL ROLLING MILL OPERATOR documented in this encounter Progress Notes Ирина Laughlin M.D. - 02/13/2014 4:22 PM CST [id number] CHIEF COMPLAINT/REASON FOR VISIT OB check. HISTORY OF PRESENT ILLNESS Saniya is a 33-year old female 2, para 1 at 11-5/7 weeks estimated gestational age presentingfor care. Patient [...] review. VITAL SIGNS HEIGHT: 160 cm WEIGHT: 82.6 kg BMI: 32.27 kg/m2 TEMP: 37.0 DegC PULSE: 76 /min RESP RATE: 18 /min SYSTOLIC: 110 mmHg DIASTOLIC: 70 mmHg PHYSICAL EXAMINATION GENERAL: Well appearing and in no acute distress. ABDOMEN: heart tones were picked up at 160s bpm. IMPRESSION/REPORT/PLAN 1. A 33-year-old white female, 2, para 1, at 11-5/7 weeks estimated gestational age,doing well. LMP 11/23/2013. R[place]ELT 08/30/2014. A positive blood type. 2. Hyperemesis gravidarum, improved with Zofran but not optimally controlled. I recommended that shetry concentrated Cola syrup, as this has been helpful for other women. Follow up as needed. 3. Follow up in 4 weeks or sooner as needed. This document serves as a record of services personally performed by Dr. Ирина Laughlin. It was created on their behalf by Trista Bronson, a trained medical dermatologist. The creation of this record is based on the scribe's personal observations and the provider's statements to them. This document has been checked and approved by the attending provider. Ирина Laughlin M.D./juan cc: Labor and Delivery Electronically Signed By: ИРИНА LAUGHLIN MD On: 02/17/2014 01:20 AM Source: [facility] [email or web address] Document Id: [id number] L ROLLING MILL OPERATOR documented in this encounter Miscellaneous Notes Miscellaneous - Ирина Laughlin M.D. - 02/13/2014 5:22 PM CST Ambulatory Patient Summary [address] [id number] Visit Information Name: SANIYA MCCOLLUM STEPHANIE [facility] Number: [id number] Current Date: 02/13/2014 17:22:00 Physicians Attending Provider: ИРИНА LAUGHLIN MD Primary Care Provider: PCP, UNASSIGNED - SANIYA ALCAZAR STEPHANIE has been given the following list [...] the Following Medications: Medication list as of 02-13-14 17:22 Attention: If you have any medications at [...] Electronically Signed By: ИРИНА LAUGHLIN MD Signed On:13-FEB-2014 17:19:49 Your Allergies & Intolerances Substance Reaction Symptoms Category Comments amoxicillin Rash Drug Your Problem List Problem Status Onset Comments Active 11/23/2013 Exam Active Your Upcoming Appointments Date Time Location Provider No Appointments found Attention: Contact your local Clinic if further appointment detail needed. Your Goals/Additional instructions: Source: [facility] POWERCHART Document Id: [id number] L ROLLING MILL OPERATOR Miscellaneous - Ирина Laughlin M.D. - 02/13/2014 5:21 PM CST Ambulatory Discharge Medication List [facility] [address] [place] [id number] Visit Information Name: MCCOLLUMSANIYA Enamorado STEPHANIE [facility] Number: [id number] Visit Date: 02/13/2014 17:21:59 Attending Provider: ИРИНА LAUGHLIN MD Primary Care [...] the Following Medications: Medication list as of 02-13-14 17:21 Attention: If you have any medications at [...] Electronically Signed By: ИРИНА LAUGHLIN MD Signed On:13-FEB-2014 17:19:49 Additional Information: Source: [facility] [email or web address].comCHART Document Id: [id number] L ROLLING MILL OPERATOR Miscellaneous - Cathi Estes L.P.N. - 02/13/2014 4:40 PM CST Adult Motel Front Desk Attendant Intake/History Adult Motel Front Desk Attendant Intake/History Entered On: 02/13/2014 16:46 METAL ROLLING MILL OPERATOR Performed On: 02/13/2014 16:40 METAL ROLLING MILL OPERATOR by CATHI ESTES Intake LMP Date : 11-23-2013 CATHI ESTES - 02/13/2014 16:47 METAL ROLLING MILL OPERATOR Chief Complaint : 11 07/02 week OB check Temperature Oral : 37.0 DegC(Converted to: 98.6 DegF) Peripheral Pulse Rate : 76 /min Respiratory Rate : 18 /min Systolic Blood Pressure : 110 mmHg Diastolic Blood Pressure : 70 mmHg NIBP Mean : 83 mmHg Height : 160 cm(Converted to: 5 ft 3 inch(es), 63 inch(es)) Actual Weight : 82.6 kg(Converted to: 182 lb 2 oz) Dosing Weight Clinic : 82.6 kg Clinic BSA : 1.92 Body Mass Index : 32.27 kg/m2 CATHI ESTES - 02/13/2014 16:40 METAL ROLLING MILL OPERATOR General Info Information Given By : Patient Preferred Communication Mode : Verbal Languages : Kiswahili Is Patient Female and 13-50 no hysterectomy : Yes Status : Confirmed positive Are you ? : No CATHI ESTES - 02/13/2014 16:40 METAL ROLLING MILL OPERATOR Subjective Pain Symptoms : No CATHI ESTES - 02/13/2014 16:40 METAL ROLLING MILL OPERATOR Dependent Habits Tobacco Use/Currently Using : No Smoking Status : Never smoker CATHI ESTES - 02/13/2014 16:40 METAL ROLLING MILL OPERATOR Tobacco Use Grid Other Tobacco Frequency : never CATHI ESTES - 02/13/2014 16:40 METAL ROLLING MILL OPERATOR ID Screen Travel Within Last 21 Days : No CATHI ESTES 02/13/2014 16:40 METAL ROLLING MILL OPERATOR Source: [facility] POWERCHART Document Id: [id number] METAL ROLLING MILL OPERATOR!3 L ROLLING MILL OPERATOR documented in this encounter Plan of Treatment Not on filedocumented as of this encounter Visit Diagnoses Not on filedocumented in this encounter
--- OUTSIDE RECORDS SUMMARY | 2021-12-23 08:44 | XMS_ITS | Encounter Summary ---
:[address] [facility] Address [address] [place] [address] Care Team Providers Name Role Phone Unavailable Primary Care Provider Unavailable Encounter Details Date Type Department Care Team Description 07/10/2014 Hospital Encounter [facility]X [facility] Zahida Laughlin M.D. 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 - 07/10/2014 11:22 AM CDT [id number] CHIEF COMPLAINT/REASON FOR VISIT OB check. HISTORY OF PRESENT ILLNESS Saniya is a 34-year old female 2, para 1 at 32-5/7 weeks estimated gestational age presentingfor care. She has been doing well. The baby has been active. Patient denies any pain, cramping, bleeding, swelling, or loss of fluid. For the subjective and objective findings, please see the ACOG flow sheet/EMR summary filled out in full and available in the chart for review. VITAL SIGNS HEIGHT: 160 cm WEIGHT: 97.4 kg TEMP: 36.6 DegC PULSE: 76 /min RESP RATE: 20 /min SYSTOLIC: 100 mmHg DIASTOLIC: 62 mmHg PHYSICAL EXAMINATION GENERAL: Well appearing and in no acute distress. ABDOMEN: heart tones were picked up at 140s bpm. Uterus measures 33 cm. IMPRESSION/REPORT/PLAN IMPRESSION/REPORT/PLAN 1. A 33-year-old white female, 2, para 1, at 32-5/7 weeks estimated gestational age,doing well. LMP 11/23/2013. ROOSEVETL 08/30/2014. A positive blood type. The baby is a boy plan on naming him Jeffery Iwll. 2. Discussed labor precautions. All questions were answered. 3. Follow up in 2 weeks or sooner as needed. This document serves as a record of services personally performed by Dr. Oscar Laughlin. It was created on their behalf by Linda Cortez, a trained internist medical doctor md. The creation of this record is based on the scribe's personal observations and the provider's statements to them. This document has been checked and approved by the attending provider Oscar Laughlin M.D./juan cc: Labor and Delivery Electronically Signed By: OSCAR LAUGHLIN MD On: 12/06/2014 02:24 AM Source: [facility] MHSDOLBEYNONRADSYS Document Id: [id number] documented in this encounter Miscellaneous Notes Miscellaneous - Oscar Laughlin M.D. - 07/10/2014 12:08 PM CDT Ambulatory Patient Summary [address] [id number] Visit Information Name: SANIYA MCCOLLUM [facility] Number: [id number] Current Date: 07/10/2014 12:08:20 Physicians Attending Provider: OSCAR LAUGHLIN MD Primary [...] the Following Medications: Medication list as of 07-10-14 12:08 Attention: If you have any medications at [...] Electronically Signed By: OSCAR LAUGHLIN MD Signed On:10-JUL-2014 12:08:11 Your Allergies & Intolerances Substance Reaction Symptoms Category Comments amoxicillin Rash Drug Your Problem List Problem Status Onset Comments Active 11/23/2013 Exam Active Your Upcoming Appointments Date Time Location Provider 07/24/2014 11:15 [facility] Oscar [facility] Attention: Contact your local [facility] if further appointment detail needed. Your Goals/Additional instructions: Source: [facility] POWERCHART Document Id: [id number] Miscellaneous - Oscar Laughlin M.D. - 07/10/2014 12:08 PM CDT Ambulatory Discharge Medication List [address] [id number] Visit Information Name: CHUN SANIYAZOE BROWN [facility] Number: [id number] Visit Date: 07/10/2014 12:08:18 Attending Provider: OSCAR LAUGHLIN MD Primary Care [...] the Following Medications: Medication list as of 07-10-14 12:08 Attention: If you have any medications at [...] Electronically Signed By: OSCAR LAUGHLIN MD Signed On:10-JUL-2014 12:08:11 Additional Information: Source: [facility] POWERCHART Document Id: [id number] Miscellaneous - Tasha Estes L.P.N. - 07/10/2014 11:31 AM CDT Adult Industrial Renderer Intake/History Adult Industrial Renderer Intake/History Entered On: 07/10/2014 11:37 CDT Performed On: 07/10/2014 11:31 CDT by TASHA ESTES Intake LMP Date : 11-23-2013 TASHA ESTES - 07/10/2014 11:37 CDT Chief Complaint : 32 5/7 week OB check Temperature Oral : 36.6 DegC(Converted to: 97.9 DegF) Peripheral Pulse Rate : 76 /min Respiratory Rate : 20 /min Systolic Blood Pressure : 100 mmHg Diastolic Blood Pressure : 62 mmHg NIBP Mean : 75 mmHg BP Location : Right upper extremity Blood Pressure Cuff Size : Large Height : 160 cm(Converted to: 5 ft 3 inch(es), 63 inch(es)) Actual Weight : 97.4 kg(Converted to: 214 lb 12 oz) Dosing Weight Clinic : 97.4 kg Clinic BSA : 2.08 Body Mass Index : 38.05 kg/m2 TASHA ESTES - 07/10/2014 11:31 CDT General Info Information Given By : Patient Preferred Communication Mode : Verbal Languages : Chilean Is Patient Female and 13-50 no hysterectomy : No TASHA ESTES - 07/10/2014 11:31 CDT Subjective Pain Symptoms : No TASHA ESTES - 07/10/2014 11:31 CDT Dependent Habits Tobacco Use/Currently Using : No Exposure to Tobacco Smoke : Other: Never Smoking Status : Never smoker TASHA ESTES - 07/10/2014 11:31 CDT Tobacco Use Grid Other Tobacco Frequency : never TASHA ESTES - 07/10/2014 11:31 CDT ID Screen Travel Within Last 21 Days : No Contact with someone with Ebola : No TASHA ESTES - 07/10/2014 11:31 CDT Source: [facility] sonarDesign Document Id: [id number] CDT!3 documented in this encounter Plan of Treatment Not on filedocumented as of this encounter Visit Diagnoses Not on filedocumented in this encounter
--- OUTSIDE RECORDS SUMMARY | 2021-12-23 08:44 | XMS_ITS | Encounter Summary ---
:1980 Author Organization [facility] Address [address] [place] [address] Care Team Providers Name Role Phone Unavailable Primary Care Provider Unavailable Encounter Details Date Type Department Care Team Description 05/27/2014 Hospital Encounter [facility]X [facility] Zahida Laughlin M.D. [address] [place] [address] (Wo rk) Social History Tobacco [...] or relatives? How often do you attend mandaen or More than 4 times per year 07/29/2020 oriental orthodox services? Do you belong to any clubs or Yes 07/29/2020 organizations such as mandaen groups, unions, fraternal or athletic groups, or [...] at Date Recorded Female 04/27/2017 8:11 AM NUT SIFTER documented as of this encounter Last Filed Vital Signs Vital Sign Reading Time Taken Comments Blood Pressure 110/80 05/27/2014 1:39 PM CDT Pulse 72 05/27/2014 1:39 PM CDT Temperature - - Respiratory Rate 18 05/27/2014 1:39 PM CDT Oxygen Saturation - - Inhaled Oxygen Concentration - - Weight 94.2 kg (207 lb 10.8 oz) 05/27/2014 1:39 PM CDT Height 160 cm (5' 2.99) 05/27/2014 1:39 PM CDT Body Mass Index 36.8 05/27/2014 1:39 PM CDT documented in this encounter Progress Notes Ирина Laughlin M.D. - 05/27/2014 1:21 PM CDT [id number] CHIEF COMPLAINT/REASON FOR VISIT OB check. HISTORY OF PRESENT ILLNESS Saniya is a 34-year old female 2, para 1 at 26-3/7 weeks estimated gestational age presentingfor care. She [...] review. VITAL SIGNS HEIGHT: 160 cm WEIGHT: 94.2 kg BMI: 36.8 kg/m2 TEMP: 37.0 DegC PULSE: 72 /min RESP RATE: 18 /min SYSTOLIC: 110 mmHg DIASTOLIC: 80 mmHg PHYSICAL EXAMINATION GENERAL: Well appearing and in no acute distress. ABDOMEN: heart tones were picked up at 150s bpm. Initially the fundal height felt to be 35-36 cm, however when more firm pressure was used, it felt more to be about 28-29 cm. The abdomen above was still quite protruding. IMPRESSION/REPORT/PLAN 1. A 33-year-old white female, 2, para 1, at 26-3/7 weeks estimated gestational age,doing well. LMP 11/23/2013. R[place]SE[place]ELT 08/30/2014. A positive blood type. 2. Discussed labor precautions. All questions were answered. 3. Size greater than dates. See exam above. Ordered survey ultrasound to evaluate growthand JOSSIE. 4. OB50 and hemoglobin done today. 5. Anemia. She is going to try and take ferrous gluconate with some vitamin C twice daily. If she cannot tolerate that due to her nausea, I would recommend at least trying to increase high iron foods. 6. Follow up in 2 weeks or sooner as needed. This document serves as a record of services personally performed by Dr. Ирина Laughlin. It was created on their behalf by Trista Bronson, a trained medical equipment repair technician. The creation of this record is based on the scribe's personal observations and the provider's statements to them. This document has been checked and approved by the attending provider. Ирина Laughlin M.D./juan cc: Labor and Delivery Electronically Signed By: ИРИНА LAUGHLIN MD On: 06/16/2014 09:22 AM Source: [facility] MHSDOLBEYNONRADSYS Document Id: [id number] documented in this encounter Miscellaneous Notes Miscellaneous - Ирина Laughlin M.D. - 05/27/2014 3:00 PM CDT Ambulatory Patient Summary [facility] [address] [place], [place] [id number] Visit Information Name: SANIYA MCCOLLUM [facility] Number: [id number] Current Date: 05/27/2014 15:00:46 Physicians Attending Provider: ИРИНА LAUGHLIN MD Primary [...] the Following Medications: Medication list as of 05-27-14 15:00 Attention: If you have any medications at [...] Electronically Signed By: ИРИНА LAUGHLIN MD Signed On:27-MAY-2014 14:57:39 Your Allergies & Intolerances Substance Reaction Symptoms Category Comments amoxicillin Rash Drug Your Problem List Problem Status Onset Comments Active 11/23/2013 Exam Active Your Upcoming Appointments Date Time Location Provider 06/15/2014 11:15 Ирина Mclain MD 06/26/2014 11:15 Ирина Mclain MD 07/10/2014 11:15 Ирина Mclain MD 07/24/2014 11:15 Ирина Mclain MD 08/06/2014 11:15 Ирина Mclain MD Attention: Contact your local Clinic if further appointment detail needed. Your Goals/Additional instructions: Source: [facility] POWERCHART Document Id: [id number] Miscellaneous - Ирина Laughlin M.D. - 05/27/2014 3:00 PM CDT Ambulatory Discharge Medication List [facility] [address] [place], [place] [id number] Visit Information Name: SANIYA MCCOLLUM [facility] Number: [id number] Visit Date: 05/27/2014 15:00:44 Attending Provider: ИРИНА LAUGHLIN MD Primary Care [...] the Following Medications: Medication list as of 05-27-14 15:00 Attention: If you have any medications at [...] Electronically Signed By: ИРИНА LAUGHLIN MD Signed On:27-MAY-2014 14:57:39 Additional Information: Source: [facility] POWERCHART Document Id: [id number] Miscellaneous - Cathi Estes L.P.N. - 05/27/2014 1:39 PM CDT Adult Rn Supplemental Intake/History Adult Rn Supplemental Intake/History Entered On: 05/27/2014 13:44 CDT Performed On: 05/27/2014 13:39 CDT by CATHI ESTES Intake Chief Complaint : 26 05/02 OB check LMP Date : 11-23-2013 Temperature Oral : 37.0 DegC(Converted to: 98.6 DegF) Peripheral Pulse Rate : 72 /min Respiratory Rate : 18 /min Systolic Blood Pressure : 110 mmHg Diastolic Blood Pressure : 80 mmHg NIBP Mean : 90 mmHg BP Location : Right upper extremity Blood Pressure Cuff Size : Large Height : 160 cm(Converted to: 5 ft 3 inch(es), 63 inch(es)) Actual Weight : 94.2 kg(Converted to: 207 lb 11 oz) Dosing Weight Clinic : 94.2 kg Clinic BSA : 2.05 Body Mass Index : 36.8 kg/m2 CATHI ESTES - 05/27/2014 13:39 CDT General Info Information Given By : Patient Preferred Communication Mode : Verbal Languages : Swazi Is Patient Female and 13-50 no hysterectomy : No CATHI ESTES - 05/27/2014 13:39 CDT Subjective Pain Symptoms : No CATHI ESTES - 05/27/2014 13:39 CDT Dependent Habits Tobacco Use/Currently Using : No Smoking Status : Never smoker CATHI ESTES - 05/27/2014 13:39 CDT Tobacco Use Grid Other Tobacco Frequency : never CATHI ESTES - 05/27/2014 13:39 CDT ID Screen Travel Within Last 21 Days : No Contact with someone with Ebola : No CATHI ESTES - 05/27/2014 13:39 CDT Source: [facility] POWERCHART Document Id: [id number] CDT!33 documented in this encounter Plan of Treatment Not on filedocumented as of this encounter Visit Diagnoses Not on filedocumented in this encounter
--- OUTSIDE RECORDS SUMMARY | 2021-12-23 08:45 | XMS_ITS | Encounter Summary ---
:1980 Author Organization [facility] Address [address] [place] [address] Care Team Providers Name Role Phone Unavailable Primary Care Provider Unavailable Encounter Details Date Type Department Care Team Description 09/25/2000 Hospital Encounter [facility] Jasmin Dominguez M.D. [address] [place], [place] [address] (Wo rk) Social History [...] or relatives? How often do you attend buddhist or More than 4 times per year 07/29/2020 evangelical services? 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
--- OUTSIDE RECORDS SUMMARY | 2021-12-23 08:45 | XMS_ITS | Encounter Summary ---
:1980 Author Organization [facility] Address [address] [place] [address] Care Team Providers Name Role Phone Unavailable Primary Care Provider Unavailable Encounter Details Date Type Department Care Team Description 05/22/2001 Hospital Encounter [facility]X [facility] Jasmin Dominguez M.D. 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
--- OUTSIDE RECORDS SUMMARY | 2021-12-23 08:45 | XMS_ITS | Encounter Summary ---
:1980 Author Organization [facility] Address [address] [place] [address] Care Team Providers Name Role Phone Unavailable Primary Care Provider Unavailable Encounter Details Date Type Department Care Team Description 09/24/2003 Hospital Encounter [facility]X [facility] Jasmin Dominguez M.D. [address] [place], [place] [address] (Wo rk) Social History [...] More than 4 times per year 07/29/2020 judaism services? 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
--- OUTSIDE RECORDS SUMMARY | 2021-12-23 08:45 | XMS_ITS | Encounter Summary ---
:1980 Author Organization [facility] Address [address] [place] [address] Care Team Providers Name Role Phone Unavailable Primary Care Provider Unavailable Encounter Details Date Type Department Care Team Description 01/24/2001 Hospital Encounter [facility] Jeannie Brown M.D. [address] [place] [address] (Wo rk) Social History Tobacco [...] or relatives? How often do you attend taoism or More than 4 times per year 07/29/2020 episcopal services? Do you belong to any clubs or Yes 07/29/2020 organizations such as taoism groups, unions, fraternal or athletic groups, or [...] at Date Recorded Female 04/27/2017 8:11 AM ATTIC BLOWER documented as of this encounter Plan of Treatment Not on filedocumented as of this encounter Visit Diagnoses Not on filedocumented in this encounter
--- OUTSIDE RECORDS SUMMARY | 2021-12-23 08:45 | XMS_ITS | Encounter Summary ---
:1980 Author Organization [facility] Address [address] [place] [address] Care Team Providers Name Role Phone Unavailable Primary Care Provider Unavailable Encounter Details Date Type Department Care Team Description 10/03/2001 Hospital Encounter [facility]X [facility] Jasmin Dominguez M.D. [address] [place], [place] [address] (Wo rk) Social History [...] or relatives? How often do you attend buddhism or More than 4 times per year 07/29/2020 christian services? Do you belong to any clubs or Yes 07/29/2020 organizations such as buddhism groups, unions, fraternal or athletic groups, or [...] at Date Recorded Female 04/27/2017 8:11 AM TAX ASSISTANT documented as of this encounter Plan of Treatment Not on filedocumented as of this encounter Visit Diagnoses Not on filedocumented in this encounter
--- OUTSIDE RECORDS SUMMARY | 2021-12-23 08:45 | XMS_ITS | Encounter Summary ---
:[address] [facility] Address [address] [place] [address] Care Team Providers Name Role Phone Unavailable Primary Care Provider Unavailable Encounter Details Date Type Department Care Team Description 02/27/2003 Hospital Encounter HX [facility] Jasmin Dominguez M.D. [address] [place], [place] [address] (Wo rk) Social History [...] Date Recorded Female 04/27/2017 8:11 AM SENIOR CONTROLS ENGINEER documented as of this encounter Plan of Treatment Not on filedocumented as of this encounter Visit Diagnoses Not on filedocumented in this encounter
--- OUTSIDE RECORDS SUMMARY | 2021-12-23 08:46 | XMS_ITS | Encounter Summary ---
:1980 Author Organization [facility] Address [address] [place] [address] Care Team Providers Name Role Phone Unavailable Primary Care Provider Unavailable Encounter Details Date Type Department Care Team Description 08/30/2000 Hospital Encounter HX [facility] Jasmin Dominguez M.D. [address] [place], [place] [address] (Wo rk) Social History [...] More than 4 times per year 07/29/2020 druze services? Do you belong to any clubs [...] place to sleep or slept in a [place] [facility] (including now)? Sex Assigned at Date Recorded Female 04/27/2017 8:11 AM JAVA WEB DEVELOPER documented as of this encounter Plan of Treatment Not on filedocumented as of this encounter Visit Diagnoses Not on filedocumented in this encounter
--- OUTSIDE RECORDS SUMMARY | 2021-12-23 08:46 | XMS_ITS | Clinical Summary ---
:1980 Author Organization [facility] [place] [address] Care Team Providers Name Role Phone Oscar Laughlin MD Primary Care Provider Allergies Active Allergy Reactions Severity Noted Date Comments Amoxicillin Rash 08/23/2014 Medications Medication Sig Dispensed Refills Start Date End Date Status ibuprofen (ADVIL; Take 1 tablet by 30 tablet 0 08/26/2014 Active MOTRIN) 600 mg mouth every 6 hours tabletIndications: if needed for Pain. Vaginal delivery Breast Pump - For home use. 1 unit 0 08/26/2014 A ctive PurchaseIndications: Gestation age at Vaginal delivery delivery: 39 weeks. Reason for need: . Length of need: 1 year Active Problems Problem Noted Date Gestational hypertension without significant proteinur ia 08/24/2014 Vaginal delivery 08/24/2014 Immunizations Name Administration Dates Next Due MMR 08/26/2014 Social History Tobacco Use Types Packs/Day Years Used Date Never Smoker Smokeless Tobacco: Never Used Tobacco Cessation: Counseling Given: No Alcohol Use Standard Drinks/Week Comments No 0 (1 standard drink = 0.6 oz pure alcoho l) Sex Assigned at Date Recorded Not on file Obstetrics History Para Term AB IAB SAB Ectopic Multiple Living Live Births 2 2 2 1 1 Date Outcome GA Total Labor/2nd/3rd Weight Sex Delivery Anes PTL Mayte A 1 A5 Name Clin Labor 11/10 Term 38w 2.58 kg F VAGINAL Epidu N Brandi Cl sherice 0d (5 lb VACU ral ng judit e 11 oz) 08/24 Term 39w M SAUCEDA 1d BB(EM ZOE) Delivery Location: [facility] Last Filed Vital Signs Vital Sign Reading Time Taken Comments Blood Pressure 138/98 08/26/2014 8:42 AM CDT Pulse 90 08/26/2014 8:42 AM CDT Temperature 36.9 ??C (98.4 ??F) 08/26/2014 8:42 AM CDT Respiratory Rate 18 08/26/2014 8:42 AM CDT Oxygen Saturation 100% 08/24/2014 5:05 PM CDT Inhaled Oxygen Concentration - - Weight 99.8 kg (220 lb) 08/23/2014 7:58 PM CDT Height 162.6 cm (5' 4) 08/23/2014 7:58 PM CDT Body Mass Index 37.76 08/23/2014 7:58 PM CDT Plan of Treatment Health Maintenance Due Date Last Done Comments COVID-19 vaccine series (#1) 1980 Tdap 1991 Depression screening for age 12+ 1992 BMI (ht and wt on same day) for age 18+ 1998 Hepatitis C screening for age 18-79 1998 Tetanus booster 2000 Pap test for age 21-65 2001 Influenza for age 9-49 10/27/2021 Results Not on filefrom Last 3 Months Advance Directives Latest Code Status on File Code Status Date Activated Date Inactivated Comments Full Code 08/24/2014 6:50 PM 08/26/2014 12:40 PM Full Code 08/24/2014 8:16 AM 08/24/2014 6:50 PM Full Code 08/23/2014 7:41 PM 08/24/2014 8:16 AM Care Teams Logistics Analytics Manager Relationship Specialty Start Date End Date Oscar Laughlin MD PCP - General Family Practice 07/24/14
--- OUTSIDE RECORDS SUMMARY | 2021-12-23 08:46 | XMS_ITS | Encounter Summary ---
:1980 Author Organization [facility] Address [address] [place] [address] Care Team Providers Name Role Phone Unavailable Primary Care Provider Unavailable Encounter Details Date Type Department Care Team Description 03/21/2000 Hospital Encounter HX [facility] Jasmin Dominguez M.D. [address] [place], [place] [address] (Wo rk) Social History [...] or relatives? How often do you attend restorationist or More than 4 times per year 07/29/2020 temple services? Do you belong to any clubs or Yes 07/29/2020 organizations such as restorationist groups, unions, fraternal or athletic groups, or [...] at Date Recorded Female 04/27/2017 8:11 AM FABRIC INSPECTOR documented as of this encounter Plan of Treatment Not on filedocumented as of this encounter Visit Diagnoses Not on filedocumented in this encounter
[2021-12-23 10:26] LABS: Albumin* 4.1 g/dL (3.3-5.0)
[2021-12-23 10:27] LABS: Chloride* 104 mmol/L (96-114); Potassium* 4.3 mmol/L (3.6-5.1); Sodium* 139 mmol/L (135-149)
[2021-12-23 10:29] LABS: Bilirubin Total* 0.7 mg/dL (0.1-1.5); Carbon Dioxide* 27 mmol/L (20-32); Cholesterol* 167 mg/dL (90-199); Creatinine* 0.7 mg/dL (0.5-1.5); Estimated Glomerular Filt Rate 111 ml/min
[2021-12-23 10:30] LABS: Alanine Aminotransferase* 20 U/L (4-35); Alkaline Phosphatase* 61 U/L (40-150); Aspartate Amino Transferase* 22 U/L (12-35); Blood Urea Nitrogen* 13 mg/dL (5-24); Calcium* 8.8 mg/dL (8.4-10.6); Glucose* 83 mg/dL (60-115); HDL Cholesterol* 56 mg/dL (>=50); LDL Cholesterol Calculated 98 mg/dL (<100); Total Protein* 6.6 g/dL (6.0-8.3); Triglycerides* 63 mg/dL (40-149)
== END 2021-12-23 08:13 | disposition home or self-care (01) ==
PROVIDERS: PCP Family Medicine; Visit Provider Family Medicine
DX: Z01.419 Encounter for gynecological examination (general) (routine) without abnormal findings (principal); I10 Essential (primary) hypertension; Z13.6 Encounter for screening for cardiovascular disorders
CPT/HCPCS: 80053; 80061

== ENCOUNTER 2023-03-28 09:20 | Outpatient (CLI) | payer OTHER, SELFPAY ==
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
--- OUTSIDE RECORDS SUMMARY | 2023-03-29 06:35 | XMS_ITS | Encounter Summary ---
Author Name Unknown Organization [facility] Address [address] [place] [address] Care Team Providers Care Feed Management Advisor Name Role Phone Oscar Laughlin M.D. Primary Care Provider [phone] [phone] Reason for Referral * Outpatient (Routine) - Authorized Specialty Diagnoses / Procedures Referred By Contac t Referred To Contact Diagnoses Screening Mammogram Breast Cancer Procedures BI Breast Screening Bilateral with Tomosynthesis Oscar Laughlin M.D. [address], [place] [address] [facility] Referral ID Status Reason Start Date Expiration Date V isits Requested Visits Authorized [id number] Authorized 01/30/2023 01/30/2024 1 1 RAM WRITER Encounter Details Date Type Department Care Team (Late st Contact Info) Description 01/30/2023 Orders Only [facility] P[facility] MNT Oscar Laughlin M.D. [address] [place] [address] Screening Lipid; Screening Mammogram Breast Cancer Social History Tobacco Use Types Packs/Day Years [...] 07/29/2020 How often do you attend chur or jainism services? More than 4 times per year 07/29/2020 Do you belong to any clubs o r organizations such as yazidi groups, unions, fraternal [...] Answer Date Recorded PHQ-2 Score 2 04/12/2020 [facility] ional [facility] - [...] or slept in a halfway (including now)? No 07/29/2020 Depression Answer Date [...] Date Recorded Dental: Regular Dentist Yes 03/03/19 23 Employment Answer Date Recorded Employment status Employed and actively working without restrictions 07/29/2020 Education Answer Date Recorded What is the highest level of school you have completed or the highest degree you have received? Master's degree (e.g., MA, MS, Fabio, MEd, WARD SUPERVISOR, ELICIA) 03/11/2020 Sex and Gender Information Value Date Recorded Sex Assigned at Female 04/27/2017 8:11 AM PROGRAM WRITER Gender Identity Female 04/27/2017 8:11 AM PROGRAM WRITER Sexual Orientation Straight 04/27/2017 8: 11 AM PROGRAM WRITER documented as of this encounter Plan of Treatment Scheduled Orders Name Type Priority Associated Diagnoses Order Schedule Lipid Panel Lab Routine Screening Lipid Expected: 02/13/2023, Expires: 07/29/2023 BI Breast Screening Bilateral with Tomosynthesis Imaging RAD - Routine (most inpatients and all outpatients) Screening Mammogram Breast Cancer Expected: 03/01/2023, Expires: 07/29/2023 documented as of this encounter Visit Diagnoses Diagnosis Screening Lipid Screening Mammogram Breast Cancer documented in this encounter Additional Health Concerns Assessment Noted Time PHQ-9 Depression Total Score: 7 04/12/19 21 10:38 AM PROGRAM WRITER documented as of this encounter Care Teams Feed Management Advisor Relationship Specialty Start Date End Date Oscar Laughlin M.D. [address] [place] [address] PCP - General 08/10/16 documented as of this encounter
--- OUTSIDE RECORDS SUMMARY | 2023-03-29 06:35 | XMS_ITS | Encounter Summary ---
Author Name Unknown Organization [facility] Address [address] [place] [address] Care Team Providers Care Sports Writer Name Role Phone Oscar Laughlin M.D. Primary Care Provider [phone] [phone] Encounter Details Date Type Department Care Team (Late st Contact Info) Description 08/02/2022 Orders Only [facility] PCP HL[facility] MNT Oscar Laughlin M.D. [address] [facility] [place] [address] Social History Tobacco Use Types [...] often do you attend chur ch or church services? More than 4 times per year 07/29/2020 Do you belong to any clubs o r organizations such as restorationist groups, unions, fraternal [...] Answer Date Recorded PHQ-2 Score 2 04/12/2020 [facility] - Occupational Stress Questionnaire Answer Date Recorded [...] or slept in a long-term (including now)? No 07/29/2020 Depression Answer Date [...] Master's degree (e.g., MA, MS, Fabio, MEd, SUPERVISOR WOOD ROOM, ELICIA) 03/11/2020 Sex and Gender Information Value Date Recorded Sex Assigned at Female 04/27/2017 8:11 AM CHEMICAL OPERATIONS SPECIALIST Gender Identity Female 04/27/2017 8:11 AM CHEMICAL OPERATIONS SPECIALIST Sexual Orientation Straight 04/27/2017 8: 11 AM CHEMICAL OPERATIONS SPECIALIST documented as of this encounter Plan of Treatment Not on file documented as of this encounter Visit Diagnoses Not on filedocumented in this encounter Additional Health Concerns Assessment Noted Time PHQ-9 Depression Total Score: 7 04/12/19 21 10:38 AM CHEMICAL OPERATIONS SPECIALIST documented as of this encounter Care Teams Sports Writer Relationship Specialty Start Date End Date Oscar Laughlin M.D. [address] [place] [phone] PCP - General 08/10/16 documented as of this encounter
--- OUTSIDE RECORDS SUMMARY | 2023-03-29 06:35 | XMS_ITS | Encounter Summary ---
Author Name Unknown Organization [facility] Address [address] [place] [address] Care Team Providers Care Director Sales Name Role Phone Oscar Laughlin M.D. Primary Care Provider [phone] [phone] Encounter Details Date Type Department Care Team (Late st Contact Info) Description 01/01/2023 10:20 AM METAL RIVET MACHINE OPERATOR Clinical Support Department of Pediatrics in [place], [place] [address] [place] [address] Leah Gordon, C.M.A. [address] [place] [address] Social History Tobacco Use Types Packs/Day Years [...] How often do you attend chur or jain services? More than 4 times per year 07/29/2020 Do you belong to any clubs o r organizations such as mosque groups, unions, fraternal [...] Answer Date Recorded PHQ-2 Score 2 04/12/2020 [facility] - Occupational Stress Questionnaire Answer [...] or slept in a retirement (including now)? No 07/29/2020 Depression Answer Date [...] Master's degree (e.g., MA, MS, Fabio, MEd, CURRICULUM CONSULTANT, ELICIA) 03/11/2020 Sex and Gender Information Value Date Recorded Sex Assigned at Female 04/27/2017 8:11 AM METAL RIVET MACHINE OPERATOR Gender Identity Female 04/27/2017 8:11 AM METAL RIVET MACHINE OPERATOR Sexual Orientation Straight 04/27/2017 8: 11 AM METAL RIVET MACHINE OPERATOR documented as of this encounter Plan of Treatment Not on file documented as of this encounter Visit Diagnoses Not on filedocumented in this encounter Additional Health Concerns Assessment Noted Time PHQ-9 Depression Total Score: 7 04/12/19 21 10:38 AM METAL RIVET MACHINE OPERATOR documented as of this encounter Care Teams Director Sales Relationship Specialty Start Date End Date Oscar Laughlin M.D. [address] [facility] [place] [address] PCP - General 08/10/16 documented as of this encounter
--- OUTSIDE RECORDS SUMMARY | 2023-03-29 06:35 | XMS_ITS | Referral Summary ---
Author Name Unknown Organization [facility] Address [address] [place] [address] Care Team Providers Care Tumbling Machine Operator Name Role Phone Ocsar Laughlin M.D. Primary Care Provider [phone] [phone] Source Comments Patient records contain information from all sites at [facility]. For routine questions regarding patient records, call [phone] during business hours, M-F 8:00 AM - 5:00 PM Central Time. Record requests for emergency care only can be directed to [phone] at any time.[facility] Encounters Date Type Department Care Team Description 02/15/2023 Refill Department of Family Medicine, [facility], in [place], [place] [address] [phone] Oscar Laughlin M.D. Med Refill 01/30/2023 [facility] M.D. Screening Lipid; Screening Mammogram Breast Cancer 01/01/2023 10:20 AM ANIMAL THERAPIST Clinical Support Department of Pediatrics in [place], [place] [address] [place] [phone] Leah Gordon C.M.A. from Last 3 Months Allergies Active Allergy Reactions Criticality Noted Date Comments Amoxicillin Rash 08/11/2011 Medications Medication Sig Dispensed Refills Start Date End Date Status buPROPion XL (WELLBUTRIN XL) 300 mg 24 hr tablet TAKE 1 TABLET BY MOUTH EVERY DAY IN THE MORNING 90 tablet 3 05/24/2020 Active hydrOXYzine (ATARAX) 25 mg tablet TAKE 1 TABLET (25 MG) BY MOUTH AT BEDTIME NEEDED (ANXIETY/INSOMNIA ). 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 01/06/2016 05/01/2017 Immunizations Name Administration Dates Next Due DTaP (Infanrix, Tripedia) 11/10/2005 HepB, Unspecified 04/22/1999 Influenza, Injectable, Quadrivalent 12/21/2016,1 2014 Influenza, Unspecified 12/21/2016,2015,01/01/2015,2013 MMR 08/26/2014 MPSV4 10/25/2000 SARS-COV-2 (COVID-19) - MODERNA(Discontinued) 01/07/2021,06/21/2020,05/20/2020 Tdap 06/15/2014,11/10/2005 influenza vaccine quad (FLUZONE/FLUARIX) (6 months and older)(PF) 01/01/2023,12/29/2019,11/12/2017,2015 Social History Tobacco Use Types Packs/Day Years Used Date Smoking Tobacco: Never Smokeless Tobacco: Never Tobacco Cessation:Counseling Given: No Alcohol Use Standard Drinks/Week Comments [...] How often do you attend chur or worship services? More than 4 times per year 07/29/2020 Do you belong to any clubs o r organizations such as hinduism groups, unions, fraternal [...] Answer Date Recorded PHQ-2 Score 2 04/12/2020 [facility] of Occupat ional Health - Occupational Stress [...] or slept in a alf (including now)? No 07/29/2020 Depression Answer Date [...] Master's degree (e.g., MA, MS, Fabio, MEd, COMPLAINT SUPERVISOR, ELICIA) 03/11/2020 Sex and Gender Information Value Date Recorded Sex Assigned at Female 04/27/2017 8:11 AM ANIMAL THERAPIST Gender Identity Female 04/27/2017 8:11 AM ANIMAL THERAPIST Sexual Orientation Straight 04/27/2017 8: 11 AM ANIMAL THERAPIST Last Filed Vital Signs Vital Sign Reading Time Taken Comments Blood Pressure 141/92 08/09/2020 4:22 PM CDT Pulse 82 08/09/2020 4:17 PM CDT Temperature 36.4 ??C (97.5 ??F) 08/09/2020 4:17 PM CD T Respiratory Rate 16 08/09/2020 4:17 PM CDT Oxygen Saturation - - Inhaled Oxygen Concentration - - Weight 78.2 kg (172 lb 6.4 oz) 07/29/2020 1:19 P M CDT Height 160 cm (5' 2.99) 07/29/2020 1:19 PM CDT Body Mass Index 30.55 07/29/2020 1:19 PM CDT Plan of Treatment Not on file Care Teams Tumbling Machine Operator Relationship Specialty Start Date End Date Oscar Laughlin M.D. [address] [place] [address] PCP - General 08/10/16
--- OUTSIDE RECORDS SUMMARY | 2023-03-29 06:35 | XMS_ITS | Encounter Summary ---
Author Name Unknown Organization [facility] Address [address] [place] [address] Care Team Providers Care Senior Mortgage Underwriter Name Role Phone Oscar Laughlin M.D. Primary Care Provider [phone] [phone] Reason for Visit * Reason Comments Med Refill Encounter Details Date Type Department Care Team (Late st Contact Info) Description 11/19/2022 Refill Department of Family Medicine, [facility], in [place], [place] [address] [place] [phone] Oscar Laughlin M.D. [address] [place] [address] Med Refill Social History Tobacco [...] often do you attend chur ch or mandaen services? More than 4 times per year 07/29/2020 Do you belong to any clubs o r organizations such as restorationism groups, unions, fraternal [...] Answer Date Recorded PHQ-2 Score 2 04/12/2020 [facility]at ional Health - Occupational Stress [...] or slept in a assisted (including now)? No 07/29/2020 Depression Answer Date [...] Master's degree (e.g., MA, MS, Fabio, MEd, SALES REPRESENTATIVE PRINTING SUPPLIES, ELICIA) 03/11/2020 Sex and Gender Information Value Date Recorded Sex Assigned at Female 04/27/2017 8:11 AM RETOUCHING OPERATOR Gender Identity Female 04/27/2017 8:11 AM RETOUCHING OPERATOR Sexual Orientation Straight 04/27/2017 8: 11 AM RETOUCHING OPERATOR documented as of this encounter Plan of Treatment Not on file documented as of this encounter Visit Diagnoses Not on filedocumented in this encounter Additional Health Concerns Assessment Noted Time PHQ-9 Depression Total Score: 7 04/12/19 21 10:38 AM RETOUCHING OPERATOR documented as of this encounter Care Teams Senior Mortgage Underwriter Relationship Specialty Start Date End Date Oscar Laughlin M.D. [address] [place] [address] PCP - General 08/10/16 documented as of this encounter
--- OUTSIDE RECORDS SUMMARY | 2023-03-29 06:35 | XMS_ITS ---
Author Name Unknown Organization [facility] Address [address] [place] [address] Care Team Providers Care Nail Polish Brush Machine Feeder Name Role Phone Unavailable Unavailable Unavailable Surgery Details Not on file Complications Check Surgery Details section. Procedure Estimated Blood Loss Check Surgery Details section. Procedure Findings Check Surgery Details section. Procedure Specimens Taken Check Surgery Details section.
--- OUTSIDE RECORDS SUMMARY | 2023-03-29 06:35 | XMS_ITS | Encounter Summary ---
Author Name Unknown Organization [facility] Address [address] [place] [address] Care Team Providers Care Belt Conveyor Drier Name Role Phone Oscar Laughlin M.D. Primary Care Provider +1 -[phone] Reason for Visit * Reason Comments Med Refill Encounter Details Date Type Department Care Team (Late st Contact Info) Description 02/15/2023 Refill Department of Family Medicine, [facility], in [place], [place] [address] [place] [address] Oscar Laughlin M.D. [address] [place] [address] Med Refill Social History Tobacco [...] often do you attend chur ch or zoroastrianism services? More than 4 times per year 07/29/2020 Do you belong to any clubs o r organizations such as mormonism groups, unions, fraternal or athletic groups, or [...] Answer Date Recorded PHQ-2 Score 2 04/12/2020 [facility] of Occupat ional Health - Occupational Stress [...] Master's degree (e.g., MA, MS, Fabio, MEd, ENVIRONMENTAL PROGRAMS MANAGER, ELICIA) 03/11/2020 Sex and Gender Information Value Date Recorded Sex Assigned at Female 04/27/2017 8:11 AM HONEYCOMB DECAPPER Gender Identity Female 04/27/2017 8:11 AM HONEYCOMB DECAPPER Sexual Orientation Straight 04/27/2017 8: 11 AM HONEYCOMB DECAPPER documented as of this encounter Plan of Treatment Not on file documented as of this encounter Visit Diagnoses Not on filedocumented in this encounter Additional Health Concerns Assessment Noted Time PHQ-9 Depression Total Score: 7 04/12/19 21 10:38 AM HONEYCOMB DECAPPER documented as of this encounter Care Teams Belt Conveyor Drier Relationship Specialty Start Date End Date Oscar Laughlin M.D. [address] [place] [address] PCP - General 08/10/16 documented as of this encounter
--- OUTSIDE RECORDS SUMMARY | 2023-03-29 06:35 | XMS_ITS | Clinical Summary ---
Author Name Unknown Organization [facility] Address [address] [place] [address] Care Team Providers Care Warehouse Forklift Operator Name Role Phone Oscar Laughlin M.D. Primary Care Provider +1 -[phone] Source Comments Patient records contain information from all sites at [facility]. For routine questions regarding patient records, call [phone] during business hours, M-F 8:00 AM - 5:00 PM Central Time. Record requests for emergency care only can be directed to [phone] at any time.[facility] Allergies Active Allergy Reactions Criticality Noted Date [...] Deoxyribonucleic Acid Test Positive Cervix 01/06/2016 05/01/2017 Encounters Date Type Department Care Team Description 02/15/2023 Refill Department of Family Medicine, [facility], in [place], [place] [address] [place] [phone] Oscar Laughlin M.D. Med Refill 01/30/2023 Orders Only [facility] P[facility] Oscar Laughlin M.D. Screening Lipid; Screening Mammogram Breast Cancer 01/01/2023 10:20 AM CLAIM REVIEW MEDICAL DIRECTOR Clinical Support Department of Pediatrics in [place], [place] [address] [place] [address] Leah Gordon C.M.AMickey from Last 3 Months Immunizations Name Administration Dates Next Due DTaP (Infanrix, Tripedia) 11/10/2005 HepB, Unspecified 04/22/1999 Influenza, Injectable, Quadrivalent 12/21/2016,1 2014 Influenza, Unspecified 12/21/2016,2015,01/01/2015,2013 MMR 08/26/2014 MPSV4 10/25/2000 SARS-COV-2 (COVID-19) - MODERNA(Discontinued) 01/07/2021,06/21/2020,05/20/2020 Tdap 06/15/2014,11/10/2005 influenza vaccine quad (FLUZONE/FLUARIX) (6 months and older)(PF) 01/01/2023,12/29/2019,11/12/2017,2015 Family History Medical History Relation Name Comments [...] week 07/29/2020 How often do you attend [facility] or adventist services? More than 4 times per year 07/29/2020 Do you belong to any clubs o r organizations such as jew groups, unions, fraternal or athletic groups, or [...] Answer Date Recorded PHQ-2 Score 2 04/12/2020 [facility] of Occupat ional Health - Occupational Stress [...] or slept in a chcf (including now)? No 07/29/2020 Depression Answer Date [...] Master's degree (e.g., MA, MS, Fabio, MEd, BLUEPRINT MACHINE OPERATOR, ELICIA) 03/11/2020 Sex and Gender Information Value Date Recorded Sex Assigned at Female 04/27/2017 8:11 AM CLAIM REVIEW MEDICAL DIRECTOR Gender Identity Female 04/27/2017 8:11 AM CLAIM REVIEW MEDICAL DIRECTOR Sexual Orientation Straight 04/27/2017 8: 11 AM CLAIM REVIEW MEDICAL DIRECTOR Last Filed Vital Signs Vital Sign Reading [...] Screening 1980 Hepatitis B Vaccines (2 of 3 - 19+ 3-dose series) 05/20/1999 04/22/1999 Depression Monitoring (PHQ-9) 08/10/2020 04/12/2020 Lipid (Cholesterol) Screening 01/06/2021 01/07/2016 Mammogram 07/23/2021 07/23/2020 COVID-19 Vaccine (2022- season) 2022 12/09/2021, 01/07/2021, 06/21/2020, Additional history exists DTaP,Tdap,and Td Vaccines (4 - Td or Tdap) 06/15/2024 06/15/2014, 11/10/2005, 11/10/2005 Cervical Cancer Screening 02/03/20252021, 07/29/2020, 07/29/2020, Additional history exists HIV Screening Completed 05/26/2016, 01/15/2014 Influenza Vaccine Completed 01/01/2023, , 12/09/2020, Additional history exists HPV Vaccines Aged Out No longer eligi ble based on patient's age to complete this topic Pneumococcal vaccine (0-64 years) Aged Out No longer eligible based on patient's age to complete this topic Care Teams Warehouse Forklift Operator Relationship Specialty Start Date End Date Oscar Laughiln M.D. [address] [place] [phone] PCP - General 08/10/16
--- OUTSIDE RECORDS SUMMARY | 2023-03-29 06:35 | XMS_ITS | Clinical Summary ---
Author Name Unknown Organization [facility] Address [place], [place] [address] Care Team Providers Care Music Therapist Name Role Phone Oscar Laughlin MD Primary Care Provider + Allergies Active Allergy Reactions Criticality Noted Date Comments Amoxicillin Rash 08/23/2014 Medications Medication Sig Dispensed Refills Start Date End Date Status ibuprofen (ADVIL; MOTRIN) 600 mg tabletIndications:Va ginal delivery Take 1 tablet by mouth every 6 hours if needed for Pain. 30 tablet 0 08/26/2014 Active Breast Pump - PurchaseIndications: Vaginal delivery For home use. Gestation age at delivery: 39 weeks. Reason for need: . Length of need: 1 year 1 unit 0 08/26/2014 Active Active Problems Problem Noted Date Diagnosed Date Gestational hypertension without significant pro teinuria 08/24/2014 Vaginal delivery 08/24/2014 Immunizations Name Administration Dates Next Due MMR 08/26/2014 Social History Tobacco Use Types Packs/Day Years Used Date Smoking Tobacco: Never Smokeless Tobacco: Never Tobacco Cessation:Counseling Given: No Alcohol Use Standard Drinks/Week Comments No 0 (1 standard drink = 0.6 oz pur e alcohol) Sex and Gender Information Value Date Recorded Sex Assigned at Not on file Gender Identity Not on file Sexual Orientation Not on file Obstetrics History Para Term AB IAB SAB Ectopic Multiple Livin g Live Births 2 2 2 1 1 Date Outcome GA Total Labor Labor/2nd/3rd Weight Sex Delivery Anes PTL Mayte A1 A5 Name Cl in 11/10 Term 38w 0d 2.58 kg (5 lb 11 oz) F VAGINAL VACU Epidu ral N Brandi ng [facility] 08/24 Term 39w 1d M DAYTON MCCOLLUM(EM ZOE) Delivery Location:[facility] Last Filed Vital Signs Vital Sign Reading Time Taken Comments Blood Pressure 138/98 08/26/2014 8:42 AM CDT Pulse 90 08/26/2014 8:42 AM CDT Temperature 36.9 ??C (98.4 ??F) 08/26/2014 8:42 AM CD T Respiratory Rate 18 08/26/2014 8:42 AM CDT [...] 1991 Depression screening for age 12+ 1992 HIV for age 15-65 1995 BMI (ht and wt on same day) for age 18+ 1998 Hepatitis C screening for ag e 18-79 1998 Tetanus booster 2000 Influenza for age 9-49 10/27/2022 Pap test for age 21-65 02/03/2025 2, 02/03/2022 Pneumococcal series for age 6-64 Aged Out No longer eligible b ased on patient's age to complete this topic Advance Directives Latest Code Status on File Code Status Date Activated Date Inactivated Comments Full Code 08/24/2014 6:50 PM 08/26/2014 12:40 PM Code Status History Code Status Date Activated Date Inactivated Comments Full Code 08/24/2014 8:16 AM 08/24/2014 6:50 PM Full Code 08/23/2014 7:41 PM 08/24/2014 8:16 AM Care Teams Music Therapist Relationship Specialty Start Date End Date Oscar Laughlin MD PCP - General Family Practice 07/24/14
--- OUTSIDE RECORDS SUMMARY | 2023-03-29 06:36 | XMS_ITS | Encounter Summary ---
Author Name Unknown Organization [facility] Address [address] [place] [address] Care Team Providers Care Tissue Specialist Name Role Phone Oscar Laughlin M.D. Primary Care Provider +1 -[phone] Reason for Visit * Reason Comments Med Refill Encounter Details Date Type Department Care Team (Late st Contact Info) Description 05/17/2022 Refill Department of Family Medicine, [facility], in [place], [place] [address] [place] [address] Oscar Laughlin M.D. [address] [address] Med Refill Social History Tobacco [...] often do you attend chur ch or yarsanism services? More than 4 times per year 07/29/2020 Do you belong to any clubs o r organizations such as christian groups, unions, fraternal or athletic groups, or [...] Answer Date Recorded PHQ-2 Score 2 04/12/2020 [facility] of Occupat ional Health - Occupational Stress [...] or slept in a usp (including now)? No 07/29/2020 Depression Answer Date [...] Master's degree (e.g., MA, MS, Fabio, MEd, INSURANCE ACCOUNT REPRESENTATIVE, ELICIA) 03/11/2020 Sex and Gender Information Value Date Recorded Sex Assigned at Female 04/27/2017 8:11 AM PUMP STATION OPERATOR Gender Identity Female 04/27/2017 8:11 AM PUMP STATION OPERATOR Sexual Orientation Straight 04/27/2017 8: 11 AM PUMP STATION OPERATOR documented as of this encounter Plan of Treatment Not on file documented as of this encounter Visit Diagnoses Not on filedocumented in this encounter Additional Health Concerns Assessment Noted Time PHQ-9 Depression Total Score: 7 04/12/19 21 10:38 AM PUMP STATION OPERATOR documented as of this encounter Care Teams Tissue Specialist Relationship Specialty Start Date End Date Oscar Laughlin M.D. [address] [place] [address] PCP - General 08/10/16 documented as of this encounter
--- OUTSIDE RECORDS SUMMARY | 2023-03-29 06:36 | XMS_ITS | Encounter Summary ---
Author Name Unknown Organization [facility] Address [address] [place] [address] Care Team Providers Care Football Scout Name Role Phone Oscar Laughlin M.D. Primary Care Provider +1 -[phone] Encounter Details Date Type Department Care Team (Late st Contact Info) Description 05/02/2022 Orders Only [facility] [address] [facility] [place] [address] Screening Lipid; Screening Mammogram Breast [...] How often do you attend chur or yazidism services? More than 4 times per year 07/29/2020 Do you belong to any clubs o r organizations such as sikhism groups, unions, fraternal or athletic groups, or [...] Answer Date Recorded PHQ-2 Score 2 04/12/2020 [facility] of Occupat ional Health - [...] or slept in a fpc (including now)? No 07/29/2020 Depression Answer Date [...] Master's degree (e.g., MA, MS, Fabio, MEd, MAINTENANCE AND UTILITIES SUPERVISOR, ELICIA) 03/11/2020 Sex and Gender Information Value Date Recorded Sex Assigned at Female 04/27/2017 8:11 AM MONOTYPE KEYBOARD OPERATOR Gender Identity Female 04/27/2017 8:11 AM MONOTYPE KEYBOARD OPERATOR Sexual Orientation Straight 04/27/2017 8: 11 AM MONOTYPE KEYBOARD OPERATOR documented as of this encounter Plan of Treatment Not on file documented as of this encounter Visit Diagnoses Diagnosis Screening Lipid Screening Mammogram Breast Cancer documented in this encounter Additional Health Concerns Assessment Noted Time PHQ-9 Depression Total Score: 7 04/12/19 21 10:38 AM MONOTYPE KEYBOARD OPERATOR documented as of this encounter Care Teams Football Scout Relationship Specialty Start Date End Date Oscar Laughlin M.D. [address] [place] [address] PCP - General 08/10/16 documented as of this encounter
== END 2023-03-28 09:21 | disposition home or self-care (01) ==
LOC: NFLDREF 03-29 06:33
PROVIDERS: PCP Family Medicine; Referring Provider Family Medicine; Visit Provider Family Medicine
DX: I10 Essential (primary) hypertension (principal)
CPT/HCPCS: 80048

== ENCOUNTER 2023-04-10 09:01 | Outpatient (CLI) | payer OTHER, SELFPAY ==
--- OUTSIDE RECORDS SUMMARY | 2023-04-10 09:03 | XMS_ITS | Clinical Summary ---
Author Name Unknown Organization [facility] Address [address] [place] [address] Care Team Providers Care Wafer Production Worker Name Role Phone Oscar Laughlin M.D. Primary Care Provider +1 -[phone] Source Comments Patient records contain information from all sites at [facility]. For routine questions regarding patient records, call [phone] during business hours, M-F 8:00 AM - 5:00 PM Central Time. Record requests for emergency care only can be directed to [phone] at any time.[facility] Allergies Active Allergy Reactions Criticality Noted Date [...] Description 02/15/2023 Refill Department of Family Medicine, [facility], in [place], [place] [address] [place] [address] Oscar Laughlin M.D. Med Refill 01/30/2023 Orders Only [facility] PCP [facility] M[facility] Oscar Laughlin M.D. Screening Lipid; Screening Mammogram Breast Cancer from Last 3 Months Immunizations Name Administration [...] How often do you attend chur or latter-day services? More than 4 times per year 07/29/2020 Do you belong to any clubs o r organizations such as judaism groups, unions, fraternal [...] Answer Date Recorded PHQ-2 Score 2 04/12/2020 [facility] of Occupat ional Health - Occupational Stress [...] slept in a senior care (including now)? No 07/29/2020 Depression Answer Date [...] Master's degree (e.g., MA, MS, Fabio, MEd, ASSISTANT DEAN OF STUDENTS, ELICIA) 03/11/2020 Sex and Gender Information Value Date Recorded Sex Assigned at Female 04/27/2017 8:11 AM METROLOGY SPECIALIST Gender Identity Female 04/27/2017 8:11 AM METROLOGY SPECIALIST Sexual Orientation Straight 04/27/2017 8: 11 AM METROLOGY SPECIALIST Last Filed Vital Signs Vital Sign Reading [...] 01/06/2021 01/07/2016 Mammogram 07/23/2021 07/23/2020 COVID-19 Vaccine ( season) 2022 12/09/2021, 01/07/2021, 06/21/2020, Additional history [...] age to complete this topic Care Teams Wafer Production Worker Relationship Specialty Start Date End Date Oscar Laughlin M.D. [address] [place] [phone] PCP - General 08/10/16
--- OUTSIDE RECORDS SUMMARY | 2023-04-10 09:03 | XMS_ITS | Clinical Summary ---
Author Name Unknown Organization [facility] Address [place], [place] [address] Care Team Providers Care Qa Lead Name Role Phone Oscar Laughlin MD Primary [...] VAGINAL VACU Epidu ral N Brandi ng [facility] 08/24 Term 39w 1d M DAYTON MCCOLLUM(EM ZOE) Delivery Location:[facility] Last Filed Vital Signs Vital Sign Reading [...] 7:41 PM 08/24/2014 8:16 AM Care Teams Qa Lead Relationship Specialty Start Date End Date Oscar Laughlin MD PCP - General Family Practice 07/24/14
--- OUTSIDE RECORDS SUMMARY | 2023-04-10 09:04 | XMS_ITS | Encounter Summary ---
Author Name Unknown Organization [facility] Address [address] [place] [address] Care Team Providers Care Sed Middle School Teacher Name Role Phone Oscar Laughlin M.D. Primary Care Provider [phone] -[phone] Reason for Visit * Reason Comments Med Refill Encounter Details Date Type Department Care Team (Late st Contact Info) Description 02/15/2023 Refill Department of Family Medicine, [facility], in [place], [place] [address] [place] [address] Oscar Laughlin M.D. [address] [place] [address] Med Refill Social History Tobacco [...] often do you attend chur ch or latter-day services? More than 4 times per year 07/29/2020 Do you belong to any clubs o r organizations such as caodaism groups, unions, fraternal [...] Answer Date Recorded PHQ-2 Score 2 04/12/2020 [facility] of Occupat ional Health - Occupational [...] slept in a group home (including now)? No 07/29/2020 Depression Answer Date [...] Master's degree (e.g., MA, MS, Fabio, MEd, GRAIN OILSEED OR PASTURE FARM MANAGER, ELICIA) 03/11/2020 Sex and Gender Information Value Date Recorded Sex Assigned at Female 04/27/2017 8:11 AM COMMISSARY STEWARD Gender Identity Female 04/27/2017 8:11 AM COMMISSARY STEWARD Sexual Orientation Straight 04/27/2017 8: 11 AM COMMISSARY STEWARD documented as of this encounter Plan of Treatment Not on file documented as of this encounter Visit Diagnoses Not on filedocumented in this encounter Additional Health Concerns Assessment Noted Time PHQ-9 Depression Total Score: 7 04/12/19 21 10:38 AM COMMISSARY STEWARD documented as of this encounter Care Teams Sed Middle School Teacher Relationship Specialty Start Date End Date Oscar Laughlin M.D. [address] [place] [address] PCP - General 08/10/16 documented as of this encounter
--- OUTSIDE RECORDS SUMMARY | 2023-04-10 09:04 | XMS_ITS ---
Author Name Unknown Organization [facility] Address [address] [place] [address] Care Team Providers Care Foundation Drill Operator Helper Name Role Phone Unavailable Unavailable Unavailable Surgery Details Not on file Complications Check Surgery Details section. Procedure Estimated Blood Loss Check Surgery Details section. Procedure Findings Check Surgery Details section. Procedure Specimens Taken Check Surgery Details section.
--- OUTSIDE RECORDS SUMMARY | 2023-04-10 09:04 | XMS_ITS | Referral Summary ---
Author Name Unknown Organization [facility] Address [address] [place] [address] Care Team Providers Care Rn Security Name Role Phone Oscar Laughlin M.D. Primary Care Provider +1 -[phone] Source Comments Patient records contain information from all sites at [facility]. For routine questions regarding patient records, call [phone] during business hours, M-F 8:00 AM - 5:00 PM Central Time. Record requests for emergency care only can be directed to [phone] at any time.[facility] Encounters Date Type Department Care Team Description 02/15/2023 Refill Department of Family Medicine, [facility], in [place], [place] [address] [place] [address] Oscar Laughlin M.D. Med Refill 01/30/2023 [facility] M.[facility]. Screening Lipid; Screening Mammogram Breast Cancer from Last 3 Months Allergies Active Allergy [...] How often do you attend chur or sikh services? More than 4 times per year 07/29/2020 Do you belong to any clubs o r organizations such as roman catholic groups, unions, fraternal or athletic groups, or [...] Answer Date Recorded PHQ-2 Score 2 04/12/2020 [facility] of Occupat ional Health - Occupational Stress [...] or slept in a mcc (including now)? No 07/29/2020 Depression Answer Date [...] Master's degree (e.g., MA, MS, Fabio, MEd, BACK PAD INSPECTOR, ELICIA) 03/11/2020 Sex and Gender Information Value Date Recorded Sex Assigned at Female 04/27/2017 8:11 AM TREE TRIMMING LINE TECHNICIAN Gender Identity Female 04/27/2017 8:11 AM TREE TRIMMING LINE TECHNICIAN Sexual Orientation Straight 04/27/2017 8: 11 AM TREE TRIMMING LINE TECHNICIAN Last Filed Vital Signs Vital Sign Reading [...] of Treatment Not on file Care Teams Rn Security Relationship Specialty Start Date End Date Oscar Laughlin M.D. NPNathan: [phone] [address] [place] [phone] PCP - General 08/10/16
--- OUTSIDE RECORDS SUMMARY | 2023-04-10 09:04 | XMS_ITS | Encounter Summary ---
Author Name Unknown Organization [facility] Address [address] [place] [address] Care Team Providers Care Suction Plate Roller Hand Name Role Phone Oscar Laughlin M.D. Primary Care Provider [phone] [phone] Encounter Details Date Type Department Care Team (Late st Contact Info) Description 01/01/2023 10:20 AM SHEETER WAXER OPERATOR Clinical Support Department of Pediatrics in [place], [place] [address] [place] [address] Leah Gordon, C.M.A. [address] [place] [address] Social History Tobacco Use Types [...] often do you attend chur ch or rastafari services? More than 4 times per year 07/29/2020 Do you belong to any clubs o r organizations such as mu-ism groups, unions, fraternal [...] Answer Date Recorded PHQ-2 Score 2 04/12/2020 [facility] of Occupat ional Health - [...] slept in a care home (including now)? No 07/29/2020 Depression Answer [...] Master's degree (e.g., MA, MS, Fabio, MEd, FIELD TEST ENGINEER, ELICIA) 03/11/2020 Sex and Gender Information Value Date Recorded Sex Assigned at Female 04/27/2017 8:11 AM SHEETER WAXER OPERATOR Gender Identity Female 04/27/2017 8:11 AM SHEETER WAXER OPERATOR Sexual Orientation Straight 04/27/2017 8: 11 AM SHEETER WAXER OPERATOR documented as of this encounter Plan of Treatment Not on file documented as of this encounter Visit Diagnoses Not on filedocumented in this encounter Additional Health Concerns Assessment Noted Time PHQ-9 Depression Total Score: 7 04/12/19 21 10:38 AM SHEETER WAXER OPERATOR documented as of this encounter Care Teams Suction Plate Roller Hand Relationship Specialty Start Date End Date Oscar Laughlin M.D. [address] [place] [phone] PCP - General 08/10/16 documented as of this encounter
--- OUTSIDE RECORDS SUMMARY | 2023-04-10 09:04 | XMS_ITS | Encounter Summary ---
Author Name Unknown Organization [facility] Address [address] [place] [address] Care Team Providers Care Water Resource Specialist Name Role Phone Oscar Laughlin M.D. Primary Care Provider [phone] [phone] Reason for Referral * Outpatient (Routine) - Authorized Specialty Diagnoses / Procedures Referred By Contac t Referred To Contact Diagnoses Screening Mammogram Breast Cancer Procedures BI Breast Screening Bilateral with Tomosynthesis Oscar Laughlin M.D. [address], [place] [address] [facility] Referral ID Status Reason Start Date Expiration Date V isits Requested Visits Authorized [id number] Authorized 01/30/2023 01/30/2024 1 1 ECTIONAL SUPPLY SUPERVISOR Encounter Details Date Type Department Care Team (Late st Contact Info) Description 01/30/2023 Orders Only [facility] PCP [facility] Oscar Laughlin M.D. [address] [place] [address] Screening Lipid; Screening Mammogram Breast [...] How often do you attend chur or mormon services? More than 4 times per year 07/29/2020 Do you belong to any clubs o r organizations such as shinto groups, unions, fraternal or athletic groups, or [...] Answer Date Recorded PHQ-2 Score 2 04/12/2020 [facility] of Occupat ional Health - [...] or slept in a intermediate (including now)? No 07/29/2020 Depression Answer Date [...] Master's degree (e.g., MA, MS, Fabio, MEd, WEBLOGIC ADMINISTRATOR, ELICIA) 03/11/2020 Sex and Gender Information Value Date Recorded Sex Assigned at Female 04/27/2017 8:11 AM CORRECTIONAL SUPPLY SUPERVISOR Gender Identity Female 04/27/2017 8:11 AM CORRECTIONAL SUPPLY SUPERVISOR Sexual Orientation Straight 04/27/2017 8: 11 AM CORRECTIONAL SUPPLY SUPERVISOR documented as of this encounter Plan [...] Total Score: 7 04/12/19 21 10:38 AM CORRECTIONAL SUPPLY SUPERVISOR documented as of this encounter Care Teams Water Resource Specialist Relationship Specialty Start Date End Date Oscar Laughlin M.D. [address] [place] [address] PCP - General 08/10/16 documented as of this encounter
--- OUTSIDE RECORDS SUMMARY | 2023-04-10 09:04 | XMS_ITS | Encounter Summary ---
Author Name Unknown Organization [facility] Address [address] [place] [address] Care Team Providers Care Educational Administration Teacher Name Role Phone Oscar Laughlin M.D. Primary Care Provider +1 [phone] Reason for Visit * Reason Comments Med Refill Encounter Details Date Type Department Care Team (Late st Contact Info) Description 05/17/2022 Refill Department of Family Medicine, [facility], in [place], [place] [address] [place] [phone] Oscar Laughlin M.D. [address], [place] [address] Med Refill Social History Tobacco [...] often do you attend chur ch or sabianism services? More than 4 times per year 07/29/2020 Do you belong to any clubs o r organizations such as latter-day groups, unions, fraternal or athletic groups, or [...] Answer Date Recorded PHQ-2 Score 2 04/12/2020 [facility] of Occupat ional Health - Occupational Stress [...] or slept in a jail (including now)? No 07/29/2020 Depression Answer Date [...] Master's degree (e.g., MA, MS, Fabio, MEd, GAMING COMMISSIONER, ELICIA) 03/11/2020 Sex and Gender Information Value Date Recorded Sex Assigned at Female 04/27/2017 8:11 AM PIER RUNNER Gender Identity Female 04/27/2017 8:11 AM PIER RUNNER Sexual Orientation Straight 04/27/2017 8: 11 AM PIER RUNNER documented as of this encounter Plan of Treatment Not on file documented as of this encounter Visit Diagnoses Not on filedocumented in this encounter Additional Health Concerns Assessment Noted Time PHQ-9 Depression Total Score: 7 04/12/19 21 10:38 AM PIER RUNNER documented as of this encounter Care Teams Educational Administration Teacher Relationship Specialty Start Date End Date Oscar Laughlin M.D. [address] [place] [address] PCP - General 08/10/16 documented as of this encounter
--- OUTSIDE RECORDS SUMMARY | 2023-04-10 09:04 | XMS_ITS | Encounter Summary ---
Author Name Unknown Organization [facility] Address [address] [place] [address] Care Team Providers Care Meat Lugger Name Role Phone Oscar Laughlin M.D. Primary Care Provider +1 [phone] Encounter Details Date Type Department Care Team (Late st Contact Info) Description 08/02/2022 Orders Only [facility] Oscar Laughlin M.D. [address] [facility] [place] [place] [address] Social History Tobacco Use Types [...] often do you attend chur ch or jew services? More than 4 times per year 07/29/2020 Do you belong to any clubs o r organizations such as gnosticism groups, unions, fraternal [...] Answer Date Recorded PHQ-2 Score 2 04/12/2020 [facility] - Occupational Stress Questionnaire Answer Date Recorded [...] or slept in a detention (including now)? No 07/29/2020 Depression Answer Date [...] Master's degree (e.g., MA, MS, Fabio, MEd, CYLINDER INSPECTOR AND TESTER, ELICIA) 03/11/2020 Sex and Gender Information Value Date Recorded Sex Assigned at Female 04/27/2017 8:11 AM SERGEANT OF CORRECTIONS Gender Identity Female 04/27/2017 8:11 AM SERGEANT OF CORRECTIONS Sexual Orientation Straight 04/27/2017 8: 11 AM SERGEANT OF CORRECTIONS documented as of this encounter Plan of Treatment Not on file documented as of this encounter Visit Diagnoses Not on filedocumented in this encounter Additional Health Concerns Assessment Noted Time PHQ-9 Depression Total Score: 7 04/12/19 21 10:38 AM SERGEANT OF CORRECTIONS documented as of this encounter Care Teams Meat Lugger Relationship Specialty Start Date End Date Oscar Laughlin M.D. [address] [place] [phone] PCP - General 08/10/16 documented as of this encounter
--- OUTSIDE RECORDS SUMMARY | 2023-04-10 09:04 | XMS_ITS | Encounter Summary ---
Author Name Unknown Organization [facility] Address [address] [place] [address] Care Team Providers Care Colorman Name Role Phone Oscar Laughlin M.D. Primary Care Provider [phone] [phone] Reason for Visit * Reason Comments Med Refill Encounter Details Date Type Department Care Team (Late st Contact Info) Description 11/19/2022 Refill Department of Family Medicine, [facility], in [place], [place] [address] [place] [phone] Oscar Laughlin M.D. [address] [place] [address] Med Refill Social History Tobacco [...] often do you attend chur ch or jain services? More than 4 times per year 07/29/2020 Do you belong to any clubs o r organizations such as anglican groups, unions, fraternal [...] Answer Date Recorded PHQ-2 Score 2 04/12/2020 [facility] of Occupat ional Health - [...] degree (e.g., MA, MS, Fabio, MEd, SUPERVISOR OFFSET PLATE PREPARATION, ELICIA) 03/11/2020 Sex and Gender Information Value Date Recorded Sex Assigned at Female 04/27/2017 8:11 AM LAN ENGINEER Gender Identity Female 04/27/2017 8:11 AM LAN ENGINEER Sexual Orientation Straight 04/27/2017 8: 11 AM LAN ENGINEER documented as of this encounter Plan of Treatment Not on file documented as of this encounter Visit Diagnoses Not on filedocumented in this encounter Additional Health Concerns Assessment Noted Time PHQ-9 Depression Total Score: 7 04/12/19 21 10:38 AM LAN ENGINEER documented as of this encounter Care Teams Colorman Relationship Specialty Start Date End Date Oscar Laughlin M.D. [address] [place] [address] PCP - General 08/10/16 documented as of this encounter
--- OUTSIDE RECORDS SUMMARY | 2023-04-10 09:04 | XMS_ITS | Encounter Summary ---
Author Name Unknown Organization [facility] Address [address] [place] [address] Care Team Providers Care Coating Technician Name Role Phone Oscar Laughlin M.D. Primary Care Provider [phone] [phone] Reason for Visit * Reason Comments Med Refill Encounter Details Date Type Department Care Team (Late st Contact Info) Description 08/21/2022 Refill Department of Family Medicine, [facility], in [place], [place] [address] [place] [phone] Oscar Laughlin M.D. [address], [place] [address] Med Refill Social History Tobacco [...] often do you attend chur ch or hindu services? More than 4 times per year 07/29/2020 Do you belong to any clubs o r organizations such as buddhism groups, unions, fraternal [...] Answer Date Recorded PHQ-2 Score 2 04/12/2020 [facility] of Occupat ional Health - [...] Master's degree (e.g., MA, MS, Fabio, MEd, DIRECTOR OF APPLICATION DEVELOPMENT, ELICIA) 03/11/2020 Sex and Gender Information Value Date Recorded Sex Assigned at Female 04/27/2017 8:11 AM FILTER OPERATOR Gender Identity Female 04/27/2017 8:11 AM FILTER OPERATOR Sexual Orientation Straight 04/27/2017 8: 11 AM FILTER OPERATOR documented as of this encounter Plan of Treatment Not on file documented as of this encounter Visit Diagnoses Not on filedocumented in this encounter Additional Health Concerns Assessment Noted Time PHQ-9 Depression Total Score: 7 04/12/19 21 10:38 AM FILTER OPERATOR documented as of this encounter Care Teams Coating Technician Relationship Specialty Start Date End Date Oscar Laughlin M.D. [address] [place] [address] PCP - General 08/10/16 documented as of this encounter
--- OUTSIDE RECORDS SUMMARY | 2023-04-10 09:04 | XMS_ITS | Encounter Summary ---
Author Name Unknown Organization [facility] Address [address] [place] [address] Care Team Providers Care Asphalt Heater Operator Name Role Phone Oscar Laughlin M.D. Primary Care Provider [phone] [phone] Encounter Details Date Type Department Care Team (Late st Contact Info) Description 05/02/2022 Orders Only [facility] Oscar Laughlin M.D. [address] [facility] [place] [address] Screening Lipid; Screening Mammogram Breast [...] How often do you attend chur or religion services? More than 4 times per year 07/29/2020 Do you belong to any clubs o r organizations such as episcopalian groups, unions, fraternal [...] Answer Date Recorded PHQ-2 Score 2 04/12/2020 [facility] of Occupat ional Health - Occupational [...] Master's degree (e.g., MA, MS, Fabio, MEd, LUNG PULLER, ELICIA) 03/11/2020 Sex and Gender Information Value Date Recorded Sex Assigned at Female 04/27/2017 8:[address] JUDGE Gender Identity Female 04/27/2017 8:[address] JUDGE Sexual Orientation Straight 04/27/2017 8: [address] JUDGE documented as of this encounter Plan of Treatment Not on file documented as of this encounter Visit Diagnoses Diagnosis Screening Lipid Screening Mammogram Breast Cancer documented in this encounter Additional Health Concerns Assessment Noted Time PHQ-9 Depression Total Score: 7 04/12/19 21 10:[address] JUDGE documented as of this encounter Care Teams Asphalt Heater Operator Relationship Specialty Start Date End Date Oscar Laughlin M.D. [address] [place] [address] PCP - General 08/10/16 documented as of this encounter
--- NOTE | 2023-04-10 09:15 | MM_ITS ---
Patient: NATO MCCOLLUM Facility:?[facility] Patient ID:?[id number] Site Patient ID:?[id number]. Site :?1980 Study:?XRay-Breast Bilateral 3D W/CAD-04/10/2023 8:55:30 AM Ordering Physician:Ana Final Report: BILATERAL DIGITAL TOMOSYNTHESIS SCREENING MAMMOGRAM WITH COMPUTER-AIDED DETECTION CLINICAL HISTORY: Routine screening exam. COMPARISON: 07/23/2020 TECHNIQUE: Digital tomosynthesis mammogram in CC and MLO projections including computer- aided detection (CAD). BREAST COMPOSITION: Scattered fibroglandular densities. FINDINGS: RIGHT Breast: Normal breast tissue. No masses or achritectural distortion. No suspicious calcifications or adenopathy. LEFT Breast: Normal breast tissue. No masses or achritectural distortion. No suspicious calcifications or adenopathy. IMPRESSION: No suspicious findings. RECOMMENDATIONS: Annual bilateral screening mammography. BI-RADS category 1. Negative. Dictated by Geovani Hendrix MD @ 04/13/2023 10:15:22 AM Signed by:?Geovani Hendrix MD @04/13/2023 10:15:22 AM (Electronic Signature
== END 2023-04-10 09:02 | disposition home or self-care (01) ==
PROVIDERS: PCP Family Medicine; Visit Provider Family Medicine
DX: Z12.31 Encounter for screening mammogram for malignant neoplasm of breast (principal)
CPT/HCPCS: 77063; 77067

== ENCOUNTER 2023-06-13 19:46 | Outpatient (CLI) | payer OTHER, SELFPAY ==
--- OUTSIDE RECORDS SUMMARY | 2023-06-13 19:49 | XMS_ITS | Clinical Summary ---
Author Name Unknown Organization [facility] Address [place], [place] [address] Care Team Providers Care Flavor Tank Tender Name Role Phone Oscar Laughlin MD Primary [...] VAGINAL VACU Epidu ral N Brandi ng [facility] 08/24 Term 39w 1d M DAYTON MCCOLLUM(EM [facility]) Delivery Location:[facility] Last Filed Vital Signs Vital Sign [...] Health Maintenance Due Date Last Done Comments Tdap 1991 Depression screening for age 12+ 1992 HIV for age 15-65 1995 BMI (ht and wt on same day) for age 18+ 1998 Hepatitis C screening for ag e 18-79 1998 Tetanus booster 2000 COVID-19 vaccine series (2022- season) 2022 Influenza for age 9-49 10/28/2023 Pap test for age 21-65 02/03/2025 , 02/03/2022 Pneumococcal series for age 6-64 Aged Out No longer eligible b ased on patient's age to complete this topic Procedures Procedure Name Priority Date/Time Associated Diagnosis Comments HPV THIN PREP Routine 02/03/2022 12:00 PM RISK AND COMPLIANCE ANALYTICS DIRECTOR from Last 3 Months or Most Recently Relevant to Health Maintenance Results * HPV HIGH RISK (02/03/2022 12:00 PM RISK AND COMPLIANCE ANALYTICS DIRECTOR) TYPE 16 Negative Negative 02/07/2022 5:07 PM RISK AND COMPLIANCE ANALYTICS DIRECTOR [facility] TYPE 18 Negative Negative 02/07/2022 5:07 PM RISK AND COMPLIANCE ANALYTICS DIRECTOR [facility] OTHER HIGH RISK TYPES Negative Negative 02/07/2022 5:07 PM RISK AND COMPLIANCE ANALYTICS DIRECTOR [facility] Other (Cervical) 02/03/2022 12:00 PM RISK AND COMPLIANCE ANALYTICS DIRECTOR 02/06/2022 4:59 PM RISK AND COMPLIANCE ANALYTICS DIRECTOR Narrative [facility] - 02/07/2022 5:07 PM RISK AND COMPLIANCE ANALYTICS DIRECTOR HPV types 16, 18, 31, 33, 35, 39, 45, 51, 52, 56, 58, 59, 66 and 68 DNA were undetectable or below the pre-set threshold. Methodology: Ronna Costa 4800 HPV Test Regina Janelle Ames MD MICROBIOLOGY [facility] [address] [place] [address], from Last 3 Months or Most Recently Relevant to Health Maintenance Advance Directives * Full Code (Latest Code Status on File) Date Activated Date Inactivated Comments 08/24/2014 6:50 PM 08/26/2014 12:40 PM * Full Code Date Activated Date Inactivated Comments 08/24/2014 8:16 AM 08/24/2014 6:50 PM * Full Code Date Activated Date Inactivated Comments 08/23/2014 7:41 PM 08/24/2014 8:16 AM Care Teams Flavor Tank Tender Relationship Specialty Start Date End Date Oscar Laughlin MD PCP - General Family Practice 07/24/14
--- OUTSIDE RECORDS SUMMARY | 2023-06-13 19:50 | XMS_ITS ---
Author Name Unknown Organization [facility] Address [address] [place] [address] Care Team Providers Care Jewelry Finisher Name Role Phone Unavailable Unavailable Unavailable Surgery Details Not on file Complications Check Surgery Details section. Procedure Estimated Blood Loss Check Surgery Details section. Procedure Findings Check Surgery Details section. Procedure Specimens Taken Check Surgery Details section.
--- OUTSIDE RECORDS SUMMARY | 2023-06-13 19:50 | XMS_ITS | Clinical Summary ---
Author Name Unknown Organization [facility] Address [address] [place] [address] Care Team Providers Care Ornamental Plaster Sticker Name Role Phone Oscar Laughlin M.D. Primary Care Provider +1 [phone] Source Comments Patient records contain information from all sites at [facility]. For routine questions regarding patient records, call [phone] during business hours, M-F 8:00 AM - 5:00 PM Central Time. Record requests for emergency care only can be directed to [phone] at any time.[facility] Allergies Active Allergy Reactions Criticality Noted Date Comments Amoxicillin Rash 08/11/2011 Medications Medication Sig Dispensed Refills Start Date End Date Status buPROPion XL (WELLBUTRIN XL) 300 mg 24 hr tablet TAKE 1 TABLET BY MOUTH EVERY DAY IN THE MORNING 90 tablet 3 05/24/2020 Active hydrOXYzine (ATARAX) 25 mg tablet TAKE 1 TABLET (25 MG) BY MOUTH AT BEDTIME NEEDED (ANXIETY/INSOM GRISEL). 90 tablet 05/21/2023 Active hydrOXYzine (ATARAX) 25 mg tablet TAKE 1 TABLET (25 MG) BY MOUTH AT BEDTIME NEEDED (ANXIETY/INSOM GRISEL). 90 tablet 02/16/2023 05/21/2023 Discontinued Active Problems Problem Noted Date Diagnosed Date [...] Encounters Date Type Department Care Team Description 05/19/2023 Refill Department of Family Medicine, [facility], in [place], [place] [address] [place] [address] Sachi Ron M.D. Med Refill from Last 3 Months Immunizations Name Administration [...] How often do you attend chur or mandaeism services? More than 4 times per year 07/29/2020 Do you belong to any clubs o r organizations such as yarsanism groups, unions, fraternal [...] Answer Date Recorded PHQ-2 Score 2 04/12/2020 [facility] of Occupat ional Health - Occupational [...] or slept in a residential (including now)? No 07/29/2020 Depression Answer Date [...] Master's degree (e.g., MA, MS, Fabio, MEd, PHOTOGRAPHY INTERN, ELICIA) 03/11/2020 Sex and Gender Information Value Date Recorded Sex Assigned at Female 04/27/2017 8:11 AM HEALTHCARE ARCHITECT Gender Identity Female 04/27/2017 8:11 AM HEALTHCARE ARCHITECT Sexual Orientation Straight 04/27/2017 8: 11 AM HEALTHCARE ARCHITECT Last Filed Vital Signs Vital Sign Reading [...] Health Maintenance Due Date Last Done Comments Depression Monitoring (PHQ-9) 1980 Hepatitis C Screening 1980 Hepatitis B Vaccines (2 of 3 - 19+ 3-dose series) 05/20/1999 04/22/1999 Lipid (Cholesterol) Screening 01/06/2021 01/07/2016 Mammogram 07/23/2021 [...] Procedure Name Priority Date/Time Associated Diagnosis Comments THINPREP W/HPV CO-TEST SCREEN Routine 07/29/2020 2:32 PM CDT High Risk Human Papillomavirus Deoxyribonucleic Acid Test Positive Cervix BI BREAST SCREENING BILATERAL WITH TOMOSYNTHESIS RAD - Routine (most inpatients and all outpatients) 07/23/2020 10:35 AM CDT Screening Mammogram Breast Cancer HIV-1/-2 AG AND AB SCREEN Routine 05/26/2016 1:49 PM CDT LIPID PANEL, S Routine 01/07/2016 9:44 AM HEALTHCARE ARCHITECT from Last 3 Months or Most Recently Relevant to Health Maintenance Results * (ABNORMAL) ThinPrep w/HPV Co-Test Screen (07/29/2020 2:32 PM CDT) (A) 08/09/2020 12:35 PM CDT [facility] Report electronically signed by Olvin Mota MD I verify that I have examined all relevant slides/material s for the specimen(s) and rendered or confirmed the diagnosis. (A) 08/09/2020 12:35 PM CDT [facility] Gross Description Received specimen in a ThinPrep vial.(A) 08/09/2020 12:35 PM CDT [facility] Pap Test Source Cervical/Endoce rvical(A) 08/09/2020 12:35 PM CDT [facility] Clinical History POLY 1, HPV HR(A) 08/09/2020 12:35 PM CDT [facility] Menstrual Status(LMP, PM, ) LMP 07/18/2020(A) 08/09/2020 12:35 PM CDT [facility] Hormone Therapy/Contracep tives No(A) 08/09/2020 12:35 PM CDT [facility] Interpretation Cervical/Endoce rvical ??(ThinPrep): Satisfactory for Evaluation Epithelial Cell Abnormality Atypical squamous cells of undetermined significance High Risk HPV: ??Negative Negative for High Risk HPV by nucleic acid amplification. The following High Risk HPV types were not detected: 16, 18, 31, 33, 35, 39, 45, 51, 52, 56, 58, 59, 66, and 68. (A) 08/09/2020 12:35 PM CDT [facility] Varies (Cervix/Endocerv ix) 07/29/2020 2:32 PM CDT 07/30/2020 6:30 AM CDT Cornell Jansen P.A.-C. LAB PAP PATHDX ORDERABLES [facility] [address] [place] [address], [facility] [address] [place] [address] * BI Breast Screening Bilateral with Tomosynthesis (07/23/2020 10:35 AM CDT) Anatomical Region Laterality Modality Breast, Breast Imaging RST L OS, Breast Imaging ARZ LOS, Breast Imaging FLA LOS Bilateral Mammography 07/23/2020 4:48 PM CDT Impressions 07/23/2020 4:49 PM CDT Negative. RECOMMENDATION: ??Annual Screening Mammogram Annual screening mammogram. ASSESSMENT: ??BI-RADS: 1: Negative. Narrative 07/23/2020 4:49 PM CDT EXAM: ??BI BREAST SCREENING BILATERAL WITH TOMOSYNTHESIS Current study was evaluated with a Computer Aided Detection (CAD) system. INDICATION: ??Screening mammogram. COMPARISON: ??None, this is a baseline screening exam. DENSITY: ??c. The breast(s) are heterogeneously dense, which may obscure small masses. FINDINGS: ??No mammographic findings of malignancy. Procedure Note Rolan Toribio M.D. - 07/23/2020 EXAM: BI BREAST SCREENING BILATERAL WITH TOMOSYNTHESIS Current study was evaluated with a Computer Aided Detection (CAD) system. INDICATION: Screening mammogram. COMPARISON: None, this is a baseline screening exam. DENSITY: c. The breast(s) are heterogeneously dense, which may obscuresmall masses. FINDINGS: No mammographic findings of malignancy. IMPRESSION: Negative. RECOMMENDATION: Annual Screening Mammogram Annual screening mammogram. ASSESSMENT: BI-RADS: 1: Negative. Oscar Laughlin M.D. IMG BI PROCEDURES * HIV-1/-2 Ag and Ab Screen (05/26/2016 1:49 PM CDT) HIV-1/-2 Antibody Negative Negative POWERCHART Comment: Negative result does not rule out HIV infection. If acute HIV infection is suspected in a high-risk individual, submit plasma specimen for HIV-1 RNA quantification test (HIVDQ) and/or HIV-2 DNA/RNA test (FHV2Q). Test Performed by: [address] [id number] Blood 05/26/2016 1:49 PM CDT Tae Allan M.D. LAB MICROBIOLOGY - BLOOD ORDERABLES POWERCHART * Lipid Panel (01/07/2016 9:44 AM HEALTHCARE ARCHITECT) Calculated LDL 95 <=129 MGDL POWERCHART Comment: 2014 National Lipid Association recommendations for LDL-C in adults ages 18 and up: Desirable <100 mg/dL Above desirable 100-129 mg/dL Borderline high 130-159 mg/dL High 160-189 mg/dL Very High 190 mg/dL 2014 National Lipid Association recommendations for LDL-C in children ages 2 to 17. Acceptable <110 mg/dL Borderline High 110-129mg/dL High 130 mg/dL LDL-C >190mg/dL: The markedly elevated LDL level is suggestive of a genetic condition such as familial hypercholesterolemia(FH) or familial defective apolipoprotein B-100 (FDB). Molecular genetic testing for FH and FDB is available through [facility]: FH/ADH Genetic Reflex Panel (test ADHP). Acquired (non-genetic) causes of markedly increased LDL cholesterol include cholestatic liver disease due to the presence of LpX. If a genetic form of hypercholesterolemia is suspected, family studies including biochemical testing for lipids (total cholesterol,triglycerides, LDL cholesterol and HDL cholesterol) are recommended. ??Please contact the laboratory at or the on-line test catalog at [facility] for information about how to order these tests or to speak with a genetic counselor. Further interpretation would require clinical information. Total Cholesterol/HDL Ratio 2.93 POWERCHART Cholesterol, Total 164 <=199 MGDL POWERCHART Comment: 2014 National Lipid Association recommendations for Total Cholesterol in adults ages 18 and up: Desirable <200 mg/dL Borderline high 200-239 mg/dL High 240 mg/dL 2014 National Lipid Association recommendations for Total Cholesterol in children ages 2 to 17. Acceptable <170 mg/dL Borderline High 170-199 mg/dL High 200 mg/dL HX HDL 56 >=50 MGDL POWERCHART Comment: 2014 National Lipid Association recommendations for HDL-C in adults ages 18 and up: Low <40 mg/dL (Men) Low <50 mg/dL (Women) 2014 National Lipid Association recommendations for HDL-C in children ages 2 to 17. Low <40 mg/dL Borderline Low 40-45 mg/dL Acceptable >45 mg/dL Triglycerides 63 <=149 MGDL POWERCHART Comment: 2014 National Lipid Association recommendations for Triglycerides in adults ages 18 and up: Normal <150 mg/dL Borderline High 150-199 mg/dL High 200-499 mg/dL Very High 500 mg/dL 2014 National Lipid Association recommendations for Triglycerides in children ages 2 to 9. Acceptable <75 mg/dL Borderline High 75-99 mg/dL High 100 mg/dL 2014 National Lipid Association recommendations for Triglycerides in children ages 10 to 17. Acceptable <90 mg/dL Borderline High 90-129 mg/dL High 130 mg/dL Trigs >400mg/dL: Triglycerides >400 mg/dL. Calculated LDL cholesterol is not valid. Non-HDL cholesterol may be used for risk assessment when triglycerides are >400mg/dL. HXLDL/HDL 2 POWERCHART Blood 01/07/2016 9:44 AM HEALTHCARE ARCHITECT Oscar Laughlin M.D. LAB BLOOD ADD-ON POWERCHART from Last 3 Months or Most Recently Relevant to Health Maintenance Care Teams Ornamental Plaster Sticker Relationship Specialty Start Date End Date Oscar Laughlin M.D. [address] [phone] PCP - General 08/10/16
--- OUTSIDE RECORDS SUMMARY | 2023-06-13 19:50 | XMS_ITS | Referral Summary ---
Author Name Unknown Organization [facility] Address [address] [place] [address] Care Team Providers Care Plumber And Tinner Name Role Phone Oscar Laughlin M.D. Primary Care Provider [phone] Source Comments Patient records contain information from all sites at [facility]. For routine questions regarding patient records, call [phone] during business hours, M-F 8:00 AM - 5:00 PM Central Time. Record requests for emergency care only can be directed to [phone] at any time.[facility] Encounters Date Type Department Care Team Description 05/19/2023 Refill Department of Family Medicine, [facility], in [place], [place] [address] [place] [address] Sachi Ron M.D. Med Refill from Last 3 Months Allergies Active Allergy [...] How often do you attend chur or buddhist services? More than 4 times per year 07/29/2020 Do you belong to any clubs o r organizations such as pentecostal groups, unions, fraternal or athletic groups, or [...] Answer Date Recorded PHQ-2 Score 2 04/12/2020 [facility] - [...] Master's degree (e.g., MA, MS, Fabio, MEd, AMBULATORY SERVICE REPRESENTATIVE, ELICIA) 03/11/2020 Sex and Gender Information Value Date Recorded Sex Assigned at Female 04/27/2017 8:11 AM MILK BOTTLING MACHINE OPERATOR Gender Identity Female 04/27/2017 8:11 AM MILK BOTTLING MACHINE OPERATOR Sexual Orientation Straight 04/27/2017 8: 11 AM MILK BOTTLING MACHINE OPERATOR Last Filed Vital Signs Vital Sign Reading [...] CDT Plan of Treatment Not on file Procedures Procedure Name Priority Date/Time Associated Diagnosis [...] LIPID PANEL, S Routine 01/07/2016 9:44 AM MILK BOTTLING MACHINE OPERATOR from Last 3 Months or Most Recently [...] 2:32 PM CDT 07/30/2020 6:30 AM CDT Swetha Vázquez P.A.-C., P.A. LAB PAP PATHDX ORDERABLES [facility] [address] [place] [address], [facility] Cytology [address] [place] [address] * BI Breast Screening Bilateral with Tomosynthesis [...] HIV-2 DNA/RNA test (FHV2Q). Test Performed by: [place] [address] Blood 05/26/2016 1:49 PM CDT Tae Allan M.D. LAB MICROBIOLOGY - BLOOD ORDERABLES POWERCHART * Lipid Panel (01/07/2016 9:44 AM MILK BOTTLING MACHINE OPERATOR) Calculated LDL 95 <=129 MGDL POWERCHART Comment: [...] for FH and FDB is available through [facility] [employer]: FH/ADH Genetic Reflex Panel (test ADHP). Acquired (non-genetic) causes of markedly increased LDL cholesterol include cholestatic liver disease due to the presence of LpX. If a genetic form of hypercholesterolemia is suspected, family studies including biochemical testing for lipids (total cholesterol,triglycerides, LDL cholesterol and HDL cholesterol) are recommended. ??Please contact the laboratory at or the on-line test catalog at [employer] for information about how to order these [...] HXLDL/HDL 2 POWERCHART Blood 01/07/2016 9:44 AM MILK BOTTLING MACHINE OPERATOR Oscar Laughlin M.D. LAB BLOOD ADD-ON POWERCHART from Last 3 Months or Most Recently Relevant to Health Maintenance Care Teams Plumber And Tinner Relationship Specialty Start Date End Date Oscar Laughlin M.D. [address] [place] [phone] PCP - General 08/10/16
--- OUTSIDE RECORDS SUMMARY | 2023-06-13 19:50 | XMS_ITS | Encounter Summary ---
Author Name Unknown Organization [facility] Address [address] [place] [address] Care Team Providers Care Dump Truck Driver Off Highway Name Role Phone Oscar Laughlin M.D. Primary Care Provider [phone] Reason for Visit * Reason Comments Med Refill Encounter Details Date Type Department Care Team (Late st Contact Info) Description 05/19/2023 Refill Department of Family Medicine, [facility], in [place], [place] [address] [address] Sachi Ron M.D. [address] [place] [phone] Med Refill Social History Tobacco Use [...] often do you attend chur ch or scientology services? More than 4 times per year 07/29/2020 Do you belong to any clubs o r organizations such as tenriism groups, unions, fraternal [...] Date Recorded PHQ-2 Score 2 04/12/2020 [facility] [...] or slept in a prison (including now)? No 07/29/2020 Depression Answer Date [...] Master's degree (e.g., MA, MS, Fabio, MEd, HOTEL REGISTRATION CLERK, ELICIA) 03/11/2020 Sex and Gender Information Value Date Recorded Sex Assigned at Female 04/27/2017 8:11 AM CHILDRENS CLUB ATTENDANT Gender Identity Female 04/27/2017 8:11 AM CHILDRENS CLUB ATTENDANT Sexual Orientation Straight 04/27/2017 8: 11 AM CHILDRENS CLUB ATTENDANT documented as of this encounter Plan of Treatment Not on file documented as of this encounter Visit Diagnoses Not on filedocumented in this encounter Additional Health Concerns Assessment Noted Time PHQ-9 Depression Total Score: 7 04/12/19 21 10:38 AM CHILDRENS CLUB ATTENDANT documented as of this encounter Care Teams Dump Truck Driver Off Highway Relationship Specialty Start Date End Date Oscar Laughlin M.D. [address] [place] [address] PCP - General 08/10/16 documented as of this encounter
--- NOTE | 2023-07-04 11:41 | W.PM.SLEEP ---
Sleep Study Details Details Interpreting Provider: Sumeet Date of Sleep Study: 06/13/23 Sleep Study Details: STUDY TYPE:? Home unattended ? BMI:? Not recorded ORDERING PROVIDER:? Not a local provider INDICATION:? Concerns about sleep apnea ? SLEEP SUMMARY:? 368.7 minutes monitored RESPIRATORY SUMMARY:? AHI 2.4, in the supine position AHI was 4.3 Low oxygen 90 Snoring 55.3% PERIODIC LIMB MOVEMENTS OF SLEEP:? Not recorded CARDIAC:? Range 60-108, mean 71 IMPRESSION:? This study is not demonstrate clinically significant obstructive sleep apnea. If sleep disorder is strongly suspected recommend in-lab study potentially with MSLT to follow if patient has significant daytime sleepiness. RECOMMENDATION: See above
== END 2023-06-13 19:47 | disposition home or self-care (01) ==
PROVIDERS: PCP Family Medicine
DX: G47.30 Sleep apnea, unspecified (principal); G47.10 Hypersomnia, unspecified; R06.83 Snoring
CPT/HCPCS: 95806

== ENCOUNTER 2024-05-20 08:38 | Outpatient (CLI) | payer OTHER, SELFPAY ==
--- NOTE | 2024-05-20 08:45 | CRLHL7_ITS ---
For Patients: As a result of the Century Cures Act, medical imaging exams and procedure reports are released immediately into your electronic medical record. You may view this report before your referring provider. If you have questions, please contact your health care provider. BILATERAL SCREENING MAMMOGRAM WITH COMPUTER-AIDED DETECTION AND TOMOSYNTHESIS TECHNIQUE: CC and MLO views were obtained. These mammographic images have been obtained using full-field digital technique. These mammographic images were interpreted with the benefit of computer-aided detection. Breast tomosynthesis was used in this interpretation. COMPARISON FILM: 04/10/23, 07/23/20. FINDINGS: There are scattered areas of fibroglandular density. IMPRESSION: There is no radiographic evidence for malignancy. ASSESSMENT: BI-RADS Category 1: Negative RECOMMENDATION: Routine screening mammogram in 1 year. A lay language report of this examination will be provided to the patient. GEOVANI STAPLES M.D. Diagnostic Radiologist [email or web address] JORGE/pancho Transcribed: 05/26/2024, 5:[address]/Dictated by: Geovani Staples MD @ 05/26/2024 12:25:00 PM (Electronically Signed)
== END 2024-05-20 08:39 | disposition home or self-care (01) ==
LOC: MAMMO 08:39
PROVIDERS: PCP Family Medicine; Visit Provider Family Medicine
DX: Z12.31 Encounter for screening mammogram for malignant neoplasm of breast (principal)
CPT/HCPCS: 77063; 77067